=== PATIENT | male | born 1960 | race Caucasian/White ===

== ENCOUNTER → 2021-07-29 | Outpatient (CLI) | payer BC ==
--- NOTE | 2021-07-29 14:23 | CT ---
EXAMINATION TYPE: CT ChestAbdPelvis w con DATE OF EXAM: 07/29/2021 COMPARISON: None available HISTORY: COLON CA CT DLP: 2157 mGycm Automated exposure control for dose reduction was used. CONTRAST: CT scan of the chest, abdomen and pelvis is performed with Oral Contrast and with IV Contrast, patien t injected with 100ML mL of Isovue 300. FINDINGS: LUNGS: Minimal COPD changes seen in the upper lobes more on the right side. Scattered linear peripher al pulmonary atelectasis. No definite lung nodule or suspicious lesion identified. Patent trachea and main bronchi. No pleural effusion MEDIASTINUM: Subcentimeter hilar, mediastinal and axillary lymph nodes, nonspecific. There are no gre ater than 1 cm hilar or mediastinal lymph nodes. No cardiomegaly. Coronary and arterial atherosclerot ic calcifications. The pulmonary trunk measures 3.5 cm which may suggest pulmonary hypertension. No pericardial effusion is seen. OTHER: Prominent inferior aspect of the left thyroid gland, please correlate clinically and with thy roid ultrasound results. Minimal gynecomastia changes. No aggressive bone lesion. LIVER/GB: No definite hepatic focal lesion. The gallbladder isn't completely distended. PANCREAS: No significant abnormality is seen. SPLEEN: No significant abnormality is seen. ADRENALS: No significant abnormality is seen. KIDNEYS: Atrophic superior half/moiety of the right kidney likely secondary to severe stenosis of the right superior renal artery. Accessory right inferior renal artery. Cortical defects of the posterio r aspect of the lower moiety of the right kidney and the left kidney, possibly representing sequela o f previous infarcts. Simple cyst is seen at the upper pole of the left kidney without suspicious feat ure. BOWEL: Unremarkable stomach, duodenum and small bowel. Diffuse wall thickening of the rectosigmoid j unction and the superior aspect of the rectum likely representing the known colon cancer. Surrounding fat stranding, vascular congestion and subcentimeter locoregional lymph nodes extending superiorly a long the inferior mesenteric vessels, possibly metastatic. Uncomplicated colonic diverticulosis with moderate fecal loading of the colon. No other gross colonic mass identified. REPRODUCTIVE ORGANS: Prostatic concretion. Unremarkable seminal vesicles. The urinary bladder is not completely distended with slightly thickened wall. LYMPH NODES: No greater than 1 cm abdominal or pelvic lymph nodes are appreciated. OSSEOUS STRUCTURES: Degenerative changes at L5-S1 level. No aggressive bone lesion. OTHER: Left fat-containing inguinal hernia with smaller right-sided inguinal hernia. Left scrotal hyd rocele. Arterial atherosclerotic calcifications. Stenosis of the origin of the celiac trunk yet paten t distally. No sizable ascites. IMPRESSION: 1. Circumferential wall thickening of the superior aspect of the rectum as well as the rectosigmoid j unction likely representing the known colonic cancer. 2. Prominent inferior mesenteric and mesorectal subcentimeter lymph nodes, possibly metastatic. No pa thologically enlarged abdominal or pelvic lymph nodes. 3. Otherwise no evidence of metastatic disease seen in the chest, abdomen or the pelvis. Multiple inc idental findings as detailed above.
== END | disposition home or self-care (01) ==
LOC: RADMRIMAIN 10:54
PROVIDERS: ATTEND Surgery
DX: C18.9 Malignant neoplasm of colon, unspecified (principal)
CPT/HCPCS: 71260; 74177; Q9967

== ENCOUNTER → 2021-09-20 | Outpatient (CLI) | payer BC ==
--- NOTE | 2021-09-25 05:35 | PE ---
EXAMINATION TYPE: PET CT fusion skull to thigh DATE OF EXAM: 09/23/2021 COMPARISON: Whole body CT July 29, 2021 HISTORY: Rectal cancer on recent biopsy June 11, 2021. TECHNIQUE: Following the intravenous administration of 12.99 mCi of F-18 FDG, whole body images are performed from the skull base to the midthigh. Images are reviewed on the computer in the coronal, a xial, and sagittal planes. Reconstructed rotating images are created on independent workstation and reviewed on the computer. A localization and attenuation correction CT is performed in conjunction with the PET scan. Blood glucose level equals 98. SCAN: Initial Scan FINDINGS: SKULL BASE AND NECK: No areas of abnormal hypermetabolic uptake. CHEST, MEDIASTINUM, AND HILAR REGION: No areas of abnormal hypermetabolic uptake. ABDOMEN AND PELVIS: Moderate concentric wall thickening in the sigmoid rectal colon with abnormal hyp ermetabolic uptake axial images 228 through 251, max SUV difficult to accurately measure due to adjac ent uptake in the bladder, it is 18.66 on axial image 239. Normal excretion. No definitive additional areas of abnormal hypermetabolic uptake. No pelvic chain a denopathy identified. OSSEOUS STRUCTURES: No abnormal hypermetabolic uptake. OTHER CT: Cardiomegaly with moderate to severe three-vessel coronary artery calcification. Right subc lavian Mediport catheter terminates in SVC. Prominent pulmonary arteries suggesting underlying pulmon faizan artery hypertension. Subareolar flame-shaped gynecomastia seen bilaterally. Calcification at the level of the aortic valve. Cortical thinning of volume loss upper pole right kidney. Moderate to severe calcified plaque of the aorta extends into branch vessels. Small fat-containing left inguinal hernia. Small left scrotal flui d collection or hydrocele. IMPRESSION: Fairly long segment neoplasm in the sigmoid rectal colon is felt present. No additional a reas of abnormal hypermetabolic uptake to suggest metastatic disease.
== END | disposition home or self-care (01) ==
LOC: RADPETMAIN 14:52
PROVIDERS: ATTEND Internal Medicine Hematology & Oncology
DX: C20 Malignant neoplasm of rectum (principal)
CPT/HCPCS: 78815; A9552

== ENCOUNTER → 2021-11-07 | Outpatient (CLI) | payer BC ==
--- NOTE | 2021-11-07 21:37 | CT ---
EXAMINATION TYPE: CT ChestAbdPelvis w con DATE OF EXAM: 11/07/2021 INDICATION: f/u rectal ca COMPARISON: 09/20/2021 PET/CT, 07/29/[address] DLP: 2490.3 mGycm CONTRAST: Performed with Oral Contrast and with IV Contrast, patient injected with 65cc mL of Isovue 300. TECHNIQUE: Axial images at 5 mm thick sections. Reconstructed images in the coronal plane. Delayed images through the kidneys. FINDINGS: CT CHEST: Portion of the thyroid visualized is normal. No suspicious lung nodules or focal infiltrates are present. No enlarged mediastinal or hilar adenopathy is evident. There is a 1.2 cm lymph node in the left axil nirmala region. Additional small lymph nodes are present within the left axilla small pretracheal lymph nodes are present. The ascending aorta diameter at the level of the main pulmonary artery is 3.4 cm. The main pulmonary artery diameter at the bifurcation is 3.1 cm. Coronary artery calcification is present CT ABDOMEN: Liver: Normal Spleen: Normal Pancreas: Normal Adrenal glands: The adrenal glands are normal. Gallbladder: Normal Kidneys: Right kidney appears somewhat atrophic superior pole. No masses are evident. No hydronephros is is present. No cysts are present. Delayed images were obtained through the kidneys, which remai n unremarkable. Aorta: Vascular calcification is within the aorta. Inferior vena cava: Normal. CT PELVIS: Loops of bowel within the abdomen and pelvis are normal. Fecal debris is within the colon. Patient's rectosigmoid colon cancer is not clearly evident on the current exam, previous wall thickening is not as evident. There are loops of bowel which are incompletely distended or lack oral contrast limiti ng their evaluation. Appendix: Normal as visualized. Urinary bladder: Normal. Genitourinary structures: Prostate is normal Osseous structures: No suspicious lytic or sclerotic lesions. IMPRESSIONS: 1. There is been diminished wall thickening through the rectosigmoid colon. Previous rectosigmoid can cer is not as well-visualized on the current examination. 2. Left axillary lymph node
== END | disposition home or self-care (01) ==
LOC: RADCTMAIN 13:19
PROVIDERS: ATTEND Internal Medicine Hematology & Oncology
DX: C20 Malignant neoplasm of rectum (principal); K63.89 Other specified diseases of intestine; R59.0 Localized enlarged lymph nodes
CPT/HCPCS: 82565; 84520; 71260; 74177; 36415; Q9967

== ENCOUNTER 2022-04-17 15:31 | Emergency (ER) | payer BC ==
[2022-04-17 17:10] LABS: Basophils % (A) 1 %; Eosinophils # (A) 0.5 k/uL (0-0.7); Eosinophils % (A) 8 %; HCT 34.8 % (39.0-53.0); HGB 12.5 gm/dL (13.0-17.5); Lymphocytes # (A) 0.9 k/uL (1.0-4.8); Lymphocytes % (A) 16 %; MCH 32.5 pg (25.0-35.0); MCHC 35.9 g/dL (31.0-37.0); MCV 90.6 fL (80.0-100.0); Mean Platelet Volume 7.5; Monocytes # (A) 0.5 k/uL (0-1.0); Monocytes % (A) 9 %; Neutrophils # (A) 3.6 k/uL (1.3-7.7); Neutrophils % (A) 64 %; Platelet Count 217 k/uL (150-450); RBC 3.84 m/uL (4.30-5.90); RDW 14.2 % (11.5-15.5); WBC 5.7 k/uL (3.8-10.6)
[2022-04-17 17:34] LABS: Albumin 4.3 g/dL (3.5-5.0); Calcium 9.1 mg/dL (8.4-10.2); Total Bilirubin 0.8 mg/dL (0.2-1.3); Total Protein 7.1 g/dL (6.3-8.2)
[2022-04-17] MEDS ORDERED: SODIUM CHLORIDE 0.9% 1,000 ML IV ONE (19:14)
--- NOTE | 2022-04-17 19:14 | ED ---
General Adult HPI - General Chief complaint: Recheck/Abnormal Lab/Rx Stated complaint: Irregular labs Time Seen by Provider: 04/17/22 19:00 Source: patient Mode of arrival: ambulatory Limitations: no limitations - History of Present Illness Initial comments: 61-year-old male with past history of rectal cancer presents emergency department for elevated potassium. He saw his surgeon and he will them last week where he had laboratory studies conducted. His potassium was found to be 5.6 however that lab did not come through until today. In the meantime the patient did have an appointment with his primary care doctor on Thursday. She found his potassium to be 5.2. She put him on hydrochlorothiazide and took him off of lisinopril. Patient states he has made these medication adjustments for the past several days. He denies any symptoms. No chest pain or shortness of breath. Denies weakness. He is scheduled to have surgery on his rectum on next Thursday. Patient denies taking potassium supplementation. No other alleviating, precipitating or modifying factors - Related Data Home Medications Medication Instructions Recorded Confirmed Atorvastatin Calcium [Lipitor] 40 mg PO HS 04/17/22 04/17/22 Clopidogrel [Plavix] 75 mg PO DAILY 04/17/22 04/17/22 Isosorbide Mononitrate ER [Imdur] 60 mg PO DAILY 04/17/22 04/17/22 Metoprolol Succinate [Toprol XL] 100 mg PO DAILY 04/17/22 04/17/22 amLODIPine [Norvasc] 10 mg PO DAILY 04/17/22 04/17/22 hydroCHLOROthiazide [Hydrodiuril] 12.5 mg PO DAILY 04/17/22 04/17/22 Allergies Allergy/AdvReac Type Severity Reaction Status Date / Time No Known Allergies Allergy Verified 04/17/22 15:45 Review of Systems ROS Statement: Those systems with pertinent positive or pertinent negative responses have been documented in the HPI. ROS Other: All systems not noted in ROS Statement are negative. Past Medical History Past Medical History: Cancer, Hypertension History of Any Multi-Drug Resistant Organisms: None Reported Past Surgical History: No Surgical Hx Reported Past Psychological History: No Psychological Hx Reported Smoking Status: Never smoker Past Alcohol Use History: None Reported Past Drug Use History: None Reported General Exam Limitations: no limitations General appearance: alert, in no apparent distress Head exam: Present: atraumatic, normocephalic, normal inspection Eye exam: Present: normal appearance, PERRL, EOMI. Absent: scleral icterus, conjunctival injection, periorbital swelling ENT exam: Present: normal exam, mucous membranes moist Neck exam: Present: normal inspection. Absent: tenderness, meningismus, lymphadenopathy Respiratory exam: Present: normal lung sounds bilaterally. Absent: respiratory distress, wheezes, rales, rhonchi, stridor Cardiovascular Exam: Present: regular rate, normal rhythm, normal heart sounds. Absent: systolic murmur, diastolic murmur, rubs, gallop, clicks GI/Abdominal exam: Present: soft, normal bowel sounds. Absent: distended, tenderness, guarding, rebound, rigid Extremities exam: Present: normal inspection, full ROM, normal capillary refill. Absent: tenderness, pedal edema, joint swelling, calf tenderness Back exam: Present: normal inspection Neurological exam: Present: alert, oriented X3, CN II-XII intact Psychiatric exam: Present: normal affect, normal mood Skin exam: Present: warm, dry, intact, normal color. Absent: rash Course Vital Signs 04/17/22 04/17/22 04/17/22 15:42 16:50 18:29 Temperature 97.6 F 97.9 F Pulse Rate 64 58 L 60 Respiratory 16 16 16 Rate Blood Pressure 139/66 120/65 120/62 O2 Sat by Pulse 99 97 98 Oximetry 04/17/22 20:06 Temperature 98.2 F Pulse Rate 56 L Respiratory 18 Rate Blood Pressure 135/71 O2 Sat by Pulse 97 Oximetry EKG Findings - EKG Comments: EKG Findings:: EKG demonstrates sinus rhythm with a rate of 65. MA interval 172 . QRS 116. QTC of 409. No acute ST segment elevations or depressions. Medical Decision Making - Medical Decision Making Was pt. sent in by a medical professional or institution? PCP for elevated labs Did you speak to anyone other than the patient for history? No Did you review nursing and triage notes? yes and I agree Were old charts reviewed? previous lab draws reviewed for which the patient brought in paperwork Differential Diagnosis? hyperkalemia, hypokalemia, medication side effect, lab error, kidney failure EKG interpreted by me (3pts min.)? yes X-rays interpreted by me (1pt min.)? no CT interpreted by me (1pt min.)? no U/S interpreted by me (1pt. min.)? no What testing was considered but not performed? (CT, X-rays, U/S, labs)? Why? none What meds were considered but not given? Why? lasix, insulin - patient refused Did you discuss the management of the patient with other professionals? none Did you reconcile home meds? went over medication list and told patient which medications to continue and discontinue Was smoking cessation discussed for >3mins.? no Was critical care preformed (if so, how long)? none Were there social determinants of health that impacted care today? How? (Homelessness, low income, unemployed, alcoholism, drug addiction, transportati on, low edu. Level, literacy, decrease access to med. care, alf, rehab)? no Was there de-escalation of care discussed even if they declined? (Discuss DNR or withdrawal of care, Hospice)? no What co-morbidities impacted this encounter? (DM, HTN, Smoking, COPD, CAD, Cancer, CVA, Hep., AIDS, mental health diagnosis, sleep apnea, morbid obesity)? rectal cancer Was patient admitted / discharged? @Upon arrival patient was placed into room 9. A thorough history and physical exam was performed. Laboratory studies were obtained. Potassium today is 5. Did discuss providing the patient with a liter bolus normal saline to further reduce his potassium level. Patient does have good improvement in his potassium levels with the changes that were made by his primary care physician. Patient will continue to follow medication changes. I did give him a prescription labs drawn in the outpatient lab. Results will be sent to his primary care doctor. Patient is to call their office to follow up with results. If he has any new or worsening symptoms he should return to emergency room if. Patient agreeable to treatment plan he was discharged home in stable condition Undiagnosed new problem with uncertain prognosis? yes Drug Therapy requiring intensive monitoring for toxicity (Heparin, Nitro, Insulin, Cardizem)? no Were any procedures done? none Diagnosis/symptom? normal exam, hx of hyperkalemia Acute, or Chronic, or Acute on Chronic? acute Uncomplicated (without systemic symptoms) or Complicated (systemic symptoms)? uncomplicated Side effects of treatment? low potassium Exacerbation, Progression, or Severe Exacerbation] no Poses a threat to life or bodily function? no - Lab Data Result diagrams: 04/17/22 16:30 04/17/22 16:30 Lab Results 04/17/22 04/17/22 Range/Units 16:30 16:30 WBC 5.7 (3.8-10.6) k/uL RBC 3.84 L (4.30-5.90) m/uL Hgb 12.5 L (13.0-17.5) gm/dL Hct 34.8 L (39.0-53.0) % MCV 90.6 (80.0-100.0) fL MCH 32.5 (25.0-35.0) pg MCHC 35.9 (31.0-37.0) g/dL RDW 14.2 (11.5-15.5) % Plt Count 217 (150-450) k/uL MPV 7.5 Neutrophils % 64 % Lymphocytes % 16 % Monocytes % 9 % Eosinophils % 8 % Basophils % 1 % Neutrophils # 3.6 (1.3-7.7) k/uL Lymphocytes # 0.9 L (1.0-4.8) k/uL Monocytes # 0.5 (0-1.0) k/uL Eosinophils # 0.5 (0-0.7) k/uL Basophils # 0.0 (0-0.2) k/uL Sodium 142 (137-145) mmol/L Potassium 5.0 (3.5-5.1) mmol/L Chloride 116 H (98-107) mmol/L Carbon Dioxide 18 L (22-30) mmol/L Anion Gap 8 mmol/L BUN 67 H (9-20) mg/dL Creatinine 2.07 H (0.66-1.25) mg/dL Est GFR (CKD-EPI)AfAm 39 (>60 ml/min/1.73 sqM) Est GFR (CKD-EPI)NonAf 34 (>60 ml/min/1.73 sqM) Glucose 86 (74-99) mg/dL Calcium 9.1 (8.4-10.2) mg/dL Total Bilirubin 0.8 (0.2-1.3) mg/dL AST 22 (17-59) U/L ALT 21 (4-49) U/L Alkaline Phosphatase 68 (38-126) U/L Total Protein 7.1 (6.3-8.2) g/dL Albumin 4.3 (3.5-5.0) g/dL Disposition Clinical Impression: Hyperkalemia Disposition: HOME SELF-CARE Condition: Stable Instructions (If sedation given, give patient instructions): Hyperkalemia (ED) Additional Instructions: Continue taking the medications prescribed by your primary care doctor as directed. Continue to hold off of the lisinopril. Have your labs redrawn tomorrow and the results will be sent to your doctor's office Is patient prescribed a controlled substance at d/c from ED?: No Referrals: Erick Blake MD [Primary Care Provider] - 1-2 days Time of Disposition: 19:26
[2022-04-17 20:07] VITALS: BP 135/71; PULSE 56; RESP 18; TEMP 98.2
== END 2022-04-17 20:07 | disposition home or self-care (01) ==
LOC: EC 15:31
DX: E87.5 Hyperkalemia (principal); I10 Essential (primary) hypertension; Z79.899 Other long term (current) drug therapy
CPT/HCPCS: 36415; 80053; 85025; 93005; 96360; 99285

== ENCOUNTER → 2022-10-17 | Outpatient (CLI) | payer BC ==
[2022-10-17 10:02] LABS: African American GFR (CKD) 77 (>60 ml/min/1.73 sqM); Blood Urea Nitrogen 26 mg/dL (9-20); Non-African American GFR(CKD) 67 (>60 ml/min/1.73 sqM)
--- NOTE | 2022-10-17 13:39 | CT ---
EXAMINATION TYPE: CT ChestAbdPelvis w con DATE OF EXAM: 10/17/2022 INDICATION: f/u colon CA, hx of ostomy COMPARISON: 11/07/2021 CT DLP: 2409.70 mGycm CONTRAST: Performed with Oral Contrast and with IV Contrast, patient injected with 100 mL of Isovue 300. TECHNIQUE: Axial images at 5 mm thick sections. Reconstructed images in the coronal plane. Delayed images through the kidneys. FINDINGS: CT CHEST: Portion of the thyroid visualized is normal. There is an infiltrate anterior to the major fissure on the left extending from the upper lung field to nearly the base. Correlate for pneumonia. Other etiologies including neoplasm could be considered. Follow-up is recommended. Infectious etiology is favored. This is an interval change. No enlarged mediastinal or hilar adenopathy is evident. The ascending aorta diameter at the level of the main pulmonary artery is 3.8 cm. The main pulmonary artery diameter at the bifurcation is 3.2 cm. Coronary artery calcification is present. CT ABDOMEN: Liver: There is moderate fatty infiltration to the liver. No discrete masses or cysts. Spleen: Normal Pancreas: Normal Adrenal glands: The adrenal glands are normal. Gallbladder: Normal Kidneys: Superior pole right kidney is atrophic. The inferior pole however has more normal appearance . Left kidney appears unremarkable. No discrete masses are identified.. No hydronephrosis is present. No cysts are present. Delayed images were obtained through the kidneys, which remain unremarkable . Aorta: Vascular calcification is within the aorta. Inferior vena cava: Normal. CT PELVIS: There is an ostomy in the right lower quadrant. Some loops of bowel containing oral contra st. The herniated into the ostomy and subcutaneous region. Rectal stump suture appears normal. There is thickening through the presacral space. Some subtle hypodensity may be present measuring 3.2 x 1.9 cm. Example image series 4 image 118. Loops of bowel within the abdomen and pelvis are normal. There are loops of bowel which are incom pletely distended or lack oral contrast limiting their evaluation. Appendix: Not identified. No dilated tubular structure or inflammatory change evident Urinary bladder: Normal. Genitourinary structures: Prostate appears normal. Calcification is present. Osseous structures: No suspicious lytic or sclerotic lesions. Lymphadenopathy: No suspicious inguinal, iliac chain, or obturator canal adenopathy is evident. No pe rirectal lymphadenopathy is identified. Periaortic and retrocaval adenopathy is not evident. IMPRESSIONS: 1. Presacral soft tissue post surgery. There is some subtle hypodensity anterolaterally. Seroma and a bscess could be considered. Follow-up is recommended. 2. No suspicious changes to suggest metastatic disease otherwise evident. 3. Atrophy of the superior pole right kidney, present previously.
== END | disposition home or self-care (01) ==
LOC: RADCTMAIN 09:12
PROVIDERS: ATTEND Internal Medicine Hematology & Oncology
DX: C20 Malignant neoplasm of rectum (principal); D50.9 Iron deficiency anemia, unspecified; I10 Essential (primary) hypertension; E78.5 Hyperlipidemia, unspecified; N26.1 Atrophy of kidney (terminal)
CPT/HCPCS: 82565; 84520; 71260; 74177; 36415; Q9967

== ENCOUNTER → 2023-01-16 | Outpatient (CLI) | payer BC ==
[2023-01-16 10:30] LABS: African American GFR (CKD) 76 (>60 ml/min/1.73 sqM); Blood Urea Nitrogen 30 mg/dL (9-20); Non-African American GFR(CKD) 66 (>60 ml/min/1.73 sqM)
--- NOTE | 2023-01-16 12:05 | CT ---
EXAMINATION TYPE: CT ChestAbdPelvis w con DATE OF EXAM: 01/16/2023 COMPARISON: 10/17/2022 and 11/07/2021 HISTORY: 62-year-old male C20, h/o colon CA, f/u neoplasm of rectum TECHNIQUE: Contiguous axial scanning of the chest, abdomen, and pelvis performed with IV Contrast, pa tient injected with 100 mL of Isovue 300. Delayed images through the kidneys were obtained. Coronal/s agittal reconstructions performed. CT DLP: 2371.4 mGycm Automated exposure control for dose reduction was used. FINDINGS: CHEST: The heart is borderline in sizer. There is a small anterior pericardial effusion measuring 6 mm thick , increased from prior. Extensive three-vessel coronary artery calcifications are present and are a m arker for coronary artery disease. Moderate to severe aortic valvular calcifications. Mild atherosclerotic arch calcifications. Possible severe atherosclerotic narrowing at the origin of the left common carotid artery and left subclavian artery. Right anterior chest wall injection port. Catheter tip at the upper SVC. Unchanged cutaneous/subcutaneous nodule posterior left shoulder measuring 1.6 cm, likely sebaceous cy st. No thoracic lymphadenopathy by CT size criteria. There is some residual strandy scar posterior left upper lobe with improvement in the previous airspa ce disease seen on 10/17/2022. Minimal emphysematous change. No consolidation or pleural effusion. ABDOMEN: The liver is borderline enlarged at 17.7 cm. Low attenuation of the hepatic parenchyma suggesting fat ty infiltration. Portal venous system is patent. No biliary ductal dilatation. Gallbladder, adrenal glands, spleen, and pancreas within normal limits. There is atrophy of the upper right kidney probably due to renal artery stenosis. We do note a stent in the right renal artery. There appears to be necessary right renal artery more inferiorly to the lo wer aspect. Moderate atherosclerotic calcifications throughout the abdominal aorta and iliac arteries. Suspect at least moderate stenoses at the origin of the celiac axis and SMA. No dilated small bowel, free fluid, or free air. No mesenteric or retroperitoneal adenopathy. Post midline laparotomy scar. Additional soft tissue thickening right lower artery anterior abdominal wall likely scar tissue from prior decorating ileostomy. Given the degree of thickening measuring up to 3.7 x 1.7 cm, short interv al follow-up and clinical assessment to exclude any enlarging palpable area. Oral contrast progressed into the ascending colon. There is moderate stool burden. Sigmoid diverticulosis. Staple line at the distal rectum from prior resection and reanastomosis. PELVIS: Presacral soft tissue thickening and fluid measuring up to 2.1 cm thick remains unchanged. The overall degree of bladder wall and cecal wall thickening appears improved just adjacent. No pelvi c lymphadenopathy seen. BONES: Hypertrophic facet arthropathy lower lumbar spine. Scattered mild degenerative disc disease throughou t. Anterior endplate spondylosis lower thoracic spine. IMPRESSION: 1. INTERVAL RIGHT LOWER QUADRANT ILEOSTOMY REVERSAL. THERE IS 3.7 X 1.7 CM NODULAR SOFT TISSUE THICKE CARLYN AT THE PREVIOUS OSTOMY SITE PROBABLY REPRESENTING SCAR TISSUE. RECOMMEND CLINICAL FOLLOW-UP TO E XCLUDE ANY ENLARGING PALPABLE ABNORMALITY AND REASSESSMENT ON CT TO EXCLUDE A WORRISOME SOFT TISSUE D EPOSIT. AGAIN, SCAR TISSUE IS FAVORED. 2. STAPLE LINE RELATING TO DISTAL RECTAL RESECTION AND RE-ANASTOMOSIS. THE PRESACRAL SOFT TISSUE THIC KENING AND FLUID HERE APPEARS SIMILAR. 3. OTHERWISE, NO EVIDENCE FOR RECURRENT OR METASTATIC DISEASE. 4. PROMINENT ATHEROSCLEROTIC CHANGES. POSSIBLE SEVERE STENOSES AT THE ORIGIN OF THE LEFT COMMON AND L EFT SUBCLAVIAN ARTERIES. SUSPECT RIGHT RENAL ARTERY STENOSIS DESPITE INDWELLING STENT. THE LOWER POLE OF THE RIGHT KIDNEY IS MAINTAINED LIKELY DUE TO THE PRESENCE OF A PATENT ACCESSORY BRANCH. EXTENSIVE CORONARY ARTERY CALCIFICATIONS. MODERATE TO SEVERE AORTIC VALVULAR CALCIFICATIONS.
== END | disposition home or self-care (01) ==
LOC: RADCTMAIN 09:27
PROVIDERS: ATTEND Internal Medicine Hematology & Oncology
DX: C20 Malignant neoplasm of rectum (principal); D50.9 Iron deficiency anemia, unspecified; I10 Essential (primary) hypertension; E78.5 Hyperlipidemia, unspecified; Z71.3 Dietary counseling and surveillance; I70.8 Atherosclerosis of other arteries
CPT/HCPCS: 82565; 84520; 71260; 74177; 36415; Q9967

== ENCOUNTER 2023-03-14 01:27 | Inpatient (IN) | payer BC ==
--- NOTE | 2023-03-14 01:50 | ED ---
General Adult HPI - General Chief complaint: Chest Pain Stated complaint: STEMI Time Seen by Provider: 03/14/23 01:39 Source: patient, EMS Mode of arrival: EMS Limitations: no limitations - History of Present Illness Initial comments: Dictation was produced using [employer] dictation software. please excuse any grammatical, word or spelling errors. Chief Complaint: 62-year-old male presents emergency department with chest pain History of Present Illness: Patient is 62-year-old male with past medical history myocardial infarctions presents emergency Department with several hours of chest pain he was in bed when all of a sudden he started to feel right-sided anterior chest pain. Patient states it is like a pressure nonradiating but was associated with nausea and diaphoresis. Patient's history of MT in 2009 has 2 stents. Patient states that when EMS got there his pain had resolved. He however feels like he can't catch his breath. Denies any fever or constitutional symptoms. He was given aspirin. He was not given any nit roglycerin. The ROS documented in this emergency department record has been reviewed and confirmed by me. Those systems with pertinent positive or negative responses have been documented in the HPI. All other systems are other negative and/or noncontributory. - Related Data Home Medications Medication Instructions Recorded Confirmed Atorvastatin Calcium [Lipitor] 40 mg PO HS 04/17/22 04/17/22 Clopidogrel [Plavix] 75 mg PO DAILY 04/17/22 04/17/22 Isosorbide Mononitrate ER [Imdur] 60 mg PO DAILY 04/17/22 04/17/22 Metoprolol Succinate [Toprol XL] 100 mg PO DAILY 04/17/22 04/17/22 amLODIPine [Norvasc] 10 mg PO DAILY 04/17/22 04/17/22 hydroCHLOROthiazide [Hydrodiuril] 12.5 mg PO DAILY 04/17/22 04/17/22 Allergies Allergy/AdvReac Type Severity Reaction Status Date / Time No Known Allergies Allergy Verified 04/17/22 15:45 Review of Systems ROS Statement: Those systems with pertinent positive or pertinent negative responses have been documented in the HPI. ROS Other: All systems not noted in ROS Statement are negative. Past Medical History Past Medical History: Cancer, Hypertension History of Any Multi-Drug Resistant Organisms: None Reported Past Surgical History: No Surgical Hx Reported Past Psychological History: No Psychological Hx Reported Smoking Status: Never smoker Past Alcohol Use History: None Reported Past Drug Use History: None Reported General Exam - General Exam Comments Initial Comments: PHYSICAL EXAM: General Impression: Alert and oriented x3, not in acute distress HEENT: Normocephalic atraumatic, extra-ocular movements intact, pupils equal and reactive to light bilaterally, mucous membranes moist. Cardiovascular: Heart regular rate and rhythm Chest: Able to complete full sentences, no retractions, no tachypnea Abdomen: abdomen soft, non-tender, non-distended, no organomegaly Musculoskeletal: Pulses present and equal in all extremities, no peripheral edema Motor: no focal deficits noted Neurological: CN II-XII grossly intact, no focal motor or sensory deficits noted Skin: Intact with no visualized rashes Psych: Normal affect and mood Limitations: no limitations Course Vital Signs 03/14/23 03/14/23 03/14/23 01:28 01:32 01:37 Temperature 97.7 F Pulse Rate 100 99 Respiratory 20 18 Rate Blood Pressure 133/81 137/74 O2 Sat by Pulse 97 98 98 Oximetry 03/14/23 03/14/23 03/14/23 02:03 02:15 02:23 Temperature Pulse Rate 85 80 Respiratory 18 18 Rate Blood Pressure 115/69 115/67 O2 Sat by Pulse 92 L 91 L 93 L Oximetry 03/14/23 03/14/23 03/14/23 02:45 03:00 04:00 Temperature Pulse Rate 87 80 79 Respiratory 18 18 18 Rate Blood Pressure 120/71 115/69 110/74 O2 Sat by Pulse 93 L 93 L 93 L Oximetry 03/14/23 05:12 Temperature Pulse Rate 77 Respiratory 18 Rate Blood Pressure 125/75 O2 Sat by Pulse 93 L Oximetry EKG Findings - EKG Comments: EKG Findings:: My EKG interpretation: Ventricular rate 100, sinus tachycardia,. 181, QRS 126, QTC 399, left bundle branch block. No GA prolongation, no QTC prolongation, no ST or T-wave changes noted. EKG compared to 04/17/2022 showing no changes. Overall, this EKG is unremarkable. Repeat EKG performed 143 shows no dynamic changes. Medical Decision Making - Medical Decision Making Was pt. sent in by a medical professional or institution (, PA, GAS STATION OPERATOR, urgent care, hospital, or halfway...) When possible be specific @ -No Did you speak to anyone other than the patient for history (EMS, parent, family, police, friend...)? What history was obtained from this source @ -EMS as described above Did you review nursing and triage notes (agree or disagree)? Why? @ -I reviewed and agree with nursing and triage notes Were old charts reviewed (outside hosp., previous admission, EMS record, old EKG, old radiological studies, urgent care reports/EKG's, halfway records)? Report findings @ -No old charts were reviewed Differential Diagnosis (chest pain, altered mental status, abdominal pain women, abdominal pain men, vaginal bleeding, musculoskeletal, weakness, fever, dyspnea, syncope, headache, dizziness, GI bleed, back pain, seizure, CVA, palpatations, mental health)? @ -Differential Chest Pain: Stable Angina, Unstable Angina, STEMI, NSTEMI Aortic Dissection, Pneumothorax, Musculoskeletal, Esophageal Spasm GERD, Cholecystitis, Pancreatitis, Zoster, this is not meant to be an all-inclusive list. EKG interpreted by me (3pts min.). @ -See above X-rays interpreted by me (1pt min.). @ -Chest x-ray shows no acute processes CT interpreted by me (1pt min.). @ -CT angiography of the chest shows no saddle emboli U/S interpreted by me (1pt. min.). @ -None done What testing was considered but not performed or refused? (CT, X-rays, U/S, labs)? Why? @ -None What meds were considered but not given or refused? Why? @ -None Did you discuss the management of the patient with other professionals ( professionals i.e. , PA, GAS STATION OPERATOR, lab, RT, psych nurse, social worker school, assistant to the vice president, teacher, commissioned police officer, supervisor case loading)? Give summary @ -Case discussed with hospitalist for admission Was smoking cessation discussed for >3mins.? @ -No Was critical care preformed (if so, how long)? @ -yes, 33 minutes Were there social determinants of health that impacted care today? How? (Homelessness, low income, unemployed, alcoholism, drug addiction, transportation, low edu. Level, literacy, decrease access to med. care, care home, rehab)? @ -No Was there de-escalation of care discussed even if they declined (Discuss DNR or withdrawal of care, Hospice)? DNR status @ -No What co-morbidities impacted this encounter? (DM, HTN, Smoking, COPD, CAD, Cancer, CVA, ARF, Chemo, Hep., AIDS, mental health diagnosis, sleep apnea, morbid obesity)? @ -None Was patient admitted / discharged? Hospital course, mention meds given and route, prescriptions, significant lab abnormalities, going to OR and other pertinent info. @ -62-year-old male presents emergency department for chest pain. His history of MT. Symptoms are concerning for acute coronary syndrome. He does however have some features suspicious for pulmonary embolism. Laboratory evaluation obtained. CBC unremarkable. Coag panel is negative. D-dimer 0.91. Metabolic panel shows elevated renal markers around his baseline. Troponin is 0.088. Patient had an episode of pressure to his epigastrium during the CT. He states that was triggered by movement. EKG performed at that time did not show any dynamic changes. Patient started on heparin. Received aspirin by prehospital providers. Patient continues to remain asymptomatic upon reevaluation at the bedside. Patient will be admitted to 3 S. Undiagnosed new problem with uncertain prognosis? @ -No Drug Therapy requiring intensive monitoring for toxicity (Heparin, Nitro, Insulin, Cardizem)? @ -No Were any procedures done? @ -No Diagnosis/symptom? Acute, or Chronic, or Acute on Chronic? Uncomplicated (without systemic symptoms) or Complicated (systemic symptoms)? @ -NSTEMI Side effects of treatment? @ -No Exacerbation, Progression, or Severe Exacerbation? @ -No Poses a threat to life or bodily function? How? (Chest pain, USA, MT, pneumonia, PE, COPD, DKA, ARF, appy, cholecystitis, CVA, Diverticulitis, Homicidal, Suicidal, threat to staff... and all critical care pts) @ -yes - Lab Data Result diagrams: 03/14/23 01:37 03/14/23 01:37 Lab Results 03/14/23 03/14/23 03/14/23 Range/Units 01:37 01:37 01:37 WBC 6.9 (3.8-10.6) k/uL RBC 4.72 (4.30-5.90) m/uL Hgb 11.7 L (13.0-17.5) gm/dL Hct 36.3 L (39.0-53.0) % MCV 76.8 L (80.0-100.0) fL MCH 24.8 L (25.0-35.0) pg MCHC 32.3 (31.0-37.0) g/dL RDW 18.6 H (11.5-15.5) % Plt Count 206 (150-450) k/uL MPV 7.7 Neutrophils % 77 % Lymphocytes % 8 % Monocytes % 8 % Eosinophils % 5 % Basophils % 1 % Neutrophils # 5.3 (1.3-7.7) k/uL Lymphocytes # 0.6 L (1.0-4.8) k/uL Monocytes # 0.5 (0-1.0) k/uL Eosinophils # 0.3 (0-0.7) k/uL Basophils # 0.0 (0-0.2) k/uL Hypochromasia Moderate Anisocytosis Slight Microcytosis Slight PT (10.0-12.5) sec INR (<1.2) APTT (22.0-30.0) sec D-Dimer (<0.60) mg/L FEU Sodium 139 (137-145) mmol/L Potassium 4.3 (3.5-5.1) mmol/L Chloride 105 (98-107) mmol/L Carbon Dioxide 20 L (22-30) mmol/L Anion Gap 14 mmol/L BUN 31 H (9-20) mg/dL Creatinine 1.60 H (0.66-1.25) mg/dL Est GFR (CKD-EPI)AfAm 54 (>60 ml/min/1.73 sqM) Est GFR (CKD-EPI)NonAf 46 (>60 ml/min/1.73 sqM) Glucose 106 H (74-99) mg/dL Calcium 9.7 (8.4-10.2) mg/dL Magnesium 2.0 (1.6-2.3) mg/dL Total Bilirubin 1.4 H (0.2-1.3) mg/dL AST 38 (17-59) U/L ALT 31 (4-49) U/L Alkaline Phosphatase 80 (38-126) U/L Troponin I 0.088 H* (0.000-0.034) ng/mL Total Protein 7.1 (6.3-8.2) g/dL Albumin 4.3 (3.5-5.0) g/dL 03/14/23 Range/Units 02:35 WBC (3.8-10.6) k/uL RBC (4.30-5.90) m/uL Hgb (13.0-17.5) gm/dL Hct (39.0-53.0) % MCV (80.0-100.0) fL MCH (25.0-35.0) pg MCHC (31.0-37.0) g/dL RDW (11.5-15.5) % Plt Count (150-450) k/uL MPV Neutrophils % % Lymphocytes % % Monocytes % % Eosinophils % % Basophils % % Neutrophils # (1.3-7.7) k/uL Lymphocytes # (1.0-4.8) k/uL Monocytes # (0-1.0) k/uL Eosinophils # (0-0.7) k/uL Basophils # (0-0.2) k/uL Hypochromasia Anisocytosis Microcytosis PT 10.8 (10.0-12.5) sec INR 1.0 (<1.2) APTT 21.3 L (22.0-30.0) sec D-Dimer 0.91 H (<0.60) mg/L FEU Sodium (137-145) mmol/L Potassium (3.5-5.1) mmol/L Chloride (98-107) mmol/L Carbon Dioxide (22-30) mmol/L Anion Gap mmol/L BUN (9-20) mg/dL Creatinine (0.66-1.25) mg/dL Est GFR (CKD-EPI)AfAm (>60 ml/min/1.73 sqM) Est GFR (CKD-EPI)NonAf (>60 ml/min/1.73 sqM) Glucose (74-99) mg/dL Calcium (8.4-10.2) mg/dL Magnesium (1.6-2.3) mg/dL Total Bilirubin (0.2-1.3) mg/dL AST (17-59) U/L ALT (4-49) U/L Alkaline Phosphatase (38-126) U/L Troponin I (0.000-0.034) ng/mL Total Protein (6.3-8.2) g/dL Albumin (3.5-5.0) g/dL Disposition Clinical Impression: NSTEMI (non-ST elevated myocardial infarction) Disposition: ADMITTED IP TO THIS HOSP Condition: Serious Decision Time: 06:15
[2023-03-14 01:52] LABS: Anisocytosis Slight; Basophils % (A) 1 %; Eosinophils # (A) 0.3 k/uL (0-0.7); Eosinophils % (A) 5 %; HCT 36.3 % (39.0-53.0); HGB 11.7 gm/dL (13.0-17.5); Hypochromasia Moderate; Lymphocytes # (A) 0.6 k/uL (1.0-4.8); Lymphocytes % (A) 8 %; MCH 24.8 pg (25.0-35.0); MCHC 32.3 g/dL (31.0-37.0); MCV 76.8 fL (80.0-100.0); Mean Platelet Volume 7.7; Microcytosis Slight; Monocytes # (A) 0.5 k/uL (0-1.0); Monocytes % (A) 8 %; Neutrophils # (A) 5.3 k/uL (1.3-7.7); Neutrophils % (A) 77 %; Platelet Count 206 k/uL (150-450); RBC 4.72 m/uL (4.30-5.90); RDW 18.6 % (11.5-15.5); WBC 6.9 k/uL (3.8-10.6)
[2023-03-14 02:05] LABS: ALT 31 U/L (4-49); AST 38 U/L (17-59); African American GFR (CKD) 54 (>60 ml/min/1.73 sqM); Albumin 4.3 g/dL (3.5-5.0); Alkaline Phosphatase 80 U/L (38-126); Anion Gap 14 mmol/L; Blood Urea Nitrogen 31 mg/dL (9-20); Calcium 9.7 mg/dL (8.4-10.2); Carbon Dioxide 20 mmol/L (22-30); Chloride 105 mmol/L (98-107); Glucose 106 mg/dL (74-99); Non-African American GFR(CKD) 46 (>60 ml/min/1.73 sqM); Potassium 4.3 mmol/L (3.5-5.1); Sodium 139 mmol/L (137-145); Total Bilirubin 1.4 mg/dL (0.2-1.3); Total Protein 7.1 g/dL (6.3-8.2)
[2023-03-14] MEDS ORDERED: HEPARIN SODIUM 1,000 UN/ML (10ML VL) IV ONE (02:25)
[2023-03-14] MEDS ORDERED: HEPARIN SODIUM 1,000 UN/ML (10ML VL) IV PRN (02:25)
[2023-03-14] MEDS ORDERED: HEPARIN SOD,PORK IN 0.45% NACL 25,000 UNIT in 0.45% NACL 1 250ML.BAG IV SCH (02:30)
[2023-03-14 03:08] LABS: Prothrombin Time 10.8 sec (10.0-12.5)
[2023-03-14 03:13] LABS: Partial Thromboplastin Time 21.3 sec (22.0-30.0)
[2023-03-14] MEDS ORDERED: SODIUM CHLORIDE 0.9% 1,000 ML IV STA (03:15)
--- NOTE | 2023-03-14 03:21 | XR ---
EXAM: XR Chest, 2 Views CLINICAL HISTORY: ITS.REASON XR Reason: Chest Pain TECHNIQUE: Frontal and lateral views of the chest. COMPARISON: No relevant prior studies available. FINDINGS: Lungs: Subsegmental streaky basilar opacities. Ill-defined central bronchovascular markings. Pleural space: Unremarkable. No pneumothorax. Heart: Unremarkable. No cardiomegaly. Mediastinum: Prominent cardiomediastinal silhouette. Bones/joints: Unremarkable. No acute fracture. Vasculature: Prominent atherosclerotic vascular calcifications. Tubes, lines and devices: Central line tip projects at the SVC. IMPRESSION: 1. Probable mild basal subsegmental atelectasis, possible unusual pneumonia or aspiration pneumonitis. 2. Central line as above. 3. Probable mild cardiomegaly.
[2023-03-14] MEDS ORDERED: NITROGLYCERIN SL TABS 0.4 MG TAB SUBLINGUAL PRN (06:11)
--- NOTE | 2023-03-14 06:40 | CT ---
EXAM: CT Angiography Chest With Intravenous Contrast CLINICAL HISTORY: ITS.REASON CT Reason: positive D-dimer TECHNIQUE: Axial computed tomographic angiography images of the chest with intravenous contrast. CTDI is 22.17 mGy and DLP is 721.5 mGy-cm. This CT exam was performed using one or more of the following dose reduction techniques: automated exposure control, adjustment of the mA and/or kV according to patient size, and/or use of iterative reconstruction technique. MIP reconstructed images were created and reviewed. COMPARISON: 01/16/2023 FINDINGS: Pulmonary arteries: Central pulmonary artery 38 mm, dilated. No proximal pulmonary embolus seen. Aorta: Ascending aorta 37 mm. No thoracic aortic aneurysm. Renal arteries: Significant atherosclerotic calcifications, probable prior right renal artery stent placement with a tiny caliber renal artery. Other arteries: Probable stenosis at the origin of the major visceral arteries as well as the left subclavian and common carotid arteries. Lungs: Bilateral dependent atelectasis. Pulmonary septal thickening.. Pleural space: Trace bilateral pleural effusions. No pneumothorax. Heart: Trace pericardial effusion. Mild left ventricular enlargement. Mild left atrial enlargement. Aortic valve and coronary artery calcifications. No evidence of RV dysfunction. Mediastinum: Mediastinal and hilar lymph nodes, AP window node measuring 13 x 21 mm, precarinal node 13 x 20 mm. Bones/joints: No acute fracture. No dislocation. Soft tissues: Unremarkable. Lymph nodes: See above. Adrenals: Mild adrenal thickening. Kidneys and ureters: Small atrophic include the upper pole of the right kidney. Retroperitoneal space: Left retroperitoneal 10 mm cystic lesion anterior to the upper pole left kidney, stable. Other findings: Mild septal thickening. IMPRESSION: 1. No proximal acute pulmonary embolus seen. 2. Probable interval development of mild pulmonary edema, basal atelectasis and trace pleural effusion. 3. Findings otherwise as above, similar to prior.
[2023-03-14] MEDS ORDERED: FUROSEMIDE 10 MG/ML 4 ML VIAL IV STA (12:20)
[2023-03-14] MEDS ORDERED: CLOPIDOGREL 75 MG TAB PO SCH (12:30)
[2023-03-14] MEDS: GABAPENTIN 100 MG CAP PO SCH ×2 (12:30→21:55)
[2023-03-14] MEDS ORDERED: ISOSORBIDE MONONITRATE ER 60 MG TAB.ER.24H PO SCH (12:30)
[2023-03-14] MEDS ORDERED: amLODIPine 10 MG TAB PO SCH (12:30)
--- NOTE | 2023-03-14 12:37 | XR ---
EXAMINATION TYPE: XR chest 1V portable DATE OF EXAM: 03/14/2023 COMPARISON: 03/14/2023 INDICATION: Respiratory failure difficulty breathing TECHNIQUE: Single frontal view of the chest is obtained. FINDINGS: The heart size is enlarged. The pulmonary vasculature is prominent. There is developing right lower lobe infiltrate. Correlate for atelectasis, pneumonia, pulmonary jb a. IMPRESSION: 1. Clinical correlation recommended for congestive heart failure. 2. Right lower lobe increasing infiltrate. Frontal diagnosis includes Atypical pulmonary edema, pneum onia, atelectasis.
--- NOTE | 2023-03-14 13:31 | P.HPIM ---
History of Present Illness H&P Date: 03/14/23 Chief Complaint: Chest pain, shortness of breath * 62-year-old gentleman with past medical history significant for colon/rectal cancer, history of coronary artery disease, history of PCI, dyslipidemia, peripheral neuropathy status post chemotherapy for colon cancer presents to the emergency department with complains of shortness of breath. * The time of presentation in ED patient was complaining of midsternal chest pain as well as right interior chest discomfort, this was associated with nausea and diaphoresis and difficulty in breathing. 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 EKG showed atrial tachycardia with nonspecific ST segment changes * Show troponin 0.088, serum chemistry sodium 139 potassium 4.3B UN 31 1.60 bilirubin 1.4 AST and ALT within normal limits * Patient had CT chest done which was negative for pulmonary embolism however pulmonary edema and trace pleural effusion was noted * In the hospital stay/in ED course patient started having shortness of breath and his oxygen requirement went pleased from 4 L to 9 L to nonrebreather security department vascular congestion * Patient started on IV heparin with consultation from pulmonary medicine and cardiology REVIEW OF SYSTEMS: Chest pain, shortness of breath, CONSTITUTIONAL: No fever, no malaise, no fatigue. HEENT: No recent visual problems or hearing problems. Denied any sore throat. CARDIOVASCULAR: Chest pain, shortness of breath, PULMONARY: Chest pain, shortness of breath, GASTROINTESTINAL: No diarrhea, no nausea, no vomiting, no abdominal pain. NEUROLOGICAL: No headaches, no weakness, no numbness. HEMATOLOGICAL: Denies any bleeding or petechiae. GENITOURINARY: Denies any burning micturition, frequency, or urgency. MUSCULOSKELETAL/RHEUMATOLOGICAL: Denies any joint pain, swelling, or any muscle pain. ENDOCRINE: Denies any polyuria or polydipsia. The rest of the 14-point review of systems is negative. PHYSICAL EXAMINATION: GENERAL: The patient is alert and oriented x3, not in any acute distress. Ill appearance, nasal cannula in place HEENT: Pupils are round and equally reacting to light. EOMI. CARDIOVASCULAR: S1 and S2 present. No murmurs, rubs, or gallops. PULMONARY: Decreased breath sounds bilaterally, rhonchi audible ABDOMEN: Soft, nontender, nondistended, normoactive bowel sounds. No palpable organomegaly. MUSCULOSKELETAL: No joint swelling or deformity. EXTREMITIES: No cyanosis, clubbing, or pedal edema. NEUROLOGICAL: Gross neurological examination did not reveal any focal deficits. SKIN: No rashes. Past Medical History Past Medical History: Cancer, Hypertension History of Any Multi-Drug Resistant Organisms: None Reported Past Surgical History: No Surgical Hx Reported Past Psychological History: No Psychological Hx Reported Smoking Status: Never smoker Past Alcohol Use History: None Reported Past Drug Use History: None Reported Medications and Allergies Home Medications Medication Instructions Recorded Confirmed Type Atorvastatin Calcium [Lipitor] 40 mg PO HS 04/17/22 03/14/23 History Clopidogrel [Plavix] 75 mg PO DAILY 04/17/22 03/14/23 History Isosorbide Mononitrate ER [Imdur] 60 mg PO DAILY 04/17/22 03/14/23 History amLODIPine [Norvasc] 10 mg PO DAILY 04/17/22 03/14/23 History Gabapentin [Neurontin] 200 mg PO BID 03/14/23 03/14/23 History Allergies Allergy/AdvReac Type Severity Reaction Status Date / Time No Known Allergies Allergy Verified 03/14/23 10:48 Physical Exam Vitals: Vital Signs Temp Pulse Resp BP Pulse Ox 03/14/23 12:00 90 18 104/66 93 L 03/14/23 10:00 78 18 110/66 92 L 03/14/23 09:00 80 17 113/70 92 L 03/14/23 08:00 78 18 117/65 94 L 03/14/23 06:40 76 20 106/62 93 L 03/14/23 05:12 77 18 125/75 93 L 03/14/23 04:00 79 18 110/74 93 L 03/14/23 03:00 80 18 115/69 93 L 03/14/23 02:45 87 18 120/71 93 L 03/14/23 02:23 80 18 115/67 93 L 03/14/23 02:15 85 18 115/69 91 L 03/14/23 02:03 92 L 03/14/23 01:37 99 18 137/74 98 03/14/23 01:32 98 03/14/23 01:28 97.7 F 100 20 133/81 97 Intake and Output 12/01/23 12/02/23 12/02/23 22:59 06:59 14:59 Intake Total 92.5 Balance 92.5 Intake: Intake, IV Titration 92.5 Amount Heparin Sod,Pork in 0.45% 92.5 NaCl 25,000 unit In 0.45 % NaCl 1 250ml.bag @ 8. 5783 UNITS/KG/HR 10 mls/ hr IV .[facility] Rx#: [id number] Other: Weight 116.573 kg Results CBC & Chem 7: 03/14/23 01:37 03/14/23 01:37 Labs: Abnormal Lab Results - Last 24 Hours (Table) 03/14/23 03/14/23 03/14/23 Range/Units 01:37 01:37 01:37 Hgb 11.7 L (13.0-17.5) gm/dL Hct 36.3 L (39.0-53.0) % MCV 76.8 L (80.0-100.0) fL MCH 24.8 L (25.0-35.0) pg RDW 18.6 H (11.5-15.5) % Lymphocytes # 0.6 L (1.0-4.8) k/uL APTT (22.0-30.0) sec D-Dimer (<0.60) mg/L FEU Carbon Dioxide 20 L (22-30) mmol/L BUN 31 H (9-20) mg/dL Creatinine 1.60 H (0.66-1.25) mg/dL Glucose 106 H (74-99) mg/dL Total Bilirubin 1.4 H (0.2-1.3) mg/dL Troponin I 0.088 H* (0.000-0.034) ng/mL 03/14/23 03/14/23 03/14/23 Range/Units 02:35 09:49 09:49 Hgb (13.0-17.5) gm/dL Hct (39.0-53.0) % MCV (80.0-100.0) fL MCH (25.0-35.0) pg RDW (11.5-15.5) % Lymphocytes # (1.0-4.8) k/uL APTT 21.3 L 34.6 H (22.0-30.0) sec D-Dimer 0.91 H (<0.60) mg/L FEU Carbon Dioxide (22-30) mmol/L BUN (9-20) mg/dL Creatinine (0.66-1.25) mg/dL Glucose (74-99) mg/dL Total Bilirubin (0.2-1.3) mg/dL Troponin I 0.077 H* (0.000-0.034) ng/mL Assessment and Plan Assessment: Assessment and plan * Acute congestive heart failure, with acute hypoxic respiratory failure, pulmonary edema * Non-ST elevated MO, with history of coronary artery disease * Acute kidney injury on chronic kidney disease stage II * Coronary artery disease with history of PCI * History of colon/rectal cancer * In regards to elevated troponin, patient started on IV heparin, continue aspirin, Plavix, Lipitor, Imdur, metoprolol. Given 1 dose of IV Lasix in ED secondary to CHF exacerbation * In regards to acute kidney injury, Baseline creatinine around 1.2, patient does have chronic kidney disease stage II. Follow-up on renal profile post contrast and diuresis nephrology consulted * In regards to coronary artery disease continue antiplatelet, antianginal therapy on IV heparin * In regards to hypertension continue patient on metoprolol, Imdur * CODE STATUS is full code Time with Patient: Greater than 30
[2023-03-14] MEDS: FUROSEMIDE 10 MG/ML 4 ML VIAL IV SCH ×2 (13:53→21:57)
[2023-03-14] MEDS: METOPROLOL TARTRATE 25 MG TAB PO SCH ×2 (14:04→21:56)
--- NOTE | 2023-03-14 14:48 | P.CRDCN ---
History of Present Illness Consult date: 03/14/23 History of present illness: HISTORY OF PRESENTING ILLNESS Patient is a 70-year-old male with past medical history of CAD status post MA in 2009 requiring 4 stents to RCA by Dr. Jones at [facility]. He has last seen him 2 weeks ago and was being worked up for possible aortic stenosis. This time he presented to the hospital because of worsening shortness of breath and dictating breathing. He was getting short of breath with minimal activities like getting up and going to the bathroom. He denies being on any diuretic therapy. She denies any fever or chills or cough. He denies any sputum production. On admission his labs showed hemoglobin of 11, WBC 6.9, Sodium 139, potassium 4.3, CO2 20, BUN 31, creatinine 1.6 Troponins were elevated at 0.08 with a flat pattern. He had elevated d-dimer for which she had a CTA PE protocol done. It did not show any evidence of PE but does show bilateral pulmonary congestion suggestive of congestive heart failure. REVIEW OF SYSTEMS 14 point review of system is negative except what is mentioned above in HPI. PHYSICAL EXAMINATION Vital signs reviewed. Head: Normocephalic. Eyes: Sclerae nonicteric. Neck: Brisk carotid upstroke, elevated jugular venous distention. Lungs: Clear to auscultation. Heart: Regular rate and rhythm, systolic murmur audible in aortic area Abdomen: Soft nontender, positive bowel sounds no organomegaly. Extremities: 1+ pitting edema. Neuro: Alert, oritented, no focal deficits ASSESSMENT Acute systolic congestive heart failure exacerbation. Heart failure with reduced EF of 30-35%. Suspected Ischemic cardiomyopathy. Differential includes chemotherapy-induced cardiomyopathy Suspect low-flow low gradient aortic stenosis at least moderate to severe. CKD. History of colon cancer status post chemotherapy and radiation therapy. Last chemotherapy was 1-2 years ago. Small pericardial effusion Echo shows an EF of 30-35%, grade 1 diastolic dysfunction, dilated left atrium cystoscopy of elevated filling pressures, moderate to severe aortic stenosis wit h low-flow low gradient, mean gradient 28 mmHg. small pericardial effusion PLAN Unlikely ACS. Mild flat elevation of troponin due to CHF and aortic stenosis IV Lasix 40 mg twice a day Monitor renal function especially after receiving dye for CT PE protocol If renal function is stable, and patient is optimized from heart rate standpoint, we will plan for cardiac catheterization on Thursday Continue aspirin, atorvastatin, metoprolol 25 mg twice a day Reduce dose of Imdur to 30 mg Medical blood pressure in function we'll optimize intensify his guideline directed medical therapy. Past Medical History Past Medical History: Cancer, Hypertension History of Any Multi-Drug Resistant Organisms: None Reported Past Surgical History: No Surgical Hx Reported Past Psychological History: No Psychological Hx Reported Smoking Status: Never smoker Past Alcohol Use History: None Reported Past Drug Use History: None Reported Medications and Allergies Home Medications Medication Instructions Recorded Confirmed Type Atorvastatin Calcium [Lipitor] 40 mg PO HS 04/17/22 03/14/23 History Clopidogrel [Plavix] 75 mg PO DAILY 04/17/22 03/14/23 History Isosorbide Mononitrate ER [Imdur] 60 mg PO DAILY 04/17/22 03/14/23 History amLODIPine [Norvasc] 10 mg PO DAILY 04/17/22 03/14/23 History Gabapentin [Neurontin] 200 mg PO BID 03/14/23 03/14/23 History Allergies Allergy/AdvReac Type Severity Reaction Status Date / Time No Known Allergies Allergy Verified 03/14/23 10:48 Physical Exam Vitals: Vital Signs Temp Pulse Resp BP Pulse Ox 03/14/23 14:00 78 17 117/71 94 L 03/14/23 12:00 90 18 104/66 93 L 03/14/23 10:00 78 18 110/66 92 L 03/14/23 09:00 80 17 113/70 92 L 03/14/23 08:00 78 18 117/65 94 L 03/14/23 06:40 76 20 106/62 93 L 03/14/23 05:12 77 18 125/75 93 L 03/14/23 04:00 79 18 110/74 93 L 03/14/23 03:00 80 18 115/69 93 L 03/14/23 02:45 87 18 120/71 93 L 03/14/23 02:23 80 18 115/67 93 L 03/14/23 02:15 85 18 115/69 91 L 03/14/23 02:03 92 L 03/14/23 01:37 99 18 137/74 98 03/14/23 01:32 98 03/14/23 01:28 97.7 F 100 20 133/81 97 Intake and Output 03/13/23 03/14/23 03/14/23 22:59 06:59 14:59 Intake Total 92.5 Balance 92.5 Intake: Intake, IV Titration 92.5 Amount Heparin Sod,Pork in 0.45% 92.5 NaCl 25,000 unit In 0.45 % NaCl 1 250ml.bag @ 8. 5783 UNITS/KG/HR 10 mls/ hr IV .Q24H [facility] Rx#: [id number] Other: Weight 116.573 kg Results 03/14/23 01:37 03/14/23 01:37 Cardiac Enzymes 03/14/23 03/14/23 03/14/23 Range/Units 01:37 01:37 09:49 AST 38 (17-59) U/L Troponin I 0.088 H* 0.077 H* (0.000-0.034) ng/mL 03/14/23 Range/Units 12:51 AST (17-59) U/L Troponin I 0.076 H* (0.000-0.034) ng/mL Coagulation 03/14/23 03/14/23 Range/Units 02:35 09:49 PT 10.8 (10.0-12.5) sec APTT 21.3 L 34.6 H (22.0-30.0) sec CBC 03/14/23 Range/Units 01:37 WBC 6.9 (3.8-10.6) k/uL RBC 4.72 (4.30-5.90) m/uL Hgb 11.7 L (13.0-17.5) gm/dL Hct 36.3 L (39.0-53.0) % Plt Count 206 (150-450) k/uL Comprehensive Metabolic Panel 03/14/23 Range/Units 01:37 Sodium 139 (137-145) mmol/L Potassium 4.3 (3.5-5.1) mmol/L Chloride 105 (98-107) mmol/L Carbon Dioxide 20 L (22-30) mmol/L BUN 31 H (9-20) mg/dL Creatinine 1.60 H (0.66-1.25) mg/dL Glucose 106 H (74-99) mg/dL Calcium 9.7 (8.4-10.2) mg/dL AST 38 (17-59) U/L ALT 31 (4-49) U/L Alkaline Phosphatase 80 (38-126) U/L Total Protein 7.1 (6.3-8.2) g/dL Albumin 4.3 (3.5-5.0) g/dL Current Medications Generic Name Dose Route Start Last Admin Trade Name Freq PRN Reason Stop Dose Admin Aspirin 81 mg 03/15/23 09:00 Aspirin 81 Mg PO DAILY [facility] Atorvastatin Calcium 40 mg 03/14/23 21:00 Atorvastatin 40 Mg Tab PO HS [facility] Furosemide 40 mg 03/14/23 13:00 03/14/23 13:53 Furosemide 10 Mg/Ml 4 Ml Vial IV Not Given Q12HR [facility] Gabapentin 200 mg 03/14/23 12:30 03/14/23 12:30 Gabapentin 100 Mg Cap PO 200 mg BID TG Administration Isosorbide Mononitrate 30 mg 03/15/23 09:00 Isosorbide Mononitrate Er 30 Mg Tab.Er.24h PO DAILY [facility] Metoprolol Tartrate 25 mg 03/14/23 13:00 03/14/23 14:04 Metoprolol Tartrate 25 Mg Tab PO 25 mg BID [facility] Administration Nitroglycerin 0.4 mg 03/14/23 06:11 Nitroglycerin Sl Tabs 0.4 Mg Tab SUBLINGUAL Q5M PRN Chest Pain Intake and Output 03/13/23 03/14/23 03/14/23 22:59 06:59 14:59 Intake Total 92.5 Balance 92.5 Intake: Intake, IV Titration 92.5 Amount Heparin Sod,Pork in 0.45% 92.5 NaCl 25,000 unit In 0.45 % NaCl 1 250ml.bag @ 8. 5783 UNITS/KG/HR 10 mls/ hr IV .Q24H [facility] Rx#: [id number] Other: Weight 116.573 kg 03/14/23 01:37 03/14/23 01:37
--- NOTE | 2023-03-14 19:39 | CA ---
Transthoracic Echo Report Name: Aaron Peraza Age: 62 Gender: M : 1960 Exam Date: 03/14/2023 13:13 Exam Location: [facility] Ht (in): 72 Wt (lb): 257 Ordering Physician: Darío Cui MD Attending/Referring Phys: Wiener Packer Kelsey Simms RDCS Procedure CPT: Indications: chf Cardiac Hx: Technical Quality: Fair Contrast 1: Total Dose (mL): Contrast 2: Total Dose (mL): MEASUREMENTS (Male / Female) Normal Values 2D ECHO LV Diastolic Diameter PLAX 5.7 cm 4.2 - 5.9 / 3.9 - 5.3 cm LV Systolic Diameter PLAX 5.2 cm IVS Diastolic Thickness 1.5 cm 0.6 - 1.0 / 0.6 - 0.9 cm LVPW Diastolic Thickness 1.5 cm 0.6 - 1.0 / 0.6 - 0.9 cm LV Relative Wall Thickness 0.5 RV Internal Dim ED PLAX 3.7 cm LVOT Diameter 3.0 cm LA Systolic Diameter LX 4.3 cm 3.0 - 4.0 / 2.7 - 3.8 cm LV Diastolic Volume MOD BP 225.6 cm??? 67 - 155 / 56 - 104 cm??? LV Systolic Volume MOD BP 146.6 cm??? - 58 / 19 - 49 cm??? LV Ejection Fraction MOD BP 35.0 % >= 55 % LV Cardiac Index MOD BP 2620.2 cm???/min???m??? LV Diastolic Volume MOD 4C 230.6 cm??? LV Systolic Volume MOD 4C 163.6 cm??? LV Ejection Fraction MOD 4C 29.0 % LV Cardiac Index MOD 4C 2220.8 cm???/min???m??? LV Diastolic Length 4C 10.6 cm LV Systolic Length 4C 10.3 cm LV Diastolic Volume MOD 2C 196.0 cm??? LV Systolic Volume MOD 2C 122.0 cm??? LV Ejection Fraction MOD 2C 37.7 % LV Cardiac Index MOD 2C 2454.5 cm???/min???m??? LV Diastolic Length 2C 9.2 cm LV Systolic Length 2C 9.5 cm LA Volume 84.7 cm??? 18 - 58 / 22 - 52 cm??? LA Volume Index 34.3 cm???/m??? 16 - 28 cm???/m??? M-MODE Aortic Root Diameter MM 4.0 cm MV E Point Septal Separation 2.1 cm AV Cusp Separation MM 2.4 cm DOPPLER AV Peak Velocity 345.4 cm/s AV Peak Gradient 47.7 mmHg AV Mean Velocity 232.6 cm/s AV Mean Gradient 24.9 mmHg AV Velocity Time Integral 77.0 cm AI Peak Velocity 260.8 cm/s AI Peak Gradient 27.2 mmHg AI Pressure Half Time 441.5 ms LVOT Peak Velocity 67.2 cm/s LVOT Peak Gradient 1.8 mmHg AV Area Cont Eq pk 1.4 cm??? MV Area PHT 5.0 cm??? Mitral E Point Velocity 57.9 cm/s Mitral A Point Velocity 83.6 cm/s Mitral E to A Ratio 0.7 MV Deceleration Time 150.7 ms MV E' Velocity 4.2 cm/s Mitral E to MV E' Ratio 13.9 TR Peak Velocity 240.7 cm/s TR Peak Gradient 23.2 mmHg FINDINGS Left Ventricle Left ventricular ejection fraction is estimated at 20-25 %. Moderately increased septal wall thickness. Severely increased left ventricular diastolic volume. Severely increased left ventricular systolic volume. Moderately decreased left ventricular ejection fraction. Right Ventricle Mild right ventricular dilatation. Right ventricular systolic pressure within normal limits. Right Atrium Normal right atrial size. Left Atrium Mildly increased left atrial diameter. Moderately increased left atrial volume. Mildly increased left atrial area. Mitral Valve Structurally normal mitral valve. Mild mitral regurgitation. Aortic Valve Moderate aortic valve sclerosis. Moderate aortic stenosis with a peak gradient of 48 mmHg and a mean gradient of 25 mmHg. [id number] aortic regurgitation. Tricuspid Valve Structurally normal tricuspid valve. Mild tricuspid regurgitation. Pulmonic Valve Pulmonic valve not well visualized. Trace to mild pulmonic regurgitation. Pericardium Small pericardial effusion. Aorta Moderate aortic dilatation at the level of the sinuses of valsalva 40 mm CONCLUSIONS Moderate LV dilatation. Severe LV systolic dysfunction LVEF estimated at 20% Moderate concentric LVH Calcific aortic valve with moderate to severe aortic stenosis and mild aortic regurg. Concerns of low-flow low gradient aortic stenosis reaching the severe range Small pericardial effusion Mild MR RVSP could not be estimate Previewed by: Dr Alex Sandra (Electronically Signed) Final Date: 14 March 2023 19:38
[2023-03-14] MEDS: ATORVASTATIN 40 MG TAB PO SCH (21:56)
[2023-03-15 02:26] LABS: Anisocytosis Slight; HGB 10.3 gm/dL (13.0-17.5); Hypochromasia Marked; MCH 24.5 pg (25.0-35.0); MCHC 31.2 g/dL (31.0-37.0); MCV 78.5 fL (80.0-100.0); Microcytosis Slight; Platelet Count 178 k/uL (150-450); RDW 18.6 % (11.5-15.5); WBC 5.8 k/uL (3.8-10.6)
[2023-03-15 02:36] LABS: African American GFR (CKD) 52 (>60 ml/min/1.73 sqM); Anion Gap 9 mmol/L; Blood Urea Nitrogen 28 mg/dL (9-20); Calcium 8.3 mg/dL (8.4-10.2); Carbon Dioxide 24 mmol/L (22-30); Chloride 106 mmol/L (98-107); Glucose 83 mg/dL (74-99); Non-African American GFR(CKD) 45 (>60 ml/min/1.73 sqM); Potassium 3.8 mmol/L (3.5-5.1); Sodium 139 mmol/L (137-145)
[2023-03-15] MEDS ORDERED: ASPIRIN 325 MG TAB PO SCH (09:00)
[2023-03-15] MEDS: GABAPENTIN 100 MG CAP PO SCH ×2 (09:46→21:09)
[2023-03-15] MEDS: ASPIRIN 81 MG PO SCH (09:46)
[2023-03-15] MEDS: METOPROLOL TARTRATE 25 MG TAB PO SCH ×2 (09:46→21:27)
[2023-03-15] MEDS: FUROSEMIDE 10 MG/ML 4 ML VIAL IV SCH (09:46)
[2023-03-15] MEDS: ISOSORBIDE MONONITRATE ER 30 MG TAB.ER.24H PO SCH (09:46)
[2023-03-15 09:51] LABS: Chol/HDL Ratio 2.11 Ratio; LDL Cholesterol,Calculated 30.5 mg/dL (0.0-131.0)
--- NOTE | 2023-03-15 11:48 | P.NPCON ---
History of Present Illness - Reason for Consult acute renal failure - History of Present Illness Patient is a 62-year-old male with history of chronic kidney disease NKF stage IIIB with previous creatinine at 1.2 mg/dL. He has underlying history of coronary artery disease and is admitted to the hospital with complaints of shortness of breath with vague GI symptoms and possible chest pain on and off for 3-4 days. Patient states he took Tums for the pain. Troponin was elevated at 0.08. Echocardiogram showed ejection fraction of 20-25%. Currently maintained on IV Lasix Serum creatinine at 1.6 mg/dL yesterday and today. Previous creatinine 1.2 on 01/16/2023. Patient is voiding on his own with no urinary symptoms. Review of Systems As per HPI Past Medical History Past Medical History: Cancer, Hypertension, Myocardial Infarction (SD), Renal Disease Additional Past Medical History / Comment(s): SD 2009 Last Myocardial Infarction Date:: 2009 History of Any Multi-Drug Resistant Organisms: None Reported Past Surgical History: No Surgical Hx Reported Additional Past Surgical History / Comment(s): renal stent in his 20s Past Anesthesia/Blood Transfusion Reactions: No Reported Reaction Past Psychological History: No Psychological Hx Reported Smoking Status: Former smoker Past Alcohol Use History: None Reported Past Drug Use History: None Reported - Past Family History Mother Additional Family Medical History / Comment(s): leukemia Father Family Medical History: Myocardial Infarction (SD) Additional Family Medical History / Comment(s): stents Medications and Allergies Home Medications Medication Instructions Recorded Confirmed Type Atorvastatin Calcium [Lipitor] 40 mg PO HS 04/17/22 03/14/23 History Clopidogrel [Plavix] 75 mg PO DAILY 04/17/22 03/14/23 History Isosorbide Mononitrate ER [Imdur] 60 mg PO DAILY 04/17/22 03/14/23 History amLODIPine [Norvasc] 10 mg PO DAILY 04/17/22 03/14/23 History Gabapentin [Neurontin] 200 mg PO BID 03/14/23 03/14/23 History Allergies Allergy/AdvReac Type Severity Reaction Status Date / Time No Known Allergies Allergy Verified 03/14/23 10:48 Physical Exam Vitals: Vital Signs Temp Pulse Pulse Resp BP BP Pulse Ox 03/15/23 10:00 66 18 97/70 94 L 03/15/23 09:00 81 18 97/73 92 L 03/15/23 08:00 74 18 100/73 91 L 03/15/23 07:38 95 03/15/23 06:42 70 19 97/73 94 L 03/15/23 03:06 69 20 97/73 92 L 03/15/23 02:48 69 19 97/73 92 L 03/14/23 22:03 74 18 98/63 95 03/14/23 20:24 88 19 121/74 95 03/14/23 17:30 98.1 F 70 16 117/67 96 03/14/23 15:00 71 17 101/69 93 L 03/14/23 14:00 78 17 117/71 94 L 03/14/23 12:00 90 18 104/66 93 L Intake and Output 03/14/23 03/15/23 03/15/23 22:59 06:59 14:59 Intake Total 400 Balance 400 Intake: Oral 400 Other: Weight 116.573 kg Patient is comfortable awake, alert oriented 3, no acute distress Examination of the heart S1 and S2 Examination of the lungs decreased breath sounds at the bases Abdomen is soft nontender Examination of lower extremities shows no evidence of edema PROCESSING TECH exam grossly intact Results - Lab Results Most recent lab results Calcium 8.3 mg/dL (8.4-10.2) L 03/15/23 02:12 Magnesium 2.0 mg/dL (1.6-2.3) 03/14/23 01:37 03/15/23 02:12 03/15/23 02:12 Assessment and Plan Assessment: 1. Acute kidney injury, cardiorenal currently nonoliguric. Previous creatinine 1.2 on 01/16/2023. UA was completely benign in June 2022. Status post IV contrast for CTA on 03/14/2023 2. Chronic kidney disease NKF stage III with baseline creatinine about 1.2 mg/dL. Etiology nephrosclerosis. 3. Cardiomyopathy with EF of 20-25% on echocardiogram done this admission 4. CHF exacerbation acute on top of chronic, systolic 5. History of right renal artery stent noted on CTA Plan: Continue with IV Lasix Avoid nephrotoxic agents Check ultrasound of the kidneys Check UA Repeat labs in a.m. Thank you for the consultation. We will continue to follow the patient with you during his hospitalization.
--- NOTE | 2023-03-15 12:30 | P.PN ---
Subjective Progress Note Date: 03/15/23 * 62-year-old gentleman with past medical history significant for colon/rectal cancer, history of coronary artery disease, history of PCI, dyslipidemia, peripheral neuropathy status post chemotherapy for colon cancer presents to the emergency department with complains of shortness of breath. * The time of presentation in ED patient was complaining of midsternal chest pain as well as right interior chest discomfort, this was associated with nausea and diaphoresis and difficulty in breathing. Patient stated his symptoms have been ongoing for a few days and was supposed to follow-up with his primary recruitment intern next week * Initiated in ER included an EKG, and a chest x-ray which did show pulmonary vascular congestion. 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 Patient states breathing has improved chest pain has improved REVIEW OF SYSTEMS: Chest pain, shortness of breath resolved 03/15 CONSTITUTIONAL: No fever, no malaise, no fatigue. HEENT: No recent visual problems or hearing problems. Denied any sore throat. CARDIOVASCULAR: Chest pain, shortness of breath, PULMONARY: Chest pain, shortness of breath, GASTROINTESTINAL: No diarrhea, no nausea, no vomiting, no abdominal pain. NEUROLOGICAL: No headaches, no weakness, no numbness. HEMATOLOGICAL: Denies any bleeding or petechiae. GENITOURINARY: Denies any burning micturition, frequency, or urgency. MUSCULOSKELETAL/RHEUMATOLOGICAL: Denies any joint pain, swelling, or any muscle pain. ENDOCRINE: Denies any polyuria or polydipsia. PHYSICAL EXAMINATION: GENERAL: The patient is alert and oriented x3, not in any acute distress. Ill appearance, off nasal cannula HEENT: Pupils are round and equally reacting to light. EOMI. CARDIOVASCULAR: S1 and S2 present. Systolic murmur appreciated PULMONARY: Decreased breath sounds bilaterally, rhonchi audible ABDOMEN: Soft, nontender, nondistended, normoactive bowel sounds. No palpable organomegaly. MUSCULOSKELETAL: No joint swelling or deformity. EXTREMITIES: No cyanosis, clubbing, or pedal edema. NEUROLOGICAL: Gross neurological examination did not reveal any focal deficits. SKIN: No rashes. Objective - Vital Signs Vital signs: Vital Signs Temp 98.1 F 03/14/23 17:30 Pulse 66 03/15/23 10:00 Resp 18 03/15/23 10:00 BP 97/70 03/15/23 10:00 Pulse Ox 94 L 03/15/23 10:00 FiO2 Intake & Output 03/14/23 03/15/23 03/15/23 18:59 06:59 18:59 Intake Total 492.5 Balance 492.5 Weight 116.573 kg Intake: Intake, IV Titration 92.5 Amount Heparin Sod,Pork in 0.45% 92.5 NaCl 25,000 unit In 0.45 % NaCl 1 250ml.bag @ 8. 5783 UNITS/KG/HR 10 mls/ hr IV .Q24H [facility] Rx#: [id number] Oral 400 - Labs CBC & Chem 7: 03/15/23 02:12 03/15/23 02:12 Labs: Abnormal Lab Results - Last 24 Hours (Table) 03/14/23 03/15/23 03/15/23 Range/Units 12:51 02:12 02:12 RBC 4.20 L (4.30-5.90) m/uL Hgb 10.3 L (13.0-17.5) gm/dL Hct 33.0 L (39.0-53.0) % MCV 78.5 L (80.0-100.0) fL MCH 24.5 L (25.0-35.0) pg RDW 18.6 H (11.5-15.5) % BUN 28 H (9-20) mg/dL Creatinine 1.64 H (0.66-1.25) mg/dL Calcium 8.3 L (8.4-10.2) mg/dL Troponin I 0.076 H* (0.000-0.034) ng/mL Assessment and Plan Assessment: Assessment and plan * Acute congestive heart failure, with acute hypoxic respiratory failure, pulmonary edema * Non-ST elevated SC, with history of coronary artery disease * Acute kidney injury on chronic kidney disease stage II * Coronary artery disease with history of PCI * History of colon/rectal cancer * In regards to elevated troponin, patient was started on IV heparin>> discontinued per cardiology recommendations, continue aspirin, Plavix, Lipitor, Imdur, metoprolol. Planned for cardiac catheterization 04/04 * In regards to acute kidney injury, Baseline creatinine around 1.2, patient does have chronic kidney disease stage II. Follow-up on renal profile post contrast and diuresis nephrology consulted, renal ultrasound ordered * In regards to coronary artery disease continue antiplatelet, antianginal therapy * In regards to hypertension continue patient on metoprolol, Imdur * In regards to acute hypoxia likely secondary to CHF exacerbation aortic stenosis, continue Lasix however holding per meters order to avoid hypertension * CODE STATUS is full code Time with Patient: Greater than 30
[2023-03-15] MEDS ORDERED: ALPRAZolam 0.25 MG TAB PO PRN (12:50)
--- NOTE | 2023-03-15 13:14 | P.CNPUL ---
History of Present Illness Consult date: 03/15/23 Requesting physician: Yarelis Gross Reason for consult: chest pain Chief complaint: Chest pain. History of present illness: Pulmonary consult dated 03/15/2023. 62-year-old male who was seen in the emergency department, on March 14, with a previous history of myocardial infarction, presents with chest pain. The patient also had associated nausea, and diaphoresis. The pain did not radiate. He has a previous history of myocardial infarction, his had a number of stents placed. When EMS arrived, at the scene, the pain had resolved. He also complained of some shortness of breath. He was given some aspirin at the scene. We see the patient in the emergency department, room 17. He is currently on 5 L of oxygen. No IV fluids. The patient was thought to have a non-ST segment elevation myocardial infarction, as well as CHF. Also, on auscultation, it is clear that he has aortic stenosis. The CT angiogram was negative for pulmonary embolism. White count 5.8, hemoglobin 10.3, hematocrit 33, and platelet count was normal. D-dimer was 0.91. PTT was 34.6. Sodium 139, potassium 3.8, chlorides 106, CO2 24, BUN 28, and creatinine 1.64. Troponins were 0.088, 0.077, and 0.076. Pro-calcitonin was normal at 0.09. Chest x-ray showed some basilar atelectasis. CT angiogram was negative for PE, and positive for mild pulmonary edema. Review of Systems REVIEW OF SYSTEMS: CONSTITUTIONAL: [Negative.] NEUROLOGIC: [ Negative.] HEENT: [ Negative.] CARDIAC: Chest pain. PULMONARY: Shortness of breath. GI: [Negative.] : [Negative.] RHEUMATOLOGIC: [ Negative.] IMMUNOLOGIC: [ Negative.] ENDOCRINE: [Negative. ] DERMATOLOGIC: [Negative.] Past Medical History Past Medical History: Cancer, Hypertension, Myocardial Infarction ([place]), Renal Disease Additional Past Medical History / Comment(s): [place] 2009 Last Myocardial Infarction Date:: 2009 History of Any Multi-Drug Resistant Organisms: None Reported Past Surgical History: No Surgical Hx Reported Additional Past Surgical History / Comment(s): renal stent in his 20s Past Anesthesia/Blood Transfusion Reactions: No Reported Reaction Past Psychological History: No Psychological Hx Reported Smoking Status: Former smoker Past Alcohol Use History: None Reported Past Drug Use History: None Reported - Past Family History Mother Additional Family Medical History / Comment(s): leukemia Father Family Medical History: Myocardial Infarction ([place]) Additional Family Medical History / Comment(s): stents Medications and Allergies Home Medications Medication Instructions Recorded Confirmed Type Atorvastatin Calcium [Lipitor] 40 mg PO HS 04/17/22 03/14/23 History Clopidogrel [Plavix] 75 mg PO DAILY 04/17/22 03/14/23 History Isosorbide Mononitrate ER [Imdur] 60 mg PO DAILY 04/17/22 03/14/23 History amLODIPine [Norvasc] 10 mg PO DAILY 04/17/22 03/14/23 History Gabapentin [Neurontin] 200 mg PO BID 03/14/23 03/14/23 History Allergies Allergy/AdvReac Type Severity Reaction Status Date / Time No Known Allergies Allergy Verified 03/14/23 10:48 Physical Exam Osteopathic Statement: *. No significant issues noted on an osteopathic structural exam other than those noted in the History and Physical/Consult. Vitals: Vital Signs Temp Pulse Pulse Resp BP BP Pulse Ox 03/15/23 10:00 66 18 97/70 94 L 03/15/23 09:00 81 18 97/73 92 L 03/15/23 08:00 74 18 100/73 91 L 03/15/23 07:38 95 03/15/23 06:42 70 19 97/73 94 L 03/15/23 03:06 69 20 97/73 92 L 03/15/23 02:48 69 19 97/73 92 L 03/14/23 22:03 74 18 98/63 95 03/14/23 20:24 88 19 121/74 95 03/14/23 17:30 98.1 F 70 16 117/67 96 03/14/23 15:00 71 17 101/69 93 L 03/14/23 14:00 78 17 117/71 94 L Intake and Output 03/14/23 03/15/23 03/15/23 22:59 06:59 14:59 Intake Total 400 Balance 400 Intake: Oral 400 Other: Weight 116.573 kg No acute distress, oriented 3. Currently on 5 L of oxygen. No respiratory distress. HEENT examination is grossly unremarkable. Mucous membranes are moist. No oral lesions. Neck supple. Full range of motion. No adenopathy thyromegaly or neck vein distention. Cardiovascular examination reveals regular rhythm rate. S1-S2 normal. No S3 or S4. Grade 2/6 systolic murmur, consistent with aortic stenosis. Heart rate 66 bpm. Lungs reveal mostly clear breath sounds. Minimal rhonchi. No wheezes or crackles. 5 L saturation is 95%. Abdomen soft bowel sounds are heard. No masses or tenderness. Extremities are intact. No cyanosis clubbing or edema. Skin is without rash or lesion. Neurologic examination is brief but nonfocal. Results - Laboratory Findings CBC and BMP: 03/15/23 02:12 03/15/23 02:12 PT/INR, D-dimer PT 10.8 sec (10.0-12.5) 03/14/23 02:35 INR 1.0 (<1.2) 03/14/23 02:35 D-Dimer 0.91 mg/L FEU (<0.60) H 03/14/23 02:35 Abnormal lab findings: Abnormal Labs 03/14/23 03/14/23 03/14/23 01:37 01:37 01:37 RBC Hgb 11.7 L Hct 36.3 L MCV 76.8 L MCH 24.8 L RDW 18.6 H Lymphocytes # 0.6 L APTT D-Dimer Carbon Dioxide 20 L BUN 31 H Creatinine 1.60 H Glucose 106 H Calcium Total Bilirubin 1.4 H Troponin I 0.088 H* 03/14/23 03/14/23 03/14/23 02:35 09:49 09:49 RBC Hgb Hct MCV MCH RDW Lymphocytes # APTT 21.3 L 34.6 H D-Dimer 0.91 H Carbon Dioxide BUN Creatinine Glucose Calcium Total Bilirubin Troponin I 0.077 H* 03/14/23 03/15/23 03/15/23 12:51 02:12 02:12 RBC 4.20 L Hgb 10.3 L Hct 33.0 L MCV 78.5 L MCH 24.5 L RDW 18.6 H Lymphocytes # APTT D-Dimer Carbon Dioxide BUN 28 H Creatinine 1.64 H Glucose Calcium 8.3 L Total Bilirubin Troponin I 0.076 H* - Diagnostic Findings Chest x-ray: image reviewed CT scan - chest: image reviewed Assessment and Plan Assessment: Acute hypoxemic respiratory failure, secondary to CHF. History of heart failure with reduced ejection fraction, at 30-35%. Ischemic cardiomyopathy. History of myocardial infarction, with previous stent placement. Rule out non-ST segment elevation myocardial infarction. History of aortic stenosis. Chronic kidney disease. History of colon cancer. Plan: Plan dated 03/15/2023. The patient is seen in the emergency department, room 17. The patient has been seen by cardiology. The patient appears to have congestive heart failure, causing him to be short of breath. Currently, he was on 5 L of oxygen. The patient was not having any overt respiratory difficulty, and was not using accessory muscles of respiration, or, having any conversational dyspnea. Labs, x-rays, and medications are reviewed. We will continue to follow along. The patient is a lifelong nonsmoker. He does have a prior history of myocardial infarction. In addition, it clear that he has aortic stenosis, on examination. Time with Patient: Greater than 30
--- NOTE | 2023-03-15 13:57 | US ---
EXAMINATION TYPE: US kidneys/renal and bladder DATE OF EXAM: 03/15/2023 COMPARISON: CT 01/16/23 CLINICAL INDICATION: Male, 62 years old with history of sy; SY. Hx stent in renal artery when nory ent was in his 20s, patient thinks stent is in right renal artery. EXAM MEASUREMENTS: Right Kidney: 6.4 x 5.0 x 5.1 cm Left Kidney: 10.6 x 5.6 x 5.1 cm Right Kidney: Appears irregular in shape. Small in size. Prior CT noted atrophy of right kidney. Left Kidney: No hydronephrosis or masses seen Bladder: Appears wnl Bilateral Jets seen: Yes IMPRESSION: 1. No acute renal abnormality
[2023-03-15] MEDS ORDERED: FUROSEMIDE 10 MG/ML 4 ML VIAL IV STA (19:45)
--- NOTE | 2023-03-15 19:45 | P.PN ---
Subjective Progress Note Date: 03/15/23 Progress note Patient reports that he is feeling much better since the time of admission. He denies any orthopnea at this time HISTORY OF PRESENTING ILLNESS Patient is a 70-year-old male with past medical history of CAD status post [place] in 2009 requiring 4 stents to RCA by Dr. Jones at [facility]. He has last seen him 2 weeks ago and was being worked up for possible aortic stenosis. This time he presented to the hospital because of worsening shortness of breath and dictating breathing. He was getting short of breath with minimal activities like getting up and going to the bathroom. He denies being on any diuretic therapy. She denies any fever or chills or cough. He denies any sputum production. On admission his labs showed hemoglobin of 11, WBC 6.9, Sodium 139, potassium 4.3, CO2 20, BUN 31, creatinine 1.6 Troponins were elevated at 0.08 with a flat pattern. He had elevated d-dimer for which she had a CTA PE protocol done. It did not show any evidence of PE but does show bilateral pulmonary congestion suggestive of congestive heart failure. REVIEW OF SYSTEMS 14 point review of system is negative except what is mentioned above in HPI. PHYSICAL EXAMINATION Vital signs reviewed. Head: Normocephalic. Eyes: Sclerae nonicteric. Neck: Brisk carotid upstroke, elevated jugular venous distention. Lungs: Clear to auscultation. Heart: Regular rate and rhythm, systolic murmur audible in aortic area Abdomen: Soft nontender, positive bowel sounds no organomegaly. Extremities: 1+ pitting edema. Neuro: Alert, oritented, no focal deficits ASSESSMENT Acute systolic congestive heart failure exacerbation. Heart failure with reduced EF of 30-35%. Suspected Ischemic cardiomyopathy. Differential includes chemotherapy-induced cardiomyopathy Suspect low-flow low gradient aortic stenosis at least moderate to severe. CKD. History of colon cancer status post chemotherapy and radiation therapy. Last chemotherapy was 1-2 years ago. Small pericardial effusion Echo shows an EF of 30-35%, grade 1 diastolic dysfunction, dilated left atrium cystoscopy of elevated filling pressures, moderate to severe aortic stenosis with low-flow low gradient, mean gradient 28 mmHg. small pericardial effusion PLAN Plan for cardiac catheterization tomorrow a.m. Keep patient nothing by mouth after midnight. Give IV Lasix tonight, hold IV Lasix tomorrow morning We will resume IV Lasix from tomorrow evening after the heart catheter depending on the findings of heart cath Monitor renal function especially after receiving dye for CT PE protocol. Creatinine is stable at 1.6, GFR 54. During catheter lab use minimal dye possible. Continue aspirin, atorvastatin, metoprolol 25 mg twice a day Reduce dose of Imdur to 30 mg Medical blood pressure in function we'll optimize intensify his guideline directed medical therapy. Objective - Vital Signs Vital signs: Vital Signs Temp 98.1 F 03/14/23 17:30 Pulse 81 03/15/23 18:00 Resp 18 03/15/23 18:00 BP 98/62 03/15/23 18:00 Pulse Ox 89 L 03/15/23 18:00 FiO2 Intake & Output 03/15/23 03/15/23 03/16/23 06:59 18:59 06:59 Weight 116.573 kg - Labs CBC & Chem 7: 03/15/23 02:12 03/15/23 02:12 Labs: Abnormal Lab Results - Last 24 Hours (Table) 03/15/23 03/15/23 Range/Units 02:12 02:12 RBC 4.20 L (4.30-5.90) m/uL Hgb 10.3 L (13.0-17.5) gm/dL Hct 33.0 L (39.0-53.0) % MCV 78.5 L (80.0-100.0) fL MCH 24.5 L (25.0-35.0) pg RDW 18.6 H (11.5-15.5) % BUN 28 H (9-20) mg/dL Creatinine 1.64 H (0.66-1.25) mg/dL Calcium 8.3 L (8.4-10.2) mg/dL
[2023-03-15] MEDS: ATORVASTATIN 40 MG TAB PO SCH (21:09)
[2023-03-15 22:16] LABS: Glucose,Whole Blood 97 mg/dL (70-110)
[2023-03-15 23:19] LABS: Ferritin 28.1 ng/mL (22.0-322.0)
[2023-03-16] MEDS ORDERED: SODIUM CHLORIDE 0.9% 1,000 ML in EMPTY BAG 1 BAG IV SCH (06:00)
[2023-03-16] MEDS ORDERED: HEPARIN SODIUM,PORCINE 10,000 UNIT in SODIUM CHLORIDE 0.9% 1,000 ML IRRIGATION PRN (07:00)
[2023-03-16] MEDS ORDERED: HEPARIN SODIUM,PORCINE (1 ML) 2,500 UNIT in SODIUM CHLORIDE 0.9% 250 ML IRRIGATION PRN (07:00)
[2023-03-16] MEDS: ASPIRIN 81 MG PO SCH (07:33)
[2023-03-16 07:49] LABS: Anisocytosis Slight; HGB 10.7 gm/dL (13.0-17.5); Hypochromasia Marked; MCHC 31.5 g/dL (31.0-37.0); MCV 79.4 fL (80.0-100.0); Mean Platelet Volume 7.5; Microcytosis Slight; Platelet Count 182 k/uL (150-450); RBC 4.29 m/uL (4.30-5.90); RDW 18.8 % (11.5-15.5); WBC 4.5 k/uL (3.8-10.6)
[2023-03-16] MEDS ORDERED: LIDOCAINE 1% INJ 10MG/ML (20 ML MDV) ONE ×2 (07:49→08:30)
[2023-03-16] MEDS ORDERED: VERAPAMIL 2.5 MG/ML 2 ML AMP ONE (07:49)
[2023-03-16] MEDS ORDERED: IV FLUID CONTINUATION 1,000 ML IV ONE (07:53)
[2023-03-16 07:59] LABS: % Iron Saturation 7.74 (15.00-50.00)
[2023-03-16] MEDS: LIDOCAINE 1% INJ 10MG/ML (5 ML VIAL-PF) SQ ONE ×2 (08:08→08:34)
[2023-03-16] MEDS ORDERED: HEPARIN SODIUM 1,000 UN/ML (10ML VL) ONE (08:08)
[2023-03-16] MEDS ORDERED: fentaNYL (PF) 50 MCG/ML 2 ML AMP ONE (08:08)
[2023-03-16 08:09] LABS: African American GFR (CKD) 56 (>60 ml/min/1.73 sqM); Anion Gap 14 mmol/L; Blood Urea Nitrogen 36 mg/dL (9-20); Calcium 8.4 mg/dL (8.4-10.2); Carbon Dioxide 19 mmol/L (22-30); Chloride 107 mmol/L (98-107); Glucose 85 mg/dL (74-99); Non-African American GFR(CKD) 48 (>60 ml/min/1.73 sqM); Sodium 140 mmol/L (137-145)
[2023-03-16] MEDS: fentaNYL (PF) 50 MCG/ML 2 ML AMP IVP ONE ×2 (08:10→08:35)
[2023-03-16] MEDS ORDERED: MIDAZOLAM 2 MG/2 ML VIAL IVP ONE (08:10)
[2023-03-16] MEDS ORDERED: VERAPAMIL 2.5 MG/ML 2 ML AMP INTRAARTER ONE (08:23)
[2023-03-16] MEDS ORDERED: IOPAMIDOL-370 100ML BTL INJ ONE ×2 (08:52)
[2023-03-16] MEDS ORDERED: RX INFO: IV CONTRAST WAS GIVEN 1 EACH MISC MISCELLANE PRN (09:14)
[2023-03-16] MEDS ORDERED: SODIUM CHLORIDE 0.9% 1,000 ML IV SCH (09:15)
[2023-03-16] MEDS: GABAPENTIN 100 MG CAP PO SCH ×2 (09:46→20:33)
[2023-03-16] MEDS: METOPROLOL TARTRATE 25 MG TAB PO SCH ×2 (09:46→20:33)
[2023-03-16] MEDS: ISOSORBIDE MONONITRATE ER 30 MG TAB.ER.24H PO SCH (09:46)
--- NOTE | 2023-03-16 10:16 | P.PN ---
Subjective Progress Note Date: 03/16/23 62-year-old male who was seen in the emergency department, on March 14, with a previous history of myocardial infarction, presents with chest pain. The patient also had associated nausea, and diaphoresis. The pain did not radiate. He has a previous history of myocardial infarction, his had a number of stents placed. When EMS arrived, at the scene, the pain had resolved. He also complained of some shortness of breath. He was given some aspirin at the scene. We see the patient in the emergency department, room 17. He is currently on 5 L of oxygen. No IV fluids. The patient was thought to have a non-ST segment elevation myocardial infarction, as well as CHF. Also, on auscultation, it is clear that he has aortic stenosis. The CT angiogram was negative for pulmonary embolism. White count 5.8, hemoglobin 10.3, hematocrit 33, and platelet count was normal. D-dimer was 0.91. PTT was 34.6. Sodium 139, potassium 3.8, chlorides 106, CO2 24, BUN 28, and creatinine 1.64. Troponins were 0.088, 0.077, and 0.076. Pro-calcitonin was normal at 0.09. Chest x-ray showed some basilar atelectasis. CT angiogram was negative for PE, and positive for mild pulmonary edema. On today's evaluation of 03/16/2023, the patient underwent a cardiac catheterization and the patient was found to have a 80% proximal mid LAD, 90% mid circumflex vessel and 100% easily artery occlusion. The patient also has moderate aortic stenosis and impaired LV function with an ejection fraction of 20-25%. The patient is free of any chest pain at this point in time. Hemodynamically stable. The patient is currently on IV heparin. The patient has been. The patient is also on Lipitor. IV fluids are in the form of normal saline at rate of 75 mL an hour. The patient is on a 4.5 with a hemoglobin of 10.7, BUN is at 36 with a creatinine of 1.54 and a sodium level is at 40. Objective - Vital Signs Vital signs: Vital Signs Temp 97.8 F 03/16/23 07:34 Pulse 89 03/16/23 07:34 Resp 18 03/16/23 07:34 BP 108/71 03/16/23 07:34 Pulse Ox 96 03/16/23 07:34 FiO2 Intake & Output 03/15/23 03/16/23 03/16/23 18:59 06:59 18:59 Intake Total 50 Balance 50 Intake: IV 50 - Exam No acute distress, oriented 3. Currently on 5 L of oxygen. No respiratory distress. HEENT examination is grossly unremarkable. Mucous membranes are moist. No oral lesions. Neck supple. Full range of motion. No adenopathy thyromegaly or neck vein distention. Cardiovascular examination reveals regular rhythm rate. S1-S2 normal. No S3 or S4. Grade 2/6 systolic murmur, consistent with aortic stenosis. Heart rate 66 bpm. Lungs reveal mostly clear breath sounds. Minimal rhonchi. No wheezes or crackles. 5 L saturation is 95%. Abdomen soft bowel sounds are heard. No masses or tenderness. Extremities are intact. No cyanosis clubbing or edema. Skin is without rash or lesion. Neurologic examination is brief but nonfocal. - Labs CBC & Chem 7: 03/16/23 07:09 03/16/23 07:09 Labs: Abnormal Lab Results - Last 24 Hours (Table) 03/15/23 03/16/23 03/16/23 Range/Units 02:12 07:09 07:09 RBC 4.29 L (4.30-5.90) m/uL Hgb 10.7 L (13.0-17.5) gm/dL Hct 34.0 L (39.0-53.0) % MCV 79.4 L (80.0-100.0) fL RDW 18.8 H (11.5-15.5) % Carbon Dioxide 19 L (22-30) mmol/L BUN 36 H (9-20) mg/dL Creatinine 1.54 H (0.66-1.25) mg/dL Iron 27 L (65-175) UG/DL % Saturation 7.74 L (15.00-50.00) Assessment and Plan Plan: Acute hypoxemic respiratory failure, secondary to CHF. The patient is currently on 5 L O2 nasal cannula. Coronary artery disease, multivessel disease History of heart failure with reduced ejection fraction, at 25%. Chronic kidney disease, stage III History of myocardial infarction, with previous stent placement. Rule out non-ST segment elevation myocardial infarction. History of aortic stenosis. Moderate to severe History of colon cancer, post resection and chrmotherapy and radiation therapy Plan The patient is going to be evaluated by cardiothoracic surgery to discuss surgical options. Continue IV heparin. Continue aspirin. Continue metoprolol. Will follow. He remains on oxygen at 5 L/m nasal cannula. Renal function is stable for now.
--- NOTE | 2023-03-16 11:21 | P.PN ---
Subjective patient is seen for follow-up for chronic kidney disease and acute kidney injury. He was admitted with shortness of breath and chest pain. Patient ruled in for acute [place]. EF is at 20-25%. Status post cardiac catheterization this morning which showed significant triple-vessel disease and moderate aortic stenosis. Currently awaiting opinion from cardiothoracic surgery. Started on IV fluids for catheterization. 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 Acute kidney injury, cardiorenal currently nonoliguric. Previous creatinine 1.2 on 01/16/2023. UA was completely benign in June 2022. Status post IV contrast for CTA on 03/14/2023. Ultrasound shows atrophic right kidney at 6.4 c m 2. Chronic kidney disease NKF stage III with baseline creatinine about 1.2 mg/dL. Etiology nephrosclerosis. 3. Cardiomyopathy with EF of 20-25% on echocardiogram done this admission 4. CHF exacerbation acute on top of chronic, systolic 5. History of right renal artery stent noted on CTA Plan: DC IV fluids in 2 hours post catheterization. Avoid any other nephrotoxic agents Await cardiothoracic surgery evaluation.
--- NOTE | 2023-03-16 11:31 | P.GSCN ---
History of Present Illness Consult date: 03/16/23 Reason for Consult: Coronary artery disease, aortic stenosis Requesting physician: Alex Sandra History of present illness: This is a 62-year-old gentleman who follows outpatient with Dr. Blake for primary care and Dr. Jones [facility] for cardiology. He has a previous medical history of coronary artery disease with myocardial infarction and RCA stenting in 2009, hypertension, aortic stenosis, colorectal cancer diagnosed 1-1/2 years ago status post resection along with chemo and radiation, chronic kidney disease stage III with previous bilateral aortorenal endarterectomy, remote history of pneumonia, covid infection 2020, previous heavy tobacco dependence, lower extremity neuropathy, and family history of coronary artery disease with father having myocardial infarction at 68 years ol d. This gentleman presented to the emergency room March 14 with complaints of intermittent chest pain with exertion as well as shortness of breath, nausea, and diaphoresis which had been ongoing for several days. EKG demonstrated sinus rhythm. Chest x-ray revealed mild cardiomegaly and subsegmental atelectasis. CTA of the chest was also completed which ruled out pulmonary embolism, but did indicate mild pulmonary edema as well as basal atelectasis. Lab work revealed WBC 6.9, hemoglobin 11.7, d-dimer 0.91, creatinine 1.6, BNP 5520, and troponins were mildly elevated at 0.08. He was ruled in for non-STEMI and admitted for evaluation and treatment with consultation to cardiology. Consultation was also placed to pulmonology for acute respiratory distress as well as nephrology for acute renal failure. Transthoracic echocardiogram was completed demonstrating reduced left ventricular systolic function with EF 20-25%, low flow low gradient moderate to severe aortic stenosis with peak/mean gradient 48/25 mmHg, aortic valve area 1.4 cm, peak velocity 3.45 m/s, mild to moderate aortic regurgitation, mild mitral and tricuspid regurgitation. The patient was recommended to undergo her catheterization which was completed today by Dr. Sandra which reportedly demonstrated 80% proximal to mid LAD stenosis, 90% mid circumflex stenosis, and 100% right axillary artery stenosis while left subclavian artery was preserved. Consultation was placed to cardiothoracic surgery for surgical recommendations. Review of Systems Review of systems was completed and was negative except as noted - Cardiovascular Reports as per HPI, Reports chest pain, Reports shortness of breath - Gastrointestinal Reports as per HPI, Reports nausea Past Medical History Past Medical History: Coronary Artery Disease (CAD), Cancer, Chest Pain / Angina, Heart Failure, Hypertension, Myocardial Infarction ([place]), Pneumonia, Renal Disease Additional Past Medical History / Comment(s): [place] 2009 Last Myocardial Infarction Date:: 2009 History of Any Multi-Drug Resistant Organisms: None Reported Past Surgical History: Heart Catheterization With Stent, Tonsillectomy Additional Past Surgical History / Comment(s): Bilateral aortorenal endarterectomy in his 20s; colon resection Past Anesthesia/Blood Transfusion Reactions: No Reported Reaction Past Psychological History: No Psychological Hx Reported Smoking Status: Former smoker Past Alcohol Use History: None Reported Past Drug Use History: None Reported Additional History: Reports 2 pack per day for greater than 10 years smoking history, quit 2009 - Past Family History Mother Additional Family Medical History / Comment(s): leukemia Father Family Medical History: Myocardial Infarction ([place]) Additional Family Medical History / Comment(s): stents Medications and Allergies Home Medications Medication Instructions Recorded Confirmed Type Atorvastatin Calcium [Lipitor] 40 mg PO HS 04/17/22 03/14/23 History Clopidogrel [Plavix] 75 mg PO DAILY 04/17/22 03/14/23 History Isosorbide Mononitrate ER [Imdur] 60 mg PO DAILY 04/17/22 03/14/23 History amLODIPine [Norvasc] 10 mg PO DAILY 04/17/22 03/14/23 History Gabapentin [Neurontin] 200 mg PO BID 03/14/23 03/14/23 History Allergies Allergy/AdvReac Type Severity Reaction Status Date / Time No Known Allergies Allergy Verified 03/14/23 10:48 Surgical - Exam Vital Signs Temp Pulse Resp BP Pulse Ox 97.7 F 100 20 133/81 97 03/14/23 01:28 03/14/23 01:28 03/14/23 01:28 03/14/23 01:28 03/14/23 01:28 CONSTITUTIONAL: Awake and alert, appears comfortable, cooperative, well- developed, well-nourished, no pain, no acute distress EYES: Pupils equal, round, reactive to light, normal ocular movement ENT: Moist mucous membranes without oral lesions present NECK: No masses, no bruits, trachea midline RESPIRATORY: Lungs sounds edged in the bases auscultation bilaterally. Respirations even, nonlabored. Currently on 6 L nasal cannula with oxygen saturation 96%. Strong cough. No chest wall deformities. No clubbing or cyanosis present CARDIOVASCULAR: S1, soft S2 present, systolic murmur present. Regular rate and rhythm, sinus rhythm on telemetry. Palpable peripheral pulses bilaterally. Trace bilateral lower extremity edema present. No calf pain or tenderness noted. No significant lower extremity varicosities noted GASTROINTESTINAL: Abdomen soft, nontender, nondistended without masses or organomegaly noted. There is no rebound or guarding present. Active bowel sounds present 4 quadrants. GENITOURINARY: Deferred INTEGUMENTARY: Skin is warm and dry with evidence of good perfusion. Right radial artery and right femoral artery heart cath sites well approximated without redness or drainage, Tband in place to the right radial artery NEUROLOGIC: Cranial nerves II through XII intact, normal coordination, no obvio us motor or sensory deficits, speech is normal MUSKULOSKELETAL: Able to move all extremities, strength equal bilaterally, normal posture PSYCHIATRIC: Alert and oriented to person place and time, appropriate affect, intact judgment and insight Results - Labs 03/16/23 07:09 03/16/23 07:09 Abnormal Lab Results - Last 24 Hours (Table) 03/15/23 03/16/23 03/16/23 Range/Units 02:12 07:09 07:09 RBC 4.29 L (4.30-5.90) m/uL Hgb 10.7 L (13.0-17.5) gm/dL Hct 34.0 L (39.0-53.0) % MCV 79.4 L (80.0-100.0) fL RDW 18.8 H (11.5-15.5) % Carbon Dioxide 19 L (22-30) mmol/L BUN 36 H (9-20) mg/dL Creatinine 1.54 H (0.66-1.25) mg/dL Iron 27 L (65-175) UG/DL % Saturation 7.74 L (15.00-50.00) Diabetes panel 03/16/23 Range/Units 07:09 Sodium 140 (137-145) mmol/L Potassium 4.0 (3.5-5.1) mmol/L Chloride 107 (98-107) mmol/L Carbon Dioxide 19 L (22-30) mmol/L BUN 36 H (9-20) mg/dL Creatinine 1.54 H (0.66-1.25) mg/dL Glucose 85 (74-99) mg/dL Calcium 8.4 (8.4-10.2) mg/dL Calcium panel 03/16/23 Range/Units 07:09 Calcium 8.4 (8.4-10.2) mg/dL Pituitary panel 03/16/23 Range/Units 07:09 Sodium 140 (137-145) mmol/L Potassium 4.0 (3.5-5.1) mmol/L Chloride 107 (98-107) mmol/L Carbon Dioxide 19 L (22-30) mmol/L BUN 36 H (9-20) mg/dL Creatinine 1.54 H (0.66-1.25) mg/dL Glucose 85 (74-99) mg/dL Calcium 8.4 (8.4-10.2) mg/dL Adrenal panel 03/16/23 Range/Units 07:09 Sodium 140 (137-145) mmol/L Potassium 4.0 (3.5-5.1) mmol/L Chloride 107 (98-107) mmol/L Carbon Dioxide 19 L (22-30) mmol/L BUN 36 H (9-20) mg/dL Creatinine 1.54 H (0.66-1.25) mg/dL Glucose 85 (74-99) mg/dL Calcium 8.4 (8.4-10.2) mg/dL - Imaging Chest x-ray: report reviewed, image reviewed CT scan - chest: report reviewed, image reviewed EKG: image reviewed Assessment and Plan Assessment: Coronary artery disease with non-STEMI this admission, history of myocardial in farction and RCA stenting in 2009 Low flow low gradient moderate to severe aortic stenosis with peak/mean gradient 48/25 mmHg, aortic valve area 1.4 cm, peak velocity 3.45 m/s Mild to moderate aortic regurgitation Mild mitral and tricuspid regurgitation Acute systolic heart failure, possible ischemic cardiomyopathy, EF 20-25%, l Acute on chronic kidney disease Acute hypoxic respiratory failure, secondary to above Chest pain, shortness of breath, secondary to above 100% right axillary artery stenosis History of hypertension String of colorectal cancer diagnosed 1-1/2 years ago status post resection along with chemo and radiation Chronic kidney disease stage III with previous bilateral aortorenal endarterectomy Remote history of pneumonia Covid infection 2020 Previous heavy tobacco dependence, in 2009 Lower extremity neuropathy Family history of coronary artery disease Plan: The patient was seen and examined in bed on the cardiac stepdown unit in no acute distress with present. Chart/diagnostics were reviewed. The case will be discussed in detail with Dr. Bryson. The usual perioperative course of coronary artery bypass surgery along with aortic valve replacement was discussed in detail with the patient and his , risks and benefits were reviewed, all questions were answered. Preoperative teaching was initiated, once completed will calculate STS risk score and discuss with the patient. Once he is ambulatory we will perform 5 m walk test. Recommend continuing aspirin, statin. Patient is chronically on Plavix, last dose March 13, continue to hold. Recommend beta radha therapy. Once ambulatory increase activity as tolerated. Wean O2 as tolerated. Incentive spirometry ordered and should be encouraged. Heart failure management per cardiology. Medical management of other comorbidities per internal medicine, cardiology, nephrology, pulmonology. More recommendations to follow. Thank you Dr. Sandra for this consult, we will continue to follow along with you and make appropriate recommendations. I have personally seen and examined the patient, performed the documentation and the assessment and plan as written. Number of minutes spent on the visit: [address]. [address], [place]
--- NOTE | 2023-03-16 12:18 | US ---
EXAMINATION TYPE: Pre-Operative Non-Invasive Evaluation of the hand for Potential Radial Artery [place], Measurements only DATE OF EXAM: 03/16/2023 11:34 AM CLINICAL INDICATION: Male, 62 years old with history of measurements only; open heart SIDE PERFORMED: Left TECHNIQUE: Radial artery is measured utilizing real time linear array sonography. Dominant hand: Right Duplex Findings: Radial Artery: Color flow seen Measurements in mm, transverse view: Left Radial: mm Proximal: 3.1 x 3.6 mm Mid: 3.4 x 3.5 mm Distal: 3.0 x 3.1 mm IMPRESSION: 1. Left radial measurements listed above. 2. Performing surgeon to determine viability as conduit.
--- NOTE | 2023-03-16 12:28 | US ---
EXAMINATION TYPE: US vein mapping BILAT DATE OF EXAM: 03/16/2023 11:34 AM COMPARISON: NONE CLINICAL INDICATION: Male, 62 years old with history of preop cardiac surgery; open heart SIDE PERFORMED: Bilateral TECHNIQUE: Lower extremity saphenous vein is examined and measured utilizing real time linear array sonography. DUPLEX FINDINGS: Greater Saphenous: Color flow seen Measurements in mm: Right Greater Saphenous: Groin: N/A heart cath site High Thigh: 6.0 x 5.1 mm Mid Thigh: 4.1 x 3.0 mm Above Knee: 3.0 x 3.5 mm Knee: 3.8 x 4.2 mm Below Knee: 3.3 x 3.9 mm Mid Calf: 2.4 x 3.1 mm At Ankle: 2.9 x 3.5 mm Left Greater Saphenous: Groin: 10.0 x 9.0 mm High Thigh: 4.0 x 3.0 mm Mid Thigh: 4.2 x 3.4 mm Above Knee: 3.4 x 3.3 mm Knee: 4.1 x 3.0 mm Below Knee: 3.2 x 3.2 mm Mid Calf: 2.4 x 2.1 mm At Ankle: 4.6 x 3.0 mm IMPRESSION: 1. Bilateral GSV measurements listed above. 2. Performing surgeon to determine viability as conduit.
--- NOTE | 2023-03-16 12:29 | US ---
EXAMINATION TYPE: US carotid duplex BILAT DATE OF EXAM: 03/16/2023 COMPARISON: NONE CLINICAL INDICATION: Male, 62 years old with history of preop cardiac surgery; pre open heart, no h/o stroke TECHNIQUE: Carotid duplex ultrasound examination. Indirect Doppler criteria was utilized. FINDINGS: EXAM MEASUREMENTS: RIGHT: Peak Systolic Velocity (PSV) cm/sec ----- Right CCA: 78.1 ----- Right ICA: 155 ----- Right ECA: 101 ICA/CCA ratio: 2.0 RIGHT: End Diastole cm/sec ----- Right CCA: 12.3 ----- Right ICA: 43.5 ----- Right ECA: 8.7 LEFT: Peak Systolic Velocity (PSV) cm/sec ----- Left CCA: 66.0 ----- Left ICA: 143 ----- Left ECA: 115 ICA/CCA ratio: 2.2 LEFT: End Diastole cm/sec ----- Left CCA: 11.9 ----- Left ICA: 30.8 ----- Left ECA: 7.7 VERTEBRALS (direction of flow): Right Vertebral: Antegrade Left Vertebral: Antegrade Rhythm: Normal CHIEF DATA OFFICER NOTES: Extensive heterogeneous plaque seen throughout scan, Right ICA has wall to wall pl aque within proximal and mid portion that does not show any flow, could get flow within distal ICA IMPRESSION: 50-69% stenosis of the bilateral carotid bifurcations by peak systolic velocity. Criteria for Assigning % of Stenosis / Diameter reduction (Estimation based on the indirect measurements of the internal carotid artery velocities (ICA PSV). 1. Normal (no stenosis)=ICA PSV < 125 cm/s: ratio < 2.0: ICA EDV<40 cm/s. 2. Less than 50% stenosis=ICA PSV < 125 cm/s: ratio < 2.0: ICA EDV<40 cm/s. 3. 50 to 69% stenosis=ICA PSV of 125 to 230 cm/s: ration 2.0 ? 4.0: ICA EDV 40-100 cm/s. 4. Greater than 70% stenosis to near occlusion= ICA PSV > 230 cm/s: ratio > 4.0: ICA EDV > 100 cm/s. 5. Near occlusion= ICA PSV velocities may be low or undetectable: variable ratio and ICA EDV. 6. Total occlusion=unable to detect flow.
--- NOTE | 2023-03-16 13:16 | P.PN ---
Subjective Progress Note Date: 03/16/23 * 62-year-old gentleman with past medical history significant for colon/rectal cancer, history of coronary artery disease, history of PCI, dyslipidemia, peripheral neuropathy status post chemotherapy for colon cancer presents to the emergency department with complains of shortness of breath. * The time of presentation in ED patient was complaining of midsternal chest pain as well as right interior chest discomfort, this was associated with nausea and diaphoresis and difficulty in breathing. 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 Patient states breathing has improved chest pain has improved * 03/16/2023: Patient seen and evaluated bedside, patient underwent cardiac catheterization today, which demonstrated 80% proximal to mid LAD stenosis, 90% circumflex stenosis and 100% nitrogen reactive stenosis cardiac surgery consultation obtained for evaluation for CABG as well as aortic stenosis. Continue medical management REVIEW OF SYSTEMS: Chest pain, shortness of breath IMPROVED CONSTITUTIONAL: No fever, no malaise, no fatigue. HEENT: No recent visual problems or hearing problems. Denied any sore throat. CARDIOVASCULAR: Chest pain, shortness of breath, PULMONARY: Chest pain, shortness of breath, GASTROINTESTINAL: No diarrhea, no nausea, no vomiting, no abdominal pain. NEUROLOGICAL: No headaches, no weakness, no numbness. HEMATOLOGICAL: Denies any bleeding or petechiae. GENITOURINARY: Denies any burning micturition, frequency, or urgency. MUSCULOSKELETAL/RHEUMATOLOGICAL: Denies any joint pain, swelling, or any muscle pain. ENDOCRINE: Denies any polyuria or polydipsia. PHYSICAL EXAMINATION: GENERAL: The patient is alert and oriented x3, not in any acute distress. Ill appearance, off nasal cannula HEENT: Pupils are round and equally reacting to light. EOMI. CARDIOVASCULAR: S1 and S2 present. Systolic murmur appreciated PULMONARY: Decreased breath sounds bilaterally, rhonchi audible ABDOMEN: Soft, nontender, nondistended, normoactive bowel sounds. No palpable organomegaly. MUSCULOSKELETAL: No joint swelling or deformity. EXTREMITIES: No cyanosis, clubbing, or pedal edema. NEUROLOGICAL: Gross neurological examination did not reveal any focal deficits. SKIN: No rashes. Objective - Vital Signs Vital signs: Vital Signs Temp 97.8 F 03/16/23 07:34 Pulse 75 03/16/23 11:49 Resp 16 03/16/23 11:49 BP 103/64 03/16/23 11:49 Pulse Ox 92 L 03/16/23 11:49 FiO2 Intake & Output 03/15/23 03/16/23 03/16/23 18:59 06:59 18:59 Intake Total 50 Balance 50 Intake: IV 50 - Labs CBC & Chem 7: 03/16/23 07:09 03/16/23 07:09 Labs: Abnormal Lab Results - Last 24 Hours (Table) 03/15/23 03/16/23 03/16/23 Range/Units 02:12 07:09 07:09 RBC 4.29 L (4.30-5.90) m/uL Hgb 10.7 L (13.0-17.5) gm/dL Hct 34.0 L (39.0-53.0) % MCV 79.4 L (80.0-100.0) fL RDW 18.8 H (11.5-15.5) % Carbon Dioxide 19 L (22-30) mmol/L BUN 36 H (9-20) mg/dL Creatinine 1.54 H (0.66-1.25) mg/dL Iron 27 L (65-175) UG/DL % Saturation 7.74 L (15.00-50.00) Assessment and Plan Assessment: Assessment and plan * Acute congestive heart failure, with acute hypoxic respiratory failure, pulmonary edema * Multivessel coronary artery disease with severe aortic stenosis * Non-ST elevated ND, with history of coronary artery disease * Ischemic cardiomyopathy with acute systolic heart failure ejection fraction 2024% * Acute kidney injury on chronic kidney disease stage II * Coronary artery disease with history of PCI * History of colon/rectal cancer * In regards to coronary artery disease, non-ST elevated ND, patient is status post cardiac catheterization, cardiac surgery consulted to evaluate for CABG, continue medical management with aspirin, Lipitor, Imdur, metoprolol. * In regards to acute kidney injury, Baseline creatinine around 1.2, patient does have chronic kidney disease stage II. Nephrology following, postcontrast hydration, Lasix placed on hold intermittently * In regards to coronary artery disease continue antiplatelet, antianginal therapy * In regards to hypertension continue patient on metoprolol, Imdur * In regards to acute hypoxia likely secondary to CHF exacerbation aortic stenosis/Lasix held by nephrology, post cardiac catheterization hydration given * CODE STATUS is full code
--- NOTE | 2023-03-16 15:31 | P.CARDCATH ---
Date of Procedure: 03/16/23 Description of Procedure: DIAGNOSTIC CORONARY ANGIOGRAPHY and LEFT HEART CATH REPORT PROCEDURES PERFORMED: Left heart catheterization Selective coronary angiography Moderate conscious sedation 59 mins Ultrasound assisted Right radial access Ultrasound assisted right femoral access Right common femoral artery arteriogram 6-Somali Angio-Seal closure Right subclavian artery angiogram Left subclavian artery angiogram INDICATION: Newly worsening cardiomyopathy, severe aortic stenosis Patient is a 62-year-old male with past history of CAD status post PCI to RCA presented to the hospital with worsening shortness of breath. On clinical examination he had signs of fluid overload and congestive heart failure. His echocardiogram showed an EF of 30% with calcified aortic valve with concerns of low-flow low gradient severe aortic stenosis. For this he was scheduled for outpatient heart catheterization. CONSENT: I have discussed the risks, benefits and alternative therapies for the above-mentioned procedure, sedation/analgesia and necessary blood product administration (if indicated, as they pertain to this patient). The patient has indicated understanding and acceptance of the risks and procedures discussed. Conscious Sedation: Patient's ECG, heart rate, blood pressure, pulse oximetry was monitored throughout the duration of procedure under my direct supervision. 2 mg Versed and 50 mg Fentanyl were used for induction of moderate conscious sedation. Total duration of moderate concious sedation 59 minutes. PROCEDURE: After explaining the risks, benefits and alternatives of the above mentioned procedures in detail to the patient, informed consent was obtained. Patient was taken to the catheterization lab, prepped and draped in usual sterile fashion using universal precuations. Barbow and gilbert test were performed to confirm adequate perfusion to fingers. Ultrasound was used to identify the radial artery. 1% lidocaine was infiltrated over the right radial artery. A 6-Somali sheath was placed and secured in the right radial artery using modified Seldinger technique. The sheath was flushed and 5 mg verapamil was administered intra-arterially. J tipped wire could not be advanced from axillary artery to subclavian artery. A J-wire was exchanged for a guidewire but that could not be passed from axillary artery to subclavian artery. At this moment we decided to proceed with right femoral access. Ultrasound was used to identify the right femoral artery. 1% lidocaine was infiltrated over the right femoral artery. He underwent ultrasound guidance and using modified Seldinger technique, right femoral access was obtained using micropuncture needle. A 6-Somali sheath was secured in the right femoral artery. Right femoral angina was performed which showed 40-50% calcific stenosis and right common femoral artery. Over the wire JL4 diagnostic catheter was advanced. Wire was removed, catheter was flushed and manipulated under fluoroscopy to selectively engaged the left coronary ostium. Left coronary angioplasty was performed in different angiographic projections. This catheter was exchanged for a JR4 diagnostic catheter over the wire. The catheter was flushed and manipulated to cross the aortic valve. LV pressures were obtained. Pullback was performed across aortic valve and catheter was manipulated to selectively engage the right coronary ostium under fluoroscopic guidance. Right coronary angiography was performed in different angiographic projections. Catheter was removed over the wire. Femoral sheath was flushed. A 6-Somali Angio-Seal closure device was used to achieve patent hemostasis. The right radial sheath was removed and a TR band was placed with excellent patent hemostasis was achieved. The patient tolerated the procedure well. Patient was transported back to the post catheterization holding area in stable condition. Angiographic images were reviewed in detail. HEMODYNAMICS: Aortic Pressure: 103/57 mmHg. LV pressure: 159/10 mmHg. LVEDP 30 mmHg. Peak to peak gradient across aortic valve 56 mmHg Mean gradient 37 mmHg SELECTIVE CORONARY ARTERIOGRAPHY: LEFT MAIN: The left main is a large caliber vessel which triifurcates into the LAD, Ramus and circumflex. Distal left main has 10-20% stenosis LEFT ANTERIOR DESCENDING CORONARY ARTERY: LAD is a large caliber vessel which wraps around to the apex. Mid LAD just after giving first diagonal branch has 80% eccentric hazy calcific stenosis. LAD gives to diagonal branches diagonal 1 and diagonal 2 which is small-sized and appears angiographically normal. Distal LAD has mild luminal irregularities. RAMUS INTERMEDIUS: Large caliber, gives rise to superior and inferior branch. Superior branch bifurcates distally. Ramus system appears angiographically normal. LEFT CIRCUMFLEX CORONARY ARTERY: It is nondominant vessel. Proximal LCx has 20% luminal irregularities. It gives rise to medium size OM branch which has a 90% hazy calcific stenosis which is [id number]. LCx continues to form the AV groove branch medium size, mild to moderate luminal irregularities. RIGHT CORONARY ARTERY: Dominant vessel. The right coronary artery is a large caliber vessel which gives PDA and PLV branch. It appears angiographically normal. Right common femoral artery has calcific 30-40% disease 100% Occluded proximal Axiallary artery with distal reconstitution. Patent left SMA IMPRESSION: 90% calcific stenosis and proximal OM1 80% calcific eccentric stenosis in mid LAD 10-20% distal left main disease Severe aortic stenosis with low-flow low gradient state. Mean gradient 37 mmHg Elevated LVEDP 30-40% stenosis in Right common femoral artery 100% Occluded proximal Axiallary artery with distal reconstitution. Patent left SMA PLAN Surgical consult. Routine postcardiac cath care IV fluids 75 mL for 3 hours IV diuretic therapy to be initiated tonight Performing Physician Alex Sandra MD
[2023-03-16 16:24] LABS: Hepatitis A Antibody IgM Nonreactive; Hepatitis B Surface Antigen Nonreactive
[2023-03-16 16:25] LABS: Hepatitis B Core IgM Nonreactive; Hepatitis C IgG Antibody Nonreactive
[2023-03-16] MEDS: DOCUSATE 100 MG CAP PO SCH (20:33)
[2023-03-16] MEDS: ATORVASTATIN 40 MG TAB PO SCH (20:33)
[2023-03-17] MEDS ORDERED: FUROSEMIDE 10 MG/ML 4 ML VIAL IV STA (04:42)
[2023-03-17 06:09] LABS: Appearance,Urine Clear (Clear); Bilirubin,Urine Negative (Negative); Blood,Urine Negative (Negative); Color,Urine Light Yellow; Glucose,Urine (UA) Negative (Negative); Ketones,Urine Negative (Negative); Leukocyte Esterase,Urine Negative (Negative); Nitrite,Urine Negative (Negative); PH, Urine 6.5 (5.0-8.0); Protein,Urine Negative (Negative); Urobilinogen,Urine 0.2 mg/dL (<2.0)
[2023-03-17] MEDS: ISOSORBIDE MONONITRATE ER 30 MG TAB.ER.24H PO SCH (08:16)
[2023-03-17] MEDS: METOPROLOL TARTRATE 25 MG TAB PO SCH ×2 (08:16→20:52)
[2023-03-17] MEDS: GABAPENTIN 100 MG CAP PO SCH ×2 (08:17→20:52)
[2023-03-17] MEDS: ASPIRIN 81 MG PO SCH (08:17)
[2023-03-17] MEDS: DOCUSATE 100 MG CAP PO SCH ×2 (08:17→20:52)
--- NOTE | 2023-03-17 09:37 | P.PN ---
Subjective Progress Note Date: 03/17/23 62-year-old male who was seen in the emergency department, on March 14, with a previous history of myocardial infarction, presents with chest pain. The patient also had associated nausea, and diaphoresis. The pain did not radiate. He has a previous history of myocardial infarction, his had a number of stents placed. When EMS arrived, at the scene, the pain had resolved. He also complained of some shortness of breath. He was given some aspirin at the scene. We see the patient in the emergency department, room 17. He is currently on 5 L of oxygen. No IV fluids. The patient was thought to have a non-ST segment elevation myocardial infarction, as well as CHF. Also, on auscultation, it is clear that he has aortic stenosis. The CT angiogram was negative for pulmonary embolism. White count 5.8, hemoglobin 10.3, hematocrit 33, and platelet count was normal. D-dimer was 0.91. PTT was 34.6. Sodium 139, potassium 3.8, chlorides 106, CO2 24, BUN 28, and creatinine 1.64. Troponins were 0.088, 0.077, and 0.076. Pro-calcitonin was normal at 0.09. Chest x-ray showed some basilar atelectasis. CT angiogram was negative for PE, and positive for mild pulmonary edema. On today's evaluation of 03/16/2023, the patient underwent a cardiac catheterization and the patient was found to have a 80% proximal mid LAD, 90% mid circumflex vessel and 100% easily artery occlusion. The patient also has moderate aortic stenosis and impaired LV function with an ejection fraction of 20-25%. The patient is free of any chest pain at this point in time. Hemodynamically stable. The patient is currently on IV heparin. The patient has been. The patient is also on Lipitor. IV fluids are in the form of normal saline at rate of 75 mL an hour. The patient is on a 4.5 with a hemoglobin of 10.7, BUN is at 36 with a creatinine of 1.54 and a sodium level is at 40. On the 03 17 2023, the patient sedated patient is calm and comfortable. He did have an episode of oxygen desaturation yesterday and is currently back on room air oxygen. Denies having any chest pain. No significant shortness of breath. He has some increased edema lower extremities bilaterally. As mentioned, the patient underwent a cardiac catheterization and the patient was found to have 90% calcified stenosis of the proximal OM1, 80% stenosis in the mid LAD, tenderness 20% distal left main and severe aortic stenosis with a low flow and low gradient with a mean gradient of 37 and elevated left ventricular end-diasto lic pressure. There is also 30-40% stenosis of the right common femoral artery, 100% occlusion of the proximal axillary artery and patent left SMA. The patient is awaiting further recommendations from cardiothoracic surgery. He is considered to be high risk for bypass and aVR. Possibilities include percutaneous or transcutaneous aortic valve replacement. Objective - Vital Signs Vital signs: Vital Signs Temp 97.8 F 03/16/23 07:34 Pulse 71 03/17/23 08:00 Resp 16 03/17/23 08:00 BP 112/68 03/17/23 08:00 Pulse Ox 94 L 03/17/23 08:00 FiO2 Intake & Output 03/16/23 03/17/23 03/17/23 18:59 06:59 18:59 Intake Total 430 118 Output Total 1000 Balance 430 -1000 118 Weight 113.4 kg Intake: IV 50 Intake, IV Titration 200 Amount Sodium Chloride 0.9% 1, 200 000 ml @ 75 mls/hr IV . [id number] [facility] Rx#:[id number] Oral 180 118 Output: Urine 1000 Other: # Voids 1 - Exam No acute distress, oriented 3. Currently on RA oxygen. No respiratory distress. HEENT examination is grossly unremarkable. Mucous membranes are moist. No oral lesions. Neck supple. Full range of motion. No adenopathy thyromegaly or neck vein distention. Cardiovascular examination reveals regular rhythm rate. S1-S2 normal. No S3 or S4. Grade 2/6 systolic murmur, consistent with aortic stenosis. Lungs reveal mostly clear breath sounds. Minimal rhonchi. No wheezes or crackles. Abdomen soft bowel sounds are heard. No masses or tenderness. Extremities are intact. No cyanosis clubbing or edema. Skin is without rash or lesion. Neurologic examination is brief but nonfocal. - Labs CBC & Chem 7: 03/16/23 07:09 03/16/23 07:09 Assessment and Plan Plan: Acute hypoxemic respiratory failure, secondary to CHF. The patient is currently on RA O2 nasal cannula. Coronary artery disease, multivessel disease month is a further the results of the cardiac catheterization Moderate severe aortic stenosis History of heart failure with reduced ejection fraction, at 25%. Chronic kidney disease, stage III History of myocardial infarction, with previous stent placement. Rule out non-ST segment elevation myocardial infarction. History of aortic stenosis. Moderate to severe History of colon cancer, post resection and chrmotherapy and radiation therapy Plan Continue medical management. Awaiting final recommendations from cardiology and cardiothoracic surgery possibility of a percutaneous aortic valve replacement on this patient.He is considered to be a high risk for thoracotomy and CABG with AVR.
[2023-03-17 10:20] LABS: Anisocytosis Slight; HCT 34.9 % (39.0-53.0); HGB 11.2 gm/dL (13.0-17.5); Hypochromasia Moderate; MCHC 32.3 g/dL (31.0-37.0); MCV 77.5 fL (80.0-100.0); Mean Platelet Volume 7.7; Microcytosis Slight; Platelet Count 225 k/uL (150-450); RDW 18.7 % (11.5-15.5); WBC 5.2 k/uL (3.8-10.6)
[2023-03-17 10:29] LABS: African American GFR (CKD) 56 (>60 ml/min/1.73 sqM); Anion Gap 11 mmol/L; Blood Urea Nitrogen 31 mg/dL (9-20); Calcium 8.7 mg/dL (8.4-10.2); Carbon Dioxide 24 mmol/L (22-30); Chloride 104 mmol/L (98-107); Glucose 118 mg/dL (74-99); Non-African American GFR(CKD) 49 (>60 ml/min/1.73 sqM); Potassium 3.9 mmol/L (3.5-5.1); Sodium 139 mmol/L (137-145)
[2023-03-17] MEDS ORDERED: SODIUM CHLORIDE 0.9% 1,000 ML IV SCH (11:15)
--- NOTE | 2023-03-17 11:15 | P.PN ---
Subjective patient is seen for follow-up for chronic kidney disease and acute kidney injury. He was admitted with shortness of breath and chest pain. Patient ruled in for acute PR. EF is at 20-25%. Status post cardiac catheterization this morning which showed significant triple-vessel disease and moderate aortic stenosis. Currently awaiting opinion from cardiothoracic surgery. Status post IV fluids for cardiac catheterization. Early this morning patient was noted to be hypoxic and received 1 dose of IV Lasix. He currently denies any chest pains or shortness of breath. Objective - Vital Signs Vital signs: Vital Signs Temp 97.8 F 03/16/23 07:34 Pulse 71 03/17/23 08:00 Resp 16 03/17/23 08:00 BP 112/68 03/17/23 08:00 Pulse Ox 94 L 03/17/23 08:00 FiO2 Intake & Output 03/16/23 03/17/23 03/17/23 18:59 06:59 18:59 Intake Total 430 118 Output Total 1000 Balance 430 -1000 118 Weight 113.4 kg Intake: IV 50 Intake, IV Titration 200 Amount Sodium Chloride 0.9% 1, 200 000 ml @ 75 mls/hr IV . 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 Acute kidney injury, cardiorenal currently nonoliguric. Previous creatinine 1.2 on 01/16/2023. UA was completely benign in June 2022. Status post IV contrast for CTA on 03/14/2023. Ultrasound shows atrophic right kidney at 6.4 cm 2. Chronic kidney disease NKF stage III with baseline creatinine about 1.2 mg/dL. Etiology nephrosclerosis. 3. Cardiomyopathy with EF of 20-25% on echocardiogram done this admission 4. CHF exacerbation acute on top of chronic, systolic 5. History of right renal artery stent noted on CTA Plan: Resume Lasix Repeat labs in a.m. Await final decision from cardiothoracic surgery.
[2023-03-17] MEDS: CLOPIDOGREL 75 MG TAB PO SCH (12:33)
--- NOTE | 2023-03-17 14:05 | P.PN ---
Subjective Progress Note Date: 03/17/23 * 62-year-old gentleman with past medical history significant for colon/rectal cancer, history of coronary artery disease, history of PCI, dyslipidemia, peripheral neuropathy status post chemotherapy for colon cancer presents to the emergency department with complains of shortness of breath. * The time of presentation in ED patient was complaining of midsternal chest pain as well as right interior chest discomfort, this was associated with nausea and diaphoresis and difficulty in breathing. Patient stated his symptoms have been ongoing for a few days and was supposed to follow-up with his primary chief technical officer next week * Initiated in ER included an EKG, and a chest x-ray which did show pulmonary vascular congestion. 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 Patient states breathing has improved chest pain has improved * 03/16/2023: Patient seen and evaluated bedside, patient underwent cardiac catheterization today, which demonstrated 80% proximal to mid LAD stenosis, 90% circumflex stenosis and 100% nitrogen reactive stenosis cardiac surgery consultation obtained for evaluation for CABG as well as aortic stenosis. Continue medical management * 03/17/2023: Patient seen and evaluated bedside, patient is alert to person place and situation, care plan discussed at bedside as well. Shortness of breath is improved 1.53. Seen by Cardiac Surgery Planning Percutaneous Aortic Valve Replacement Patient Is Considered High Risk for CABG with AVR REVIEW OF SYSTEMS: Chest pain, shortness of breath IMPROVED CONSTITUTIONAL: No fever, no malaise, no fatigue. HEENT: No recent visual problems or hearing problems. Denied any sore throat. CARDIOVASCULAR: Chest pain, shortness of breath, PULMONARY: Chest pain, shortness of breath, GASTROINTESTINAL: No diarrhea, no nausea, no vomiting, no abdominal pain. NEUROLOGICAL: No headaches, no weakness, no numbness. HEMATOLOGICAL: Denies any bleeding or petechiae. GENITOURINARY: Denies any burning micturition, frequency, or urgency. MUSCULOSKELETAL/RHEUMATOLOGICAL: Denies any joint pain, swelling, or any muscle pain. ENDOCRINE: Denies any polyuria or polydipsia. PHYSICAL EXAMINATION: GENERAL: The patient is alert and oriented x3, not in any acute distress. Ill appearance, off nasal cannula HEENT: Pupils are round and equally reacting to light. EOMI. CARDIOVASCULAR: S1 and S2 present. Systolic murmur appreciated PULMONARY: Decreased breath sounds bilaterally, rhonchi audible ABDOMEN: Soft, nontender, nondistended, normoactive bowel sounds. No palpable organomegaly. MUSCULOSKELETAL: No joint swelling or deformity. EXTREMITIES: No cyanosis, clubbing, or pedal edema. NEUROLOGICAL: Gross neurological examination did not reveal any focal deficits. SKIN: No rashes. Objective - Vital Signs Vital signs: Vital Signs Temp 97.8 F 03/16/23 07:34 Pulse 70 03/17/23 12:00 Resp 16 03/17/23 12:00 BP 108/66 03/17/23 12:00 Pulse Ox 94 L 03/17/23 12:00 FiO2 Intake & Output 03/16/23 03/17/23 03/17/23 18:59 06:59 18:59 Intake Total 430 118 Output Total 1000 Balance 430 -1000 118 Weight 113.4 kg Intake: IV 50 Intake, IV Titration 200 Amount Sodium Chloride 0.9% 1, 200 000 ml @ 75 mls/hr IV . [id number] [facility] Rx#:[id number] Oral 180 118 Output: Urine 1000 Other: # Voids 1 - Labs CBC & Chem 7: 03/17/23 09:15 03/17/23 09:15 Labs: Abnormal Lab Results - Last 24 Hours (Table) 03/17/23 03/17/23 Range/Units 09:15 09:15 Hgb 11.2 L (13.0-17.5) gm/dL Hct 34.9 L (39.0-53.0) % MCV 77.5 L (80.0-100.0) fL RDW 18.7 H (11.5-15.5) % BUN 31 H (9-20) mg/dL Creatinine 1.53 H (0.66-1.25) mg/dL Glucose 118 H (74-99) mg/dL Assessment and Plan Assessment: Assessment and plan * Acute congestive heart failure, with acute hypoxic respiratory failure, pulmonary edema * Multivessel coronary artery disease with severe aortic stenosis * Non-ST elevated MA, with history of coronary artery disease * Ischemic cardiomyopathy with acute systolic heart failure ejection fraction 2025% * Acute kidney injury on chronic kidney disease stage II * Coronary artery disease with history of PCI * History of colon/rectal cancer * In regards to coronary artery disease, non-ST elevated MA, patient is status post cardiac catheterization, cardiac surgery consulted to evaluate for CABG, continue medical management with aspirin, Lipitor, Imdur, metoprolol>> considered high risk for CABG will undergo percutaneous intervention * In regards to acute kidney injury, Baseline creatinine around 1.2, patient does have chronic kidney disease stage II. Nephrology following, postcontrast hydration, Lasix placed on hold intermittently * In regards to coronary artery disease continue antiplatelet, antianginal therapy * In regards to hypertension continue patient on metoprolol, Imdur * In regards to acute hypoxia likely secondary to CHF exacerbation aortic stenosis/Lasix held by nephrology, post cardiac catheterization hydration given * CODE STATUS is full code
[2023-03-17] MEDS ORDERED: ALPRAZolam 0.25 MG TAB PO PRN (14:30)
[2023-03-17] MEDS ORDERED: NITROGLYCERIN SL TABS 0.4 MG TAB SUBLINGUAL PRN (14:30)
--- NOTE | 2023-03-17 15:04 | P.PN ---
Subjective Progress Note Date: 03/17/23 HISTORY OF PRESENTING ILLNESS Patient is a 70-year-old male with past medical history of CAD status post IL in 2009 requiring 4 stents to RCA by Dr. Jones at [facility]. He has last seen him 2 weeks ago and was being worked up for possible aortic stenosis. This time he presented to the hospital because of worsening shortness of breath and dictating breathing. He was getting short of breath with minimal activities like getting up and going to the bathroom. He denies being on any diuretic therapy. She denies any fever or chills or cough. He denies any sputum production. On admission his labs showed hemoglobin of 11, WBC 6.9, Sodium 139, potassium 4.3, CO2 20, BUN 31, creatinine 1.6 Troponins were elevated at 0.08 with a flat pattern. He had elevated d-dimer for which she had a CTA PE protocol done. It did not show any evidence of PE but does show bilateral pulmonary congestion suggestive of congestive heart failure. Progress note Patient reports that he is feeling much better since the time of admission. He denies any orthopnea at this time 03/17 Patient underwent cardiac catheterization on 03/16 which found 90% calcified stenosis and proximal OM1, 80% in the mid LAD, 10-20% in the distal main and severe aortic stenosis with low-flow grade gradient state. Mean gradient 37 mmHg. There was 30-40% stenosis in the right common femoral artery. 100% occluded proximal axillary artery with distal reconstitution. Patent left SMA. Patient has been evaluated by cardiothoracic surgery and patient was felt to be extremely high risk for mortality with combined CABG and aortic valve and recommended stenting if possible and future TAVR. This has been discussed by Dr. Garcia in detail with the patient and his . Plan will be to stage, if necessary, stent placement x2 to avoid worsening of renal function. Lasix is on hold, patient will be made nothing by mouth tonight and we will start patient on small amount of IV fluids for hydration prior to procedure. The patient has been afebrile, heart rate in the 70s, blood pressure 108/66, pulse ox 94% on room air. Repeat blood work today reveals hemoglobin 11.2, BUN 31 creatinine 1.53. TSH was 2.18. PHYSICAL EXAMINATION Vital signs reviewed. Head: Normocephalic. Eyes: Sclerae nonicteric. Neck: Brisk carotid upstroke, elevated jugular venous distention. Lungs: Clear to auscultation. Heart: Regular rate and rhythm, systolic murmur audible in aortic area Abdomen: Soft nontender, positive bowel sounds no organomegaly. Extremities: 1+ pitting edema. Neuro: Alert, oritented, no focal deficits ASSESSMENT Acute systolic congestive heart failure exacerbation. Heart failure with reduced EF of 30-35%. Suspected Ischemic cardiomyopathy. Differential includes chemotherapy-induced cardiomyopathy Suspect low-flow low gradient aortic stenosis at least moderate to severe. Acute kidney injury, CKD. History of colon cancer status post chemotherapy and radiation therapy. Last chemotherapy was 1-2 years ago. Small pericardial effusion Echo shows an EF of 30-35%, grade 1 diastolic dysfunction, dilated left atrium cystoscopy of elevated filling pressures, moderate to severe aortic stenosis with low-flow low gradient, mean gradient 28 mmHg. small pericardial effusion PLAN Plan for PTCA tomorrow Repeat blood work in the morning to evaluate kidney function Make patient nothing by mouth at midnight IV Lasix per nephrology Continue aspirin, atorvastatin, metoprolol 25 mg twice a day, Imdur 30 mg daily Start patient on Plavix 75 mg daily Nurse practitioner note has been reviewed, I agree with the documented findings and plan of care. Patient was seen and examined. Objective - Vital Signs Vital signs: Vital Signs Temp 97.8 F 03/16/23 07:34 Pulse 71 03/17/23 08:00 Resp 16 03/17/23 08:00 BP 112/68 03/17/23 08:00 Pulse Ox 94 L 03/17/23 08:00 FiO2 Intake & Output 03/16/23 03/17/23 03/17/23 18:59 06:59 18:59 Intake Total 430 118 Output Total 1000 Balance 430 -1000 118 Weight 113.4 kg Intake: IV 50 Intake, IV Titration 200 Amount Sodium Chloride 0.9% 1, 200 000 ml @ 75 mls/hr IV . [id number] TG Rx#:[id number] Oral 180 118 Output: Urine 1000 Other: # Voids 1 - Labs CBC & Chem 7: 03/17/23 09:15 03/17/23 09:15 Labs: Abnormal Lab Results - Last 24 Hours (Table) 03/17/23 03/17/23 Range/Units 09:15 09:15 Hgb 11.2 L (13.0-17.5) gm/dL Hct 34.9 L (39.0-53.0) % MCV 77.5 L (80.0-100.0) fL RDW 18.7 H (11.5-15.5) % BUN 31 H (9-20) mg/dL Creatinine 1.53 H (0.66-1.25) mg/dL Glucose 118 H (74-99) mg/dL
[2023-03-17] MEDS: ATORVASTATIN 40 MG TAB PO SCH (20:52)
[2023-03-17] MEDS ORDERED: FUROSEMIDE 10 MG/ML 4 ML VIAL IV SCH (21:00)
[2023-03-18] MEDS ORDERED: ATORVASTATIN 80 MG TAB PO ONE (06:00)
[2023-03-18] MEDS ORDERED: ASPIRIN 325 MG TAB PO ONE (06:00)
[2023-03-18] MEDS: DOCUSATE 100 MG CAP PO SCH ×2 (06:17→21:21)
[2023-03-18] MEDS: GABAPENTIN 100 MG CAP PO SCH ×2 (06:17→21:21)
[2023-03-18] MEDS: ASPIRIN 81 MG PO SCH (06:17)
[2023-03-18] MEDS: CLOPIDOGREL 75 MG TAB PO SCH (06:18)
[2023-03-18] MEDS: METOPROLOL TARTRATE 25 MG TAB PO SCH ×2 (06:18→21:21)
[2023-03-18] MEDS: ISOSORBIDE MONONITRATE ER 30 MG TAB.ER.24H PO SCH (06:18)
[2023-03-18] MEDS ORDERED: HEPARIN SODIUM,PORCINE 10,000 UNIT in SODIUM CHLORIDE 0.9% 1,000 ML IRRIGATION PRN (07:00)
[2023-03-18] MEDS ORDERED: HEPARIN SODIUM,PORCINE (1 ML) 2,500 UNIT in SODIUM CHLORIDE 0.9% 250 ML IRRIGATION PRN (07:00)
[2023-03-18 10:38] LABS: African American GFR (CKD) 54 (>60 ml/min/1.73 sqM); Anion Gap 10 mmol/L; Blood Urea Nitrogen 30 mg/dL (9-20); Calcium 8.9 mg/dL (8.4-10.2); Carbon Dioxide 25 mmol/L (22-30); Chloride 105 mmol/L (98-107); Glucose 89 mg/dL (74-99); Non-African American GFR(CKD) 46 (>60 ml/min/1.73 sqM); Potassium 4.4 mmol/L (3.5-5.1); Sodium 140 mmol/L (137-145)
[2023-03-18] MEDS ORDERED: VERAPAMIL 2.5 MG/ML 2 ML AMP ONE (10:42)
[2023-03-18] MEDS ORDERED: HEPARIN SODIUM 1,000 UN/ML (10ML VL) ONE ×2 (10:42→12:28)
[2023-03-18] MEDS ORDERED: fentaNYL (PF) 50 MCG/ML 2 ML AMP ONE (10:42)
--- NOTE | 2023-03-18 11:35 | P.PN ---
Subjective Progress Note Date: 03/18/23 HISTORY OF PRESENTING ILLNESS Patient is a 70-year-old male with past medical history of CAD status post ID in 2009 requiring 4 stents to RCA by Dr. Jones at [facility]. He has last seen him 2 weeks ago and was being worked up for possible aortic stenosis. This time he presented to the hospital because of worsening shortness of breath and dictating breathing. He was getting short of breath with minimal activities like getting up and going to the bathroom. He denies being on any diuretic therapy. She denies any fever or chills or cough. He denies any sputum production. On admission his labs showed hemoglobin of 11, WBC 6.9, Sodium 139, potassium 4.3, CO2 20, BUN 31, creatinine 1.6 Troponins were elevated at 0.08 with a flat pattern. He had elevated d-dimer for which she had a CTA PE protocol done. It did not show any evidence of PE but does show bilateral pulmonary congestion suggestive of congestive heart failure. Progress note Patient reports that he is feeling much better since the time of admission. He denies any orthopnea at this time 03/17 Patient underwent cardiac catheterization on 03/16 which found 90% calcified stenosis and proximal OM1, 80% in the mid LAD, 10-20% in the distal main and severe aortic stenosis with low-flow grade gradient state. Mean gradient 37 mmHg. There was 30-40% stenosis in the right common femoral artery. 100% occluded proximal axillary artery with distal reconstitution. Patent left SMA. Patient has been evaluated by cardiothoracic surgery and patient was felt to be extremely high risk for mortality with combined CABG and aortic valve and recommended stenting if possible and future TAVR. This has been discussed by Dr. Garcia in detail with the patient and his . Plan will be to stage, if necessary, stent placement x2 to avoid worsening of renal function. Lasix is on hold, patient will be made nothing by mouth tonight and we will start patient on small amount of IV fluids for hydration prior to procedure. The patient has been afebrile, heart rate in the 70s, blood pressure 108/66, pulse ox 94% on room air. Repeat blood work today reveals hemoglobin 11.2, BUN 31 creatinine 1.53. TSH was 2.18. 03/18 Patient is tentatively scheduled for PCI today but we are waiting for blood work that was ordered for 6 AM. We have now ordered blood work stat and waiting for results before patient will go for PCI. Patient has no chest pain this morning. Vital signs have been stable. Records have been obtained from patient's ammonia technician, Dr. Jones reviewed. Patient has known coronary artery disease status post PCI to the RCA and multiple overlapping stents in 2010. Severe aortic stenosis asymptomatic. Hypertension and hyperlipidemia. Plan was for patient to be scheduled for cardiac catheterization, CTA of the neck and subclavian arteries. This office note was dated 02/18/2023. Echocardiogram performed 01/08/2023 revealed EF 5560 percent, mild concentric left ventricular hypertrophy. Mild aortic regurgitation. Normal RVSP. No pericardial effusion. PHYSICAL EXAMINATION Vital signs reviewed. Head: Normocephalic. Eyes: Sclerae nonicteric. Neck: Brisk carotid upstroke, elevated jugular venous distention. Lungs: Clear to auscultation. Heart: Regular rate and rhythm, systolic murmur audible in aortic area Abdomen: Soft nontender, positive bowel sounds no organomegaly. Extremities: 1+ pitting edema. Neuro: Alert, oritented, no focal deficits ASSESSMENT Acute systolic congestive heart failure exacerbation. Heart failure with reduced EF of 30-35%. Suspected Ischemic cardiomyopathy. Differential includes chemotherapy-induced cardiomyopathy Suspect low-flow low gradient aortic stenosis at least moderate to severe. Acute kidney injury, CKD. History of colon cancer status post chemotherapy and radiation therapy. Last chemotherapy was 1-2 years ago. Small pericardial effusion Echo shows an EF of 30-35%, grade 1 diastolic dysfunction, dilated left atrium cystoscopy of elevated filling pressures, moderate to severe aortic stenosis with low-flow low gradient, mean gradient 28 mmHg. small pericardial effusion PLAN Plan for PTCA today. Pending lab work Repeat blood work in the morning to evaluate kidney function Continue aspirin, atorvastatin, metoprolol 25 mg twice a day, Imdur 30 mg daily Continue patient on Plavix 75 mg daily Nurse practitioner note has been reviewed, I agree with the documented findings and plan of care. Patient was seen and examined. Objective - Vital Signs Vital signs: Vital Signs Temp 97 F L 03/18/23 08:00 Pulse 59 L 03/18/23 08:00 Resp 16 03/18/23 08:00 BP 102/59 03/18/23 08:00 Pulse Ox 97 03/18/23 08:00 FiO2 Intake & Output 03/17/23 03/18/23 03/18/23 18:59 06:59 18:59 Intake Total 236 Balance 236 Intake: Oral 236 Other: # Voids 2 - Labs CBC & Chem 7: 03/17/23 09:15 03/18/23 09:41 Labs: Abnormal Lab Results - Last 24 Hours (Table) 03/17/23 03/17/23 Range/Units 09:15 09:15 Hgb 11.2 L (13.0-17.5) gm/dL Hct 34.9 L (39.0-53.0) % MCV 77.5 L (80.0-100.0) fL RDW 18.7 H (11.5-15.5) % BUN 31 H (9-20) mg/dL Creatinine 1.53 H (0.66-1.25) mg/dL Glucose 118 H (74-99) mg/dL
[2023-03-18] MEDS ORDERED: LIDOCAINE 1% INJ 10MG/ML (20 ML MDV) SQ ONE (11:41)
[2023-03-18] MEDS ORDERED: VERAPAMIL SYRINGE (5 MG/10 ML) INTRAARTER ONE (11:43)
[2023-03-18] MEDS ORDERED: fentaNYL (PF) 50 MCG/ML 2 ML AMP IVP ONE (11:43)
[2023-03-18] MEDS: HEPARIN SODIUM 1,000 UN/ML (10ML VL) IV ONE ×3 (11:50→12:29)
--- NOTE | 2023-03-18 12:00 | P.PN ---
Subjective Progress Note Date: 03/18/23 * 62-year-old gentleman with past medical history significant for colon/rectal cancer, history of coronary artery disease, history of PCI, dyslipidemia, peripheral neuropathy status post chemotherapy for colon cancer presents to the emergency department with complains of shortness of breath. * The time of presentation in ED patient was complaining of midsternal chest pain as well as right interior chest discomfort, this was associated with nausea and diaphoresis and difficulty in breathing. Patient stated his symptoms have been ongoing for a few days and was supposed to follow-up with his primary psych arnp next week * Initiated in ER included an EKG, and a chest x-ray which did show pulmonary vascular congestion. 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 Patient states breathing has improved chest pain has improved * 03/16/2023: Patient seen and evaluated bedside, patient underwent cardiac catheterization today, which demonstrated 80% proximal to mid LAD stenosis, 90% circumflex stenosis and 100% nitrogen reactive stenosis cardiac surgery consultation obtained for evaluation for CABG as well as aortic stenosis. Continue medical management * 03/17/2023: Patient seen and evaluated bedside, patient is alert to person place and situation, care plan discussed at bedside as well. Shortness of breath is improved 1.53. Seen by Cardiac Surgery Planning Percutaneous Aortic Valve Replacement Patient Is Considered High Risk for CABG with AVR * 03/18/2023: Patient seen and evaluated bedside, appreciate input from cardiology. Plan as to undergo PCI today. K plan discussed with patient and at bedside. Continue current medical management REVIEW OF SYSTEMS: Chest pain, shortness of breath resolved CONSTITUTIONAL: No fever, no malaise, no fatigue. HEENT: No recent visual problems or hearing problems. Denied any sore throat. CARDIOVASCULAR: Chest pain, shortness of breath, PULMONARY: Chest pain, shortness of breath, GASTROINTESTINAL: No diarrhea, no nausea, no vomiting, no abdominal pain. NEUROLOGICAL: No headaches, no weakness, no numbness. HEMATOLOGICAL: Denies any bleeding or petechiae. GENITOURINARY: Denies any burning micturition, frequency, or urgency. MUSCULOSKELETAL/RHEUMATOLOGICAL: Denies any joint pain, swelling, or any muscle pain. ENDOCRINE: Denies any polyuria or polydipsia. PHYSICAL EXAMINATION: GENERAL: The patient is alert and oriented x3, not in any acute distress. Ill appearance, off nasal cannula HEENT: Pupils are round and equally reacting to light. EOMI. CARDIOVASCULAR: S1 and S2 present. Systolic murmur appreciated PULMONARY: Improved breath sounds bilaterally ABDOMEN: Soft, nontender, nondistended, normoactive bowel sounds. No palpable organomegaly. MUSCULOSKELETAL: No joint swelling or deformity. EXTREMITIES: No cyanosis, clubbing, or pedal edema. NEUROLOGICAL: Gross neurological examination did not reveal any focal deficits. SKIN: No rashes. Objective - Vital Signs Vital signs: Vital Signs Temp 97 F L 03/18/23 08:00 Pulse 59 L 03/18/23 08:00 Resp 16 03/18/23 08:00 BP 102/59 03/18/23 08:00 Pulse Ox 97 03/18/23 08:00 FiO2 Intake & Output 03/17/23 03/18/23 03/18/23 18:59 06:59 18:59 Intake Total 236 Balance 236 Intake: Oral 236 Other: # Voids 2 - Labs CBC & Chem 7: 03/17/23 09:15 03/18/23 09:41 Labs: Abnormal Lab Results - Last 24 Hours (Table) 03/18/23 Range/Units 09:41 BUN 30 H (9-20) mg/dL Creatinine 1.60 H (0.66-1.25) mg/dL Microbiology - Last 24 Hours (Table) 03/16/23 18:45 Nasal Screen MRSA/MSSA - Final Nasopharyngeal Swab Staphylococcus aureus,Not MRSA Assessment and Plan Assessment: Assessment and plan * Acute congestive heart failure, with acute hypoxic respiratory failure, pulmonary edema * Multivessel coronary artery disease with severe aortic stenosis * Non-ST elevated UT, with history of coronary artery disease * Ischemic cardiomyopathy with acute systolic heart failure ejection fraction 2024% * Acute kidney injury on chronic kidney disease stage II * Coronary artery disease with history of PCI * History of colon/rectal cancer * In regards to coronary artery disease, non-ST elevated UT, patient is status post cardiac catheterization, cardiac surgery consulted to evaluate for CABG, continue medical management with aspirin, Lipitor, Imdur, metoprolol>> considered high risk for CABG will undergo percutaneous intervention * In regards to acute kidney injury, Baseline creatinine around 1.2, patient does have chronic kidney disease stage II. Nephrology following, postcontrast hydration, Lasix placed on hold intermittently to avoid worsening creatinine * In regards to coronary artery disease continue antiplatelet, antianginal therapy * In regards to hypertension continue patient on metoprolol, Imdur * In regards to acute hypoxia likely secondary to CHF exacerbation aortic stenosis/Lasix held by nephrology, post cardiac catheterization hydration given on 03/16/23 * CODE STATUS is full code Time with Patient: Greater than 30
[2023-03-18] MEDS ORDERED: IOPAMIDOL-370 100ML BTL INJ ONE (12:19)
[2023-03-18] MEDS ORDERED: NITROGLYCERIN 1000MCG/10ML SYRINGE INTRACORON ONE (12:40)
[2023-03-18] MEDS ORDERED: NITROGLYCERIN SL TABS 0.4 MG TAB SUBLINGUAL PRN (12:57)
[2023-03-18] MEDS ORDERED: ZOLPIDEM 5 MG TAB PO PRN (12:57)
[2023-03-18] MEDS ORDERED: RX INFO: IV CONTRAST WAS GIVEN 1 EACH MISC MISCELLANE PRN (12:57)
[2023-03-18] MEDS ORDERED: ATROPINE SULFATE 0.1 MG/ML 10ML SYRINGE IV PRN (12:57)
[2023-03-18] MEDS ORDERED: MAG HYDROX/AL HYDROX/SIMETH 30 ML CUP PO PRN (12:57)
[2023-03-18] MEDS ORDERED: SODIUM CHLORIDE 0.9% 1,000 ML in EMPTY BAG 1 BAG IV SCH (13:00)
--- NOTE | 2023-03-18 13:10 | P.CARDCATH ---
Date of Procedure: 03/18/23 Description of Procedure: PERCUTANEOUS TRANSLUMINAL CORONARY ANGIOPLASTY CLINICAL INFORMATION: The patient is a 62-year-old male with a known history of CAD, aortic stenosis who presented with symptoms of dyspnea, chest discomfort and evidence of non-STEMI. He underwent cardiac catheterization was found to have obstructive disease in the LAD and left circumflex and had evidence of cardiomyopathy by Echocardiogram and moderate severe aortic stenosis. He was evaluated by the surgical team for aortic valve replacement and CABG and was felt to be a higher risk. Discussion with the patient regarding the option of PCI then TAVR was done and he was in favor of proceeding with that approach. He has a history of chronic kidney disease. Recommendations were made regarding angioplasty and stenting. The procedure as well as the risks and the complications were discussed with the patient who was in full understanding and agreement. PROCEDURE: The patient was brought to the shift lab technician in the fasting and semi- sedated state after receiving fentanyl and Benadryl, using Xylocaine anesthesia and a modified Seldinger technique a 6-Senegalese sheath was introduced in the left radial artery. A 6 [place]e EBU 3.75 guiding catheter was introduced into the system. After cannulating the left main, a 0.014 BMW G wire was advanced across the lesion and positioned distally. Following that a 2.5 x 12 mm NC Treck balloon was advanced and inflated at 8 atmosphere. After removing the balloon of the Power [employer] eye IVUS catheter was introduced and images were obtained. Subsequently a 6-[place]alese guide liner catheter was advanced in the 2.5 x 12 mm balloon was reintroduced and repeat inflation at 8 darrel were done. Following that a 2.75 x 23 mm Xience Yane point stent was deployed. It was dilated at 16 darrel. After removing the balloon repeat IVUS was performed and subsequently a 2.75 x 15 mm NC Treck balloon was advanced and 2 inflations at 10 darrel were done. Following that an Omni Doppler flow wire was prepped and at that time the patient started to complain of chest discomfort, images revealed haziness proximal to the stent. A 3.0 x 18 mm Xience Yane point stent was deployed proximal to the first one in the OM 1 at 16 darrel. Repeat IVUS imaging revealed good opposition of the stent. The patient was pain-free. At that time the Doppler flow wire was introduced in the LAD and IFR was measured at 80%. Images were obtained and repeated. Those images reveal stable successful stenting. At that point, the guiding catheter, the balloon, and guidewire were removed. The sheath was removed. Hemostasis was obtained with deployment of a vascular event. There were no immediate complications. The patient was returned to the room in stable condition. Of note, the patient received 9000 units of heparin as well as Plavix. His ACT was followed. There was no immediate complications. His chest discomfort resolved at the end of the procedure and there was no EKG changes. RESULTS: Successful stenting of the OM1 with reduction of stenosis from 95 % to 0 % with intravascular ultrasound imaging. Hemodynamically significant LAD lesion with IFR of 80% RECOMMENDATIONS: The patient will continue on aspirin and clopidogrel for 1 year without any interruption in addition to aggressive coronary risks modifications, attempting to maintain LDL below 70 mg/dL. Depending on his renal functions will be scheduled to undergo intervention on his LAD and subsequently evaluation of his aortic valve. The findings and recommendations were discussed with the patient and the family, they are in full understanding and agreement. Duration of sedation: 64 minutes
[2023-03-18 14:42] VITALS: BMI 33.9
--- NOTE | 2023-03-18 16:18 | P.PN ---
Subjective Progress Note Date: 03/18/23 62-year-old male who was seen in the emergency department, on March 14, with a previous history of myocardial infarction, presents with chest pain. The patient also had associated nausea, and diaphoresis. The pain did not radiate. He has a previous history of myocardial infarction, his had a number of stents placed. When EMS arrived, at the scene, the pain had resolved. He also complained of some shortness of breath. He was given some aspirin at the scene. We see the patient in the emergency department, room 17. He is currently on 5 L of oxygen. No IV fluids. The patient was thought to have a non-ST segment elevation myocardial infarction, as well as CHF. Also, on auscultation, it is clear that he has aortic stenosis. The CT angiogram was negative for pulmonary embolism. White count 5.8, hemoglobin 10.3, hematocrit 33, and platelet count was normal. D-dimer was 0.91. PTT was 34.6. Sodium 139, potassium 3.8, chlorides 106, CO2 24, BUN 28, and creatinine 1.64. Troponins were 0.088, 0.077, and 0.076. Pro-calcitonin was normal at 0.09. Chest x-ray showed some basilar atelectasis. CT angiogram was negative for PE, and positive for mild pulmonary edema. On today's evaluation of 03/16/2023, the patient underwent a cardiac catheterization and the patient was found to have a 80% proximal mid LAD, 90% mid circumflex vessel and 100% easily artery occlusion. The patient also has moderate aortic stenosis and impaired LV function with an ejection fraction of 20-25%. The patient is free of any chest pain at this point in time. Hemodynamically stable. The patient is currently on IV heparin. The patient has been. The patient is also on Lipitor. IV fluids are in the form of normal saline at rate of 75 mL an hour. The patient is on a 4.5 with a hemoglobin of 10.7, BUN is at 36 with a creatinine of 1.54 and a sodium level is at 40. On the 03 17 2023, the patient sedated patient is calm and comfortable. He did have an episode of oxygen desaturation yesterday and is currently back on room air oxygen. Denies having any chest pain. No significant shortness of breath. He has some increased edema lower extremities bilaterally. As mentioned, the patient underwent a cardiac catheterization and the patient was found to have 90% calcified stenosis of the proximal OM1, 80% stenosis in the mid LAD, tenderness 20% distal left main and severe aortic stenosis with a low flow and low gradient with a mean gradient of 37 and elevated left ventricular end-diasto lic pressure. There is also 30-40% stenosis of the right common femoral artery, 100% occlusion of the proximal axillary artery and patent left SMA. The patient is awaiting further recommendations from cardiothoracic surgery. He is considered to be high risk for bypass and aVR. Possibilities include percutaneous or transcutaneous aortic valve replacement. On today's evaluation of 03/18/2023, the patient is stable on room air oxygen. No cervical shortness of breath. No significant chest pain. As mentioned, the patient is not going to undergo thoracotomy. The patient is being considered for a percutaneous aortic valve replacement. Meanwhile, the patient underwent a cardiac catheterization today and the patient underwent successful stenting of OM1 with reduction of the stenosis from 95% down to 0%. The LAD lesion was hemodynamically stable with an IFR of 80%. Medical treatment will be continued regarding his underlying coronary artery disease. The patient's blood work today shows a WBC count of 5.2, sodium of 140, BUN is at 30 with a creatinine of 1.6. Objective - Vital Signs Vital signs: Vital Signs Temp 97 F L 03/18/23 08:00 Pulse 59 L 03/18/23 08:00 Resp 16 03/18/23 08:00 BP 102/59 03/18/23 08:00 Pulse Ox 97 03/18/23 08:00 FiO2 Intake & Output 03/17/23 03/18/23 03/18/23 18:59 06:59 18:59 Intake Total 236 Balance 236 Intake: Oral 236 Other: # Voids 2 - Exam No acute distress, oriented 3. Currently on RA oxygen. No respiratory distress. HEENT examination is grossly unremarkable. Mucous membranes are moist. No oral lesions. Neck supple. Full range of motion. No adenopathy thyromegaly or neck vein distention. Cardiovascular examination reveals regular rhythm rate. S1-S2 normal. No S3 or S4. Grade 2/6 systolic murmur, consistent with aortic stenosis. Lungs reveal mostly clear breath sounds. Minimal rhonchi. No wheezes or crackles. Abdomen soft bowel sounds are heard. No masses or tenderness. Extremities are intact. No cyanosis clubbing or edema. Skin is without rash or lesion. Neurologic examination is brief but nonfocal. - Labs CBC & Chem 7: 03/17/23 09:15 03/18/23 09:41 Labs: Abnormal Lab Results - Last 24 Hours (Table) 03/18/23 Range/Units 09:41 BUN 30 H (9-20) mg/dL Creatinine 1.60 H (0.66-1.25) mg/dL Microbiology - Last 24 Hours (Table) 03/16/23 18:45 Nasal Screen MRSA/MSSA - Final Nasopharyngeal Swab Staphylococcus aureus,Not MRSA Assessment and Plan Plan: Acute hypoxemic respiratory failure, secondary to CHF. The patient is currently on RA O2 nasal cannula. Coronary artery disease, multivessel disease . The patient underwent cardiac catheterization. Subsequently, the patient underwent further intervention with stenting of the OM 1 with a reduction of a 95% stenosis down to 0%. The LAD lesion was Without intervention as the patient IFR was 80%. Moderate severe aortic stenosis, being considered for a percutaneous aortic valve replacement the later stage History of heart failure with reduced ejection fraction, at 25%. Chronic kidney disease, stage III History of myocardial infarction, with previous stent placement. Rule out non-ST segment elevation myocardial infarction. History of aortic stenosis. Moderate to severe History of colon cancer, post resection and chemotherapy and radiation therapy Plan Continue medical management Aspirate to milligrams by mouth daily Plavix 75 mg by mouth daily Metoprolol 25 mg by mouth twice a day No need for diuretics Patient is post cardiac catheterization stenting of OM1 cardiothoracic surgery possibility of a percutaneous aortic valve replacement on this patient at the later stage He is considered to be a high risk for thoracotomy and CABG with AVR. Pulmonary status is stable and the patient is currently on room and oxygen
[2023-03-18] MEDS: ATORVASTATIN 40 MG TAB PO SCH (21:21)
[2023-03-18] MEDS: ALPRAZolam 0.5 MG TAB PO PRN (23:50)
[2023-03-19] MEDS: GABAPENTIN 100 MG CAP PO SCH ×2 (09:06→22:11)
[2023-03-19] MEDS: DOCUSATE 100 MG CAP PO SCH ×2 (09:06→22:11)
[2023-03-19] MEDS: METOPROLOL TARTRATE 25 MG TAB PO SCH ×2 (09:07→22:11)
[2023-03-19] MEDS: CLOPIDOGREL 75 MG TAB PO SCH (09:07)
[2023-03-19] MEDS: ISOSORBIDE MONONITRATE ER 30 MG TAB.ER.24H PO SCH (09:07)
[2023-03-19] MEDS: ASPIRIN 81 MG PO SCH (09:07)
[2023-03-19 09:49] LABS: Anisocytosis Slight; HCT 37.9 % (39.0-53.0); HGB 11.6 gm/dL (13.0-17.5); Hypochromasia Marked; MCH 24.3 pg (25.0-35.0); MCHC 30.7 g/dL (31.0-37.0); MCV 79.1 fL (80.0-100.0); Mean Platelet Volume 8.2; Microcytosis Slight; Platelet Count 201 k/uL (150-450); RBC 4.79 m/uL (4.30-5.90); RDW 18.4 % (11.5-15.5)
[2023-03-19 10:00] LABS: African American GFR (CKD) 63 (>60 ml/min/1.73 sqM); Anion Gap 12 mmol/L; Blood Urea Nitrogen 28 mg/dL (9-20); Calcium 8.8 mg/dL (8.4-10.2); Carbon Dioxide 20 mmol/L (22-30); Chloride 108 mmol/L (98-107); Glucose 116 mg/dL (74-99); Non-African American GFR(CKD) 54 (>60 ml/min/1.73 sqM); Potassium 4.5 mmol/L (3.5-5.1); Sodium 140 mmol/L (137-145)
--- NOTE | 2023-03-19 11:48 | CA ---
Transthoracic Echo Report Name: Aaron Peraza Age: 62 Gender: M : 1960 Exam Date: 03/19/2023 09:07 Exam Location: [place] [facility] Ht (in): 72 Wt (lb): 250 Ordering Physician: Renata Garcia MD ([id number]) Attending/Referring Phys: Automobile Repossessor Nahum Zelaya Procedure CPT: Indications: EF Cardiac Hx: Technical Quality: Fair Contrast 1: Total Dose (mL): Contrast 2: Total Dose (mL): MEASUREMENTS (Male / Female) Normal Values 2D ECHO LV Diastolic Diameter PLAX 5.9 cm 4.2 - 5.9 / 3.9 - 5.3 cm LV Systolic Diameter PLAX 4.8 cm IVS Diastolic Thickness 1.7 cm 0.6 - 1.0 / 0.6 - 0.9 cm LVPW Diastolic Thickness 1.6 cm 0.6 - 1.0 / 0.6 - 0.9 cm LV Relative Wall Thickness 0.6 RV Internal Dim ED PLAX 3.4 cm LV Diastolic Volume MOD BP 166.7 cm??? 67 - 155 / 56 - 104 cm??? LV Systolic Volume MOD BP 118.7 cm??? 22 - 58 / 19 - 49 cm??? LV Ejection Fraction MOD BP 28.8 % >= 55 % LV Cardiac Index MOD BP 1595.2 cm???/min???m??? LV Diastolic Volume MOD 4C 157.2 cm??? LV Systolic Volume MOD 4C 106.9 cm??? LV Ejection Fraction MOD 4C 32.0 % LV Cardiac Index MOD 4C 1673.4 cm???/min???m??? LV Diastolic Length 4C 9.9 cm LV Systolic Length 4C 9.5 cm LV Diastolic Volume MOD 2C 162.3 cm??? LV Systolic Volume MOD 2C 128.2 cm??? LV Ejection Fraction MOD 2C 21.0 % LV Cardiac Index MOD 2C 1134.6 cm???/min???m??? LV Diastolic Length 2C 9.0 cm LV Systolic Length 2C 9.2 cm DOPPLER Mitral E Point Velocity 114.6 cm/s Mitral A Point Velocity 61.4 cm/s Mitral E to A Ratio 1.9 MV Deceleration Time 114.7 ms FINDINGS Left Ventricle Mildly enlarged LV. Mild concentric LVH. Left ventricular ejection fraction is estimated at 25-30 %. Right Ventricle Right Atrium Left Atrium Mitral Valve Aortic Valve Tricuspid Valve Pulmonic Valve Pericardium Aorta CONCLUSIONS Limited study The LV is dilated with impaired LV systolic function and EF between 25-30% Previewed by: Dr. Behzad Patel MD (Electronically Signed) Final Date: 19 March 2023 11:47
--- NOTE | 2023-03-19 12:04 | P.PN ---
Subjective patient is seen for follow-up for chronic kidney disease and acute kidney injury. He was admitted with shortness of breath and chest pain. Patient ruled in for acute IA. EF is at 20-25%. Status post cardiac catheterization this morning which showed significant triple-vessel disease and moderate aortic stenosis. Patient was considered high risk for surgery and is scheduled for cardiac catheterization for coronary stent placement today. Objective - Vital Signs Vital signs: Vital Signs Temp 98.3 F 03/19/23 08:00 Pulse 87 03/19/23 08:00 Resp 16 03/19/23 08:00 BP 106/67 03/19/23 08:00 Pulse Ox 97 03/19/23 08:00 FiO2 Intake & Output 03/18/23 03/19/23 03/19/23 18:59 06:59 18:59 Intake Total 620 240 Balance 620 240 Weight 113.4 kg Intake: Intake, IV Titration 200 Amount IV Fluid Continuation 1, 0 000 ml @ 0 mls/hr IV .STK -MED ONE Rx#:[id number] Sodium Chloride 0.9% 1, 200 000 ml In Empty Bag 1 bag @ 1 ML/KG/HR 113.4 mls/ hr IV .Q8H50M [facility] Rx#: [id number] Oral 420 240 Other: # Voids 2 - Exam Patient is comfortable awake, alert oriented 3, no acute distress Examination of the heart S1 and S2 Examination of the lungs decreased breath sounds at the bases Abdomen is soft nontender Examination of lower extremities shows no edema [employer] exam grossly intac - Labs CBC & Chem 7: 03/19/23 09:10 03/19/23 09:10 Labs: Abnormal Lab Results - Last 24 Hours (Table) 03/19/23 03/19/23 Range/Units 09:10 09:10 Hgb 11.6 L (13.0-17.5) gm/dL Hct 37.9 L (39.0-53.0) % MCV 79.1 L (80.0-100.0) fL MCH 24.3 L (25.0-35.0) pg MCHC 30.7 L (31.0-37.0) g/dL RDW 18.4 H (11.5-15.5) % Chloride 108 H (98-107) mmol/L Carbon Dioxide 20 L (22-30) mmol/L BUN 28 H (9-20) mg/dL Creatinine 1.40 H (0.66-1.25) mg/dL Glucose 116 H (74-99) mg/dL Microbiology - Last 24 Hours (Table) 03/16/23 18:45 Nasal Screen MRSA/MSSA - Final Nasopharyngeal Swab Staphylococcus aureus,Not MRSA Assessment and Plan Assessment: 1. Acute kidney injury, cardiorenal currently nonoliguric. Previous creatinine 1.2 on 01/16/2023. UA was completely benign in June 2022. Status post IV contrast for CTA on 03/14/2023. Ultrasound shows atrophic right kidney at 6.4 cm 2. Chronic kidney disease NKF stage III with baseline creatinine about 1.2 mg/dL. Etiology nephrosclerosis. 3. Cardiomyopathy with EF of 20-25% on echocardiogram done this admission 4. CHF exacerbation acute on top of chronic, systolic 5. History of right renal artery stent noted on CTA 6. Acute IA status post cardiac catheterization with significant coronary artery disease, considered high risk for surgery and scheduled for a repeat ca rdiac catheterization and coronary stent placement today. Plan: Continue off of IV fluids due to underlying CHF and volume overload. Repeat labs in a.m. Avoid hypotension.
--- NOTE | 2023-03-19 12:07 | P.PN ---
Subjective patient is seen for follow-up for chronic kidney disease and acute kidney injury. He was admitted with shortness of breath and chest pain. Patient ruled in for acute NH. EF is at 20-25%. Status post cardiac catheterization this morning which showed significant triple-vessel disease and moderate aortic stenosis. Patient was considered high risk for surgery and therefore had repeat cardiac cath with successful stenting of OM 1 yesterday on 03/18/2023. Patient still needs intervention on the LAD No complaints of chest pains or shortness of breath. Objective - Vital Signs Vital signs: Vital Signs Temp 98.3 F 03/19/23 08:00 Pulse 87 03/19/23 08:00 Resp 16 03/19/23 08:00 BP 106/67 03/19/23 08:00 Pulse Ox 97 03/19/23 08:00 FiO2 Intake & Output 03/18/23 03/19/23 03/19/23 18:59 06:59 18:59 Intake Total 620 240 Balance 620 240 Weight 113.4 kg Intake: Intake, IV Titration 200 Amount IV Fluid Continuation 1, 0 000 ml @ 0 mls/hr IV .STK -[facility] ONE Rx#:[id number] Sodium Chloride 0.9% 1, 200 000 ml In Empty Bag 1 bag @ 1 ML/KG/HR 113.4 mls/ hr IV .Q8H50M [facility] Rx#: [id number] Oral 420 240 Other: # Voids 2 - Exam Patient is comfortable awake, alert oriented 3, no acute distress Examination of the heart S1 and S2 Examination of the lungs decreased breath sounds at the bases Abdomen is soft nontender Examination of lower extremities shows trace edema [employer] IN exam grossly intac - Labs CBC & Chem 7: 03/19/23 09:10 03/19/23 09:10 Labs: Abnormal Lab Results - Last 24 Hours (Table) 03/19/23 03/19/23 Range/Units 09:10 09:10 Hgb 11.6 L (13.0-17.5) gm/dL Hct 37.9 L (39.0-53.0) % MCV 79.1 L (80.0-100.0) fL MCH 24.3 L (25.0-35.0) pg MCHC 30.7 L (31.0-37.0) g/dL RDW 18.4 H (11.5-15.5) % Chloride 108 H (98-107) mmol/L Carbon Dioxide 20 L (22-30) mmol/L BUN 28 H (9-20) mg/dL Creatinine 1.40 H (0.66-1.25) mg/dL Glucose 116 H (74-99) mg/dL Microbiology - Last 24 Hours (Table) 03/16/23 18:45 Nasal Screen MRSA/MSSA - Final Nasopharyngeal Swab Staphylococcus aureus,Not MRSA Assessment and Plan Assessment: 1. Acute kidney injury, cardiorenal currently nonoliguric. Previous creatinine 1.2 on 01/16/2023. UA was completely benign in June 2022. Status post IV contrast for CTA on 03/14/2023, cardiac catheterization on 03/16/2023 and 03/18/2023. Ultrasound shows atrophic right kidney at 6.4 cm 2. Chronic kidney disease NKF stage III with baseline creatinine about 1.2 m g/dL. Etiology nephrosclerosis. 3. Cardiomyopathy with EF of 20-25% on echocardiogram done this admission 4. CHF exacerbation acute on top of chronic, systolic 5. History of right renal artery stent noted on CTA 6. Acute NH status post cardiac catheterization with significant coronary artery disease, considered high risk for surgery and status post stent to OM on 03/18/2023. Patient still needs intervention on LAD. Plan: Continue off of IV fluids due to underlying CHF and volume overload. Repeat labs in a.m. Avoid hypotension.
--- NOTE | 2023-03-19 12:58 | P.PN ---
Subjective Progress Note Date: 03/19/23 * 62-year-old gentleman with past medical history significant for colon/rectal cancer, history of coronary artery disease, history of PCI, dyslipidemia, peripheral neuropathy status post chemotherapy for colon cancer presents to the emergency department with complains of shortness of breath. * The time of presentation in ED patient was complaining of midsternal chest pain as well as right interior chest discomfort, this was associated with nausea and diaphoresis and difficulty in breathing. Patient stated his symptoms have been ongoing for a few days and was supposed to follow-up with his primary senior engineering specialist next week * Initiated in ER included an EKG, and a chest x-ray which did show pulmonary vascular congestion. 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 Patient states breathing has improved chest pain has improved * 03/16/2023: Patient seen and evaluated bedside, patient underwent cardiac catheterization today, which demonstrated 80% proximal to mid LAD stenosis, 90% circumflex stenosis and 100% nitrogen reactive stenosis cardiac surgery consultation obtained for evaluation for CABG as well as aortic stenosis. Continue medical management * 03/17/2023: Patient seen and evaluated bedside, patient is alert to person place and situation, care plan discussed at bedside as well. Shortness of breath is improved 1.53. Seen by Cardiac Surgery Planning Percutaneous Aortic Valve Replacement Patient Is Considered High Risk for CABG with AVR * 03/18/2023: Patient seen and evaluated bedside, appreciate input from cardiology. Plan as to undergo PCI today. K plan discussed with patient and at bedside. Continue current medical management * 03/19/2023: Patient seen and evaluated bedside, patient is alert and oriented 4, family at bedside status was cardiac catheterization patient had PCI to OM1. Creatinine 1.40, nephrology following REVIEW OF SYSTEMS: Chest pain, shortness of breath resolved CONSTITUTIONAL: No fever, no malaise, no fatigue. HEENT: No recent visual problems or hearing problems. Denied any sore throat. CARDIOVASCULAR: Chest pain, shortness of breath, PULMONARY: Chest pain, shortness of breath, GASTROINTESTINAL: No diarrhea, no nausea, no vomiting, no abdominal pain. NEUROLOGICAL: No headaches, no weakness, no numbness. HEMATOLOGICAL: Denies any bleeding or petechiae. GENITOURINARY: Denies any burning micturition, frequency, or urgency. MUSCULOSKELETAL/RHEUMATOLOGICAL: Denies any joint pain, swelling, or any muscle pain. ENDOCRINE: Denies any polyuria or polydipsia. PHYSICAL EXAMINATION: GENERAL: The patient is alert and oriented x3, not in any acute distress. off nasal cannula HEENT: Pupils are round and equally reacting to light. EOMI. CARDIOVASCULAR: S1 and S2 present. Systolic murmur appreciated, left radial access no hematoma noted PULMONARY: Improved breath sounds bilaterally ABDOMEN: Soft, nontender, nondistended, normoactive bowel sounds. No palpable organomegaly. MUSCULOSKELETAL: No joint swelling or deformity. EXTREMITIES: No cyanosis, clubbing, or pedal edema. NEUROLOGICAL: Gross neurological examination did not reveal any focal deficits. SKIN: No rashes. Objective - Vital Signs Vital signs: Vital Signs Temp 98.3 F 03/19/23 08:00 Pulse 87 03/19/23 08:00 Resp 16 03/19/23 08:00 BP 106/67 03/19/23 08:00 Pulse Ox 97 03/19/23 08:00 FiO2 Intake & Output 03/18/23 03/19/23 03/19/23 18:59 06:59 18:59 Intake Total 620 240 Balance 620 240 Weight 113.4 kg Intake: Intake, IV Titration 200 Amount IV Fluid Continuation 1, 0 000 ml @ 0 mls/hr IV .STK -[facility] ONE Rx#:[id number] Sodium Chloride 0.9% 1, 200 000 ml In Empty Bag 1 bag @ 1 ML/KG/HR 113.4 mls/ hr IV .Q8H50M [facility] Rx#: [id number] Oral 420 240 Other: # Voids 2 - Labs CBC & Chem 7: 03/19/23 09:10 03/19/23 09:10 Labs: Abnormal Lab Results - Last 24 Hours (Table) 03/19/23 03/19/23 Range/Units 09:10 09:10 Hgb 11.6 L (13.0-17.5) gm/dL Hct 37.9 L (39.0-53.0) % MCV 79.1 L (80.0-100.0) fL MCH 24.3 L (25.0-35.0) pg MCHC 30.7 L (31.0-37.0) g/dL RDW 18.4 H (11.5-15.5) % Chloride 108 H (98-107) mmol/L Carbon Dioxide 20 L (22-30) mmol/L BUN 28 H (9-20) mg/dL Creatinine 1.40 H (0.66-1.25) mg/dL Glucose 116 H (74-99) mg/dL Microbiology - Last 24 Hours (Table) 03/16/23 18:45 Nasal Screen MRSA/MSSA - Final Nasopharyngeal Swab Staphylococcus aureus,Not MRSA Assessment and Plan Assessment: Assessment and plan * Acute congestive heart failure, with acute hypoxic respiratory failure, pulmonary edema * Multivessel coronary artery disease with severe aortic stenosis * Non-ST elevated NE, with history of coronary artery disease * Ischemic cardiomyopathy with acute systolic heart failure ejection fraction 5% * Acute kidney injury on chronic kidney disease stage II * Coronary artery disease with history of PCI * History of colon/rectal cancer * In regards to coronary artery disease, non-ST elevated NE, patient is status post cardiac catheterization, cardiac surgery consulted to evaluate for CABG however patient considered high risk, continue medical management with aspirin, Lipitor, Imdur, metoprolol>> status post PCI to OM1 * In regards to acute kidney injury, Baseline creatinine around 1.2, patient does have chronic kidney disease stage II. Nephrology following, postcontrast hydration, Lasix placed on hold intermittently to avoid worsening creatinine * In regards to coronary artery disease continue antiplatelet, antianginal therapy, Aspirin and Plavix * In regards to hypertension continue patient on metoprolol, Imdur * In regards to acute hypoxia likely secondary to CHF exacerbation aortic stenosis/Lasix held by nephrology, post cardiac catheterization hydration given on 03/16/23 * CODE STATUS is full code Time with Patient: Greater than 30
[2023-03-19] MEDS ORDERED: ALPRAZolam 0.25 MG TAB PO PRN (13:38)
[2023-03-19] MEDS ORDERED: NITROGLYCERIN SL TABS 0.4 MG TAB SUBLINGUAL PRN (13:38)
[2023-03-19] MEDS ORDERED: ALPRAZolam 0.5 MG TAB PO PRN (13:38)
--- NOTE | 2023-03-19 13:40 | P.PN ---
Subjective Progress Note Date: 03/19/23 HISTORY OF PRESENTING ILLNESS Patient is a 70-year-old male with past medical history of CAD status post DC in 2009 requiring 4 stents to RCA by Dr. Jones at [facility]. He has last seen him 2 weeks ago and was being worked up for possible aortic stenosis. This time he presented to the hospital because of worsening shortness of breath and dictating breathing. He was getting short of breath with minimal activities like getting up and going to the bathroom. He denies being on any diuretic therapy. She denies any fever or chills or cough. He denies any sputum production. On admission his labs showed hemoglobin of 11, WBC 6.9, Sodium 139, potassium 4.3, CO2 20, BUN 31, creatinine 1.6 Troponins were elevated at 0.08 with a flat pattern. He had elevated d-dimer for which she had a CTA PE protocol done. It did not show any evidence of PE but does show bilateral pulmonary congestion suggestive of congestive heart failure. Progress note Patient reports that he is feeling much better since the time of admission. He denies any orthopnea at this time 03/17 Patient underwent cardiac catheterization on 03/16 which found 90% calcified stenosis and proximal OM1, 80% in the mid LAD, 10-20% in the distal main and severe aortic stenosis with low-flow grade gradient state. Mean gradient 37 mmHg. There was 30-40% stenosis in the right common femoral artery. 100% occluded proximal axillary artery with distal reconstitution. Patent left SMA. Patient has been evaluated by cardiothoracic surgery and patient was felt to be extremely high risk for mortality with combined CABG and aortic valve and recommended stenting if possible and future TAVR. This has been discussed by Dr. Garcia in detail with the patient and his . Plan will be to stage, if necessary, stent placement x2 to avoid worsening of renal function. Lasix is on hold, patient will be made nothing by mouth tonight and we will start patient on small amount of IV fluids for hydration prior to procedure. The patient has been afebrile, heart rate in the 70s, blood pressure 108/66, pulse ox 94% on room air. Repeat blood work today reveals hemoglobin 11.2, BUN 31 creatinine 1.53. TSH was 2.18. 03/18 Patient is tentatively scheduled for PCI today but we are waiting for blood work that was ordered for 6 AM. We have now ordered blood work stat and waiting for results before patient will go for PCI. Patient has no chest pain this morning. Vital signs have been stable. Records have been obtained from patient's manager product, Dr. Jones reviewed. Patient has known coronary artery disease status post PCI to the RCA and multiple overlapping stents in 2010. Severe aortic stenosis asymptomatic. Hypertension and hyperlipidemia. Plan was for patient to be scheduled for cardiac catheterization, CTA of the neck and subclavian arteries. This office note was dated 02/18/2023. Echocardiogram performed 01/08/2023 revealed EF 5560 percent, mild concentric left ventricular hypertrophy. Mild aortic regurgitation. Normal RVSP. No pericardial effusion. 03/19 Yesterday patient underwent PTCA of the OM 1. Plan is to continue aspirin and Plavix for 1 year without interruption. Intervention on his LAD will be scheduled tentatively for tomorrow with plan for repeat blood work early in the morning. Patient has been afebrile, heart rate in the 70s and 80s, blood pressure 106/67, pulse ox 97% on room air. Repeat blood work reveals BUN 28 creatinine 1.4, CO2 20, hemoglobin 11.6. Echocardiogram reveals EF of 25-30%. PHYSICAL EXAMINATION Vital signs reviewed. Head: Normocephalic. Eyes: Sclerae nonicteric. Neck: Brisk carotid upstroke, elevated jugular venous distention. Lungs: Clear to auscultation. Heart: Regular rate and rhythm, systolic murmur audible in aortic area Abdomen: Soft nontender, positive bowel sounds no organomegaly. Extremities: 1+ pitting edema. Neuro: Alert, oritented, no focal deficits ASSESSMENT Acute systolic congestive heart failure exacerbation. Heart failure with reduced EF of 30-35%. Suspected Ischemic cardiomyopathy. Differential includes chemotherapy-induced cardiomyopathy Suspect low-flow low gradient aortic stenosis at least moderate to severe. Acute kidney injury, CKD. History of colon cancer status post chemotherapy and radiation therapy. Last chemotherapy was 1-2 years ago. Small pericardial effusion Echo shows an EF of 30-35%, grade 1 diastolic dysfunction, dilated left atrium cystoscopy of elevated filling pressures, moderate to severe aortic stenosis with low-flow low gradient, mean gradient 28 mmHg. small pericardial effusion PLAN PTCA of the LAD will be scheduled for tomorrow Repeat blood work in the morning to evaluate kidney function Continue aspirin, atorvastatin, metoprolol 25 mg twice a day, Imdur 30 mg daily Continue patient on Plavix 75 mg daily Nurse practitioner note has been reviewed, I agree with the documented findings and plan of care. Patient was seen and examined. Objective - Vital Signs Vital signs: Vital Signs Temp 98.3 F 03/19/23 08:00 Pulse 87 03/19/23 08:00 Resp 16 03/19/23 08:00 BP 106/67 03/19/23 08:00 Pulse Ox 97 03/19/23 08:00 FiO2 Intake & Output 03/18/23 03/19/23 03/19/23 18:59 06:59 18:59 Intake Total 620 240 Balance 620 240 Weight 113.4 kg Intake: Intake, IV Titration 200 Amount IV Fluid Continuation 1, 0 000 ml @ 0 mls/hr IV .STK -[facility] ONE Rx#:[id number] Sodium Chloride 0.9% 1, 200 000 ml In Empty Bag 1 bag @ 1 ML/KG/HR 113.4 mls/ hr IV .Q8H50M [facility] Rx#: [id number] Oral 420 240 Other: # Voids 2 - Labs CBC & Chem 7: 03/19/23 09:10 03/19/23 09:10 Labs: Abnormal Lab Results - Last 24 Hours (Table) 03/19/23 03/19/23 Range/Units 09:10 09:10 Hgb 11.6 L (13.0-17.5) gm/dL Hct 37.9 L (39.0-53.0) % MCV 79.1 L (80.0-100.0) fL MCH 24.3 L (25.0-35.0) pg MCHC 30.7 L (31.0-37.0) g/dL RDW 18.4 H (11.5-15.5) % Chloride 108 H (98-107) mmol/L Carbon Dioxide 20 L (22-30) mmol/L BUN 28 H (9-20) mg/dL Creatinine 1.40 H (0.66-1.25) mg/dL Glucose 116 H (74-99) mg/dL Microbiology - Last 24 Hours (Table) 03/16/23 18:45 Nasal Screen MRSA/MSSA - Final Nasopharyngeal Swab Staphylococcus aureus,Not MRSA
--- NOTE | 2023-03-19 14:45 | P.PN ---
Subjective Progress Note Date: 03/19/23 62-year-old male who was seen in the emergency department, on March 14, with a previous history of myocardial infarction, presents with chest pain. The patient also had associated nausea, and diaphoresis. The pain did not radiate. He has a previous history of myocardial infarction, his had a number of stents placed. When EMS arrived, at the scene, the pain had resolved. He also complained of some shortness of breath. He was given some aspirin at the scene. We see the patient in the emergency department, room 17. He is currently on 5 L of oxygen. No IV fluids. The patient was thought to have a non-ST segment elevation myocardial infarction, as well as CHF. Also, on auscultation, it is clear that he has aortic stenosis. The CT angiogram was negative for pulmonary embolism. White count 5.8, hemoglobin 10.3, hematocrit 33, and platelet count was normal. D-dimer was 0.91. PTT was 34.6. Sodium 139, potassium 3.8, chlorides 106, CO2 24, BUN 28, and creatinine 1.64. Troponins were 0.088, 0.077, and 0.076. Pro-calcitonin was normal at 0.09. Chest x-ray showed some basilar atelectasis. CT angiogram was negative for PE, and positive for mild pulmonary edema. On today's evaluation of 03/16/2023, the patient underwent a cardiac catheterization and the patient was found to have a 80% proximal mid LAD, 90% mid circumflex vessel and 100% easily artery occlusion. The patient also has moderate aortic stenosis and impaired LV function with an ejection fraction of 20-25%. The patient is free of any chest pain at this point in time. Hemodynamically stable. The patient is currently on IV heparin. The patient has been. The patient is also on Lipitor. IV fluids are in the form of normal saline at rate of 75 mL an hour. The patient is on a 4.5 with a hemoglobin of 10.7, BUN is at 36 with a creatinine of 1.54 and a sodium level is at 40. On the 03 17 2023, the patient sedated patient is calm and comfortable. He did have an episode of oxygen desaturation yesterday and is currently back on room air oxygen. Denies having any chest pain. No significant shortness of breath. He has some increased edema lower extremities bilaterally. As mentioned, the patient underwent a cardiac catheterization and the patient was found to have 90% calcified stenosis of the proximal OM1, 80% stenosis in the mid LAD, tenderness 20% distal left main and severe aortic stenosis with a low flow and low gradient with a mean gradient of 37 and elevated left ventricular end-diasto lic pressure. There is also 30-40% stenosis of the right common femoral artery, 100% occlusion of the proximal axillary artery and patent left SMA. The patient is awaiting further recommendations from cardiothoracic surgery. He is considered to be high risk for bypass and aVR. Possibilities include percutaneous or transcutaneous aortic valve replacement. On today's evaluation of 03/18/2023, the patient is stable on room air oxygen. No cervical shortness of breath. No significant chest pain. As mentioned, the patient is not going to undergo thoracotomy. The patient is being considered for a percutaneous aortic valve replacement. Meanwhile, the patient underwent a cardiac catheterization today and the patient underwent successful stenting of OM1 with reduction of the stenosis from 95% down to 0%. The LAD lesion was hemodynamically stable with an IFR of 80%. Medical treatment will be continued regarding his underlying coronary artery disease. The patient's blood work today shows a WBC count of 5.2, sodium of 140, BUN is at 30 with a creatinine of 1.6. On 03/19/2023, the patient is doing well. No specific complaints. Patient underwent cardiac catheterization and stenting of the OM 1. A second catheterization to stent the LAD will be done tomorrow. The patient has no specific complaints. He remains on a combination of aspirin and Plavix. He is on room air oxygen. No cough sputum production or chest tightness or wheezing. He is still on IV heparin. Creatinine stable at 1.4 with a BUN of 28 and a sodium level is at 140. Objective - Vital Signs Vital signs: Vital Signs Temp 98.3 F 03/19/23 08:00 Pulse 87 03/19/23 08:00 Resp 16 03/19/23 08:00 BP 106/67 03/19/23 08:00 Pulse Ox 97 03/19/23 08:00 FiO2 Intake & Output 03/18/23 03/19/23 03/19/23 18:59 06:59 18:59 Intake Total 620 240 Balance 620 240 Weight 113.4 kg Intake: Intake, IV Titration 200 Amount IV Fluid Continuation 1, 0 000 ml @ 0 mls/hr IV .[facility] Rx#:[id number] Sodium Chloride 0.9% 1, 200 000 ml In Empty Bag 1 bag @ 1 ML/KG/HR 113.4 mls/ hr IV .[id number] [facility] Rx#: [id number] Oral 420 240 Other: # Voids 2 - Exam No acute distress, oriented 3. Currently on RA oxygen. No respiratory distress. HEENT examination is grossly unremarkable. Mucous membranes are moist. No oral lesions. Neck supple. Full range of motion. No adenopathy thyromegaly or neck vein distention. Cardiovascular examination reveals regular rhythm rate. S1-S2 normal. No S3 or S4. Grade 2/6 systolic murmur, consistent with aortic stenosis. Lungs reveal mostly clear breath sounds. Minimal rhonchi. No wheezes or crackles. Abdomen soft bowel sounds are heard. No masses or tenderness. Extremities are intact. No cyanosis clubbing or edema. Skin is without rash or lesion. Neurologic examination is brief but nonfocal. - Labs CBC & Chem 7: 03/19/23 09:10 03/19/23 09:10 Labs: Abnormal Lab Results - Last 24 Hours (Table) 03/19/23 03/19/23 Range/Units 09:10 09:10 Hgb 11.6 L (13.0-17.5) gm/dL Hct 37.9 L (39.0-53.0) % MCV 79.1 L (80.0-100.0) fL MCH 24.3 L (25.0-35.0) pg MCHC 30.7 L (31.0-37.0) g/dL RDW 18.4 H (11.5-15.5) % Chloride 108 H (98-107) mmol/L Carbon Dioxide 20 L (22-30) mmol/L BUN 28 H (9-20) mg/dL Creatinine 1.40 H (0.66-1.25) mg/dL Glucose 116 H (74-99) mg/dL Microbiology - Last 24 Hours (Table) 03/16/23 18:45 Nasal Screen MRSA/MSSA - Final Nasopharyngeal Swab Staphylococcus aureus,Not MRSA Assessment and Plan Plan: Acute hypoxemic respiratory failure, secondary to CHF. The patient is currently on RA O2 nasal cannula. Coronary artery disease, multivessel disease . The patient underwent cardiac catheterization. Subsequently, the patient underwent further intervention with stenting of the OM 1 with a reduction of a 95% stenosis down to 0%. The LAD lesion IFR was 80%. Moderate severe aortic stenosis, being considered for a percutaneous aortic valve replacement the later stage History of heart failure with reduced ejection fraction, at 25%. Chronic kidney disease, stage III, creatinine is stable for now History of myocardial infarction, with previous stent placement. Rule out non-ST segment elevation myocardial infarction. History of aortic stenosis. Moderate to severe History of colon cancer, post resection and chemotherapy and radiation therapy Plan Continue medical management Aspirate to milligrams by mouth daily Plavix 75 mg by mouth daily Metoprolol 25 mg by mouth twice a day No need for diuretics Patient is post cardiac catheterization stenting of OM1 Patient is to undergo another cardiac catheterization for stenting of the LAD tomorrow We'll monitor the renal function cardiothoracic surgery possibility of a percutaneous aortic valve replacement on this patient at the later stage He is considered to be a high risk for thoracotomy and CABG with AVR. Pulmonary status is stable and the patient is currently on room and oxygen
[2023-03-19] MEDS: ATORVASTATIN 40 MG TAB PO SCH (22:11)
[2023-03-19] MEDS: ALPRAZolam 0.5 MG TAB PO PRN (22:11)
[2023-03-20] MEDS ORDERED: ASPIRIN 325 MG TAB PO ONE (05:00)
[2023-03-20] MEDS ORDERED: ATORVASTATIN 80 MG TAB PO ONE (05:00)
[2023-03-20] MEDS ORDERED: HEPARIN SODIUM,PORCINE 10,000 UNIT in SODIUM CHLORIDE 0.9% 1,000 ML IRRIGATION PRN (07:00)
[2023-03-20] MEDS ORDERED: HEPARIN SODIUM,PORCINE (1 ML) 2,500 UNIT in SODIUM CHLORIDE 0.9% 250 ML IRRIGATION PRN (07:00)
[2023-03-20] MEDS: SODIUM CHLORIDE 0.9% 1,000 ML in EMPTY BAG 1 BAG IV SCH ×3 (07:47→10:09)
[2023-03-20] MEDS: CLOPIDOGREL 75 MG TAB PO SCH (07:48)
[2023-03-20] MEDS: GABAPENTIN 100 MG CAP PO SCH ×2 (07:48→20:08)
[2023-03-20] MEDS: METOPROLOL TARTRATE 25 MG TAB PO SCH ×2 (07:48→20:08)
[2023-03-20] MEDS: DOCUSATE 100 MG CAP PO SCH ×2 (07:48→20:08)
[2023-03-20] MEDS: ASPIRIN 81 MG PO SCH (07:48)
[2023-03-20 08:47] LABS: African American GFR (CKD) 50 (>60 ml/min/1.73 sqM); Anion Gap 12 mmol/L; Blood Urea Nitrogen 25 mg/dL (9-20); Calcium 8.7 mg/dL (8.4-10.2); Carbon Dioxide 18 mmol/L (22-30); Chloride 108 mmol/L (98-107); Glucose 103 mg/dL (74-99); Non-African American GFR(CKD) 43 (>60 ml/min/1.73 sqM); Potassium 4.2 mmol/L (3.5-5.1); Sodium 138 mmol/L (137-145)
[2023-03-20 09:24] LABS: Glucose,Whole Blood 93 mg/dL (70-110)
[2023-03-20] MEDS: ISOSORBIDE MONONITRATE ER 30 MG TAB.ER.24H PO SCH (10:50)
--- NOTE | 2023-03-20 11:12 | P.PN ---
Subjective Progress Note Date: 03/20/23 * 62-year-old gentleman with past medical history significant for colon/rectal cancer, history of coronary artery disease, history of PCI, dyslipidemia, peripheral neuropathy status post chemotherapy for colon cancer presents to the emergency department with complains of shortness of breath. * The time of presentation in ED patient was complaining of midsternal chest pain as well as right interior chest discomfort, this was associated with nausea and diaphoresis and difficulty in breathing. 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 Patient states breathing has improved chest pain has improved * 03/16/2023: Patient seen and evaluated bedside, patient underwent cardiac catheterization today, which demonstrated 80% proximal to mid LAD stenosis, 90% circumflex stenosis and 100% nitrogen reactive stenosis cardiac surgery consultation obtained for evaluation for CABG as well as aortic stenosis. Continue medical management * 03/17/2023: Patient seen and evaluated bedside, patient is alert to person place and situation, care plan discussed at bedside as well. Shortness of breath is improved 1.53. Seen by Cardiac Surgery Planning Percutaneous Aortic Valve Replacement Patient Is Considered High Risk for CABG with AVR * 03/18/2023: Patient seen and evaluated bedside, appreciate input from cardiology. Plan as to undergo PCI today. K plan discussed with patient and at bedside. Continue current medical management * 03/19/2023: Patient seen and evaluated bedside, patient is alert and oriented 4, family at bedside status was cardiac catheterization patient had PCI to OM1. Creatinine 1.40, nephrology following * 03/20/2023: Patient seen and evaluated bedside, patient is alert and oriented 4, planned for cardiac catheterization scheduled for today for PCI of LAD. Creatinine noted to be 1.7, nephrology following REVIEW OF SYSTEMS: Chest pain, shortness of breath resolved CONSTITUTIONAL: No fever, no malaise, no fatigue. HEENT: No recent visual problems or hearing problems. Denied any sore throat. CARDIOVASCULAR: Chest pain, shortness of breath, PULMONARY: Chest pain, shortness of breath, GASTROINTESTINAL: No diarrhea, no nausea, no vomiting, no abdominal pain. NEUROLOGICAL: No headaches, no weakness, no numbness. HEMATOLOGICAL: Denies any bleeding or petechiae. GENITOURINARY: Denies any burning micturition, frequency, or urgency. MUSCULOSKELETAL/RHEUMATOLOGICAL: Denies any joint pain, swelling, or any muscle pain. ENDOCRINE: Denies any polyuria or polydipsia. PHYSICAL EXAMINATION: GENERAL: The patient is alert and oriented x3, not in any acute distress. off nasal cannula HEENT: Pupils are round and equally reacting to light. EOMI. CARDIOVASCULAR: S1 and S2 present. Systolic murmur appreciated, left radial access no hematoma noted PULMONARY: Improved breath sounds bilaterally ABDOMEN: Soft, nontender, nondistended, normoactive bowel sounds. No palpable organomegaly. MUSCULOSKELETAL: No joint swelling or deformity. EXTREMITIES: No cyanosis, clubbing, or pedal edema. NEUROLOGICAL: Gross neurological examination did not reveal any focal deficits. SKIN: No rashes. Objective - Vital Signs Vital signs: Vital Signs Temp 98.6 F 03/20/23 07:46 Pulse 89 03/20/23 10:13 Resp 20 03/20/23 11:09 BP 113/74 03/20/23 10:13 Pulse Ox 92 L 03/20/23 11:09 FiO2 Intake & Output 03/19/23 03/20/23 03/20/23 18:59 06:59 18:59 Intake Total 720 Output Total 300 Balance 720 -300 Weight 114.6 kg Intake: Oral 720 Output: Urine 300 Other: # Voids 1 1 # Bowel Movements 0 - Labs CBC & Chem 7: 03/19/23 09:10 03/20/23 07:59 Labs: Abnormal Lab Results - Last 24 Hours (Table) 03/20/23 Range/Units 07:59 Chloride 108 H (98-107) mmol/L Carbon Dioxide 18 L (22-30) mmol/L BUN 25 H (9-20) mg/dL Creatinine 1.70 H (0.66-1.25) mg/dL Glucose 103 H (74-99) mg/dL Assessment and Plan Assessment: Assessment and plan * Acute congestive heart failure, with acute hypoxic respiratory failure, pulmonary edema * Multivessel coronary artery disease with severe aortic stenosis * Non-ST elevated DC, with history of coronary artery disease * Ischemic cardiomyopathy with acute systolic heart failure ejection fraction 2024% * Acute kidney injury on chronic kidney disease stage II * Coronary artery disease with history of PCI * History of colon/rectal cancer * In regards to coronary artery disease, non-ST elevated DC, patient is status post cardiac catheterization, cardiac surgery consulted to evaluate for CABG however patient considered high risk, continue medical management with a spirin, Lipitor, Imdur, metoprolol>> status post PCI to OM1 , scheduled for cardiac catheterization for LAD intervention 03/20 * In regards to acute kidney injury, Baseline creatinine around 1.2, patient does have chronic kidney disease stage II. Nephrology following, postcontrast hydration, Lasix placed on hold intermittently to avoid worsening creatinine * In regards to coronary artery disease continue antiplatelet, antianginal therapy, Aspirin and Plavix * In regards to hypertension continue patient on metoprolol, Imdur * In regards to acute hypoxia likely secondary to CHF exacerbation aortic stenosis/Lasix held by nephrology, post cardiac catheterization hydration given on 03/16/23. Follow-up on renal function post cardiac catheterization on 03/20 * If renal function improved and cleared by cardiology and nephrology potential discharge 03/21 * CODE STATUS is full code Time with Patient: Greater than 30
--- NOTE | 2023-03-20 12:29 | P.PN ---
Subjective patient is seen for follow-up for chronic kidney disease and acute kidney injury. He was admitted with shortness of breath and chest pain. Patient ruled in for acute NE. EF is at 20-25%. Status post cardiac catheterization this morning which showed significant triple-vessel disease and moderate aortic stenosis. Patient was considered high risk for surgery and therefore had repeat cardiac cath with successful stenting of OM 1 on 03/18/2023. Patient still needs intervention on the LAD. He is scheduled for cardiac catheterization again today however creatinine has increased to 1.7 and therefore catheterization will be held. No complaints of chest pains or shortness of breath. Objective - Vital Signs Vital signs: Vital Signs Temp 98.6 F 03/20/23 07:46 Pulse 89 03/20/23 10:13 Resp 20 03/20/23 11:09 BP 113/74 03/20/23 10:13 Pulse Ox 92 L 03/20/23 11:09 FiO2 Intake & Output 03/19/23 03/20/23 03/20/23 18:59 06:59 18:59 Intake Total 720 Output Total 300 Balance 720 -300 Weight 114.6 kg Intake: Oral 720 Output: Urine 300 Other: # Voids 1 1 # Bowel Movements 0 - Exam Patient is comfortable awake, alert oriented 3, no acute distress Examination of the heart S1 and S2 Examination of the lungs decreased breath sounds at the bases Abdomen is soft nontender Examination of lower extremities shows trace edema [employer] exam grossly intac - Labs CBC & Chem 7: 03/19/23 09:10 03/20/23 07:59 Labs: Abnormal Lab Results - Last 24 Hours (Table) 03/20/23 Range/Units 07:59 Chloride 108 H (98-107) mmol/L Carbon Dioxide 18 L (22-30) mmol/L BUN 25 H (9-20) mg/dL Creatinine 1.70 H (0.66-1.25) mg/dL Glucose 103 H (74-99) mg/dL Assessment and Plan Assessment: 1. Acute kidney injury, cardiorenal currently nonoliguric. Previous creatinine 1.2 on 01/16/2023. UA was completely benign in June 2022. Status post IV contrast for CTA on 03/14/2023, cardiac catheterization on 03/16/2023 and 03/18/2023. Ultrasound shows atrophic right kidney at 6.4 cm. Cardiac catheterization will be held today as renal function has worsened. 2. Chronic kidney disease NKF stage III with baseline creatinine about 1.2 mg/dL. Etiology nephrosclerosis. 3. Cardiomyopathy with EF of 20-25% on echocardiogram done this admission 4. CHF exacerbation acute on top of chronic, systolic 5. History of right renal artery stent noted on CTA 6. Acute NE status post cardiac catheterization with significant coronary artery disease, considered high risk for surgery and status post stent to on 03/18/2023. Patient still needs intervention on LAD. He was scheduled for cardiac cath today but this will be held Plan: Continue off of IV fluids due to underlying CHF and volume overload. Hold cardiac catheterization today Repeat labs in a.m. Avoid hypotension.
--- NOTE | 2023-03-20 12:56 | P.PN ---
Subjective Progress Note Date: 03/20/23 62-year-old male who was seen in the emergency department, on March 14, with a previous history of myocardial infarction, presents with chest pain. The patient also had associated nausea, and diaphoresis. The pain did not radiate. He has a previous history of myocardial infarction, his had a number of stents placed. When EMS arrived, at the scene, the pain had resolved. He also complained of some shortness of breath. He was given some aspirin at the scene. We see the patient in the emergency department, room 17. He is currently on 5 L of oxygen. No IV fluids. The patient was thought to have a non-ST segment elevation myocardial infarction, as well as CHF. Also, on auscultation, it is clear that he has aortic stenosis. The CT angiogram was negative for pulmonary embolism. White count 5.8, hemoglobin 10.3, hematocrit 33, and platelet count was normal. D-dimer was 0.91. PTT was 34.6. Sodium 139, potassium 3.8, chlorides 106, CO2 24, BUN 28, and creatinine 1.64. Troponins were 0.088, 0.077, and 0.076. Pro-calcitonin was normal at 0.09. Chest x-ray showed some basilar atelectasis. CT angiogram was negative for PE, and positive for mild pulmonary edema. On today's evaluation of 03/16/2023, the patient underwent a cardiac catheterization and the patient was found to have a 80% proximal mid LAD, 90% mid circumflex vessel and 100% easily artery occlusion. The patient also has moderate aortic stenosis and impaired LV function with an ejection fraction of 20-25%. The patient is free of any chest pain at this point in time. Hemodynamically stable. The patient is currently on IV heparin. The patient has been. The patient is also on Lipitor. IV fluids are in the form of normal saline at rate of 75 mL an hour. The patient is on a 4.5 with a hemoglobin of 10.7, BUN is at 36 with a creatinine of 1.54 and a sodium level is at 40. On the 03 17 2023, the patient sedated patient is calm and comfortable. He did have an episode of oxygen desaturation yesterday and is currently back on room air oxygen. Denies having any chest pain. No significant shortness of breath. He has some increased edema lower extremities bilaterally. As mentioned, the patient underwent a cardiac catheterization and the patient was found to have 90% calcified stenosis of the proximal OM1, 80% stenosis in the mid LAD, tenderness 20% distal left main and severe aortic stenosis with a low flow and low gradient with a mean gradient of 37 and elevated left ventricular end-diasto lic pressure. There is also 30-40% stenosis of the right common femoral artery, 100% occlusion of the proximal axillary artery and patent left SMA. The patient is awaiting further recommendations from cardiothoracic surgery. He is considered to be high risk for bypass and aVR. Possibilities include percutaneous or transcutaneous aortic valve replacement. On today's evaluation of 03/18/2023, the patient is stable on room air oxygen. No cervical shortness of breath. No significant chest pain. As mentioned, the patient is not going to undergo thoracotomy. The patient is being considered for a percutaneous aortic valve replacement. Meanwhile, the patient underwent a cardiac catheterization today and the patient underwent successful stenting of OM1 with reduction of the stenosis from 95% down to 0%. The LAD lesion was hemodynamically stable with an IFR of 80%. Medical treatment will be continued regarding his underlying coronary artery disease. The patient's blood work today shows a WBC count of 5.2, sodium of 140, BUN is at 30 with a creatinine of 1.6. On 03/19/2023, the patient is doing well. No specific complaints. Patient underwent cardiac catheterization and stenting of the OM 1. A second catheterization to stent the LAD will be done tomorrow. The patient has no specific complaints. He remains on a combination of aspirin and Plavix. He is on room air oxygen. No cough sputum production or chest tightness or wheezing. He is still on IV heparin. Creatinine stable at 1.4 with a BUN of 28 and a sodium level is at 140. on 03/20/2023, the patient was supposed to undergo a cardiac catheterization and angioplasty and stenting of the LAD. The procedure was postponed as the patient's creatinine is up to 1.7. As such, the patient will be rescheduled. No significant respiratory distress. Remains on aspirin and Plavix. Remains on room air oxygen. No respiratory difficulties at this point in time. No chest pain.The BUN is at 25 the creatinine 1.7 and a sodium level is 138 and a potassium level is at 4.2. Serum bicarb is 18. The concern for now as nephropathy and for that reason the procedure was delayed and postponed. Objective - Vital Signs Vital signs: Vital Signs Temp 98.6 F 03/20/23 07:46 Pulse 89 03/20/23 10:13 Resp 20 03/20/23 11:09 BP 113/74 03/20/23 10:13 Pulse Ox 92 L 03/20/23 11:09 FiO2 Intake & Output 03/19/23 03/20/23 03/20/23 18:59 06:59 18:59 Intake Total 720 Output Total 300 Balance 720 -300 Weight 114.6 kg Intake: Oral 720 Output: Urine 300 Other: # Voids 1 1 # Bowel Movements 0 - Labs CBC & Chem 7: 03/19/23 09:10 03/20/23 07:59 Labs: Abnormal Lab Results - Last 24 Hours (Table) 03/20/23 Range/Units 07:59 Chloride 108 H (98-107) mmol/L Carbon Dioxide 18 L (22-30) mmol/L BUN 25 H (9-20) mg/dL Creatinine 1.70 H (0.66-1.25) mg/dL Glucose 103 H (74-99) mg/dL Assessment and Plan Plan: Acute hypoxemic respiratory failure, secondary to CHF. The patient is currently on RA O2 nasal cannula. Coronary artery disease, multivessel disease . The patient underwent cardiac catheterization. Subsequently, the patient underwent further intervention with stenting of the OM 1 with a reduction of a 95% stenosis down to 0%. The LAD lesion IFR was 80%. Moderate severe aortic stenosis, being considered for a percutaneous aortic valve replacement the later stage History of heart failure with reduced ejection fraction, at 25%. Chronic kidney disease, stage III, creatinine is staslightly elevated at 1.7 and this will be monitored. Meanwhile, the cardiac catheterization and angioplasty and stenting will be postponed for a few days. History of myocardial infarction, with previous stent placement. Rule out non-ST segment elevation myocardial infarction. History of aortic stenosis. Moderate to severe History of colon cancer, post resection and chemotherapy and radiation therapy Plan Continue medical management we will reschedule the cardiac catheterization due to concerns of contrast nephropathy. Creatinine is up to 1.7 Aspirate to milligrams by mouth daily Plavix 75 mg by mouth daily Metoprolol 25 mg by mouth twice a day No need for diuretics Patient is post cardiac catheterization stenting of OM1 Patient is to undergo another cardiac catheterization for stenting of the LAD toover the next few days We'll monitor the renal function cardiothoracic surgery possibility of a percutaneous aortic valve replacement on this patient at the later stage He is considered to be a high risk for thoracotomy and CABG with AVR. Pulmonary status is stable and the patient is currently on room and oxygen
--- NOTE | 2023-03-20 13:52 | P.PN ---
Subjective Progress Note Date: 03/20/23 HISTORY OF PRESENTING ILLNESS Patient is a 70-year-old male with past medical history of CAD status post IL in 2009 requiring 4 stents to RCA by Dr. Jones at [facility]. He has last seen him 2 weeks ago and was being worked up for possible aortic stenosis. This time he presented to the hospital because of worsening shortness of breath and dictating breathing. He was getting short of breath with minimal activities like getting up and going to the bathroom. He denies being on any diuretic therapy. She denies any fever or chills or cough. He denies any sputum production. On admission his labs showed hemoglobin of 11, WBC 6.9, Sodium 139, potassium 4.3, CO2 20, BUN 31, creatinine 1.6 Troponins were elevated at 0.08 with a flat pattern. He had elevated d-dimer for which she had a CTA PE protocol done. It did not show any evidence of PE but does show bilateral pulmonary congestion suggestive of congestive heart failure. Progress note Patient reports that he is feeling much better since the time of admission. He denies any orthopnea at this time 03/17 Patient underwent cardiac catheterization on 03/16 which found 90% calcified stenosis and proximal OM1, 80% in the mid LAD, 10-20% in the distal main and severe aortic stenosis with low-flow grade gradient state. Mean gradient 37 mmHg. There was 30-40% stenosis in the right common femoral artery. 100% occluded proximal axillary artery with distal reconstitution. Patent left SMA. Patient has been evaluated by cardiothoracic surgery and patient was felt to be extremely high risk for mortality with combined CABG and aortic valve and recommended stenting if possible and future TAVR. This has been discussed by Dr. Garcia in detail with the patient and his . Plan will be to stage, if necessary, stent placement x2 to avoid worsening of renal function. Lasix is on hold, patient will be made nothing by mouth tonight and we will start patient on small amount of IV fluids for hydration prior to procedure. The patient has been afebrile, heart rate in the 70s, blood pressure 108/66, pulse ox 94% on room air. Repeat blood work today reveals hemoglobin 11.2, BUN 31 creatinine 1.53. TSH was 2.18. 03/18 Patient is tentatively scheduled for PCI today but we are waiting for blood work that was ordered for 6 AM. We have now ordered blood work stat and waiting for results before patient will go for PCI. Patient has no chest pain this morning. Vital signs have been stable. 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 Jones reviewed. Patient has known coronary artery disease status post PCI to the RCA and multiple overlapping stents in 2010. Severe aortic stenosis asymptomatic. Hypertension and hyperlipidemia. Plan was for patient to be scheduled for cardiac catheterization, CTA of the neck and subclavian arteries. This office note was dated 02/18/2023. Echocardiogram performed 01/08/2023 revealed EF 5560 percent, mild concentric left ventricular hypertrophy. Mild aortic regurgitation. Normal RVSP. No pericardial effusion. 03/19 Yesterday patient underwent PTCA of the OM 1. Plan is to continue aspirin and Plavix for 1 year without interruption. Intervention on his LAD will be scheduled tentatively for tomorrow with plan for repeat blood work early in the morning. Patient has been afebrile, heart rate in the 70s and 80s, blood pressure 106/67, pulse ox 97% on room air. Repeat blood work reveals BUN 28 creatinine 1.4, CO2 20, hemoglobin 11.6. Echocardiogram reveals EF of 25-30%. 03/20 Patient was tentatively scheduled for PCI today but due to increasing creatinine 1.7, nephrology is requesting that this procedure wait until Thursday. Heart rate has been in the 80s, blood pressure 90/65, pulse ox 94% on room air, temperature max 100.2 last evening. Patient has been on IV fluids in preparation for PCI and developed some shortness of breath and IV fluids been discontinued, incentive spirometry encouraged. PHYSICAL EXAMINATION Vital signs reviewed. Head: Normocephalic. Eyes: Sclerae nonicteric. Neck: Brisk carotid upstroke, elevated jugular venous distention. Lungs: Clear to auscultation. Heart: Regular rate and rhythm, systolic murmur audible in aortic area Abdomen: Soft nontender, positive bowel sounds no organomegaly. Extremities: 1+ pitting edema. Neuro: Alert, oritented, no focal deficits ASSESSMENT Acute systolic congestive heart failure exacerbation. Heart failure with reduced EF of 30-35%. Suspected Ischemic cardiomyopathy. Differential includes chemotherapy-induced cardiomyopathy Suspect low-flow low gradient aortic stenosis at least moderate to severe. Acute kidney injury, CKD. History of colon cancer status post chemotherapy and radiation therapy. Last chemotherapy was 1-2 years ago. Small pericardial effusion Echo shows an EF of 30-35%, grade 1 diastolic dysfunction, dilated left atrium cystoscopy of elevated filling pressures, moderate to severe aortic stenosis with low-flow low gradient, mean gradient 28 mmHg. small pericardial effusion PLAN PTCA of the LAD will most likely be scheduled for Thursday Repeat blood work in the morning to evaluate kidney function Continue aspirin, atorvastatin, metoprolol 25 mg twice a day, Imdur 30 mg daily Continue patient on Plavix 75 mg daily Nurse practitioner note has been reviewed, I agree with the documented findings and plan of care. Patient was seen and examined. Objective - Vital Signs Vital signs: Vital Signs Temp 98.6 F 03/20/23 07:46 Pulse 89 03/20/23 10:13 Resp 20 03/20/23 11:09 BP 113/74 03/20/23 10:13 Pulse Ox 92 L 03/20/23 11:09 FiO2 Intake & Output 03/19/23 03/20/23 03/20/23 18:59 06:59 18:59 Intake Total 720 Output Total 300 Balance 720 -300 Weight 114.6 kg Intake: Oral 720 Output: Urine 300 Other: # Voids 1 1 # Bowel Movements 0 - Labs CBC & Chem 7: 03/19/23 09:10 03/20/23 07:59 Labs: Abnormal Lab Results - Last 24 Hours (Table) 03/20/23 Range/Units 07:59 Chloride 108 H (98-107) mmol/L Carbon Dioxide 18 L (22-30) mmol/L BUN 25 H (9-20) mg/dL Creatinine 1.70 H (0.66-1.25) mg/dL Glucose 103 H (74-99) mg/dL
[2023-03-20] MEDS: ACETAMINOPHEN TAB 325 MG TAB PO PRN ×2 (16:22→23:08)
[2023-03-20 16:33] LABS: Anisocytosis Slight; HCT 34.4 % (39.0-53.0); HGB 11.1 gm/dL (13.0-17.5); Hypochromasia Slight; MCH 24.6 pg (25.0-35.0); MCHC 32.2 g/dL (31.0-37.0); MCV 76.5 fL (80.0-100.0); Mean Platelet Volume 8.3; Microcytosis Moderate; Platelet Count 206 k/uL (150-450); RBC 4.49 m/uL (4.30-5.90); RDW 18.8 % (11.5-15.5); WBC 6.2 k/uL (3.8-10.6)
--- NOTE | 2023-03-20 16:58 | XR ---
EXAMINATION TYPE: XR chest 1V DATE OF EXAM: 03/20/2023 COMPARISON: 03/14/2023 HISTORY: 62-year-old male shortness of breath, cough, suspected fluid overload TECHNIQUE: Single frontal view of the chest is obtained. FINDINGS: Heart mildly enlarged. Right anterior chest wall injection port with catheter tip at the m id SVC level. Hyperinflation. Interstitial prominence. There are patchy and confluent bibasilar opaci ties. Densities have shifted compared to 03/14/2023. Suspect trace pleural effusions now present as we ll. IMPRESSION: Correlate for CHF with mild interstitial pulmonary edema superimposed on COPD. More conf luent patchy pulmonary edema versus infiltrates at the lung bases with trace effusions.
[2023-03-20] MEDS: CEFEPIME 2 GM in SODIUM CHLORIDE 0.9% 100 ML IVPB SCH (20:07)
[2023-03-20] MEDS: ATORVASTATIN 40 MG TAB PO SCH (20:07)
[2023-03-20] MEDS ORDERED: FUROSEMIDE 10 MG/ML 2 ML VIAL IV STA (21:24)
[2023-03-20] MEDS: ALPRAZolam 0.5 MG TAB PO PRN (21:52)
[2023-03-20] MEDS: NITROGLYCERIN OINT 1 INCH/GM PACKET TOPICAL SCH (21:55)
[2023-03-21] MEDS: CEFEPIME 2 GM in SODIUM CHLORIDE 0.9% 100 ML IVPB SCH (06:07)
[2023-03-21] MEDS: NITROGLYCERIN OINT 1 INCH/GM PACKET TOPICAL SCH ×3 (06:12→20:50)
[2023-03-21 08:05] LABS: Anisocytosis Slight; HCT 31.3 % (39.0-53.0); HGB 10.3 gm/dL (13.0-17.5); Hypochromasia Moderate; MCH 25.5 pg (25.0-35.0); MCV 77.4 fL (80.0-100.0); Mean Platelet Volume 6.9; Microcytosis Slight; Platelet Count 153 k/uL (150-450); RBC 4.05 m/uL (4.30-5.90); RDW 18.7 % (11.5-15.5); WBC 4.7 k/uL (3.8-10.6)
[2023-03-21 08:20] LABS: African American GFR (CKD) 53 (>60 ml/min/1.73 sqM); Anion Gap 9 mmol/L; Blood Urea Nitrogen 29 mg/dL (9-20); Calcium 8.1 mg/dL (8.4-10.2); Carbon Dioxide 21 mmol/L (22-30); Chloride 107 mmol/L (98-107); Glucose 108 mg/dL (74-99); Non-African American GFR(CKD) 46 (>60 ml/min/1.73 sqM); Potassium 4.3 mmol/L (3.5-5.1); Sodium 137 mmol/L (137-145)
[2023-03-21] MEDS ORDERED: FUROSEMIDE 10 MG/ML 2 ML VIAL IV ONE (09:11)
--- NOTE | 2023-03-21 09:12 | P.PN ---
Subjective Patient is seen in follow-up for acute kidney injury on chronic kidney disease. Denies chest pain or shortness breath at this time. Has been quitting. Renal function a little better. Hemodynamically stable. Vital signs are stable. General: No acute distress. HEENT: Head exam is unremarkable. LUNGS: No audible rhonchi or wheezes. HEART: Rate and Rhythm are regular. ABDOMEN: Nontender. EXTREMITITES: Trace edema. Objective - Vital Signs Vital signs: Vital Signs Temp 98.5 F 03/21/23 04:19 Pulse 90 03/21/23 04:19 Resp 20 03/21/23 04:19 BP 115/71 03/21/23 04:19 Pulse Ox 92 L 03/21/23 04:30 FiO2 Intake & Output 03/20/23 03/21/23 03/21/23 18:59 06:59 18:59 Intake Total 578 358 Output Total 300 550 Balance 278 -550 358 Weight 114.6 kg 114.4 kg Intake: IV 10 Invasive Line 3 10 Intake, IV Titration 450 Amount Sodium Chloride 0.9% 1, 450 000 ml In Empty Bag 1 bag @ 1 ML/KG/HR 113.4 mls/ hr IV .Q8H50M [facility] Rx#: [id number] Oral 118 358 Output: Urine 300 550 Other: Voiding Method Urinal # Voids 1 1 - Labs CBC & Chem 7: 03/21/23 07:55 03/21/23 07:55 Labs: Abnormal Lab Results - Last 24 Hours (Table) 03/20/23 03/21/23 03/21/23 Range/Units 16:15 07:55 07:55 RBC 4.05 L (4.30-5.90) m/uL Hgb 11.1 L 10.3 L (13.0-17.5) gm/dL Hct 34.4 L 31.3 L (39.0-53.0) % MCV 76.5 L 77.4 L (80.0-100.0) fL MCH 24.6 L (25.0-35.0) pg RDW 18.8 H 18.7 H (11.5-15.5) % Carbon Dioxide 21 L (22-30) mmol/L BUN 29 H (9-20) mg/dL Creatinine 1.61 H (0.66-1.25) mg/dL Glucose 108 H (74-99) mg/dL Calcium 8.1 L (8.4-10.2) mg/dL Assessment and Plan Plan: Assessment: 1. Acute kidney injury secondary to ATN secondary to cardiorenal syndrome and component of contrast-induced acute kidney injury. Creatinine peaked at 1.7 this admission and is 1.61 today. 2. Chronic kidney disease stage IIIA with baseline creatinine near 1.2. Etiologies nephrosclerosis and ischemic nephropathy. UA benign. 3. Acute on chronic systolic CHF with ejection fraction of 20-25% with moderate aortic stenosis. 4. Coronary artery disease status post cardiac catheterization with PTCA of OM1 this admission. Scheduled for further intervention on 03/23/2023. 5. Volume overload. 6. Anemia chronic kidney disease. Rule out iron deficiency. Plan: Lasix 20 mg IV once today. Check iron studies. Avoid nephrotoxins. Continue to monitor renal function and urine output.
[2023-03-21] MEDS: DOCUSATE 100 MG CAP PO SCH ×2 (09:21→20:51)
[2023-03-21] MEDS: ASPIRIN 81 MG PO SCH (09:21)
[2023-03-21] MEDS: GABAPENTIN 100 MG CAP PO SCH ×2 (09:22→20:51)
[2023-03-21] MEDS: CLOPIDOGREL 75 MG TAB PO SCH (09:22)
[2023-03-21] MEDS: METOPROLOL TARTRATE 25 MG TAB PO SCH ×2 (09:26→20:50)
--- NOTE | 2023-03-21 11:15 | P.PN ---
Subjective Progress Note Date: 03/21/23 PROGRESS NOTE The patient is a 8-year-old male with a known history of CAD, aortic stenosis who presented with CHF and non-STEMI. Underwent cardiac catheterization was found to have significant obstructive disease in the left circumflex and LAD and significant aortic stenosis with severely impaired left ventricle systolic function. He was evaluated at the surgical team and felt to be a higher risk for surgical intervention. He underwent stenting of the circumflex and is scheduled to undergo stenting of the LAD. He was scheduled yesterday but because of the worsening renal function it has been postponed to possible Thursday. He had symptoms of dyspnea and chest discomfort yesterday during the ni ght, feels better this morning. He denies any nausea or vomiting. He denies any cough or fever. Medications: Aspirin, Lipitor 40 mg daily, Plavix 75 mg daily, Nitropaste 1 inch every 8 hours, metoprolol 25 mg twice a day. PHYSICAL EXAMINATION: Blood pressure 115/70 heart rate 90 LUNGS: Clear to auscultation HEART: Regular rate and rhythm, S1, S2. No S3. Systolic ejection murmur 06/16 ABDOMEN: Soft, nontender, no organomegaly EXTREMETIES: No edema LAB: BUN 29, creatinine 1.61, hemoglobin 10.3 IMPRESSION: 1. Severe multivessel CAD status post stenting of the left circumflex and the RCA 2. Severe obstructive disease in the LAD 3. Severe aortic stenosis 4. Severe cardiomyopathy probably secondary to aortic stenosis 5. Chronic kidney disease PLAN: 1. Continue present therapy 2. Follow renal functions and if stable proceed with PCI of the LAD on Thursday 3. Patient would require aortic valve intervention 4. Depending on his progress further recommendations will be made Objective - Vital Signs Vital signs: Vital Signs Temp 98.8 F 03/21/23 09:15 Pulse 95 03/21/23 09:15 Resp 18 03/21/23 09:15 BP 97/61 03/21/23 09:15 Pulse Ox 96 03/21/23 09:15 FiO2 Intake & Output 03/20/23 03/21/23 03/21/23 18:59 06:59 18:59 Intake Total 578 368 Output Total 300 550 Balance 278 -550 368 Weight 114.6 kg 114.4 kg Intake: IV 10 10 Invasive Line 3 10 10 Intake, IV Titration 450 Amount Sodium Chloride 0.9% 1, 450 000 ml In Empty Bag 1 bag @ 1 ML/KG/HR 113.4 mls/ hr IV .Q8H50M [facility] Rx#: [id number] Oral 118 358 Output: Urine 300 550 Other: Voiding Method Urinal Urinal # Voids 1 1 - Labs CBC & Chem 7: 03/21/23 07:55 03/21/23 07:55 Labs: Abnormal Lab Results - Last 24 Hours (Table) 03/20/23 03/21/23 03/21/23 Range/Units 16:15 07:55 07:55 RBC 4.05 L (4.30-5.90) m/uL Hgb 11.1 L 10.3 L (13.0-17.5) gm/dL Hct 34.4 L 31.3 L (39.0-53.0) % MCV 76.5 L 77.4 L (80.0-100.0) fL MCH 24.6 L (25.0-35.0) pg RDW 18.8 H 18.7 H (11.5-15.5) % Carbon Dioxide 21 L (22-30) mmol/L BUN 29 H (9-20) mg/dL Creatinine 1.61 H (0.66-1.25) mg/dL Glucose 108 H (74-99) mg/dL Calcium 8.1 L (8.4-10.2) mg/dL
[2023-03-21] MEDS: CEPHALEXIN 500 MG CAP PO SCH ×2 (11:38→20:50)
--- NOTE | 2023-03-21 13:30 | P.PN ---
Subjective Progress Note Date: 03/21/23 62-year-old male who was seen in the emergency department, on March 14, with a previous history of myocardial infarction, presents with chest pain. The patient also had associated nausea, and diaphoresis. The pain did not radiate. He has a previous history of myocardial infarction, his had a number of stents placed. When EMS arrived, at the scene, the pain had resolved. He also complained of some shortness of breath. He was given some aspirin at the scene. We see the patient in the emergency department, room 17. He is currently on 5 L of oxygen. No IV fluids. The patient was thought to have a non-ST segment elevation myocardial infarction, as well as CHF. Also, on auscultation, it is clear that he has aortic stenosis. The CT angiogram was negative for pulmonary embolism. White count 5.8, hemoglobin 10.3, hematocrit 33, and platelet count was normal. D-dimer was 0.91. PTT was 34.6. Sodium 139, potassium 3.8, chlorides 106, CO2 24, BUN 28, and creatinine 1.64. Troponins were 0.088, 0.077, and 0.076. Pro-calcitonin was normal at 0.09. Chest x-ray showed some basilar atelectasis. CT angiogram was negative for PE, and positive for mild pulmonary edema. On today's evaluation of 03/16/2023, the patient underwent a cardiac catheterization and the patient was found to have a 80% proximal mid LAD, 90% mid circumflex vessel and 100% easily artery occlusion. The patient also has moderate aortic stenosis and impaired LV function with an ejection fraction of 20-25%. The patient is free of any chest pain at this point in time. Hemodynamically stable. The patient is currently on IV heparin. The patient has been. The patient is also on Lipitor. IV fluids are in the form of normal saline at rate of 75 mL an hour. The patient is on a 4.5 with a hemoglobin of 10.7, BUN is at 36 with a creatinine of 1.54 and a sodium level is at 40. On the 03 17 2023, the patient sedated patient is calm and comfortable. He did have an episode of oxygen desaturation yesterday and is currently back on room air oxygen. Denies having any chest pain. No significant shortness of breath. He has some increased edema lower extremities bilaterally. As mentioned, the patient underwent a cardiac catheterization and the patient was found to have 90% calcified stenosis of the proximal OM1, 80% stenosis in the mid LAD, tenderness 20% distal left main and severe aortic stenosis with a low flow and low gradient with a mean gradient of 37 and elevated left ventricular end-diasto lic pressure. There is also 30-40% stenosis of the right common femoral artery, 100% occlusion of the proximal axillary artery and patent left SMA. The patient is awaiting further recommendations from cardiothoracic surgery. He is considered to be high risk for bypass and aVR. Possibilities include percutaneous or transcutaneous aortic valve replacement. On today's evaluation of 03/18/2023, the patient is stable on room air oxygen. No cervical shortness of breath. No significant chest pain. As mentioned, the patient is not going to undergo thoracotomy. The patient is being considered for a percutaneous aortic valve replacement. Meanwhile, the patient underwent a cardiac catheterization today and the patient underwent successful stenting of OM1 with reduction of the stenosis from 95% down to 0%. The LAD lesion was hemodynamically stable with an IFR of 80%. Medical treatment will be continued regarding his underlying coronary artery disease. The patient's blood work today shows a WBC count of 5.2, sodium of 140, BUN is at 30 with a creatinine of 1.6. On 03/19/2023, the patient is doing well. No specific complaints. Patient underwent cardiac catheterization and stenting of the OM 1. A second catheterization to stent the LAD will be done tomorrow. The patient has no specific complaints. He remains on a combination of aspirin and Plavix. He is on room air oxygen. No cough sputum production or chest tightness or wheezing. He is still on IV heparin. Creatinine stable at 1.4 with a BUN of 28 and a sodium level is at 140. on 03/20/2023, the patient was supposed to undergo a cardiac catheterization and angioplasty and stenting of the LAD. The procedure was postponed as the patient's creatinine is up to 1.7. As such, the patient will be rescheduled. No significant respiratory distress. Remains on aspirin and Plavix. Remains on room air oxygen. No respiratory difficulties at this point in time. No chest pain.The BUN is at 25 the creatinine 1.7 and a sodium level is 138 and a potassium level is at 4.2. Serum bicarb is 18. The concern for now as nephropathy and for that reason the procedure was delayed and postponed. On 03/21/2023, the patient is on 3 L of oxygen by nasal cannula. The patient was given IV fluids and he had some worsening shortness of breath. He also had some fever and this is attributed to have phlebitis the right upper extremity. The IV line was removed and the patient is currently on Keflex and the area in the right upper extremity IV site is looking better. The patient has no chest pain. The white cell count of 4.7, hemoglobin was at 10.3, BUN is at 29 with a creatinine of 1.6 and the sodium level is 37. Covid 19 testing was negative. Objective - Vital Signs Vital signs: Vital Signs Temp 98.8 F 03/21/23 09:15 Pulse 95 03/21/23 09:15 Resp 18 03/21/23 09:15 BP 97/61 03/21/23 09:15 Pulse Ox 96 03/21/23 09:15 FiO2 Intake & Output 03/20/23 03/21/23 03/21/23 18:59 06:59 18:59 Intake Total 578 368 Output Total 300 550 Balance 278 -550 368 Weight 114.6 kg 114.4 kg Intake: IV 10 10 Invasive Line 3 10 10 Intake, IV Titration 450 Amount Sodium Chloride 0.9% 1, 450 000 ml In Empty Bag 1 bag @ 1 ML/KG/HR 113.4 mls/ hr IV .Q8H50M [facility] Rx#: [id number] Oral 118 358 Output: Urine 300 550 Other: Voiding Method Urinal Urinal # Voids 1 1 - Exam No acute distress, oriented 3. Currently on 3 L of oxygen nasal cannula. No respiratory distress. HEENT examination is grossly unremarkable. Mucous membranes are moist. No oral lesions. Neck supple. Full range of motion. No adenopathy thyromegaly or neck vein distention. Cardiovascular examination reveals regular rhythm rate. S1-S2 normal. No S3 or S4. Grade 2/6 systolic murmur, consistent with aortic stenosis. Lungs reveal mostly clear breath sounds. Minimal rhonchi. No wheezes or crackles. Abdomen soft bowel sounds are heard. No masses or tenderness. Extremities are intact. No cyanosis clubbing or edema. Skin is without rash or lesion. Neurologic examination is brief but nonfocal. - Labs CBC & Chem 7: 03/21/23 07:55 03/21/23 07:55 Labs: Abnormal Lab Results - Last 24 Hours (Table) 03/20/23 03/21/23 03/21/23 Range/Units 16:15 07:55 07:55 RBC 4.05 L (4.30-5.90) m/uL Hgb 11.1 L 10.3 L (13.0-17.5) gm/dL Hct 34.4 L 31.3 L (39.0-53.0) % MCV 76.5 L 77.4 L (80.0-100.0) fL MCH 24.6 L (25.0-35.0) pg RDW 18.8 H 18.7 H (11.5-15.5) % Carbon Dioxide 21 L (22-30) mmol/L BUN 29 H (9-20) mg/dL Creatinine 1.61 H (0.66-1.25) mg/dL Glucose 108 H (74-99) mg/dL Calcium 8.1 L (8.4-10.2) mg/dL Assessment and Plan Plan: Acute hypoxemic respiratory failure, secondary to CHF. The patient is currently on 3 L O2 nasal cannula. May have a component of mild CHF with fluid resuscitation. IV fluids are currently at KVO. Coronary artery disease, multivessel disease . The patient underwent cardiac catheterization. Subsequently, the patient underwent further intervention with stenting of the OM 1 with a reduction of a 95% stenosis down to 0%. The LAD lesion IFR was 80%. Moderate severe aortic stenosis, being considered for a percutaneous aortic valve replacement the later stage History of heart failure with reduced ejection fraction, at 25%. Chronic kidney disease, stage III, creatinine is staslightly elevated at 1.7 and this will be monitored. Meanwhile, the cardiac catheterization and angioplasty and stenting will be postponed for a few days. History of myocardial infarction, with previous stent placement. Rule out non-ST segment elevation myocardial infarction. History of aortic stenosis. Moderate to severe History of colon cancer, post resection and chemotherapy and radiation therapy Right upper extremity phlebitis, currently on Keflex Plan IV fluids to KVO Continue Keflex Continue medical management we will reschedule the cardiac catheterization due to concerns of contrast nephropathy. Creatinine is down to 1.6 Aspirate to milligrams by mouth daily Plavix 75 mg by mouth daily Metoprolol 25 mg by mouth twice a day No need for diuretics Patient is post cardiac catheterization stenting of OM1 Patient is to undergo another cardiac catheterization for stenting of the LAD toover the next few days We'll monitor the renal function cardiothoracic surgery possibility of a percutaneous aortic valve replacement on this patient at the later stage He is considered to be a high risk for thoracotomy and CABG with AVR.
[2023-03-21 13:46] LABS: % Iron Saturation 4.32 (15.00-50.00)
[2023-03-21] MEDS: ATORVASTATIN 40 MG TAB PO SCH (20:50)
[2023-03-21] MEDS ORDERED: NITROGLYCERIN OINT 1 INCH/GM PACKET TOPICAL SCH (22:00)
--- NOTE | 2023-03-21 23:39 | P.PN ---
Subjective 62-year-old gentleman with past medical history significant for colon/rectal cancer, history of coronary artery disease, history of PCI, dyslipidemia, peripheral neuropathy status post chemotherapy for colon cancer presents to the emergency department with complains of shortness of breath. * The time of presentation in ED patient was complaining of midsternal chest pain as well as right interior chest discomfort, this was associated with nausea and diaphoresis and difficulty in breathing. 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 Patient states breathing has improved chest pain has improved * 03/16/2023: Patient seen and evaluated bedside, patient underwent cardiac catheterization today, which demonstrated 80% proximal to mid LAD stenosis, 90% circumflex stenosis and 100% nitrogen reactive stenosis cardiac surgery consultation obtained for evaluation for CABG as well as aortic stenosis. Continue medical management * 03/17/2023: Patient seen and evaluated bedside, patient is alert to person place and situation, care plan discussed at bedside as well. Shortness of breath is improved 1.53. Seen by Cardiac Surgery Planning Percutaneous Aortic Valve Replacement Patient Is Considered High Risk for CABG with AVR * 03/18/2023: Patient seen and evaluated bedside, appreciate input from cardiology. Plan as to undergo PCI today. K plan discussed with patient and at bedside. Continue current medical management * 03/19/2023: Patient seen and evaluated bedside, patient is alert and oriented 4, family at bedside status was cardiac catheterization patient had PCI to OM1. Creatinine 1.40, nephrology following * 03/20/2023: Patient seen and evaluated bedside, patient is alert and oriented 4, planned for cardiac catheterization scheduled for today for PCI of LAD. Creatinine noted to be 1.7, nephrology following 03/21/2023 Patient states he denies chest pain or dyspnea He had low-grade fever and he has evidence of changes cellulitis in his right forearm Patient could not tolerate cefepime for episodes of dyspnea therefore was stopped and we ordered Keflex with close monitoring. He is already had stent placed in his OM branch and plan for PCI to LAD on possible Thursday with improvement of his kidney function Creatinine 1.6 with baseline about 1.2, patient also with evidence of chronic kidney disease. He has cardiomyopathy with moderate to severe aortic stenosis with recommendation for repair of his aortic disease at certain points. Also patient with evidence of iron deficiency anemia Patient currently on aspirin Plavix and Keflex as above We'll keep monitoring for fever, white cell count of any worsening may consider infectious disease consult Objective - Vital Signs Vital signs: Vital Signs Temp 97.9 F 03/21/23 11:39 Pulse 78 03/21/23 11:39 Resp 18 03/21/23 11:39 BP 96/60 03/21/23 11:39 Pulse Ox 96 03/21/23 11:39 FiO2 Intake & Output 03/20/23 03/21/23 03/21/23 18:59 06:59 18:59 Intake Total 578 368 Output Total 300 550 300 Balance 278 -550 68 Weight 114.6 kg 114.4 kg Intake: IV 10 10 Invasive Line 3 10 10 Intake, IV Titration 450 Amount Sodium Chloride 0.9% 1, 450 000 ml In Empty Bag 1 bag @ 1 ML/KG/HR 113.4 mls/ hr IV [id number] [facility] Rx#: [id number] Oral 118 358 Output: Urine 300 550 300 Other: Voiding Method Urinal Urinal # Voids 1 1 1 - Exam GENERAL: The patient is alert and oriented x3, not in any acute distress. Well developed, well nourished. HEENT: Pupils are round and equally reacting to light. EOMI. No scleral icterus. No conjunctival pallor. Normocephalic, atraumatic. No pharyngeal erythema. No thyromegaly. CARDIOVASCULAR: S1 and S2 present. No murmurs, rubs, or gallops. PULMONARY: Chest is clear to auscultation, no wheezing , no crackles. ABDOMEN: Soft, nontender, nondistended, normoactive bowel sounds. No palpable organomegaly. MUSCULOSKELETAL: No joint swelling or deformity. -EXTREMITIES: No cyanosis, clubbing, or pedal edema. 2-3 inches area of cellulitis in the ventral right forearm NEUROLOGICAL: Gross neurological examination did not reveal any focal deficits. SKIN: No rashes. no petechiae. - Labs CBC & Chem 7: 03/21/23 07:55 03/21/23 07:55 Labs: Abnormal Lab Results - Last 24 Hours (Table) 03/20/23 03/21/23 03/21/23 Range/Units 16:15 07:55 07:55 RBC 4.05 L (4.30-5.90) m/uL Hgb 11.1 L 10.3 L (13.0-17.5) gm/dL Hct 34.4 L 31.3 L (39.0-53.0) % MCV 76.5 L 77.4 L (80.0-100.0) fL MCH 24.6 L (25.0-35.0) pg RDW 18.8 H 18.7 H (11.5-15.5) % Carbon Dioxide 21 L (22-30) mmol/L BUN 29 H (9-20) mg/dL Creatinine 1.61 H (0.66-1.25) mg/dL Glucose 108 H (74-99) mg/dL Calcium 8.1 L (8.4-10.2) mg/dL Assessment and Plan Assessment: * Acute hypoxic respiratory failure secondary to CHF * None STEMI status post cardiac cath and PCI to OM 1 on 03/18 plan for another cardiac cath for LAD disease * Cellulitis of the right forearm with fever * Moderate to severe aortic stenosis with cardiomyopathy with ejection fraction 25% * Acute metabolic encephalopathy, improving * Recurrent nausea vomiting with IVS * Elevated troponin secondary to type II CT * Urinary tract infection with obstructive uropathy * Acute renal failure * Diabetes mellitus type 2 * Dysphagia with aspiration * Hyperlipidemia * Nonsustained V. tach history Plan: Continue with aspirin and Plavix Continue with Keflex Follow-up culture results Several consultants on the case with cardiology, pulmonary, cardiothoracic and nephrology, Monitor kidney function Labs and medication were reviewed.. Continue same treatment. Continue with symptomatic treatment. Resume home medication. Monitor labs and vitals. DVT and GI prophylaxis. Further recommendations as per clinical course of the patient DVT prophylaxis: Subcutaneous heparin GI Prophylaxis: Pepcid PT/OT: Pending Prognosis is guarded
[2023-03-22] MEDS: NITROGLYCERIN OINT 1 INCH/GM PACKET TOPICAL SCH ×3 (06:18→19:58)
[2023-03-22] MEDS: METOPROLOL TARTRATE 25 MG TAB PO SCH ×2 (08:01→19:58)
[2023-03-22] MEDS: CLOPIDOGREL 75 MG TAB PO SCH (08:01)
[2023-03-22] MEDS: ASPIRIN 81 MG PO SCH (08:01)
[2023-03-22] MEDS: CEPHALEXIN 500 MG CAP PO SCH ×3 (08:01→19:57)
[2023-03-22] MEDS: GABAPENTIN 100 MG CAP PO SCH ×2 (08:01→19:58)
[2023-03-22] MEDS: DOCUSATE 100 MG CAP PO SCH ×2 (08:02→19:57)
[2023-03-22 10:39] LABS: African American GFR (CKD) 52 (>60 ml/min/1.73 sqM); Anion Gap 14 mmol/L; Blood Urea Nitrogen 32 mg/dL (9-20); Calcium 8.5 mg/dL (8.4-10.2); Carbon Dioxide 20 mmol/L (22-30); Chloride 105 mmol/L (98-107); Glucose 133 mg/dL (74-99); Non-African American GFR(CKD) 45 (>60 ml/min/1.73 sqM); Sodium 139 mmol/L (137-145)
--- NOTE | 2023-03-22 11:25 | P.PN ---
Subjective Patient is seen in follow-up for acute kidney injury on chronic kidney disease. Denies chest pain or shortness breath at this time. Has been voiding. Renal function stable. Hemodynamically stable. Vital signs are stable. General: No acute distress. HEENT: Head exam is unremarkable. LUNGS: No audible rhonchi or wheezes. HEART: Rate and Rhythm are regular. ABDOMEN: Nontender. EXTREMITITES: Trace edema. Objective - Vital Signs Vital signs: Vital Signs Temp 98.0 F 03/22/23 11:00 Pulse 74 03/22/23 11:00 Resp 18 03/22/23 11:00 BP 105/67 03/22/23 11:00 Pulse Ox 94 L 03/22/23 11:00 FiO2 Intake & Output 03/21/23 03/22/23 03/22/23 18:59 06:59 18:59 Intake Total 1394 40 250 Output Total 300 Balance 1094 40 250 Intake: IV 20 40 10 Invasive Line 3 20 40 10 Oral 1374 240 Output: Urine 300 Other: Voiding Method Urinal Toilet Toilet Urinal Urinal # Voids 1 2 - Labs CBC & Chem 7: 03/21/23 07:55 03/22/23 08:31 Labs: Abnormal Lab Results - Last 24 Hours (Table) 03/21/23 03/21/23 03/22/23 Range/Units 07:55 07:55 08:31 Carbon Dioxide 20 L (22-30) mmol/L BUN 32 H (9-20) mg/dL Creatinine 1.63 H (0.66-1.25) mg/dL Glucose 133 H (74-99) mg/dL Iron 13 L (65-175) UG/DL % Saturation 4.32 L (15.00-50.00) Procalcitonin 0.26 H (0.02-0.09) ng/mL Microbiology - Last 24 Hours (Table) 03/20/23 19:07 Blood Culture Gram Stain - Preliminary Blood Blood Culture - Preliminary Presumptive Staph aureus Assessment and Plan Plan: Assessment: 1. Acute kidney injury secondary to ATN secondary to cardiorenal syndrome and component of contrast-induced acute kidney injury. Creatinine peaked at 1.7 this admission and is 1.63 today. 2. Chronic kidney disease stage IIIA with baseline creatinine near 1.2. Etiologies nephrosclerosis and ischemic nephropathy. UA benign. 3. Acute on chronic systolic CHF with ejection fraction of 20-25% with moderate aortic stenosis. 4. Coronary artery disease status post cardiac catheterization with PTCA of OM1 this admission. Scheduled for further intervention on 03/23/2023. 5. Volume overload. Status post IV Lasix last 2 days. 6. Anemia chronic kidney disease. Iron deficiency noted. 7. Staph aureus bacteremia. On Keflex. Plan: Hold off on diuretics today. Add IV iron. Avoid nephrotoxins. Continue to monitor renal function and urine output. Discussed in detail with patient and his family present at bedside the risk of worsening renal function, potentially requiring renal replacement therapy, post IV contrast exposure. He understands and is willing to proceed. Avoid excessive hydration due to underlying CHF. Normal saline 50 mL an hour 4 hours pre-and post cardiac catheterization.
--- NOTE | 2023-03-22 11:57 | P.PN ---
Subjective Progress Note Date: 03/22/23 62-year-old male who was seen in the emergency department, on March 14, with a previous history of myocardial infarction, presents with chest pain. The patient also had associated nausea, and diaphoresis. The pain did not radiate. He has a previous history of myocardial infarction, his had a number of stents placed. When EMS arrived, at the scene, the pain had resolved. He also complained of some shortness of breath. He was given some aspirin at the scene. We see the patient in the emergency department, room 17. He is currently on 5 L of oxygen. No IV fluids. The patient was thought to have a non-ST segment elevation myocardial infarction, as well as CHF. Also, on auscultation, it is clear that he has aortic stenosis. The CT angiogram was negative for pulmonary embolism. White count 5.8, hemoglobin 10.3, hematocrit 33, and platelet count was normal. D-dimer was 0.91. PTT was 34.6. Sodium 139, potassium 3.8, chlorides 106, CO2 24, BUN 28, and creatinine 1.64. Troponins were 0.088, 0.077, and 0.076. Pro-calcitonin was normal at 0.09. Chest x-ray showed some basilar atelectasis. CT angiogram was negative for PE, and positive for mild pulmonary edema. On today's evaluation of 03/16/2023, the patient underwent a cardiac catheterization and the patient was found to have a 80% proximal mid LAD, 90% mid circumflex vessel and 100% easily artery occlusion. The patient also has moderate aortic stenosis and impaired LV function with an ejection fraction of 20-25%. The patient is free of any chest pain at this point in time. Hemodynamically stable. The patient is currently on IV heparin. The patient has been. The patient is also on Lipitor. IV fluids are in the form of normal saline at rate of 75 mL an hour. The patient is on a 4.5 with a hemoglobin of 10.7, BUN is at 36 with a creatinine of 1.54 and a sodium level is at 40. On the 03 17 2023, the patient sedated patient is calm and comfortable. He did have an episode of oxygen desaturation yesterday and is currently back on room air oxygen. Denies having any chest pain. No significant shortness of breath. He has some increased edema lower extremities bilaterally. As mentioned, the patient underwent a cardiac catheterization and the patient was found to have 90% calcified stenosis of the proximal OM1, 80% stenosis in the mid LAD, tenderness 20% distal left main and severe aortic stenosis with a low flow and low gradient with a mean gradient of 37 and elevated left ventricular end-diasto lic pressure. There is also 30-40% stenosis of the right common femoral artery, 100% occlusion of the proximal axillary artery and patent left SMA. The patient is awaiting further recommendations from cardiothoracic surgery. He is considered to be high risk for bypass and aVR. Possibilities include percutaneous or transcutaneous aortic valve replacement. On today's evaluation of 03/18/2023, the patient is stable on room air oxygen. No cervical shortness of breath. No significant chest pain. As mentioned, the patient is not going to undergo thoracotomy. The patient is being considered for a percutaneous aortic valve replacement. Meanwhile, the patient underwent a cardiac catheterization today and the patient underwent successful stenting of OM1 with reduction of the stenosis from 95% down to 0%. The LAD lesion was hemodynamically stable with an IFR of 80%. Medical treatment will be continued regarding his underlying coronary artery disease. The patient's blood work today shows a WBC count of 5.2, sodium of 140, BUN is at 30 with a creatinine of 1.6. On 03/19/2023, the patient is doing well. No specific complaints. Patient underwent cardiac catheterization and stenting of the OM 1. A second catheterization to stent the LAD will be done tomorrow. The patient has no specific complaints. He remains on a combination of aspirin and Plavix. He is on room air oxygen. No cough sputum production or chest tightness or wheezing. He is still on IV heparin. Creatinine stable at 1.4 with a BUN of 28 and a sodium level is at 140. on 03/20/2023, the patient was supposed to undergo a cardiac catheterization and angioplasty and stenting of the LAD. The procedure was postponed as the patient's creatinine is up to 1.7. As such, the patient will be rescheduled. No significant respiratory distress. Remains on aspirin and Plavix. Remains on room air oxygen. No respiratory difficulties at this point in time. No chest pain.The BUN is at 25 the creatinine 1.7 and a sodium level is 138 and a potassium level is at 4.2. Serum bicarb is 18. The concern for now as nephropathy and for that reason the procedure was delayed and postponed. On 03/21/2023, the patient is on 3 L of oxygen by nasal cannula. The patient was given IV fluids and he had some worsening shortness of breath. He also had some fever and this is attributed to have phlebitis the right upper extremity. The IV line was removed and the patient is currently on Keflex and the area in the right upper extremity IV site is looking better. The patient has no chest pain. The white cell count of 4.7, hemoglobin was at 10.3, BUN is at 29 with a creatinine of 1.6 and the sodium level is 37. Covid 19 testing was negative. 03/22/2020, the patient is back on room air oxygen. The phlebitis in the right upper extremity is improving. Blood cultures showing presumed staph species. Awaiting final cultures. Currently on Keflex. No fever. No chills. Creatinine is down to 1.6. Awaiting cardiac catheterization and stenting of the LAD. The echoes at 4.7, hemoglobin was at 10.3, BUN is at 32 with a creatinine of 1.6. Sodium levels at 139. Pro-calcitonin level is at 0.26. Objective - Vital Signs Vital signs: Vital Signs Temp 98.5 F 03/22/23 08:00 Pulse 85 03/22/23 08:00 Resp 18 03/22/23 08:00 BP 99/62 03/22/23 08:00 Pulse Ox 95 03/22/23 08:00 FiO2 Intake & Output 03/21/23 03/22/23 03/22/23 18:59 06:59 18:59 Intake Total 1394 40 250 Output Total 300 Balance 1094 40 250 Intake: IV 20 40 10 Invasive Line 3 20 40 10 Oral 1374 240 Output: Urine 300 Other: Voiding Method Urinal Toilet Toilet Urinal Urinal # Voids 1 2 - Exam No acute distress, oriented 3. Currently on 3 L of oxygen nasal cannula. No respiratory distress. HEENT examination is grossly unremarkable. Mucous membranes are moist. No oral lesions. Neck supple. Full range of motion. No adenopathy thyromegaly or neck vein distention. Cardiovascular examination reveals regular rhythm rate. S1-S2 normal. No S3 or S4. Grade 2/6 systolic murmur, consistent with aortic stenosis. Lungs reveal mostly clear breath sounds. Minimal rhonchi. No wheezes or crackles. Abdomen soft bowel sounds are heard. No masses or tenderness. Extremities are intact. No cyanosis clubbing or edema. Skin is without rash or lesion. Neurologic examination is brief but nonfocal. - Labs CBC & Chem 7: 03/21/23 07:55 03/22/23 08:31 Labs: Abnormal Lab Results - Last 24 Hours (Table) 03/21/23 03/21/23 Range/Units 07:55 07:55 Iron 13 L (65-175) UG/DL % Saturation 4.32 L (15.00-50.00) Procalcitonin 0.26 H (0.02-0.09) ng/mL Microbiology - Last 24 Hours (Table) 03/20/23 19:07 Blood Culture Gram Stain - Preliminary Blood Blood Culture - Preliminary Presumptive Staph aureus Assessment and Plan Plan: Acute hypoxemic respiratory failure, secondary to CHF. The patient is currently on room air oxygen and oxygenation is improved May have a component of mild CHF with fluid resuscitation. IV fluids are currently at KVO. Coronary artery disease, multivessel disease . The patient underwent cardiac catheterization. Subsequently, the patient underwent further intervention with stenting of the OM 1 with a reduction of a 95% stenosis down to 0%. The LAD lesion IFR was 80%. Moderate severe aortic stenosis, being considered for a percutaneous aortic valve replacement the later stage History of heart failure with reduced ejection fraction, at 25%. Chronic kidney disease, stage III, creatinine is staslightly elevated at 1.7 and this will be monitored. Meanwhile, the cardiac catheterization and angioplasty and stenting will be postponed for a few days. History of myocardial infarction, with previous stent placement. Rule out non-ST segment elevation myocardial infarction. History of aortic stenosis. Moderate to severe History of colon cancer, post resection and chemotherapy and radiation therapy Right upper extremity phlebitis, currently on Keflex, improving Possible culture with staph, awaiting final cultures and sensitivities. Pro- calcitonin level is at 0.26 Plan Awaiting final blood culture results IV fluids to KVO Continue Keflex Continue medical management we will reschedule the cardiac catheterization due to concerns of contrast nephropathy. Creatinine is down to 1.6 Aspirate to milligrams by mouth daily Plavix 75 mg by mouth daily Metoprolol 25 mg by mouth twice a day No need for diuretics Patient is post cardiac catheterization stenting of OM1 Patient is to undergo another cardiac catheterization for stenting of the LAD toover the next few days We'll monitor the renal function cardiothoracic surgery possibility of a percutaneous aortic valve replacement on this patient at the later stage He is considered to be a high risk for thoracotomy and CABG with AVR.
[2023-03-22] MEDS ORDERED: ALPRAZolam 0.25 MG TAB PO PRN (12:34)
[2023-03-22] MEDS ORDERED: ALPRAZolam 0.5 MG TAB PO PRN (12:34)
[2023-03-22] MEDS ORDERED: NITROGLYCERIN SL TABS 0.4 MG TAB SUBLINGUAL PRN (12:34)
[2023-03-22] MEDS: SODIUM FERRIC GLUCONAT-SUCROSE 125 MG in SODIUM CHLORIDE 0.9% 100 ML IVPB SCH (13:34)
--- NOTE | 2023-03-22 13:38 | P.PN ---
Subjective Progress Note Date: 03/22/23 PROGRESS NOTE The patient is a 8-year-old male with a known history of CAD, aortic stenosis who presented with CHF and non-STEMI. Underwent cardiac catheterization was found to have significant obstructive disease in the left circumflex and LAD and significant aortic stenosis with severely impaired left ventricle systolic function. He was evaluated at the surgical team and felt to be a higher risk for surgical intervention. He underwent stenting of the circumflex and is scheduled to undergo stenting of the LAD. He was scheduled yesterday but because of the worsening renal function it has been postponed to possible Thursday. He had symptoms of dyspnea and chest discomfort yesterday during the ght, feels better this morning. He denies any nausea or vomiting. He denies any cough or fever. March 22: The patient feels well this morning, he denies any chest discomfort, dizziness or palpitations. He denies any nausea or vomiting. Hemodynamically stable. His creatinine is 1.63 with a potassium 4.0 Medications: Aspirin, Lipitor 40 mg daily, Plavix 75 mg daily, Nitropaste 1 inch every 8 hours, metoprolol 25 mg twice a day. PHYSICAL EXAMINATION: Blood pressure 105/70 heart rate 70 LUNGS: Clear to auscultation HEART: Regular rate and rhythm, S1, S2. No S3. Systolic ejection murmur 06/16 ABDOMEN: Soft, nontender, no organomegaly EXTREMETIES: No edema LAB: BUN 32, creatinine 1.63, IMPRESSION: 1. Severe multivessel CAD status post stenting of the left circumflex and the RCA 2. Severe obstructive disease in the LAD 3. Severe aortic stenosis 4. Severe cardiomyopathy probably secondary to aortic stenosis 5. Chronic kidney disease PLAN: 1. Continue present therapy 2. Follow renal functions and if stable proceed with PCI of the LAD on Thursday 3. Patient would require aortic valve intervention 4. Depending on his progress further recommendations will be made Objective - Vital Signs Vital signs: Vital Signs Temp 98.0 F 03/22/23 11:00 Pulse 74 03/22/23 11:00 Resp 18 03/22/23 11:00 BP 105/67 03/22/23 11:00 Pulse Ox 94 L 03/22/23 11:00 FiO2 Intake & Output 03/21/23 03/22/23 03/22/23 18:59 06:59 18:59 Intake Total 1394 40 350 Output Total 300 300 Balance 1094 40 50 Intake: IV 20 40 10 Invasive Line 3 20 40 10 Intake, IV Titration 100 Amount Sodium Ferric Gluconat- 100 Sucrose 125 mg In Sodium Chloride 0.9% 100 ml @ 100 mls/hr IVPB DAILY [facility] Rx#:[id number] Oral 1374 240 Output: Urine 300 300 Other: Voiding Method Urinal Toilet Toilet Urinal Urinal # Voids 1 2 1 - Labs CBC & Chem 7: 03/21/23 07:55 03/22/23 08:31 Labs: Abnormal Lab Results - Last 24 Hours (Table) 03/21/23 03/22/23 Range/Units 07:55 08:31 Carbon Dioxide 20 L (22-30) mmol/L BUN 32 H (9-20) mg/dL Creatinine 1.63 H (0.66-1.25) mg/dL Glucose 133 H (74-99) mg/dL Iron 13 L (65-175) UG/DL % Saturation 4.32 L (15.00-50.00) Microbiology - Last 24 Hours (Table) 03/20/23 19:07 Blood Culture Gram Stain - Preliminary Blood Blood Culture - Preliminary Presumptive Staph aureus
[2023-03-22] MEDS ORDERED: ASPIRIN 325 MG TAB PO ONE (17:48)
[2023-03-22] MEDS ORDERED: ATORVASTATIN 80 MG TAB PO ONE (17:49)
[2023-03-22] MEDS: ATORVASTATIN 40 MG TAB PO SCH (17:49)
--- NOTE | 2023-03-22 22:07 | P.PN ---
Subjective 62-year-old gentleman with past medical history significant for colon/rectal cancer, history of coronary artery disease, history of PCI, dyslipidemia, peripheral neuropathy status post chemotherapy for colon cancer presents to the emergency department with complains of shortness of breath. * The time of presentation in ED patient was complaining of midsternal chest pain as well as right interior chest discomfort, this was associated with nausea and diaphoresis and difficulty in breathing. Patient stated his symptoms have been ongoing for a few days and was supposed to follow-up with his primary hospital unit coordinator next week * Initiated in ER included an EKG, and a chest x-ray which did show pulmonary vascular congestion. 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 Patient states breathing has improved chest pain has improved * 03/16/2023: Patient seen and evaluated bedside, patient underwent cardiac catheterization today, which demonstrated 80% proximal to mid LAD stenosis, 90% circumflex stenosis and 100% nitrogen reactive stenosis cardiac surgery consultation obtained for evaluation for CABG as well as aortic stenosis. Continue medical management * 03/17/2023: Patient seen and evaluated bedside, patient is alert to person place and situation, care plan discussed at bedside as well. Shortness of breath is improved 1.53. Seen by Cardiac Surgery Planning Percutaneous Aortic Valve Replacement Patient Is Considered High Risk for CABG with AVR * 03/18/2023: Patient seen and evaluated bedside, appreciate input from cardiology. Plan as to undergo PCI today. K plan discussed with patient and at bedside. Continue current medical management * 03/19/2023: Patient seen and evaluated bedside, patient is alert and oriented 4, family at bedside status was cardiac catheterization patient had PCI to OM1. Creatinine 1.40, nephrology following * 03/20/2023: Patient seen and evaluated bedside, patient is alert and oriented 4, planned for cardiac catheterization scheduled for today for PCI of LAD. Creatinine noted to be 1.7, nephrology following 03/21/2023 Patient states he denies chest pain or dyspnea He had low-grade fever and he has evidence of changes cellulitis in his right forearm Patient could not tolerate cefepime for episodes of dyspnea therefore was stopped and we ordered Keflex with close monitoring. He is already had stent placed in his OM branch and plan for PCI to LAD on possible Thursday with improvement of his kidney function Creatinine 1.6 with baseline about 1.2, patient also with evidence of chronic kidney disease. He has cardiomyopathy with moderate to severe aortic stenosis with recommendation for repair of his aortic disease at certain points. Also patient with evidence of iron deficiency anemia Patient currently on aspirin Plavix and Keflex as above We'll keep monitoring for fever, white cell count of any worsening may consider infectious disease consult 03/22/2023 Patient lying in bed and his moving around easily. He denies chest pain. 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 HEENT: No recent visual problems or hearing problems. Denied any sore throat. CARDIOVASCULAR: No orthopnea, PND, no palpitations, no syncope. PULMONARY: No shortness of breath, no cough, no hemoptysis. GASTROINTESTINAL: No diarrhea, no nausea, no vomiting, no abdominal pain. Normoactive bowel sounds. NEUROLOGICAL: No headaches, no weakness, no numbness. Active Medications Generic Name Dose Route Start Last Admin Trade Name Freq PRN Reason Stop Dose Admin Acetaminophen 650 mg 03/20/23 16:08 03/20/23 23:08 Acetaminophen Tab 325 Mg Tab PO 650 mg Q6HR PRN Administration Fever and/ or Pain Al Hydroxide/Mg Hydroxide 30 ml 03/18/23 12:57 Mag Hydrox/Al Hydrox/Simeth 30 Ml Cup PO Q4HR PRN Heartburn Alprazolam 0.25 mg 03/22/23 12:34 Alprazolam 0.25 Mg Tab PO Q6HR PRN Mild Anxiety Alprazolam 0.5 mg 03/22/23 12:34 Alprazolam 0.5 Mg Tab PO Q6HR PRN Moderate Anxiety Aspirin 81 mg 03/15/23 09:00 03/22/23 08:01 Aspirin 81 Mg PO 81 mg DAILY TG Administration Atorvastatin Calcium 40 mg 03/14/23 21:00 03/22/23 17:49 Atorvastatin 40 Mg Tab PO Not Given HS TG Atropine Sulfate 0.5 mg 03/18/23 12:57 Atropine Sulfate 0.1 Mg/Ml 10ml Syringe IV ONCE PRN Symptomatic Bradycardia Cephalexin 500 mg 03/22/23 09:00 03/22/23 19:57 Cephalexin 500 Mg Cap PO 500 mg TID TG Administration Protocol Clopidogrel Bisulfate 75 mg 03/17/23 12:00 03/22/23 08:01 Clopidogrel 75 Mg Tab PO 75 mg DAILY TG Administration Docusate Sodium 100 mg 03/16/23 21:00 03/22/23 19:57 Docusate 100 Mg Cap PO 100 mg BID TG Administration Gabapentin 200 mg 03/14/23 12:30 03/22/23 19:58 Gabapentin 100 Mg Cap PO 200 mg BID TG Administration Ferric Sodium Gluconate 125 mg 110 mls @ 100 mls/hr 03/22/23 12:00 03/22/23 13:34 / Sodium Chloride IVPB 03/25/23 12:01 100 mls/hr DAILY TG Administration Heparin Sodium (Porcine) 10, 1,001 mls @ 999 mls/hr 03/23/23 07:00 000 unit/ Sodium Chloride IRRIGATION 03/23/23 23:00 ONCE PRN INTRA-OP Heparin Sodium (Porcine) 2,500 250.5 mls @ 250 mls/hr 03/23/23 07:00 unit/ Sodium Chloride IRRIGATION 03/23/23 23:00 ONCE PRN INTRA-OP Sodium Chloride 1,000 mls @ 50 mls/hr 03/23/23 04:00 Saline 0.9% IV .Q20H TG Metoprolol Tartrate 25 mg 03/14/23 13:00 03/22/23 19:58 Metoprolol Tartrate 25 Mg Tab PO 25 mg BID TG Administration Nitroglycerin 1 inch 03/20/23 22:00 03/22/23 19:58 Nitroglycerin Oint 1 Inch/Gm Packet TOPICAL 1 inch Q8H TG Administration Nitroglycerin 0.4 mg 03/22/23 12:34 Nitroglycerin Sl Tabs 0.4 Mg Tab SUBLINGUAL Q5M PRN Chest Pain Zolpidem Tartrate 5 mg 03/18/23 12:57 Zolpidem 5 Mg Tab PO HS PRN Insomnia Objective - Vital Signs Vital signs: Vital Signs Temp 97.9 F 03/22/23 16:13 Pulse 76 03/22/23 16:13 Resp 18 03/22/23 16:13 BP 97/59 03/22/23 16:13 Pulse Ox 95 03/22/23 16:13 FiO2 Intake & Output 03/22/23 03/22/23 03/23/23 06:59 18:59 06:59 Intake Total 40 1200 Output Total 675 Balance 40 525 Intake: IV 40 20 Invasive Line 3 40 20 Intake, IV Titration 100 Amount Sodium Ferric Gluconat- 100 Sucrose 125 mg In Sodium Chloride 0.9% 100 ml @ 100 mls/hr IVPB DAILY TG Rx#:[id number] Oral 1080 Output: Urine 675 Other: Voiding Method Toilet Toilet Urinal Urinal # Voids 2 1 - Exam GENERAL: The patient is alert and oriented x3, not in any acute distress. Well developed, well nourished. HEENT: Pupils are round and equally reacting to light. EOMI. No scleral icterus. No conjunctival pallor. Normocephalic, atraumatic. No pharyngeal erythema. No thyromegaly. CARDIOVASCULAR: S1 and S2 present. No murmurs, rubs, or gallops. PULMONARY: Chest is clear to auscultation, no wheezing , no crackles. ABDOMEN: Soft, nontender, nondistended, normoactive bowel sounds. No palpable organomegaly. MUSCULOSKELETAL: No joint swelling or deformity. -EXTREMITIES: No cyanosis, clubbing, or pedal edema. 2-3 inches area of cellulitis in the ventral right forearm may improving NEUROLOGICAL: Gross neurological examination did not reveal any focal deficits. SKIN: No rashes. no petechiae. - Labs CBC & Chem 7: 03/21/23 07:55 03/22/23 08:31 Labs: Abnormal Lab Results - Last 24 Hours (Table) 03/22/23 Range/Units 08:31 Carbon Dioxide 20 L (22-30) mmol/L BUN 32 H (9-20) mg/dL Creatinine 1.63 H (0.66-1.25) mg/dL Glucose 133 H (74-99) mg/dL Microbiology - Last 24 Hours (Table) 03/20/23 19:07 Blood Culture Gram Stain - Preliminary Blood Blood Culture - Preliminary Presumptive Staph aureus Assessment and Plan Assessment: * Acute hypoxic respiratory failure secondary to CHF * None STEMI status post cardiac cath and PCI to OM 1 on 03/18 plan for another cardiac cath for LAD disease * Cellulitis of the right forearm with fever * Moderate to severe aortic stenosis with cardiomyopathy with ejection fraction 25% * Acute metabolic encephalopathy, improving * Recurrent nausea vomiting with IVS * Elevated troponin secondary to type II GA * Urinary tract infection with obstructive uropathy * Acute renal failure * Diabetes mellitus type 2 * Dysphagia with aspiration * Hyperlipidemia * Nonsustained V. tach history Plan: Continue with aspirin and Plavix Continue with Keflex Follow-up culture results Several consultants on the case with cardiology, pulmonary, cardiothoracic and nephrology, Monitor kidney function Labs and medication were reviewed.. Continue same treatment. Continue with symptomatic treatment. Resume home medication. Monitor labs and vitals. DVT and GI prophylaxis. Further recommendations as per clinical course of the patie nt DVT prophylaxis: Subcutaneous heparin GI Prophylaxis: Pepcid PT/OT: Pending Prognosis is guarded
[2023-03-23] MEDS: SODIUM CHLORIDE 0.9% 1,000 ML IV SCH ×2 (04:10→22:08)
[2023-03-23] MEDS: ASPIRIN 81 MG PO SCH (04:44)
[2023-03-23] MEDS ORDERED: SODIUM CHLORIDE 0.9% 1,000 ML IV SCH (05:00)
[2023-03-23] MEDS: DOCUSATE 100 MG CAP PO SCH ×2 (05:54→20:15)
[2023-03-23] MEDS: CLOPIDOGREL 75 MG TAB PO SCH (05:54)
[2023-03-23] MEDS: GABAPENTIN 100 MG CAP PO SCH ×2 (05:54→20:15)
[2023-03-23] MEDS: METOPROLOL TARTRATE 25 MG TAB PO SCH ×2 (05:54→20:15)
[2023-03-23] MEDS: NITROGLYCERIN OINT 1 INCH/GM PACKET TOPICAL SCH ×3 (05:54→20:47)
[2023-03-23] MEDS: CEPHALEXIN 500 MG CAP PO SCH (05:54)
[2023-03-23] MEDS ORDERED: ATORVASTATIN 80 MG TAB PO ONE (06:00)
[2023-03-23] MEDS ORDERED: ASPIRIN 325 MG TAB PO ONE (06:00)
[2023-03-23] MEDS ORDERED: HEPARIN SODIUM,PORCINE (1 ML) 2,500 UNIT in SODIUM CHLORIDE 0.9% 250 ML IRRIGATION PRN (07:00)
[2023-03-23] MEDS ORDERED: HEPARIN SODIUM,PORCINE 10,000 UNIT in SODIUM CHLORIDE 0.9% 1,000 ML IRRIGATION PRN (07:00)
[2023-03-23 07:06] LABS: African American GFR (CKD) 58 (>60 ml/min/1.73 sqM); Anion Gap 11 mmol/L; Blood Urea Nitrogen 34 mg/dL (9-20); Calcium 8.7 mg/dL (8.4-10.2); Carbon Dioxide 22 mmol/L (22-30); Chloride 108 mmol/L (98-107); Glucose 101 mg/dL (74-99); Non-African American GFR(CKD) 50 (>60 ml/min/1.73 sqM); Potassium 4.3 mmol/L (3.5-5.1); Sodium 141 mmol/L (137-145)
[2023-03-23] MEDS ORDERED: LIDOCAINE 1% INJ 10MG/ML (20 ML MDV) ONE (07:15)
[2023-03-23] MEDS ORDERED: VERAPAMIL 2.5 MG/ML 2 ML AMP ONE (07:15)
[2023-03-23] MEDS ORDERED: fentaNYL (PF) 50 MCG/ML 2 ML AMP ONE (07:29)
[2023-03-23] MEDS ORDERED: HEPARIN SODIUM 1,000 UN/ML (10ML VL) ONE ×2 (07:29→08:04)
[2023-03-23] MEDS ORDERED: fentaNYL (PF) 50 MCG/ML 2 ML AMP IVP ONE (07:33)
[2023-03-23] MEDS ORDERED: LIDOCAINE 1% INJ 10MG/ML (5 ML VIAL-PF) SQ ONE (07:35)
[2023-03-23] MEDS ORDERED: IV FLUID CONTINUATION 700 ML IV ONE (07:36)
[2023-03-23] MEDS ORDERED: VERAPAMIL SYRINGE (5 MG/10 ML) INTRAARTER ONE (07:38)
[2023-03-23] MEDS ORDERED: HEPARIN SODIUM 1,000 UN/ML (10ML VL) IVP ONE ×3 (07:42→08:05)
[2023-03-23] MEDS ORDERED: IOPAMIDOL-370 100ML BTL INJ ONE ×2 (08:02→08:22)
[2023-03-23] MEDS ORDERED: NITROGLYCERIN SL TABS 0.4 MG TAB SUBLINGUAL PRN (08:28)
[2023-03-23] MEDS ORDERED: MAG HYDROX/AL HYDROX/SIMETH 30 ML CUP PO PRN (08:28)
[2023-03-23] MEDS ORDERED: RX INFO: IV CONTRAST WAS GIVEN 1 EACH MISC MISCELLANE PRN (08:28)
[2023-03-23] MEDS ORDERED: ATROPINE SULFATE 0.1 MG/ML 10ML SYRINGE IV PRN (08:28)
[2023-03-23] MEDS ORDERED: ZOLPIDEM 5 MG TAB PO PRN (08:28)
[2023-03-23] MEDS ORDERED: SODIUM CHLORIDE 0.9% 1,000 ML in EMPTY BAG 1 BAG IV SCH (08:30)
--- NOTE | 2023-03-23 08:36 | P.CARDCATH ---
Date of Procedure: 03/23/23 Description of Procedure: PERCUTANEOUS TRANSLUMINAL CORONARY ANGIOPLASTY CLINICAL INFORMATION: The patient is a 62-year-old male with known history of CAD, prior PCI, history of cardiomyopathy and aortic stenosis was felt to be a high risk surgical intervention per surgical team. He underwent stenting of the circumflex last week and IFR of the LAD that was significant. He was scheduled today to undergo PCI of the LAD . Recommendations were made regarding angioplasty and stenting. The procedure as well as the risks and the complications were discussed with the patient who was in full understanding and agreement. PROCEDURE: The patient was brought to the brine room laborer in the fasting and semi-sedated state after receiving fentanyl and Benadryl. Using modified Seldinger technique a 6-[place] sheath was introduced in the left radial artery. A 6 [place] EBU 3.75 guiding catheter was introduced into the system. After cannulating the left main, a 0.014 BMW J-wire was advanced across the lesion and positioned distally. Following that a BetaVersity [place] [facility] IVUS images were obtained. Following that a 2.5 x 12 mm NC Treck balloon was advanced and inflated at 8 atmosphere. Following that a 3.25 x 18 mm Xience [place]ia point stent was deployed. It was dilated at 16 darrel. Repeat IVUS was performed and subsequently a 3.5 x 12 mm NC Treck balloon was advanced and one inflation in the proximal segment of the stent at 10 darrel was done. After the last inflation, after appropriate wait, the balloon and the guidewire were withdrawn back into the guiding catheter. Images were obtained and repeated. Those images reveal stable successful stenting. At that point, the guiding catheter, the balloon, and guidewire were removed. The sheath was removed. Hemostasis was obtained with deployment of a vascular band. There were no immediate complications. The patient was returned to the room in stable condition. Of note, the patient received 12,000 units of heparin as well as Plavix. His ACT was followed. There was no immediate complications. He had no EKG changes or chest discomfort RESULTS: Successful stenting of the mid LAD with reduction of stenosis from 70 % to 0 % with intravascular ultrasound imaging. RECOMMENDATIONS: The patient will continue on aspirin and clopidogrel for 6 months without any interruption, he will continue aggressive coronary risks modification, attempting to maintain LDL below 70 mg/dL. His aortic valve stenosis will be reevaluated for intervention. The findings and recommendations were discussed with the patient and he is in full understanding and agreement. Duration of sedation: 42 minutes
--- NOTE | 2023-03-23 10:10 | P.PN ---
Subjective Patient is seen in follow-up for acute kidney injury on chronic kidney disease. Denies chest pain or shortness breath at this time. Has been voiding. Renal function stable. Hemodynamically stable. Underwent cardiac catheterization this morning and had a stent placed to the LAD. Vital signs are stable. General: No acute distress. HEENT: Head exam is unremarkable. LUNGS: No audible rhonchi or wheezes. HEART: Rate and Rhythm are regular. ABDOMEN: Nontender. EXTREMITITES: Trace edema. Objective - Vital Signs Vital signs: Vital Signs Temp 98.3 F 03/23/23 04:00 Pulse 70 03/23/23 09:05 Resp 18 03/23/23 09:05 BP 111/70 03/23/23 09:05 Pulse Ox 97 03/23/23 09:05 FiO2 Intake & Output 03/22/23 03/23/23 03/23/23 18:59 06:59 18:59 Intake Total 1200 50 Output Total 675 Balance 525 50 Intake: IV 20 50 Invasive Line 3 20 Intake, IV Titration 100 Amount Sodium Ferric Gluconat- 100 Sucrose 125 mg In Sodium Chloride 0.9% 100 ml @ 100 mls/hr IVPB DAILY [facility] Rx#:[id number] Oral 1080 Output: Urine 675 Other: Voiding Method Toilet Toilet Toilet Urinal Urinal Urinal # Voids 1 1 - Labs CBC & Chem 7: 03/21/23 07:55 03/23/23 06:18 Labs: Abnormal Lab Results - Last 24 Hours (Table) 03/22/23 03/23/23 03/23/23 Range/Units 08:31 06:18 08:41 Chloride 108 H (98-107) mmol/L Carbon Dioxide 20 L (22-30) mmol/L BUN 32 H 34 H (9-20) mg/dL Creatinine 1.63 H 1.50 H (0.66-1.25) mg/dL Glucose 133 H 101 H (74-99) mg/dL C-Reactive Protein 6.1 H (<1.0) mg/dL Microbiology - Last 24 Hours (Table) 03/20/23 19:07 Blood Culture Gram Stain - Preliminary Blood Blood Culture - Preliminary Presumptive Staph aureus Assessment and Plan Plan: Assessment: 1. Acute kidney injury secondary to ATN secondary to cardiorenal syndrome and component of contrast-induced acute kidney injury. Creatinine peaked at 1.7 this admission and is 1.5 today. 2. Chronic kidney disease stage IIIA with baseline creatinine near 1.2. Etiologies nephrosclerosis and ischemic nephropathy. UA benign. 3. Acute on chronic systolic CHF with ejection fraction of 20-25% with moderate aortic stenosis. 4. Coronary artery disease status post cardiac catheterization with PTCA of OM1 this admission. Scheduled for further intervention on 03/23/2023. 5. Volume overload. Has received IV Lasix this admission. 6. Anemia chronic kidney disease. Iron deficiency noted. 7. Staph aureus bacteremia. On Keflex. Plan: Hep-Lock IV fluids at noon. Plan to resume diuretics in the next 24 hours. Avoid nephrotoxins. Continue to monitor renal function and urine output. Monitor for contrast-induced acute kidney injury.
[2023-03-23] MEDS: SODIUM FERRIC GLUCONAT-SUCROSE 125 MG in SODIUM CHLORIDE 0.9% 100 ML IVPB SCH (10:52)
--- NOTE | 2023-03-23 15:21 | US ---
EXAMINATION TYPE: US venous doppler duplex UE RT DATE OF EXAM: 03/23/2023 COMPARISON: NONE CLINICAL INDICATION: Male, 62 years old with history of swelling forearm; Patient states having an IV in right forearm that became painful. Palpable at previous IV site. SIDE PERFORMED: Right Right Arm: Negative for DVT, Positive for SVT at area of concern at mid right forearm. IMPRESSION: 1. No evidence for DVT within the right upper extremity. 2. However, the exam is positive for SVT at the area of concern within the mid forearm.
--- NOTE | 2023-03-23 15:31 | P.PN ---
Subjective Progress Note Date: 03/23/23 Principal diagnosis: Acute hypoxic respiratory failure secondary to acute systolic congestive heart failure, pulmonary edema 62-year-old male who was seen in the emergency department, on March 14, with a previous history of myocardial infarction, presents with chest pain. The patient also had associated nausea, and diaphoresis. The pain did not radiate. He has a previous history of myocardial infarction, his had a number of stents placed. When EMS arrived, at the scene, the pain had resolved. He also complained of some shortness of breath. He was given some aspirin at the scene. We see the patient in the emergency department, room 17. He is currently on 5 L of oxygen. No IV fluids. The patient was thought to have a non-ST segment elevation myocardial infarction, as well as CHF. Also, on auscultation, it is clear that he has aortic stenosis. The CT angiogram was negative for pulmonary embolism. White count 5.8, hemoglobin 10.3, hematocrit 33, and platelet count was normal. D-dimer was 0.91. PTT was 34.6. Sodium 139, potassium 3.8, chlorides 106, CO2 24, BUN 28, and creatinine 1.64. Troponins were 0.088, 0.077, and 0.076. Pro-calcitonin was normal at 0.09. Chest x-ray showed some basilar atelectasis. CT angiogram was negative for PE, and positive for mild pulmonary edema. On today's evaluation of 03/16/2023, the patient underwent a cardiac catheterization and the patient was found to have a 80% proximal mid LAD, 90% mid circumflex vessel and 100% easily artery occlusion. The patient also has moderate aortic stenosis and impaired LV function with an ejection fraction of 20-25%. The patient is free of any chest pain at this point in time. Hemodynamically stable. The patient is currently on IV heparin. The patient has been. The patient is also on Lipitor. IV fluids are in the form of normal saline at rate of 75 mL an hour. The patient is on a 4.5 with a hemoglobin of 10.7, BUN is at 36 with a creatinine of 1.54 and a sodium level is at 40. On the 03 17 2023, the patient sedated patient is calm and comfortable. He did have an episode of oxygen desaturation yesterday and is currently back on room air oxygen. Denies having any chest pain. No significant shortness of breath. He has some increased edema lower extremities bilaterally. As mentioned, the patient underwent a cardiac catheterization and the patient was found to have 90% calcified stenosis of the proximal OM1, 80% stenosis in the mid LAD, tendern ess 20% distal left main and severe aortic stenosis with a low flow and low gradient with a mean gradient of 37 and elevated left ventricular end-diastolic pressure. There is also 30-40% stenosis of the right common femoral artery, 100% occlusion of the proximal axillary artery and patent left SMA. The patient is awaiting further recommendations from cardiothoracic surgery. He is considered to be high risk for bypass and aVR. Possibilities include percutaneous or transcutaneous aortic valve replacement. On today's evaluation of 03/18/2023, the patient is stable on room air oxygen. No cervical shortness of breath. No significant chest pain. As mentioned, the patient is not going to undergo thoracotomy. The patient is being considered for a percutaneous aortic valve replacement. Meanwhile, the patient underwent a cardiac catheterization today and the patient underwent successful stenting of OM1 with reduction of the stenosis from 95% down to 0%. The LAD lesion was hemodynamically stable with an IFR of 80%. Medical treatment will be continued regarding his underlying coronary artery disease. The patient's blood work today shows a WBC count of 5.2, sodium of 140, BUN is at 30 with a creatinine of 1.6. On 03/19/2023, the patient is doing well. No specific complaints. Patient underwent cardiac catheterization and stenting of the OM 1. A second catheterization to stent the LAD will be done tomorrow. The patient has no specific complaints. He remains on a combination of aspirin and Plavix. He is on room air oxygen. No cough sputum production or chest tightness or wheezing. He is still on IV heparin. Creatinine stable at 1.4 with a BUN of 28 and a sodium level is at 140. on 03/20/2023, the patient was supposed to undergo a cardiac catheterization and angioplasty and stenting of the LAD. The procedure was postponed as the patient's creatinine is up to 1.7. As such, the patient will be rescheduled. No significant respiratory distress. Remains on aspirin and Plavix. Remains on room air oxygen. No respiratory difficulties at this point in time. No chest pain.The BUN is at 25 the creatinine 1.7 and a sodium level is 138 and a potassium level is at 4.2. Serum bicarb is 18. The concern for now as nephropathy and for that reason the procedure was delayed and postponed. On 03/21/2023, the patient is on 3 L of oxygen by nasal cannula. The patient was given IV fluids and he had some worsening shortness of breath. He also had some fever and this is attributed to have phlebitis the right upper extremity. The IV line was removed and the patient is currently on Keflex and the area in the right upper extremity IV site is looking better. The patient has no chest pain. The white cell count of 4.7, hemoglobin was at 10.3, BUN is at 29 with a creatinine of 1.6 and the sodium level is 37. Covid 19 testing was negative. 03/22/2020, the patient is back on room air oxygen. The phlebitis in the right upper extremity is improving. Blood cultures showing presumed staph species. Awaiting final cultures. Currently on Keflex. No fever. No chills. Creatinine is down to 1.6. Awaiting cardiac catheterization and stenting of the LAD. The echoes at 4.7, hemoglobin was at 10.3, BUN is at 32 with a creatinine of 1.6. Sodium levels at 139. Pro-calcitonin level is at 0.26. Reevaluated today on 03/23/2023, patient is feeling better today, he already underwent this morning successful stenting of mid LAD with reduction of stenosis from 70% to 0%. Patient is doing well, he seems to be developing a bit of shortness of breath, however cardiology and nephrology on holding his diuretics for now. Mostly to make sure that his renal status continues to improve. On physical examination I did not feel that the patient is developing congestive heart failure. Basic metabolic profile is normal today, BUN is 34 creatinine is down to 1.50 from 1.63. Patient is on room air, O2 sats is 99% Objective - Vital Signs Vital signs: Vital Signs Temp 98.3 F 03/23/23 04:00 Pulse 74 03/23/23 12:13 Resp 16 03/23/23 12:13 BP 114/67 03/23/23 12:13 Pulse Ox 99 03/23/23 12:13 FiO2 Intake & Output 03/22/23 03/23/23 03/23/23 18:59 06:59 18:59 Intake Total 1200 50 Output Total 675 Balance 525 50 Intake: IV 20 50 Invasive Line 3 20 Intake, IV Titration 100 Amount Sodium Ferric Gluconat- 100 Sucrose 125 mg In Sodium Chloride 0.9% 100 ml @ 100 mls/hr IVPB DAILY [facility] Rx#:[id number] Oral 1080 Output: Urine 675 Other: Voiding Method Toilet Toilet Toilet Urinal Urinal Urinal # Voids 1 1 1 - Exam Physical Exam: Revealed a 62-year-old white male in no distress on room air Head: Atraumatic normocephalic. HEENT:[Neck is supple.] [No neck masses.] [No thyromegaly.] [No JVD.] Chest: [Clear throughout, no crackles, no rhonchi, no wheezes.] Cardiac Exam: [Normal S1 and S2, no S3 gallop 3/6 systolic murmur thought the precordium Abdomen: [Soft, nontender, no megaly, no rebound, no guarding, normal bowel sounds.] Extremities: [No clubbing, no edema, no cyanosis.] Neurological Exam: [No focal neurologic deficit.] Alert oriented 3 Psychiatric: Normal mood affect and normal mental status examination. Skin: Evidence of superficial phlebitis involving the right forearm - Labs CBC & Chem 7: 03/21/23 07:55 03/23/23 06:18 Labs: Abnormal Lab Results - Last 24 Hours (Table) 03/23/23 03/23/23 Range/Units 06:18 08:41 Chloride 108 H (98-107) mmol/L BUN 34 H (9-20) mg/dL Creatinine 1.50 H (0.66-1.25) mg/dL Glucose 101 H (74-99) mg/dL C-Reactive Protein 6.1 H (<1.0) mg/dL Microbiology - Last 24 Hours (Table) 03/20/23 19:07 Blood Culture Gram Stain - Final Blood Blood Culture - Final Staphylococcus aureus Assessment and Plan Assessment: Impression: Acute hypoxic respiratory failure secondary to acute systolic congestive heart failure ejection fraction of 25% Multivessel coronary artery disease, status post stent placement involving up to his marginal 1 and LAD Moderate severe aortic stenosis being considered for tavr Chronic kidney disease stage III History of previous DC with previous stent placement History of colon cancer and resection followed by chemotherapy and radiation therapy Right upper extremity phlebitis MSSA bacteremia Recommendation: Continue antibiotics Intermittent diuresis Continue Plavix and metoprolol Continue to monitor renal status daily Cardiothoracic to evaluate for possible aortic valve replacement/percutaneous approach. We will continue to follow Time with Patient: Less than 30
[2023-03-23] MEDS: ATORVASTATIN 40 MG TAB PO SCH (20:15)
--- NOTE | 2023-03-23 20:15 | P.PN ---
Subjective 62-year-old gentleman with past medical history significant for colon/rectal cancer, history of coronary artery disease, history of PCI, dyslipidemia, peripheral neuropathy status post chemotherapy for colon cancer presents to the emergency department with complains of shortness of breath. * The time of presentation in ED patient was complaining of midsternal chest pain as well as right interior chest discomfort, this was associated with nausea and diaphoresis and difficulty in breathing. Patient stated his symptoms have been ongoing for a few days and was supposed to follow-up with his primary wall attendant next week * Initiated in ER included an EKG, and a chest x-ray which did show pulmonary vascular congestion. 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 Patient states breathing has improved chest pain has improved * 03/16/2023: Patient seen and evaluated bedside, patient underwent cardiac catheterization today, which demonstrated 80% proximal to mid LAD stenosis, 90% circumflex stenosis and 100% nitrogen reactive stenosis cardiac surgery consultation obtained for evaluation for CABG as well as aortic stenosis. Continue medical management * 03/17/2023: Patient seen and evaluated bedside, patient is alert to person place and situation, care plan discussed at bedside as well. Shortness of breath is improved 1.53. Seen by Cardiac Surgery Planning Percutaneous Aortic Valve Replacement Patient Is Considered High Risk for CABG with AVR * 03/18/2023: Patient seen and evaluated bedside, appreciate input from cardiology. Plan as to undergo PCI today. K plan discussed with patient and at bedside. Continue current medical management * 03/19/2023: Patient seen and evaluated bedside, patient is alert and oriented 4, family at bedside status was cardiac catheterization patient had PCI to OM1. Creatinine 1.40, nephrology following * 03/20/2023: Patient seen and evaluated bedside, patient is alert and oriented 4, planned for cardiac catheterization scheduled for today for PCI of LAD. Creatinine noted to be 1.7, nephrology following 03/21/2023 Patient states he denies chest pain or dyspnea He had low-grade fever and he has evidence of changes cellulitis in his right forearm Patient could not tolerate cefepime for episodes of dyspnea therefore was stopped and we ordered Keflex with close monitoring. He is already had stent placed in his OM branch and plan for PCI to LAD on possible Thursday with improvement of his kidney function Creatinine 1.6 with baseline about 1.2, patient also with evidence of chronic kidney disease. He has cardiomyopathy with moderate to severe aortic stenosis with recommendation for repair of his aortic disease at certain points. Also patient with evidence of iron deficiency anemia Patient currently on aspirin Plavix and Keflex as above We'll keep monitoring for fever, white cell count of any worsening may consider infectious disease consult 03/22/2023 Patient lying in bed and his moving around easily. He denies chest pain. However he is scheduled for cardiac cath tomorrow for a second possible stent placement and to LAD artery Creatinine stable at 1.6 eligibility consultant on the case and recommended short course of normal saline at 50 mL per hour Right forearm cellulitis is improved and fever subcarinal did well he continued on Keflex, however her blood culture is growing staph final sensitivity is pending therefore we are going to call infectious disease consult 03/23/2023 Patient underwent successful cardiac cath with PCI to LAD and patient tolerated the procedure well, however patient is to require cardiothoracic surgery evaluation for aortic valve disease. Patient has been monitored closely for his kidney function as he is at-risk of contrast-induced nephropathy, and he is currently on 50 mL/h. Patient may be considered for diuretic soon thereafter. Also patient with evidence of MSSA bacteremia although he's responding with Keflex who didn't cellulitis in the right forearm is improving to require IV antibiotic and this was adjusted into cefazolin. He is currently on room air, denies chest pain or dyspnea. No abdominal pain. He is also on aspirin Plavix Of note ultrasound of the legs was negative for DVT but positive for SVT view of systems CONSTITUTIONAL: No fever, no malaise, no fatigue. HEENT: No recent visual problems or hearing problems. Denied any sore throat. CARDIOVASCULAR: No orthopnea, PND, no palpitations, no syncope. PULMONARY: No shortness of breath, no cough, no hemoptysis. GASTROINTESTINAL: No diarrhea, no nausea, no vomiting, no abdominal pain. Normoactive bowel sounds. NEUROLOGICAL: No headaches, no weakness, no numbness. Active Medications Generic Name Dose Route Start Last Admin Trade Name Freq PRN Reason Stop Dose Admin Acetaminophen 650 mg 03/20/23 16:08 03/20/23 23:08 Acetaminophen Tab 325 Mg Tab PO 650 mg Q6HR PRN Administration Fever and/ or Pain Al Hydroxide/Mg Hydroxide 30 ml 03/18/23 12:57 Mag Hydrox/Al Hydrox/Simeth 30 Ml Cup PO Q4HR PRN Heartburn Al Hydroxide/Mg Hydroxide 30 ml 03/23/23 08:28 Mag Hydrox/Al Hydrox/Simeth 30 Ml Cup PO Q4HR PRN Heartburn Alprazolam 0.25 mg 03/22/23 12:34 Alprazolam 0.25 Mg Tab PO Q6HR PRN Mild Anxiety Alprazolam 0.5 mg 03/22/23 12:34 Alprazolam 0.5 Mg Tab PO Q6HR PRN Moderate Anxiety Aspirin 81 mg 03/15/23 09:00 03/23/23 04:44 Aspirin 81 Mg PO Not Given DAILY TG Atorvastatin Calcium 40 mg 03/14/23 21:00 03/22/23 17:49 Atorvastatin 40 Mg Tab PO Not Given HS TG Atropine Sulfate 0.5 mg 03/18/23 12:57 Atropine Sulfate 0.1 Mg/Ml 10ml Syringe IV ONCE PRN Symptomatic Bradycardia Atropine Sulfate 0.5 mg 03/23/23 08:28 Atropine Sulfate 0.1 Mg/Ml 10ml Syringe IV ONCE PRN Symptomatic Bradycardia Clopidogrel Bisulfate 75 mg 03/17/23 12:00 03/23/23 05:54 Clopidogrel 75 Mg Tab PO 75 mg DAILY TG Administration Docusate Sodium 100 mg 03/16/23 21:00 03/23/23 05:54 Docusate 100 Mg Cap PO 100 mg BID TG Administration Gabapentin 200 mg 03/14/23 12:30 03/23/23 05:54 Gabapentin 100 Mg Cap PO 200 mg BID TG Administration Ferric Sodium Gluconate 125 mg 110 mls @ 100 mls/hr 03/22/23 12:00 03/23/23 10:52 / Sodium Chloride IVPB 03/25/23 12:01 Not Given DAILY TG Heparin Sodium (Porcine) 10, 1,001 mls @ 999 mls/hr 03/23/23 07:00 000 unit/ Sodium Chloride IRRIGATION 03/23/23 23:00 ONCE PRN INTRA-OP Heparin Sodium (Porcine) 2,500 250.5 mls @ 250 mls/hr 03/23/23 07:00 unit/ Sodium Chloride IRRIGATION 03/23/23 23:00 ONCE PRN INTRA-OP Sodium Chloride 1,000 mls @ 50 mls/hr 03/23/23 04:00 03/23/23 04:10 Saline 0.9% IV 50 mls/hr .Q20H TG Administration Cefazolin Sodium 2 gm/ Sodium 50 mls @ 100 mls/hr 03/23/23 08:15 03/23/23 15:31 Chloride IVPB 100 mls/hr Q8HR TG Administration Protocol Metoprolol Tartrate 25 mg 03/14/23 13:00 03/23/23 05:54 Metoprolol Tartrate 25 Mg Tab PO 25 mg BID TG Administration Miscellaneous Information 1 each 03/23/23 08:28 Rx Info: Iv Contrast Was Given 1 Each Misc MISCELLANE 03/25/23 08:28 DAILY PRN Per Protocol Nitroglycerin 1 inch 03/20/23 22:00 03/23/23 15:31 Nitroglycerin Oint 1 Inch/Gm Packet TOPICAL 1 inch Q8H TG Administration Nitroglycerin 0.4 mg 03/22/23 12:34 Nitroglycerin Sl Tabs 0.4 Mg Tab SUBLINGUAL Q5M PRN Chest Pain Nitroglycerin 0.4 mg 03/23/23 08:28 Nitroglycerin Sl Tabs 0.4 Mg Tab SUBLINGUAL Q5M PRN Chest Pain Zolpidem Tartrate 5 mg 03/18/23 12:57 Zolpidem 5 Mg Tab PO HS PRN Insomnia Zolpidem Tartrate 5 mg 03/23/23 08:28 Zolpidem 5 Mg Tab PO HS PRN Insomnia Objective - Vital Signs Vital signs: Vital Signs Temp 98.3 F 03/23/23 04:00 Pulse 74 03/23/23 12:13 Resp 16 03/23/23 12:13 BP 114/67 03/23/23 12:13 Pulse Ox 99 03/23/23 12:13 FiO2 Intake & Output 03/22/23 03/23/23 03/23/23 18:59 06:59 18:59 Intake Total 1200 50 Output Total 675 Balance 525 50 Intake: IV 20 50 Invasive Line 3 20 Intake, IV Titration 100 Amount Sodium Ferric Gluconat- 100 Sucrose 125 mg In Sodium Chloride 0.9% 100 ml @ 100 mls/hr IVPB DAILY [facility] Rx#:[id number] Oral 1080 Output: Urine 675 Other: Voiding Method Toilet Toilet Toilet Urinal Urinal Urinal # Voids 1 1 1 - Exam GENERAL: The patient is alert and oriented x3, not in any acute distress. Well developed, well nourished. HEENT: Pupils are round and equally reacting to light. EOMI. No scleral icterus. No conjunctival pallor. Normocephalic, atraumatic. No pharyngeal erythema. No thyromegaly. CARDIOVASCULAR: S1 and S2 present. No murmurs, rubs, or gallops. PULMONARY: Chest is clear to auscultation, no wheezing , no crackles. ABDOMEN: Soft, nontender, nondistended, normoactive bowel sounds. No palpable organomegaly. MUSCULOSKELETAL: No joint swelling or deformity. -EXTREMITIES: No cyanosis, clubbing, or pedal edema. 2-3 inches area of cellulitis in the ventral right forearm may improving NEUROLOGICAL: Gross neurological examination did not reveal any focal deficits. SKIN: No rashes. no petechiae. - Labs CBC & Chem 7: 03/21/23 07:55 03/23/23 06:18 Labs: Abnormal Lab Results - Last 24 Hours (Table) 03/23/23 03/23/23 Range/Units 06:18 08:41 Chloride 108 H (98-107) mmol/L BUN 34 H (9-20) mg/dL Creatinine 1.50 H (0.66-1.25) mg/dL Glucose 101 H (74-99) mg/dL C-Reactive Protein 6.1 H (<1.0) mg/dL Microbiology - Last 24 Hours (Table) 03/20/23 19:07 Blood Culture Gram Stain - Final Blood Blood Culture - Final Staphylococcus aureus Assessment and Plan Assessment: * Acute hypoxic respiratory failure secondary to CHF * None STEMI status post cardiac cath and PCI to OM 1 on 03/18 ; status post PCI to LAD disease on 03/23 * MSSA bacteremia * Cellulitis of the right forearm with fever, improvement * Moderate to severe aortic stenosis with cardiomyopathy with ejection fraction 25% * Acute metabolic encephalopathy, improving * Recurrent nausea vomiting with IVS * Elevated troponin secondary to type II MT * Urinary tract infection with obstructive uropathy * Acute renal failure * Diabetes mellitus type 2 * Dysphagia with aspiration * Hyperlipidemia * Nonsustained V. tach history Plan: Continue with aspirin and Plavix Continue with antibiotic, currently on IV cefazolin Cardiothoracic surgery team to evaluate for aortic stenosis repair Monitor kidney function and continue with normal saline and switched to diuretics. Follow-up culture results Several consultants on the case with cardiology, pulmonary, cardiothoracic and nephrology, Monitor kidney function Labs and medication were reviewed.. Continue same treatment. Continue with symptomatic treatment. Resume home medication. Monitor labs and vitals. DVT and GI prophylaxis. Further recommendations as per clinical course of the patient DVT prophylaxis: Subcutaneous heparin GI Prophylaxis: Pepcid PT/OT: Pending Prognosis is guarded
[2023-03-24] MEDS: NITROGLYCERIN OINT 1 INCH/GM PACKET TOPICAL SCH ×2 (05:45→13:32)
[2023-03-24] MEDS: METOPROLOL TARTRATE 25 MG TAB PO SCH ×2 (09:35→22:21)
[2023-03-24] MEDS: CLOPIDOGREL 75 MG TAB PO SCH (09:35)
[2023-03-24] MEDS: GABAPENTIN 100 MG CAP PO SCH ×2 (09:35→22:19)
[2023-03-24] MEDS: ASPIRIN 81 MG PO SCH (09:35)
[2023-03-24] MEDS: DOCUSATE 100 MG CAP PO SCH ×2 (09:35→22:19)
[2023-03-24] MEDS: SODIUM FERRIC GLUCONAT-SUCROSE 125 MG in SODIUM CHLORIDE 0.9% 100 ML IVPB SCH (09:35)
--- NOTE | 2023-03-24 09:38 | P.CONS ---
History of Present Illness - Reason for Consult Consult date: 03/23/23 - History of Present Illness Patient is a 62-year-old male with a past medical history of coronary artery disease hypertension heart failure SC renal disease patient presenting to the hospital about 10 days ago on 03/14/2023 for evaluation of chest pain patient has been diagnosed with the SC in this patient who did have a cardiac cath on 03/18/2023 and did have successful stenting of the OM1 there was also hemody namically significant LAD lesion patient did not have any fever on presentation to the hospital however the patient started spiking fever on 03/19/2023 and did have a fever on 03/20/2023 patient apparently did have an IV to the right forearm which apparently was there for about 5 days but patient history and started getting more swollen and red and painful patient describes the pain to be dull aching to sharp moderate intensity with associated swelling and redness but no drainage patient did have a blood culture drawn for that fever which subsequently came back positive with MSSA the patient was started on Keflex infectious disease was consulted for further management of antibiotic therapy. On today's evaluation that is 03/23/2023, the patient denies having any fever or any chills, the patient is breathing comfortably on room air denies any chest pain shortness with the cough no nausea vomiting abdominal pain or diarrhea still has some discomfort and cold feeling to the right forearm but did not have any open wound or any drainage Past Medical History Past Medical History: Coronary Artery Disease (CAD), Cancer, Chest Pain / Angina, Heart Failure, Hypertension, Myocardial Infarction (SC), Pneumonia, Renal Disease Additional Past Medical History / Comment(s): SC 2009 Last Myocardial Infarction Date:: 2009 History of Any Multi-Drug Resistant Organisms: None Reported Past Surgical History: Heart Catheterization With Stent, Tonsillectomy Additional Past Surgical History / Comment(s): Bilateral aortorenal endarterect eric in his 20s; colon resection Past Anesthesia/Blood Transfusion Reactions: No Reported Reaction Past Psychological History: No Psychological Hx Reported Smoking Status: Former smoker Past Alcohol Use History: None Reported Past Drug Use History: None Reported - Past Family History Mother Additional Family Medical History / Comment(s): leukemia Father Family Medical History: Myocardial Infarction (SC) Additional Family Medical History / Comment(s): stents Medications and Allergies Home Medications Medication Instructions Recorded Confirmed Type Atorvastatin Calcium [Lipitor] 40 mg PO HS 04/17/22 03/14/23 History Clopidogrel [Plavix] 75 mg PO DAILY 04/17/22 03/14/23 History Isosorbide Mononitrate ER [Imdur] 60 mg PO DAILY 04/17/22 03/14/23 History amLODIPine [Norvasc] 10 mg PO DAILY 04/17/22 03/14/23 History Gabapentin [Neurontin] 200 mg PO BID 03/14/23 03/14/23 History Allergies Allergy/AdvReac Type Severity Reaction Status Date / Time No Known Allergies Allergy Verified 03/14/23 10:48 Physical Exam Vitals: Vital Signs Temp Pulse Resp BP Pulse Ox 03/23/23 04:00 98.3 F 82 19 107/68 93 L 03/22/23 23:18 98.3 F 76 19 105/66 95 03/22/23 20:00 98.5 F 80 19 101/65 94 L 03/22/23 16:13 97.9 F 76 18 97/59 95 03/22/23 11:00 98.0 F 74 18 105/67 94 L Intake and Output 03/22/23 03/23/23 03/23/23 22:59 06:59 14:59 Intake Total 840 Output Total 375 Balance 465 Intake: Oral 840 Output: Urine 375 Other: Voiding Method Toilet Toilet Urinal Urinal # Voids 1 1 Results CBC & Chem 7: 03/21/23 07:55 03/23/23 06:18 Labs: Abnormal Lab Results - Last 24 Hours (Table) 03/22/23 03/23/23 Range/Units 08:31 06:18 Chloride 108 H (98-107) mmol/L Carbon Dioxide 20 L (22-30) mmol/L BUN 32 H 34 H (9-20) mg/dL Creatinine 1.63 H 1.50 H (0.66-1.25) mg/dL Glucose 133 H 101 H (74-99) mg/dL Microbiology - Last 24 Hours (Table) 03/20/23 19:07 Blood Culture Gram Stain - Preliminary Blood Blood Culture - Preliminary Presumptive Staph aureus Assessment and Plan Plan: 1patient with MSSA bacteremia source is likely right forearm peripheral IV site phlebitis, as currently no other obvious focus of infection to responsible for this bacteremia 2-blood cultures will be repeated document clearance of bacteremia 3-Doppler ultrasound of the right forearm to make sure no evidence of any septic phlebitis that may need further treatment 4-discontinue Keflex 5-start the patient on cefazolin 2 g every 8 hours patient will likely need IV antibiotic on discharge because of his bacteremia this was explained to the patient in layman term Plan of care was discussed with the patient patient verbalized understanding and in agreement We will follow on clinical condition and cultures to further adjust medication if needed Thank you for this consultation we will follow the patient along with you Dictation was produced using [employer] dictation software. please excuse any grammatical, word or spelling errors. Time with Patient: Greater than 30
--- NOTE | 2023-03-24 11:04 | P.PN ---
Subjective Patient is seen in follow-up for acute kidney injury on chronic kidney disease. Denies chest pain or shortness breath at this time. Has been voiding. Renal function stable as ofyesterday. Hemodynamically stable. Vital signs are stable. General: No acute distress. HEENT: Head exam is unremarkable. LUNGS: No audible rhonchi or wheezes. HEART: Rate and Rhythm are regular. ABDOMEN: Nontender. EXTREMITITES: Trace edema. Objective - Vital Signs Vital signs: Vital Signs Temp 98.2 F 03/24/23 04:00 Pulse 74 03/24/23 04:00 Resp 18 03/24/23 04:00 BP 122/84 03/24/23 04:00 Pulse Ox 96 03/24/23 04:00 FiO2 Intake & Output 03/23/23 03/24/23 03/24/23 18:59 06:59 18:59 Intake Total 50 360 Balance 50 360 Intake: IV 50 Oral 360 Other: Voiding Method Toilet Toilet Urinal Urinal # Voids 1 2 - Labs CBC & Chem 7: 03/21/23 07:55 03/23/23 06:18 Labs: Abnormal Lab Results - Last 24 Hours (Table) 03/23/23 Range/Units 08:41 Procalcitonin 0.22 H (0.02-0.09) ng/mL Microbiology - Last 24 Hours (Table) 03/20/23 19:07 Blood Culture Gram Stain - Final Blood Blood Culture - Final Staphylococcus aureus Assessment and Plan Plan: Assessment: 1. Acute kidney injury secondary to ATN secondary to cardiorenal syndrome and component of contrast-induced acute kidney injury. Creatinine peaked at 1.7 this admission and is 1.5 yesterday. 2. Chronic kidney disease stage IIIA with baseline creatinine near 1.2. Etiologies nephrosclerosis and ischemic nephropathy. UA benign. 3. Acute on chronic systolic CHF with ejection fraction of 20-25% with moderate aortic stenosis. 4. Coronary artery disease status post cardiac catheterization with PTCA of OM1 this admission. Scheduled for further intervention on 03/23/2023. 5. Volume overload. Has received IV Lasix this admission. 6. Anemia chronic kidney disease. Iron deficiency noted. 7. Staph aureus bacteremia. On Keflex. Plan: Add lasix 20 mg daily. Avoid nephrotoxins. Continue to monitor renal function and urine output. Monitor for contrast-induced acute kidney injury.
[2023-03-24] MEDS: FUROSEMIDE 20 MG TAB PO SCH (12:26)
--- NOTE | 2023-03-24 12:31 | P.PN ---
Subjective HISTORY OF PRESENT ILLNESS: This is a 62-year-old male who is status post cardiac catheterization with stenting of the mid LAD. Patient examined this morning at the bedside. Patient denies chest pain or pressure. He denies shortness of breath. Vital signs are stable. PHYSICAL EXAM: VITAL SIGNS: Reviewed. GENERAL: Well-developed in no acute distress. NECK: Supple. No JVD or thyromegaly LUNGS: Respirations even and unlabored. Lungs essentially clear to auscultation bilaterally. HEART: Regular rate and rhythm. S1 and S2 heard. EXTREMITIES: Normal range of motion. No clubbing or cyanosis. Peripheral pulses intact. No lower extremity edema ASSESSMENT: Coronary artery disease, status post stenting of mid LAD Mixed aortic valve disease with moderate aortic stenosis and [id number] aortic regurgitation History of CAD with previous stenting History of ischemic cardiomyopathy, 25-30% MSSA Bacteremia PLAN: Continue dual antiplatelet therapy Continue high-intensity statin Continue dyspnea cardiac medications Patient to follow-up post discharge in regards to aortic valve We will sign off. Please reconsult if needed. Nurse practitioner note has been reviewed by physician. Signing provider agrees with the documented findings, assessment, and plan of care. Objective - Vital Signs Vital signs: Vital Signs Temp 98.2 F 03/24/23 04:00 Pulse 74 03/24/23 04:00 Resp 18 03/24/23 04:00 BP 122/84 03/24/23 04:00 Pulse Ox 96 03/24/23 04:00 FiO2 Intake & Output 03/23/23 03/24/23 03/24/23 18:59 06:59 18:59 Intake Total 50 360 Balance 50 360 Intake: IV 50 Oral 360 Other: Voiding Method Toilet Toilet Urinal Urinal # Voids 1 2 - Labs CBC & Chem 7: 03/21/23 07:55 03/23/23 06:18 Labs: Abnormal Lab Results - Last 24 Hours (Table) 03/23/23 03/23/23 Range/Units 08:41 08:41 C-Reactive Protein 6.1 H (<1.0) mg/dL Procalcitonin 0.22 H (0.02-0.09) ng/mL Microbiology - Last 24 Hours (Table) 03/20/23 19:07 Blood Culture Gram Stain - Final Blood Blood Culture - Final Staphylococcus aureus
--- NOTE | 2023-03-24 14:45 | P.PN ---
Subjective Progress Note Date: 03/24/23 Principal diagnosis: Acute hypoxic respiratory failure secondary to acute systolic congestive heart failure, pulmonary edema 62-year-old male who was seen in the emergency department, on March 14, with a previous history of myocardial infarction, presents with chest pain. The patient also had associated nausea, and diaphoresis. The pain did not radiate. He has a previous history of myocardial infarction, his had a number of stents placed. When EMS arrived, at the scene, the pain had resolved. He also complained of some shortness of breath. He was given some aspirin at the scene. We see the patient in the emergency department, room 17. He is currently on 5 L of oxygen. No IV fluids. The patient was thought to have a non-ST segment elevation myocardial infarction, as well as CHF. Also, on auscultation, it is clear that he has aortic stenosis. The CT angiogram was negative for pulmonary embolism. White count 5.8, hemoglobin 10.3, hematocrit 33, and platelet count was normal. D-dimer was 0.91. PTT was 34.6. Sodium 139, potassium 3.8, chlorides 106, CO2 24, BUN 28, and creatinine 1.64. Troponins were 0.088, 0.077, and 0.076. Pro-calcitonin was normal at 0.09. Chest x-ray showed some basilar atelectasis. CT angiogram was negative for PE, and positive for mild pulmonary edema. On today's evaluation of 03/16/2023, the patient underwent a cardiac catheterization and the patient was found to have a 80% proximal mid LAD, 90% mid circumflex vessel and 100% easily artery occlusion. The patient also has moderate aortic stenosis and impaired LV function with an ejection fraction of 20-25%. The patient is free of any chest pain at this point in time. Hemodynamically stable. The patient is currently on IV heparin. The patient has been. The patient is also on Lipitor. IV fluids are in the form of normal saline at rate of 75 mL an hour. The patient is on a 4.5 with a hemoglobin of 10.7, BUN is at 36 with a creatinine of 1.54 and a sodium level is at 40. On the 03 17 2023, the patient sedated patient is calm and comfortable. He did have an episode of oxygen desaturation yesterday and is currently back on room air oxygen. Denies having any chest pain. No significant shortness of breath. He has some increased edema lower extremities bilaterally. As mentioned, the patient underwent a cardiac catheterization and the patient was found to have 90% calcified stenosis of the proximal OM1, 80% stenosis in the mid LAD, tendern ess 20% distal left main and severe aortic stenosis with a low flow and low gradient with a mean gradient of 37 and elevated left ventricular end-diastolic pressure. There is also 30-40% stenosis of the right common femoral artery, 100% occlusion of the proximal axillary artery and patent left SMA. The patient is awaiting further recommendations from cardiothoracic surgery. He is considered to be high risk for bypass and aVR. Possibilities include percutaneous or transcutaneous aortic valve replacement. On today's evaluation of 03/18/2023, the patient is stable on room air oxygen. No cervical shortness of breath. No significant chest pain. As mentioned, the patient is not going to undergo thoracotomy. The patient is being considered for a percutaneous aortic valve replacement. Meanwhile, the patient underwent a cardiac catheterization today and the patient underwent successful stenting of OM1 with reduction of the stenosis from 95% down to 0%. The LAD lesion was hemodynamically stable with an IFR of 80%. Medical treatment will be continued regarding his underlying coronary artery disease. The patient's blood work today shows a WBC count of 5.2, sodium of 140, BUN is at 30 with a creatinine of 1.6. On 03/19/2023, the patient is doing well. No specific complaints. Patient underwent cardiac catheterization and stenting of the OM 1. A second catheterization to stent the LAD will be done tomorrow. The patient has no specific complaints. He remains on a combination of aspirin and Plavix. He is on room air oxygen. No cough sputum production or chest tightness or wheezing. He is still on IV heparin. Creatinine stable at 1.4 with a BUN of 28 and a sodium level is at 140. on 03/20/2023, the patient was supposed to undergo a cardiac catheterization and angioplasty and stenting of the LAD. The procedure was postponed as the patient's creatinine is up to 1.7. As such, the patient will be rescheduled. No significant respiratory distress. Remains on aspirin and Plavix. Remains on room air oxygen. No respiratory difficulties at this point in time. No chest pain.The BUN is at 25 the creatinine 1.7 and a sodium level is 138 and a potassium level is at 4.2. Serum bicarb is 18. The concern for now as nephropathy and for that reason the procedure was delayed and postponed. On 03/21/2023, the patient is on 3 L of oxygen by nasal cannula. The patient was given IV fluids and he had some worsening shortness of breath. He also had some fever and this is attributed to have phlebitis the right upper extremity. The IV line was removed and the patient is currently on Keflex and the area in the right upper extremity IV site is looking better. The patient has no chest pain. The white cell count of 4.7, hemoglobin was at 10.3, BUN is at 29 with a creatinine of 1.6 and the sodium level is 37. Covid 19 testing was negative. 03/22/2020, the patient is back on room air oxygen. The phlebitis in the right upper extremity is improving. Blood cultures showing presumed staph species. Awaiting final cultures. Currently on Keflex. No fever. No chills. Creatinine is down to 1.6. Awaiting cardiac catheterization and stenting of the LAD. The echoes at 4.7, hemoglobin was at 10.3, BUN is at 32 with a creatinine of 1.6. Sodium levels at 139. Pro-calcitonin level is at 0.26. Reevaluated today on 03/23/2023, patient is feeling better today, he already underwent this morning successful stenting of mid LAD with reduction of stenosis from 70% to 0%. Patient is doing well, he seems to be developing a bit of shortness of breath, however cardiology and nephrology on holding his diuretics for now. Mostly to make sure that his renal status continues to improve. On physical examination I did not feel that the patient is developing congestive heart failure. Basic metabolic profile is normal today, BUN is 34 creatinine is down to 1.50 from 1.63. Patient is on room air, O2 sats is 99% Patient was reevaluated today on 03/24/2023, doing quite well, however his blood cultures came back positive for staph aureus MSSA, and he is receiving antibiotics as per infectious disease on the case for his gram-positive bacteremia among this is concerning considering the patient has significant valvular heart disease, and would be very concerning for possibly getting endocarditis. Patient also has severe LV dysfunction with ejection fraction of 25-50% if patient was seen by cardiothoracic surgery for possible TAVR in the future at any rate patient is doing well clinically, does not seem to be short of breath, denies being short of breath, and he is on room air, O2 saturation is 95% on room air. Objective - Vital Signs Vital signs: Vital Signs Temp 98.3 F 03/24/23 12:55 Pulse 66 03/24/23 12:55 Resp 18 03/24/23 12:55 BP 115/62 03/24/23 12:55 Pulse Ox 95 03/24/23 12:55 FiO2 Intake & Output 03/23/23 03/24/23 03/24/23 18:59 06:59 18:59 Intake Total 50 360 628 Balance 50 360 628 Intake: IV 50 Intake, IV Titration 150 Amount Sodium Ferric Gluconat- 100 Sucrose 125 mg In Sodium Chloride 0.9% 100 ml @ 100 mls/hr IVPB DAILY [facility] Rx#:[id number] ceFAZolin 2 gm In Sodium 50 Chloride 0.9% 50 ml @ 100 mls/hr IVPB Q8HR [facility] Rx# :[id number] Oral [id number] Other: Voiding Method Toilet Toilet Urinal Urinal # Voids 1 2 - Exam Physical Exam: Revealed a 62-year-old white male in no distress on room air Head: Atraumatic normocephalic. HEENT:[Neck is supple.] [No neck masses.] [No thyromegaly.] [No JVD.] Chest: [Clear throughout, no crackles, no rhonchi, no wheezes.] Cardiac Exam: [Normal S1 and S2, no S3 gallop 3/6 systolic murmur thought the precordium Abdomen: [Soft, nontender, no megaly, no rebound, no guarding, normal bowel sounds.] Extremities: [No clubbing, no edema, no cyanosis.] Neurological Exam: [No focal neurologic deficit.] Alert oriented 3 Psychiatric: Normal mood affect and normal mental status examination. Skin: Superficial phlebitis has resolved on right forearm - Labs CBC & Chem 7: 03/21/23 07:55 03/23/23 06:18 Labs: Abnormal Lab Results - Last 24 Hours (Table) 03/23/23 Range/Units 08:41 Procalcitonin 0.22 H (0.02-0.09) ng/mL Microbiology - Last 24 Hours (Table) 03/20/23 19:07 Blood Culture Gram Stain - Final Blood Blood Culture - Final Staphylococcus aureus Assessment and Plan Assessment: Impression: Acute hypoxic respiratory failure secondary to acute systolic congestive heart failure ejection fraction of 25% Multivessel coronary artery disease, status post stent placement involving up to his marginal 1 and LAD Moderate severe aortic stenosis being considered for tavr Chronic kidney disease stage III History of previous MN with previous stent placement History of colon cancer and resection followed by chemotherapy and radiation therapy Right upper extremity phlebitis MSSA bacteremia, being addressed by infectious disease on the case. Recommendation: Continue antibiotics Intermittent diuresis, as felt necessary. Continue Plavix and metoprolol Continue to monitor renal status daily Cardiothoracic recommending future tavr We will continue to follow Time with Patient: Less than 30
--- NOTE | 2023-03-24 15:01 | P.PN ---
Subjective Progress Note Date: 03/24/23 Principal diagnosis: Reason for follow-up is MSSA bacteremia secondary to right forearm IV site infection Patient is a 62-year-old male with a past medical history of coronary artery disease hypertension heart failure PA renal disease patient presenting to the hospital for chest pain has been diagnosed with PA and did have PTCA and stenting, patient did have a fever on 03/19/2023 and also developing cellulitis to the right forearm IV site and blood culture positive for MSSA from previous infectious disease consultation On today's evaluation that is 03/24/2023 the patient continues to be afebrile, the patient is breathing comfortably on room air without need for oxygen, the patient denies having any chest pain or cough and no sputum production, patient denies nausea vomiting or any diarrhea, and no abdominal pain, the right forearm discomfort has decreased in intensity Patient did have a white count of 4.7 on 03/21/2023, he did have a creatinine 1.50 as of yesterday, blood cultures done 03/23/2023 so far negative, Doppler ultrasound negative for DVT right upper extremity Objective - Vital Signs Vital signs: Vital Signs Temp 98.3 F 03/24/23 12:55 Pulse 66 03/24/23 12:55 Resp 18 03/24/23 12:55 BP 115/62 03/24/23 12:55 Pulse Ox 95 03/24/23 12:55 FiO2 Intake & Output 03/23/23 03/24/23 03/24/23 18:59 06:59 18:59 Intake Total 50 360 628 Balance 50 360 628 Intake: IV 50 Intake, IV Titration 150 Amount Sodium Ferric Gluconat- 100 Sucrose 125 mg In Sodium Chloride 0.9% 100 ml @ 100 mls/hr IVPB DAILY [facility] Rx#:[id number] ceFAZolin 2 gm In Sodium 50 Chloride 0.9% 50 ml @ 100 mls/hr IVPB Q8HR [facility] Rx# :[id number] Oral 360 [id number] Other: Voiding Method Toilet Toilet Urinal Urinal # Voids 1 2 - Exam GENERAL DESCRIPTION: Middle-age male lying in bed in no distress RESPIRATORY SYSTEM: Unlabored breathing , clear to auscultation anteriorly HEART: S1 S2 regular rate and rhythm , ABDOMEN: Soft , no tenderness EXTREMITIES: Right forearm with a cord like feeling overall tenderness and redness has decreased - Labs CBC & Chem 7: 03/21/23 07:55 03/23/23 06:18 Labs: Abnormal Lab Results - Last 24 Hours (Table) 03/23/23 Range/Units 08:41 Procalcitonin 0.22 H (0.02-0.09) ng/mL Microbiology - Last 24 Hours (Table) 03/20/23 19:07 Blood Culture Gram Stain - Final Blood Blood Culture - Final Staphylococcus aureus Assessment and Plan (1) MSSA bacteremia Current Visit: Yes Status: Acute Code(s): R78.81 - BACTEREMIA; B95.61 - METHICILLIN SUSCEP STAPH INFCT CAUSING DIS CLASSD [id number] SNOMED Code(s): 443994124 (2) Phlebitis Current Visit: Yes Status: Acute Code(s): I80.9 - PHLEBITIS AND THROMBOPHLEBITIS OF UNSPECIFIED SITE SNOMED Code(s): 20166637 (3) IV site infection Current Visit: Yes Status: Acute Code(s): T82.7XXA - INFECT/INFLM REACT D/T OTH CARDI/VASC DEV/IMPLNT/GRFT, INIT SNOMED Code(s): 717061203 Plan: 1patient with MSSA bacteremia source is likely right forearm peripheral IV site phlebitis, as currently no other obvious focus of infection to responsible for this bacteremia 2-blood cultures will be repeated document clearance of bacteremia 3-Doppler ultrasound of the right forearm was negative for DVT 4-patient to continue with cefazolin 2 g every 8 hours once blood cultures are negative he'll be able to get a midline for outpatient IV antibiotics Dictation was produced using [employer] dictation software. please excuse any grammatical, word or spelling errors. Time with Patient: Less than 30
[2023-03-24 19:34] LABS: African American GFR (CKD) 62 (>60 ml/min/1.73 sqM); Anion Gap 13 mmol/L; Blood Urea Nitrogen 30 mg/dL (9-20); Calcium 8.8 mg/dL (8.4-10.2); Carbon Dioxide 20 mmol/L (22-30); Chloride 108 mmol/L (98-107); Glucose 121 mg/dL (74-99); Non-African American GFR(CKD) 54 (>60 ml/min/1.73 sqM); Potassium 4.4 mmol/L (3.5-5.1); Sodium 141 mmol/L (137-145)
[2023-03-24] MEDS: ATORVASTATIN 40 MG TAB PO SCH (22:19)
--- NOTE | 2023-03-24 23:56 | P.PN ---
Subjective 62-year-old gentleman with past medical history significant for colon/rectal cancer, history of coronary artery disease, history of PCI, dyslipidemia, peripheral neuropathy status post chemotherapy for colon cancer presents to the emergency department with complains of shortness of breath. * The time of presentation in ED patient was complaining of midsternal chest pain as well as right interior chest discomfort, this was associated with nausea and diaphoresis and difficulty in breathing. Patient stated his symptoms have been ongoing for a few days and was supposed to follow-up with his primary foot worker next week * Initiated in ER included an EKG, and a chest x-ray which did show pulmonary vascular congestion. 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 Patient states breathing has improved chest pain has improved * 03/16/2023: Patient seen and evaluated bedside, patient underwent cardiac catheterization today, which demonstrated 80% proximal to mid LAD stenosis, 90% circumflex stenosis and 100% nitrogen reactive stenosis cardiac surgery consultation obtained for evaluation for CABG as well as aortic stenosis. Continue medical management * 03/17/2023: Patient seen and evaluated bedside, patient is alert to person place and situation, care plan discussed at bedside as well. Shortness of breath is improved 1.53. Seen by Cardiac Surgery Planning Percutaneous Aortic Valve Replacement Patient Is Considered High Risk for CABG with AVR * 03/18/2023: Patient seen and evaluated bedside, appreciate input from cardiology. Plan as to undergo PCI today. K plan discussed with patient and at bedside. Continue current medical management * 03/19/2023: Patient seen and evaluated bedside, patient is alert and oriented 4, family at bedside status was cardiac catheterization patient had PCI to OM1. Creatinine 1.40, nephrology following * 03/20/2023: Patient seen and evaluated bedside, patient is alert and oriented 4, planned for cardiac catheterization scheduled for today for PCI of LAD. Creatinine noted to be 1.7, nephrology following 03/21/2023 Patient states he denies chest pain or dyspnea He had low-grade fever and he has evidence of changes cellulitis in his right forearm Patient could not tolerate cefepime for episodes of dyspnea therefore was stopped and we ordered Keflex with close monitoring. He is already had stent placed in his OM branch and plan for PCI to LAD on possible Thursday with improvement of his kidney function Creatinine 1.6 with baseline about 1.2, patient also with evidence of chronic kidney disease. He has cardiomyopathy with moderate to severe aortic stenosis with recommendation for repair of his aortic disease at certain points. Also patient with evidence of iron deficiency anemia Patient currently on aspirin Plavix and Keflex as above We'll keep monitoring for fever, white cell count of any worsening may consider infectious disease consult 03/22/2023 Patient lying in bed and his moving around easily. He denies chest pain. However he is scheduled for cardiac cath tomorrow for a second possible stent placement and to LAD artery Creatinine stable at 1.6 professor of biblical studies on the case and recommended short course of normal saline at 50 mL per hour Right forearm cellulitis is improved and fever subcarinal did well he continued on Keflex, however her blood culture is growing staph final sensitivity is pending therefore we are going to call infectious disease consult 03/23/2023 Patient underwent successful cardiac cath with PCI to LAD and patient tolerated the procedure well, however patient is to require cardiothoracic surgery evaluation for aortic valve disease. Patient has been monitored closely for his kidney function as he is at-risk of contrast-induced nephropathy, and he is currently on 50 mL/h. Patient may be considered for diuretic soon thereafter. Also patient with evidence of MSSA bacteremia although he's responding with Keflex who didn't cellulitis in the right forearm is improving to require IV antibiotic and this was adjusted into cefazolin. He is currently on room air, denies chest pain or dyspnea. No abdominal pain. He is also on aspirin Plavix Of note ultrasound of the legs was negative for DVT but positive for SVT 03/24/2023 Patient sitting in chair as symptomatic feeling better no chest pain. However his been evaluated by cardiothoracic surgery for aortic valve repair Patient currently still given IV cefazolin for MSSA bacteremia secondary to right forearm cellulitis which is responded to treatment however repeat blood cultures to pending to document clearance of blood infection prior to any further surgical intervention. Panel Sewer team already sign of the case. Cardiothoracic and nephrology team on the case Normal saline discontinued and patient was started on Lasix 20 mg daily Also he is on aspirin 81 mg on a Plavix Objective - Vital Signs Vital signs: Vital Signs Temp 98.3 F 03/24/23 12:55 Pulse 66 03/24/23 12:55 Resp 18 03/24/23 12:55 BP 115/62 03/24/23 12:55 Pulse Ox 95 03/24/23 12:55 FiO2 Intake & Output 03/23/23 03/24/23 03/24/23 18:59 06:59 18:59 Intake Total 50 360 628 Balance 50 360 628 Intake: IV 50 Intake, IV Titration 150 Amount Sodium Ferric Gluconat- 100 Sucrose 125 mg In Sodium Chloride 0.9% 100 ml @ 100 mls/hr IVPB DAILY TG Rx#:[id number] ceFAZolin 2 gm In Sodium 50 Chloride 0.9% 50 ml @ 100 mls/hr IVPB Q8HR [facility] Rx# :[id number] Oral 360 478 Other: Voiding Method Toilet Toilet Urinal Urinal # Voids 1 2 - Exam GENERAL: The patient is alert and oriented x3, not in any acute distress. Well developed, well nourished. HEENT: Pupils are round and equally reacting to light. EOMI. No scleral icterus. No conjunctival pallor. Normocephalic, atraumatic. No pharyngeal erythema. No thyromegaly. CARDIOVASCULAR: S1 and S2 present. No murmurs, rubs, or gallops. PULMONARY: Chest is clear to auscultation, no wheezing , no crackles. ABDOMEN: Soft, nontender, nondistended, normoactive bowel sounds. No palpable organomegaly. MUSCULOSKELETAL: No joint swelling or deformity. -EXTREMITIES: No cyanosis, clubbing, or pedal edema. 2-3 inches area of cellulitis in the ventral right forearm may improving NEUROLOGICAL: Gross neurological examination did not reveal any focal deficits. SKIN: No rashes. no petechiae. - Labs CBC & Chem 7: 03/21/23 07:55 03/24/23 07:42 Labs: Abnormal Lab Results - Last 24 Hours (Table) 03/23/23 Range/Units 08:41 Procalcitonin 0.22 H (0.02-0.09) ng/mL Microbiology - Last 24 Hours (Table) 03/20/23 19:07 Blood Culture Gram Stain - Final Blood Blood Culture - Final Staphylococcus aureus Assessment and Plan Assessment: * Acute hypoxic respiratory failure secondary to CHF * None STEMI status post cardiac cath and PCI to OM 1 on 03/18 ; status post PCI to LAD disease on 03/23 * MSSA bacteremia * Cellulitis of the right forearm with fever, improvement * Moderate to severe aortic stenosis with cardiomyopathy with ejection fraction 25% * Acute metabolic encephalopathy, improving * Recurrent nausea vomiting with IVS * Elevated troponin secondary to type II VA * Urinary tract infection with obstructive uropathy * Acute renal failure * Diabetes mellitus type 2 * Dysphagia with aspiration * Hyperlipidemia * Nonsustained V. tach history Plan: Continue with aspirin and Plavix Continue with antibiotic, currently on IV cefazolin Cardiothoracic surgery team to evaluate for aortic stenosis repair Monitor kidney function and continue with normal saline and switched to diuretics. Follow-up culture results Several consultants on the case with cardiology, pulmonary, cardiothoracic and nephrology, Monitor kidney function Labs and medication were reviewed.. Continue same treatment. Continue with symptomatic treatment. Resume home medication. Monitor labs and vitals. DVT and GI prophylaxis. Further recommendations as per clinical course of the patient DVT prophylaxis: Subcutaneous heparin GI Prophylaxis: Pepcid PT/OT: Pending Prognosis is guarded
[2023-03-25] MEDS: ASPIRIN 81 MG PO SCH (09:15)
[2023-03-25] MEDS: GABAPENTIN 100 MG CAP PO SCH (09:15)
[2023-03-25] MEDS: FUROSEMIDE 20 MG TAB PO SCH (09:16)
[2023-03-25] MEDS: CLOPIDOGREL 75 MG TAB PO SCH (09:16)
[2023-03-25] MEDS: METOPROLOL TARTRATE 25 MG TAB PO SCH (09:16)
[2023-03-25] MEDS: DOCUSATE 100 MG CAP PO SCH (09:17)
[2023-03-25] MEDS: SODIUM FERRIC GLUCONAT-SUCROSE 125 MG in SODIUM CHLORIDE 0.9% 100 ML IVPB SCH (10:03)
--- NOTE | 2023-03-25 10:24 | P.PN ---
Subjective Patient is seen in follow-up for acute kidney injury on chronic kidney disease. Denies chest pain or shortness breath at this time. Has been voiding. Renal function stable as of yesterday. Hemodynamically stable. Vital signs are stable. General: No acute distress. HEENT: Head exam is unremarkable. LUNGS: No audible rhonchi or wheezes. HEART: Rate and Rhythm are regular. ABDOMEN: Nontender. EXTREMITITES: Trace edema. Objective - Vital Signs Vital signs: Vital Signs Temp 98.4 F 03/25/23 09:07 Pulse 80 03/25/23 09:07 Resp 14 03/25/23 09:07 BP 103/65 03/25/23 09:07 Pulse Ox 96 03/25/23 09:07 FiO2 Intake & Output 03/24/23 03/25/23 03/25/23 18:59 06:59 18:59 Intake Total 1168 128 Output Total 375 Balance 1168 -375 128 Intake: IV 10 Invasive Line 5 10 Intake, IV Titration 150 Amount Sodium Ferric Gluconat- 100 Sucrose 125 mg In Sodium Chloride 0.9% 100 ml @ 100 mls/hr IVPB DAILY TG Rx#:[id number] ceFAZolin 2 gm In Sodium 50 Chloride 0.9% 50 ml @ 100 mls/hr IVPB Q8HR [facility] Rx# :[id number] Oral 1018 118 Output: Urine 375 Other: Voiding Method Toilet Urinal # Voids 1 # Bowel Movements 0 - Labs CBC & Chem 7: 03/21/23 07:55 03/24/23 07:42 Labs: Abnormal Lab Results - Last 24 Hours (Table) 03/24/23 Range/Units 07:42 Chloride 108 H (98-107) mmol/L Carbon Dioxide 20 L (22-30) mmol/L BUN 30 H (9-20) mg/dL Creatinine 1.42 H (0.66-1.25) mg/dL Glucose 121 H (74-99) mg/dL Microbiology - Last 24 Hours (Table) 03/23/23 08:41 Blood Culture - Preliminary Blood Assessment and Plan Plan: Assessment: 1. Acute kidney injury secondary to ATN secondary to cardiorenal syndrome and component of contrast-induced acute kidney injury. Creatinine peaked at 1.7 this admission - 1.42 yesterday. 2. Chronic kidney disease stage IIIA with baseline creatinine near 1.2. Etiologies nephrosclerosis and ischemic nephropathy. UA benign. 3. Acute on chronic systolic CHF with ejection fraction of 20-25% with moderate aortic stenosis. 4. Coronary artery disease status post cardiac catheterization with PTCA of OM1 this admission. Underwent another cardiac catheterization on 03/23/2023 with mid LAD stenting. 5. Volume overload. Has received IV Lasix this admission. Now on oral Lasix. 6. Anemia chronic kidney disease. Iron deficiency noted. Receiving IV iron. 7. Staph aureus bacteremia. On Keflex. Plan: Maintain lasix 20 mg daily. Avoid nephrotoxins. Continue to monitor renal function and urine output. Monitor for contrast-induced acute kidney injury. Repeat BMP and magnesium level 2-3 days postdischarge. Follow-up outpatient in 1 week. Advised patient to maintain low salt diet and fluid restriction of less than 50 ounces per day. He was also advised to monitor his weight closely at home and to notify physician if develops edema or gains more than 3 pounds in 1 week duration.
[2023-03-25 11:57] VITALS: RESP 16
--- NOTE | 2023-03-25 13:52 | P.PN ---
Subjective Progress Note Date: 03/25/23 Principal diagnosis: Acute hypoxic respiratory failure secondary to acute systolic congestive heart failure, pulmonary edema 62-year-old male who was seen in the emergency department, on March 14, with a previous history of myocardial infarction, presents with chest pain. The patient also had associated nausea, and diaphoresis. The pain did not radiate. He has a previous history of myocardial infarction, his had a number of stents placed. When EMS arrived, at the scene, the pain had resolved. He also complained of some shortness of breath. He was given some aspirin at the scene. We see the patient in the emergency department, room 17. He is currently on 5 L of oxygen. No IV fluids. The patient was thought to have a non-ST segment elevation myocardial infarction, as well as CHF. Also, on auscultation, it is clear that he has aortic stenosis. The CT angiogram was negative for pulmonary embolism. White count 5.8, hemoglobin 10.3, hematocrit 33, and platelet count was normal. D-dimer was 0.91. PTT was 34.6. Sodium 139, potassium 3.8, chlorides 106, CO2 24, BUN 28, and creatinine 1.64. Troponins were 0.088, 0.077, and 0.076. Pro-calcitonin was normal at 0.09. Chest x-ray showed some basilar atelectasis. CT angiogram was negative for PE, and positive for mild pulmonary edema. On today's evaluation of 03/16/2023, the patient underwent a cardiac catheterization and the patient was found to have a 80% proximal mid LAD, 90% mid circumflex vessel and 100% easily artery occlusion. The patient also has moderate aortic stenosis and impaired LV function with an ejection fraction of 20-25%. The patient is free of any chest pain at this point in time. Hemodynamically stable. The patient is currently on IV heparin. The patient has been. The patient is also on Lipitor. IV fluids are in the form of normal saline at rate of 75 mL an hour. The patient is on a 4.5 with a hemoglobin of 10.7, BUN is at 36 with a creatinine of 1.54 and a sodium level is at 40. On the 03 17 2023, the patient sedated patient is calm and comfortable. He did have an episode of oxygen desaturation yesterday and is currently back on room air oxygen. Denies having any chest pain. No significant shortness of breath. He has some increased edema lower extremities bilaterally. As mentioned, the patient underwent a cardiac catheterization and the patient was found to have 90% calcified stenosis of the proximal OM1, 80% stenosis in the mid LAD, tendern ess 20% distal left main and severe aortic stenosis with a low flow and low gradient with a mean gradient of 37 and elevated left ventricular end-diastolic pressure. There is also 30-40% stenosis of the right common femoral artery, 100% occlusion of the proximal axillary artery and patent left SMA. The patient is awaiting further recommendations from cardiothoracic surgery. He is considered to be high risk for bypass and aVR. Possibilities include percutaneous or transcutaneous aortic valve replacement. On today's evaluation of 03/18/2023, the patient is stable on room air oxygen. No cervical shortness of breath. No significant chest pain. As mentioned, the patient is not going to undergo thoracotomy. The patient is being considered for a percutaneous aortic valve replacement. Meanwhile, the patient underwent a cardiac catheterization today and the patient underwent successful stenting of OM1 with reduction of the stenosis from 95% down to 0%. The LAD lesion was hemodynamically stable with an IFR of 80%. Medical treatment will be continued regarding his underlying coronary artery disease. The patient's blood work today shows a WBC count of 5.2, sodium of 140, BUN is at 30 with a creatinine of 1.6. On 03/19/2023, the patient is doing well. No specific complaints. Patient underwent cardiac catheterization and stenting of the OM 1. A second catheterization to stent the LAD will be done tomorrow. The patient has no specific complaints. He remains on a combination of aspirin and Plavix. He is on room air oxygen. No cough sputum production or chest tightness or wheezing. He is still on IV heparin. Creatinine stable at 1.4 with a BUN of 28 and a sodium level is at 140. on 03/20/2023, the patient was supposed to undergo a cardiac catheterization and angioplasty and stenting of the LAD. The procedure was postponed as the patient's creatinine is up to 1.7. As such, the patient will be rescheduled. No significant respiratory distress. Remains on aspirin and Plavix. Remains on room air oxygen. No respiratory difficulties at this point in time. No chest pain.The BUN is at 25 the creatinine 1.7 and a sodium level is 138 and a potassium level is at 4.2. Serum bicarb is 18. The concern for now as nephropathy and for that reason the procedure was delayed and postponed. On 03/21/2023, the patient is on 3 L of oxygen by nasal cannula. The patient was given IV fluids and he had some worsening shortness of breath. He also had some fever and this is attributed to have phlebitis the right upper extremity. The IV line was removed and the patient is currently on Keflex and the area in the right upper extremity IV site is looking better. The patient has no chest pain. The white cell count of 4.7, hemoglobin was at 10.3, BUN is at 29 with a creatinine of 1.6 and the sodium level is 37. Covid 19 testing was negative. 03/22/2020, the patient is back on room air oxygen. The phlebitis in the right upper extremity is improving. Blood cultures showing presumed staph species. Awaiting final cultures. Currently on Keflex. No fever. No chills. Creatinine is down to 1.6. Awaiting cardiac catheterization and stenting of the LAD. The echoes at 4.7, hemoglobin was at 10.3, BUN is at 32 with a creatinine of 1.6. Sodium levels at 139. Pro-calcitonin level is at 0.26. Reevaluated today on 03/23/2023, patient is feeling better today, he already underwent this morning successful stenting of mid LAD with reduction of stenosis from 70% to 0%. Patient is doing well, he seems to be developing a bit of shortness of breath, however cardiology and nephrology on holding his diuretics for now. Mostly to make sure that his renal status continues to improve. On physical examination I did not feel that the patient is developing congestive heart failure. Basic metabolic profile is normal today, BUN is 34 creatinine is down to 1.50 from 1.63. Patient is on room air, O2 sats is 99% Patient was reevaluated today on 03/24/2023, doing quite well, however his blood cultures came back positive for staph aureus MSSA, and he is receiving antibiotics as per infectious disease on the case for his gram-positive bacteremia among this is concerning considering the patient has significant valvular heart disease, and would be very concerning for possibly getting endocarditis. Patient also has severe LV dysfunction with ejection fraction of 25-50% if patient was seen by cardiothoracic surgery for possible TAVR in the future at any rate patient is doing well clinically, does not seem to be short of breath, denies being short of breath, and he is on room air, O2 saturation is 95% on room air. Reevaluated today on 03/25/2023, patient is doing well, he is receiving antibiotics for his MSSA bacteremia, pulmonary-brandt the patient is doing great, no cough no wheezing no shortness of breath no chest pain. Being followed by c ardiology and by infectious disease. Blood cultures from 1211 have been negative so far in the last 24 hours. Patient initially had superficial phlebitis of right forearm, and that may have been the initial site of his bacteremia. So far the patient is doing well, doing well with antibiotics, and I believe infectious disease is waiting on follow-up blood cultures to make sure that the patient has no further episodes of bacteremia Objective - Vital Signs Vital signs: Vital Signs Temp 97.8 F 03/25/23 11:44 Pulse 72 03/25/23 11:44 Resp 16 03/25/23 11:44 BP 114/72 03/25/23 11:44 Pulse Ox 96 03/25/23 11:44 FiO2 Intake & Output 03/24/23 03/25/23 03/25/23 18:59 06:59 18:59 Intake Total 1168 128 Output Total 375 Balance 1168 -375 128 Intake: IV 10 Invasive Line 5 10 Intake, IV Titration 150 Amount Sodium Ferric Gluconat- 100 Sucrose 125 mg In Sodium Chloride 0.9% 100 ml @ 100 mls/hr IVPB DAILY TG Rx#:[id number] ceFAZolin 2 gm In Sodium 50 Chloride 0.9% 50 ml @ 100 mls/hr IVPB Q8HR [facility] Rx# :[id number] Oral 1018 118 Output: Urine 375 Other: Voiding Method Toilet Toilet Urinal Urinal # Voids 1 2 # Bowel Movements 0 2 - Exam Physical Exam: Revealed a 62-year-old white male in no distress on room air Head: Atraumatic normocephalic. HEENT:[Neck is supple.] [No neck masses.] [No thyromegaly.] [No JVD.] Chest: [Clear throughout, no crackles, no rhonchi, no wheezes.] Cardiac Exam: [Normal S1 and S2, no S3 gallop 3/6 systolic murmur thought the precordium Abdomen: [Soft, nontender, no megaly, no rebound, no guarding, normal bowel sounds.] Extremities: [No clubbing, no edema, no cyanosis.] Neurological Exam: [No focal neurologic deficit.] Alert oriented 3 Psychiatric: Normal mood affect and normal mental status examination. Skin: Superficial phlebitis has resolved on right forearm - Labs CBC & Chem 7: 03/21/23 07:55 03/24/23 07:42 Labs: Abnormal Lab Results - Last 24 Hours (Table) 03/24/23 Range/Units 07:42 Chloride 108 H (98-107) mmol/L Carbon Dioxide 20 L (22-30) mmol/L BUN 30 H (9-20) mg/dL Creatinine 1.42 H (0.66-1.25) mg/dL Glucose 121 H (74-99) mg/dL Microbiology - Last 24 Hours (Table) 03/23/23 08:41 Blood Culture - Preliminary Blood Assessment and Plan Assessment: Impression: Acute hypoxic respiratory failure secondary to acute systolic congestive heart failure ejection fraction of 25% Multivessel coronary artery disease, status post stent placement involving up to his marginal 1 and LAD Moderate severe aortic stenosis being considered for tavr Chronic kidney disease stage III History of previous ME with previous stent placement History of colon cancer and resection followed by chemotherapy and radiation therapy Right upper extremity phlebitis MSSA bacteremia, being addressed by infectious disease on the case. Recommendation: Continue antibiotics Continue Plavix and metoprolol Continue to monitor renal status daily, creatinine is improving actually down to 1.4 to compared to 1.63 on admission Cardiothoracic recommending future tavr We will continue to follow Time with Patient: Less than 30
[2023-03-25 16:17] VITALS: BP 113/55; PULSE 74; TEMP 98.5
--- NOTE | 2023-03-31 13:52 | P.DS ---
Providers Date of admission: 03/14/23 06:13 Attending physician: Yarelis Gross Consults: 03/14/23 12:22 Consult Physician Routine Consulting Provider: Herbert Arriaga Consult Reason/Comments: Acute respiratory distress, hypoxic respiratory failure Do you want consulting provider notified?: Yes 03/14/23 13:26 Consult Physician Routine Consulting Provider: Taty Pacheco Consult Reason/Comments: Acute renal failure, new onset CHF Do you want consulting provider notified?: Yes 03/16/23 09:15 Consult Physician Routine Consulting Provider: Ozzie Herndon Consult Reason/Comments: CABG and severe , cardiomyopathy Do you want consulting provider notified?: Yes 03/22/23 22:00 Consult Physician Routine Consulting Provider: Yamel Wright Consult Reason/Comments: bacteremia Do you want consulting provider notified?: Yes, Notify in am Primary care physician: Erick Blake Hospital Course: Diagnoses: Acute hypoxic respiratory failure secondary to CHF None STEMI status post cardiac cath and PCI to OM 1 on 03/18 ; status post PCI to LAD disease on 03/23 MSSA bacteremia Cellulitis of the right forearm with fever, improvement Moderate to severe aortic stenosis with cardiomyopathy with ejection fraction 25% Acute metabolic encephalopathy, improving Recurrent nausea vomiting Elevated troponin secondary to type II [place] Urinary tract infection with obstructive uropathy Acute renal failure Diabetes mellitus type 2 Hyperlipidemia Nonsustained V. tach history Hospital course: 62-year-old gentleman with past medical history significant for colon/rectal cancer, history of coronary artery disease, history of PCI, dyslipidemia, peripheral neuropathy status post chemotherapy for colon cancer presents to the emergency department with complains of shortness of breath. The time of presentation in ED patient was complaining of midsternal chest pain and he underwent cardiac cath on 03/18 , he is a status post PCI to OM1 and he had another cardiac cath and PCI to LAD on the 03/23 postprocedure patient was doing well, no chest pain no dyspnea, no weakness and new other symptoms is been able to thoracic surgery for his severe aortic stenosis, and decision was to follow up as an outpatient for further workup and possible surgical correction after clearance from dyed yarn operator. As patient also developed bacteremia secondary to MSSA infection with sore suspected from his right forearm cellulitis that responded well to IV antibiotic, patient is been followed by infectious disease team and he is going to be discharged on 2 weeks of IV cefazolin with PICC line is placed for this purpose, patient tolerated the procedure well, he remains asymptomatic upon discharge. No chest pain no dyspnea. No change in urine or bowel habits. Nephrology was following the patient for elevated creatinine secondary to cardiorenal syndrome with acute kidney injury on chronic kidney disease stage III, his creatinine was trending down upon discharge 1.6 down to 1.4 Patient was cleared for discharge by all consultants including dyed yarn operator, cardiothoracic surgery, infectious disease team, [employer] Also he is on aspirin 81 mg on a Plavix Problems and management plan were discussed with the patient and he verbalized understanding and acceptance Patient was found stable and can be discharged home in guarded prognosis however he needs follow-up as an outpatient. Patient was instructed to follow up with PCP Dr. Blake within one week and patient agrees with the appointments made for him on 04/01 Patient was instructed to follow up with his dyed yarn operator Dr. Garcia in one week With cardiothoracic surgery team Dr. Walker in 2 weeks Patient was instructed to follow up with bleacher [employer] Dr. Pacheco and he agrees with appointment on 04/[address] Medina residence life director on 04/15 Physical exam Gen: patient is a AAOx3, no distress CVS: S1-S2, RRR, no murmur Lungs: B/L CTA, no wheezing Abdomen: soft, no distention, no tenderness, positive bowel sounds Extremity: no leg edema or induration Time spent more than 35 minutes Patient Condition at Discharge: Serious Plan - Discharge Summary Discharge Rx Participant: Yes New Discharge Prescriptions: New Aspirin 81 mg PO DAILY #30 tab Ferrous Sulfate [Feosol] 325 mg PO DAILY #30 tab Metoprolol Tartrate [Lopressor] 25 mg PO BID #60 tab Acetaminophen Tab [Tylenol] 650 mg PO Q6HR PRN tab PRN Reason: Fever And/ Or Pain ceFAZolin [Kefzol] 2 gm IVP Q8HR #1 each Continue Gabapentin [Neurontin] 200 mg PO BID Clopidogrel [Plavix] 75 mg PO DAILY #30 tab Atorvastatin Calcium [Lipitor] 40 mg PO HS Discontinued amLODIPine [Norvasc] 10 mg PO DAILY No Action Albuterol Inhaler [Ventolin Hfa Inhaler] 2 puff INHALATION RT-QID #1 each guaiFENesin-DM 100-10MG/5ML [Robitussin DM] 10 ml PO QID #250 ml Torsemide [Demadex] 10 mg PO DAILY #30 tab Discharge Medication List Atorvastatin Calcium [Lipitor] 40 mg PO HS 04/17/22 [History] Gabapentin [Neurontin] 200 mg PO BID 03/14/23 [History] Acetaminophen Tab [Tylenol] 650 mg PO Q6HR PRN tab 03/25/23 [Rx] Aspirin 81 mg PO DAILY #30 tab 03/25/23 [Rx] Clopidogrel [Plavix] 75 mg PO DAILY #30 tab 03/25/23 [Rx] Ferrous Sulfate [Feosol] 325 mg PO DAILY #30 tab 03/25/23 [Rx] Metoprolol Tartrate [Lopressor] 25 mg PO BID #60 tab 03/25/23 [Rx] ceFAZolin [Kefzol] 2 gm IVP Q8HR #1 each 03/25/23 [Rx] Albuterol Inhaler [Ventolin Hfa Inhaler] 2 puff INHALATION RT-QID #1 each [Rx] Torsemide [Demadex] 10 mg PO DAILY #30 tab 03/27/23 [Rx] guaiFENesin-DM 100-10MG/5ML [Robitussin DM] 10 ml PO QID #250 ml 03/27/23 [Rx] Follow up Appointment(s)/Referral(s): [facility] [NON-STAFF] - Taty Pacheco MD [STAFF PHYSICIAN] - 04/14/23 9:00 am (no appointment available in [place] office, so this appointment is in [place] ) Renata Garcia MD [STAFF PHYSICIAN] - 1 Week (office will call you and make appointment ) Aaron Bryson MD [STAFF PHYSICIAN] - 2 Weeks (once cardiology clears, call to make appointment for possible TAVR work-up) Herbert Arriaga DO [Doctor of Osteopathic Medicine] - 04/15/23 9:00 am (lung doctor) [facility] [NON-STAFF] - Erick Blake MD [Primary Care Provider] - 04/01/23 1:30 pm Yamel Wright MD [STAFF PHYSICIAN] - 1 Week ([facility] please call and make appointment ) Ambulatory/Diagnostic Orders: Basic Metabolic Panel [LAB.AMB] Time Frame: 3 Days, Location: None Selected Magnesium [LAB.AMB] Location: None Selected Patient Instructions/Handouts: Heart Attack (DC), Heart Catheterization (DC), Transcatheter Aortic Valve Replacement (DC), Phlebitis (DC) Activity/Diet/Wound Care/Special Instructions: heart healthy diet activity is restricted till you see your doctor antibiotic are set per community case manager Discharge Disposition: HOME WITH HOME HEALTH SERVICES
== END 2023-03-25 16:29 | disposition home health service (06) | DRG 321 ==
LOC: EC 01:27 → 3SCARD 06:13
PROVIDERS: ADMIT Hospitalist; ATTEND Hospitalist
PROC: 4A023N7 Measurement of Cardiac Sampling and Pressure, Left Heart, Percutaneous Approach (ICD-10-PCS; 2023-03-16)
PROC: B2111ZZ Fluoroscopy of Multiple Coronary Arteries using Low Osmolar Contrast (ICD-10-PCS; 2023-03-16)
PROC: B3111ZZ Fluoroscopy of Right Brachiocephalic-Subclavian Artery using Low Osmolar Contrast (ICD-10-PCS; 2023-03-16)
PROC: B3121ZZ Fluoroscopy of Left Subclavian Artery using Low Osmolar Contrast (ICD-10-PCS; 2023-03-16)
PROC: B240ZZ3 Ultrasonography of Single Coronary Artery, Intravascular (ICD-10-PCS; 2023-03-18)
PROC: 4A033BC Measurement of Arterial Pressure, Coronary, Percutaneous Approach (ICD-10-PCS; 2023-03-18)
PROC: 027035Z Dilation of Coronary Artery, One Artery with Two Drug-eluting Intraluminal Devices, Percutaneous Approach (ICD-10-PCS; principal; 2023-03-18 10:30)
PROC: B240ZZ3 Ultrasonography of Single Coronary Artery, Intravascular (ICD-10-PCS; 2023-03-23)
PROC: 027034Z Dilation of Coronary Artery, One Artery with Drug-eluting Intraluminal Device, Percutaneous Approach (ICD-10-PCS; 2023-03-23 07:30)
DX: I21.4 Non-ST elevation (NSTEMI) myocardial infarction (principal); G93.41 Metabolic encephalopathy; I50.23 Acute on chronic systolic (congestive) heart failure; J96.01 Acute respiratory failure with hypoxia; N17.0 Acute kidney failure with tubular necrosis; T80.29XA Infection following other infusion, transfusion and therapeutic injection, initial encounter; I31.39 Other pericardial effusion (noninflammatory); R78.81 Bacteremia; I13.0 Hypertensive heart and chronic kidney disease with heart failure and stage 1 through stage 4 chronic kidney disease, or unspecified chronic kidney disease; I47.20 Ventricular tachycardia, unspecified; I82.611 Acute embolism and thrombosis of superficial veins of right upper extremity; L03.113 Cellulitis of right upper limb; N39.0 Urinary tract infection, site not specified; E11.42 Type 2 diabetes mellitus with diabetic polyneuropathy; E11.22 Type 2 diabetes mellitus with diabetic chronic kidney disease; N18.31 Chronic kidney disease, stage 3a; I70.201 Unspecified atherosclerosis of native arteries of extremities, right leg; D63.1 Anemia in chronic kidney disease; I80.8 Phlebitis and thrombophlebitis of other sites; T17.918A Gastric contents in respiratory tract, part unspecified causing other injury, initial encounter; I08.3 Combined rheumatic disorders of mitral, aortic and tricuspid valves; I70.8 Atherosclerosis of other arteries; D50.9 Iron deficiency anemia, unspecified; I25.5 Ischemic cardiomyopathy; N14.11 Contrast-induced nephropathy; T50.8X5A Adverse effect of diagnostic agents, initial encounter; Y92.239 Unspecified place in hospital as the place of occurrence of the external cause; E78.5 Hyperlipidemia, unspecified; N13.9 Obstructive and reflux uropathy, unspecified; R13.10 Dysphagia, unspecified; B95.61 Methicillin susceptible Staphylococcus aureus infection as the cause of diseases classified elsewhere; I25.10 Atherosclerotic heart disease of native coronary artery without angina pectoris; Z85.048 Personal history of other malignant neoplasm of rectum, rectosigmoid junction, and anus; Z92.21 Personal history of antineoplastic chemotherapy; Z92.3 Personal history of irradiation; I25.2 Old myocardial infarction; Z82.49 Family history of ischemic heart disease and other diseases of the circulatory system; Z79.02 Long term (current) use of antithrombotics/antiplatelets; Z79.899 Other long term (current) drug therapy; Z86.16 Personal history of COVID-19; Z87.891 Personal history of nicotine dependence; Z95.5 Presence of coronary angioplasty implant and graft; Z28.311 Partially vaccinated for COVID-19; Z79.891 Long term (current) use of opiate analgesic
CPT/HCPCS: 36410; 36415; 71045; 71046; 71275; 76770; 76937; 80048; 80053; 80061; 80074; 81003; 82728; 83036; 83540; 83550; 83735; 83880; 84145; 84443; 84484; 85025; 85027; 85379; 85610; 85730; 86140; 87040; 87070; 87077; 87186; 87635; 92978; 93005; 93306; 93458; 93799; 93880; 93970; 94150; 94760; 96361; 96365; 96366; 96375; 96376; 99291

== ENCOUNTER 2023-03-27 01:41 | Observation (INO) | payer BC ==
--- NOTE | 2023-03-27 02:27 | ED ---
SOB HPI - General Chief Complaint: Shortness of Breath Stated Complaint: CHF, Shortness of Breath, COVID Time Seen by Provider: 03/27/23 02:00 Source: EMS Mode of arrival: EMS Limitations: no limitations - History of Present Illness Initial Comments: 62-year-old male presents to the emergency department as a transfer from [facility]. He presented there tonight for a cough and shortness of breath. He was recently hospitalized at our facility for shortness of breath and congestive heart failure. He had 3 stents placed during 2 heart catheteri zations. He also has severe aortic stenosis and requires TAVR however procedure has not been performed at this time. At the facility they found the patient to have a BNP of 12,000 with a chest x-ray showing pleural effusions. They were concerned for congestive heart failure exacerbation gave him 40 mg of Lasix. He was transferred to our facility for cardiac evaluation. Upon review of the nory ent's laboratory studies he did test positive for covid but this was not relayed during transfer. He was additionally given 125 mg of Solu-Medrol, DuoNeb breathing treatment, 325 mg of aspirin, 2 g of magnesium and 2 g of Ancef which he is supposed to be getting 3 times daily for bacteremia. He reports that he was having issues with this midline and did not receive his morning and afternoon dose of Ancef. He states his cough is nonproductive. He had been tested on the eighth for Covid and it was negative. He denies any chest pain. Has been taking all of his medications as directed. [facility] the patient was placed on BiPAP for increased worker breathing before being transferred. He arrives to our facility on a nasal cannula. No other alleviating, precipitating or modifying factors - Related Data Home Medications Medication Instructions Recorded Confirmed Atorvastatin Calcium [Lipitor] 40 mg PO HS 04/17/22 03/27/23 Isosorbide Mononitrate ER [Imdur] 60 mg PO DAILY 04/17/22 03/27/23 Gabapentin [Neurontin] 200 mg PO BID 03/14/23 03/27/23 Previous Rx's Medication Instructions Recorded Acetaminophen Tab [Tylenol] 650 mg PO Q6HR PRN tab 03/25/23 Aspirin 81 mg PO DAILY #30 tab 03/25/23 Clopidogrel [Plavix] 75 mg PO DAILY #30 tab 03/25/23 Ferrous Sulfate [Feosol] 325 mg PO DAILY #30 tab 03/25/23 Furosemide [Lasix] 20 mg PO DAILY #30 tab 03/25/23 Metoprolol Tartrate [Lopressor] 25 mg PO BID #60 tab 03/25/23 ceFAZolin [Kefzol] 2 gm IVP Q8HR #1 each 03/25/23 Allergies Allergy/AdvReac Type Severity Reaction Status Date / Time No Known Allergies Allergy Verified 03/27/23 07:06 Review of Systems ROS Statement: Those systems with pertinent positive or pertinent negative responses have been documented in the HPI. ROS Other: All systems not noted in ROS Statement are negative. Past Medical History Past Medical History: Coronary Artery Disease (CAD), Cancer, Chest Pain / Angina, Heart Failure, Hypertension, Myocardial Infarction ([place]), Pneumonia, Renal Disease Additional Past Medical History / Comment(s): [place] 2009 Last Myocardial Infarction Date:: 2009 History of Any Multi-Drug Resistant Organisms: None Reported Past Surgical History: Heart Catheterization With Stent, Tonsillectomy Additional Past Surgical History / Comment(s): Bilateral aortorenal endarterectomy in his 20s; colon resection Past Anesthesia/Blood Transfusion Reactions: No Reported Reaction Past Psychological History: No Psychological Hx Reported Smoking Status: Former smoker Past Alcohol Use History: None Reported Past Drug Use History: None Reported - Past Family History Mother Additional Family Medical History / Comment(s): leukemia Father Family Medical History: Myocardial Infarction ([place]) Additional Family Medical History / Comment(s): stents General Exam Limitations: no limitations General appearance: alert, in no apparent distress Head exam: Present: atraumatic, normocephalic, normal inspection Eye exam: Present: normal appearance, PERRL, EOMI. Absent: scleral icterus, conjunctival injection, periorbital swelling ENT exam: Present: normal exam, mucous membranes moist Neck exam: Present: normal inspection. Absent: tenderness, meningismus, lymphadenopathy Respiratory exam: Present: normal lung sounds bilaterally. Absent: respiratory distress, wheezes, rales, rhonchi, stridor Cardiovascular Exam: Present: normal rhythm, tachycardia, normal heart sounds. Absent: systolic murmur, diastolic murmur, rubs, gallop, clicks GI/Abdominal exam: Present: soft, normal bowel sounds. Absent: distended, tenderness, guarding, rebound, rigid Extremities exam: Present: normal inspection, full ROM, normal capillary refill. Absent: tenderness, pedal edema, joint swelling, calf tenderness Back exam: Present: normal inspection Neurological exam: Present: alert, oriented X3, CN II-XII intact Psychiatric exam: Present: normal affect, normal mood Skin exam: Present: warm, dry, intact, normal color. Absent: rash Course Vital Signs 03/27/23 03/27/23 03/27/23 01:51 01:58 06:38 Temperature 98.8 F 98.8 F 98.9 F Pulse Rate 101 H 101 H 92 Respiratory 22 22 18 Rate Blood Pressure 100/61 100/61 112/62 O2 Sat by Pulse 91 L 94 L 95 Oximetry Medical Decision Making - Medical Decision Making Was pt. sent in by a medical professional or institution (, PA, DIRECTOR ADULT, urgent care, hospital, or fdc...) When possible be specific @ -Transferring physician from [facility] Did you speak to anyone other than the patient for history (EMS, parent, family, police, friend...)? What history was obtained from this source @ - and transferring physician Did you review nursing and triage notes (agree or disagree)? Why? @ -I reviewed and agree with nursing and triage notes Were old charts reviewed (outside hosp., previous admission, EMS record, old EKG, old radiological studies, urgent care reports/EKG's, fdc records)? Report findings @ -I reviewed patient's discharge summary from recent hospitalization Differential Diagnosis (chest pain, altered mental status, abdominal pain women, abdominal pain men, vaginal bleeding, weakness, fever, dyspnea, syncope, headache, dizziness, GI bleed, back pain, seizure, CVA, palpatations, mental health, musculoskeletal)? @ -Differential Dyspnea: Coronary syndrome, arrhythmia, tamponade, asthma, COPD, pulmonary embolism, pneumonia, pneumothorax, pulmonary effusion, anaphylaxis, diabetic ketoacidosis, flailed chest, pulmonary contusion, diaphragmatic rupture, anemia, neuromuscular, this is not meant to be an all-inclusive list. EKG interpreted by me (3pts min.). @ -Yes and demonstrates sinus tachycardia with a rate of 102. [place] interval 172. QRS 123. QTC of 410. No acute ST segment elevations. ST depression in V5V6 X-rays interpreted by me (1pt min.). @ -None done CT interpreted by me (1pt min.). @ -None done U/S interpreted by me (1pt. min.). @ -None done What testing was considered but not performed or refused? (CT, X-rays, U/S, labs)? Why? @ -None What meds were considered but not given or refused? Why? @ -None Did you discuss the management of the patient with other professionals (professionals i.e. , PA, DIRECTOR ADULT, lab, RT, psych nurse, forensic social worker, hog scraper, teacher, engineering officer, case fitter)? Give summary @ -Spoke with Yeimy from [facility] for admission Was smoking cessation discussed for >3mins.? @ -No Was critical care preformed (if so, how long)? @ -No Were there social determinants of health that impacted care today? How? (Homelessness, low income, unemployed, alcoholism, drug addiction, transportation, low edu. Level, literacy, decrease access to med. care, senior living, rehab)? @ -No Was there de-escalation of care discussed even if they declined (Discuss DNR or withdrawal of care, Hospice)? DNR status @ -No What co-morbidities impacted this encounter? (DM, HTN, Smoking, COPD, CAD, Cancer, CVA, ARF, Chemo, Hep., AIDS, mental health diagnosis, sleep apnea, morbid obesity)? @ -Aortic stenosis, heart failure, coronary artery disease Was patient admitted / discharged? Hospital course, mention meds given and route, prescriptions, significant lab abnormalities, going to OR and other pertinent info. @ -Admitted. Upon arrival patient was placed into room 9. Thorough history and physical exam was performed. I did review his transfer packet. Patient requesting to be retested for Covid which I did perform an continues to be positive. Patient was transferred for cardiology consultation. I spoke with Yeimy from [facility] [place] who agreed to admit the patient Undiagnosed new problem with uncertain prognosis? @ -No Drug Therapy requiring intensive monitoring for toxicity (Heparin, Nitro, Insulin, Cardizem)? @ -No Were any procedures done? @ -No Diagnosis/symptom? @ -Acute respiratory insufficiency, acute Covid infection Acute, or Chronic, or Acute on Chronic? @ -acute Uncomplicated (without systemic symptoms) or Complicated (systemic symptoms)? @ -complicated Side effects of treatment? @ -No Exacerbation, Progression, or Severe Exacerbation? @ -No Poses a threat to life or bodily function? How? (Chest pain, [place], [place], pneumonia, PE, COPD, DKA, ARF, appy, cholecystitis, CVA, Diverticulitis, Homicidal, Suicidal, threat to staff... and all critical care pts) @ -No - Lab Data Result diagrams: 03/27/23 06:49 03/27/23 06:49 Lab Results 03/27/23 Range/Units 02:20 SARS-CoV-2 (PCR) Detected A (Not Detectd) Disposition Clinical Impression: Acute respiratory insufficiency, Elevated brain natriuretic peptide (BNP) level, COVID-19 Disposition: ADMITTED IP TO THIS [facility] Condition: Stable Is patient prescribed a controlled substance at d/c from ED?: No Time of Disposition: 02:44 Decision to Admit Reason: Admit from EC Decision Date: 03/27/23 Decision Time: 02:44
[2023-03-27] MEDS ORDERED: ACETAMINOPHEN TAB 325 MG TAB PO PRN (02:44)
[2023-03-27] MEDS ORDERED: NALOXONE 0.4 MG/ML 1 ML VIAL IV PRN (02:44)
[2023-03-27] MEDS: guaiFENesin-Coden 100-10MG/5ML 10 ML CUP PO PRN ×2 (03:05→11:49)
[2023-03-27 06:46] VITALS: RESP 18
[2023-03-27 07:03] LABS: Anisocytosis Slight; Basophils % (A) 0 %; Eosinophils % (A) 0 %; HCT 30.3 % (39.0-53.0); HGB 9.7 gm/dL (13.0-17.5); Hypochromasia Marked; Lymphocytes # (A) 0.2 k/uL (1.0-4.8); Lymphocytes % (A) 3 %; MCHC 31.9 g/dL (31.0-37.0); MCV 78.5 fL (80.0-100.0); Mean Platelet Volume 7.8; Microcytosis Slight; Monocytes # (A) 0.2 k/uL (0-1.0); Monocytes % (A) 3 %; Neutrophils # (A) 5.6 k/uL (1.3-7.7); Neutrophils % (A) 93 %; Platelet Count 213 k/uL (150-450); RBC 3.86 m/uL (4.30-5.90); RDW 19.4 % (11.5-15.5)
[2023-03-27 07:28] LABS: African American GFR (CKD) 62 (>60 ml/min/1.73 sqM); Anion Gap 15 mmol/L; Blood Urea Nitrogen 23 mg/dL (9-20); Calcium 8.6 mg/dL (8.4-10.2); Carbon Dioxide 18 mmol/L (22-30); Chloride 106 mmol/L (98-107); Glucose 160 mg/dL (74-99); Non-African American GFR(CKD) 53 (>60 ml/min/1.73 sqM); Potassium 4.2 mmol/L (3.5-5.1); Sodium 139 mmol/L (137-145)
[2023-03-27 07:35] LABS: NT-Pro-B-Type Natriuretic Pept 21500 pg/mL
[2023-03-27] MEDS: ALBUTEROL HFA INHALER INHALATION SCH ×2 (07:51→12:19)
[2023-03-27] MEDS ORDERED: CLOPIDOGREL 75 MG TAB PO SCH (09:00)
[2023-03-27] MEDS ORDERED: FERROUS SULFATE 325 MG TAB PO SCH (09:00)
[2023-03-27] MEDS ORDERED: ASPIRIN 81 MG PO SCH (09:00)
[2023-03-27] MEDS ORDERED: GABAPENTIN 100 MG CAP PO SCH (09:00)
[2023-03-27] MEDS ORDERED: ISOSORBIDE MONONITRATE ER 60 MG TAB.ER.24H PO SCH (09:00)
[2023-03-27] MEDS ORDERED: METOPROLOL TARTRATE 25 MG TAB PO SCH (09:30)
[2023-03-27] MEDS ORDERED: TORSEMIDE 20 MG TAB PO SCH (10:00)
[2023-03-27 10:08] VITALS: BP 107/65; PULSE 79
--- NOTE | 2023-03-27 10:16 | XR ---
EXAMINATION TYPE: XR chest 1V DATE OF EXAM: 03/27/2023 9:42 AM CLINICAL INDICATION:Male, 62 years old with history of COVID, RESP INSUFFICIENCY; COMPARISON: Chest radiographs from 03/20/2023. TECHNIQUE: XR chest 1V Frontal view of the chest. FINDINGS: Lungs/Pleura: There is no evidence of pleural effusion, focal consolidation, or pneumothorax. Pulmonary vascularity: Pulmonary vascular congestion. Heart/mediastinum: Cardiomediastinal silhouette is enlarged and stable. Musculoskeletal: No acute osseous pathology. Other findings: None Lines/Tubes: [id number] projecting over the right hemithorax with distal tip projecting over the superior vena cava. IMPRESSION: Cardiomegaly, pulmonary vascular congestion and bilateral pleural effusions. Correlate with BNP for c ongestive heart failure.
--- NOTE | 2023-03-27 10:41 | P.DS ---
Providers Date of admission: 03/27/23 02:44 Attending physician: Yarelis Gross Consults: 03/27/23 02:44 Consult Physician Urgent Consulting Provider: [facility] Consult Reason/Comments: respiratory insufficiency, pleural effusions Do you want consulting provider notified?: Yes Primary care physician: Erick Blake [facility] Course: 62.-year-old pleasant male who was sent in here from [facility] because of her shortness of breath. Patient is found to have COVID-19 patient also has congestive heart failure with acute exacerbation patient had previously of around 25%. Patient had a recent cardiac catheterization and stenting to LAD. Patient is euvolemic today patient received IV Lasix which was switched to torsemide by cardiology patient had elevated BNP of 21,000. Patient is presently saturating 94% on room air. The other concern that [facility] had is nonfunctional PICC line which is functioning now patient is on Ancef 3 times daily for recent bacteremia which she'll continue. Chest x-ray is consistent with CHF. Denied cough with no sputum production. REVIEW OF SYSTEMS: CONSTITUTIONAL: No fever, no malaise, no fatigue. HEENT: No recent visual problems or hearing problems. Denied any sore throat. CARDIOVASCULAR: No chest pain, orthopnea, PND, no palpitations, no syncope. PULMONARY: no hemoptysis. GASTROINTESTINAL: No diarrhea, no nausea, no vomiting, no abdominal pain. NEUROLOGICAL: No headaches, no weakness, no numbness. HEMATOLOGICAL: Denies any bleeding or petechiae. GENITOURINARY: Denies any burning micturition, frequency, or urgency. MUSCULOSKELETAL/RHEUMATOLOGICAL: Denies any joint pain, swelling, or any muscle pain. ENDOCRINE: Denies any polyuria or polydipsia. The rest of the 14-point review of systems is negative. PHYSICAL EXAMINATION: GENERAL: The patient is alert and oriented x3, not in any acute distress. Well developed, well nourished. HEENT: Pupils are round and equally reacting to light. EOMI. No scleral icterus. No conjunctival pallor. Normocephalic, atraumatic. No pharyngeal erythema. No thyromegaly. CARDIOVASCULAR: S1 and S2 present. No murmurs, rubs, or gallops. PULMONARY: Chest is clear to auscultation, no wheezing or crackles. ABDOMEN: Soft, nontender, nondistended, normoactive bowel sounds. No palpable organomegaly. MUSCULOSKELETAL: No joint swelling or deformity. EXTREMITIES: No cyanosis, clubbing, or pedal edema. NEUROLOGICAL: Gross neurological examination did not reveal any focal deficits. SKIN: No rashes. Assessment and plan -Congestive heart failure chronic systolic dysfunction with acute exacerbation: This improved at this time patient will be discharged today on torsemide 10 mg daily as recommended by cardiology follow-up in 3 weeks with cardiology. -Coronary artery disease with recent stents continue dual antiplatelet therapy straight statin him due to his being held because of hypotension. Patient doesn't have any lightheadedness at this time -Recent bacteremia for which patient will continue with Anc and will complete the treatment and follow-up with the infectious disease as an outpatient -Chronic kidney disease stage III patient creatinine is at his baseline. Possibly hypertensive nephrosclerosis -Diabetic peripheral neuropathy -Hyperlipidemia Patient will be discharged today patient is clinically stable to be discharged at this time. Patient Condition at Discharge: Stable Plan - Discharge Summary New Discharge Prescriptions: New Albuterol Inhaler [Ventolin Hfa Inhaler] 2 puff INHALATION RT-QID #1 each guaiFENesin-DM 100-10MG/5ML [Robitussin DM] 10 ml PO QID #250 ml Torsemide [Demadex] 10 mg PO DAILY #30 tab Continue Gabapentin [Neurontin] 200 mg PO BID Aspirin 81 mg PO DAILY #30 tab Ferrous Sulfate [Feosol] 325 mg PO DAILY #30 tab Metoprolol Tartrate [Lopressor] 25 mg PO BID #60 tab Acetaminophen Tab [Tylenol] 650 mg PO Q6HR PRN tab PRN Reason: Fever And/ Or Pain Clopidogrel [Plavix] 75 mg PO DAILY #30 tab ceFAZolin [Kefzol] 2 gm IVP Q8HR #1 each Atorvastatin Calcium [Lipitor] 40 mg PO HS Discontinued Isosorbide Mononitrate ER [Imdur] 60 mg PO DAILY Furosemide [Lasix] 20 mg PO DAILY #30 tab Discharge Medication List Atorvastatin Calcium [Lipitor] 40 mg PO HS 04/17/22 [History] Gabapentin [Neurontin] 200 mg PO BID 03/14/23 [History] Acetaminophen Tab [Tylenol] 650 mg PO Q6HR PRN tab 03/25/23 [Rx] Aspirin 81 mg PO DAILY #30 tab 03/25/23 [Rx] Clopidogrel [Plavix] 75 mg PO DAILY #30 tab 03/25/23 [Rx] Ferrous Sulfate [Feosol] 325 mg PO DAILY #30 tab 03/25/23 [Rx] Metoprolol Tartrate [Lopressor] 25 mg PO BID #60 tab 03/25/23 [Rx] ceFAZolin [Kefzol] 2 gm IVP Q8HR #1 each 03/25/23 [Rx] Albuterol Inhaler [Ventolin Hfa Inhaler] 2 puff INHALATION RT-QID #1 each 03/27/23 [Rx] Torsemide [Demadex] 10 mg PO DAILY #30 tab 03/27/23 [Rx] guaiFENesin-DM 100-10MG/5ML [Robitussin DM] 10 ml PO QID #250 ml 03/27/23 [Rx] Follow up Appointment(s)/Referral(s): Erick Blake MD [Primary Care Provider] - 3 Days Discharge Disposition: HOME SELF-CARE
--- NOTE | 2023-03-27 10:41 | P.HPIM ---
History of Present Illness 62.-year-old pleasant male who was sent in here from [facility] because of her shortness of breath. Patient is found to have COVID-19 patient also has congestive heart failure with acute exacerbation patient had previously of around 25%. Patient had a recent cardiac catheterization and stenting to LAD. Patient is euvolemic today patient received IV Lasix which was switched to torsemide by cardiology patient had elevated BNP of 21,000. Patient is presently saturating 94% on room air. The other concern that [facility] had is nonfunctional PICC line which is functioning now patient is on Ancef 3 times daily for recent bacteremia which she'll continue. Chest x-ray is consistent with CHF. Denied cough with no sputum production. REVIEW OF SYSTEMS: CONSTITUTIONAL: No fever, no malaise, no fatigue. HEENT: No recent visual problems or hearing problems. Denied any sore throat. CARDIOVASCULAR: No chest pain, orthopnea, PND, no palpitations, no syncope. PULMONARY: no hemoptysis. GASTROINTESTINAL: No diarrhea, no nausea, no vomiting, no abdominal pain. NEUROLOGICAL: No headaches, no weakness, no numbness. HEMATOLOGICAL: Denies any bleeding or petechiae. GENITOURINARY: Denies any burning micturition, frequency, or urgency. MUSCULOSKELETAL/RHEUMATOLOGICAL: Denies any joint pain, swelling, or any muscle pain. ENDOCRINE: Denies any polyuria or polydipsia. The rest of the 14-point review of systems is negative. PHYSICAL EXAMINATION: GENERAL: The patient is alert and oriented x3, not in any acute distress. Well developed, well nourished. HEENT: Pupils are round and equally reacting to light. EOMI. No scleral icterus. No conjunctival pallor. Normocephalic, atraumatic. No pharyngeal erythema. No thyromegaly. CARDIOVASCULAR: S1 and S2 present. No murmurs, rubs, or gallops. PULMONARY: Chest is clear to auscultation, no wheezing or crackles. ABDOMEN: Soft, nontender, nondistended, normoactive bowel sounds. No palpable organomegaly. MUSCULOSKELETAL: No joint swelling or deformity. EXTREMITIES: No cyanosis, clubbing, or pedal edema. NEUROLOGICAL: Gross neurological examination did not reveal any focal deficits. SKIN: No rashes. Assessment and plan -Congestive heart failure chronic systolic dysfunction with acute exacerbation: This improved at this time patient will be discharged today on torsemide 10 mg daily as recommended by cardiology follow-up in 3 weeks with cardiology. -Coronary artery disease with recent stents continue dual antiplatelet therapy straight statin him due to his being held because of hypotension. Patient doesn't have any lightheadedness at this time -Recent bacteremia for which patient will continue with Ancef and will complete the treatment and follow-up with the infectious disease as an outpatient -Chronic kidney disease stage III patient creatinine is at his baseline. Possibly hypertensive nephrosclerosis -Diabetic peripheral neuropathy -Hyperlipidemia Patient will be discharged today patient is clinically stable to be discharged at this time. Past Medical History Past Medical History: Coronary Artery Disease (CAD), Cancer, Chest Pain / Angina, Heart Failure, Hypertension, Myocardial Infarction ([place]), Pneumonia, Renal Disease Additional Past Medical History / Comment(s): [place] 2009 Last Myocardial Infarction Date:: 2009 History of Any Multi-Drug Resistant Organisms: None Reported Past Surgical History: Heart Catheterization With Stent, Tonsillectomy Additional Past Surgical History / Comment(s): Bilateral aortorenal endarterectomy in his 20s; colon resection Past Anesthesia/Blood Transfusion Reactions: No Reported Reaction Past Psychological History: No Psychological Hx Reported Smoking Status: Former smoker Past Alcohol Use History: None Reported Past Drug Use History: None Reported - Past Family History Mother Additional Family Medical History / Comment(s): leukemia Father Family Medical History: Myocardial Infarction ([place]) Additional Family Medical History / Comment(s): stents Medications and Allergies Home Medications Medication Instructions Recorded Confirmed Type Atorvastatin Calcium [Lipitor] 40 mg PO HS 04/17/22 03/27/23 History Gabapentin [Neurontin] 200 mg PO BID 03/14/23 03/27/23 History Acetaminophen Tab [Tylenol] 650 mg PO Q6HR PRN tab 03/25/23 03/27/23 Rx Aspirin 81 mg PO DAILY #30 tab 03/25/23 03/27/23 Rx Clopidogrel [Plavix] 75 mg PO DAILY #30 tab 03/25/23 03/27/23 Rx Ferrous Sulfate [Feosol] 325 mg PO DAILY #30 tab 03/25/23 03/27/23 Rx Metoprolol Tartrate [Lopressor] 25 mg PO BID #60 tab 03/25/23 03/27/23 Rx ceFAZolin [Kefzol] 2 gm IVP Q8HR #1 each 03/25/23 03/27/23 Rx Albuterol Inhaler [Ventolin Hfa 2 puff INHALATION RT-QID #1 each 03/27/23 Rx Inhaler] Torsemide [Demadex] 10 mg PO DAILY #30 tab 03/27/23 Rx guaiFENesin-DM 100-10MG/5ML 10 ml PO QID #250 ml 03/27/23 Rx [Robitussin DM] Allergies Allergy/AdvReac Type Severity Reaction Status Date / Time No Known Allergies Allergy Verified 03/27/23 07:06 Physical Exam Vitals: Vital Signs Temp Pulse Pulse Resp BP BP Pulse Ox 03/27/23 08:25 98.1 F 86 18 97/65 94 L 03/27/23 07:54 94 18 03/27/23 07:00 97.6 F 79 18 107/65 97 03/27/23 06:38 98.9 F 92 18 112/62 95 03/27/23 01:58 98.8 F 101 H 22 100/61 94 L 03/27/23 01:51 98.8 F 101 H 22 100/61 91 L Intake and Output 03/26/23 03/27/23 03/27/23 22:59 06:59 14:59 Other: Weight 113.398 kg Results CBC & Chem 7: 03/27/23 06:49 03/27/23 06:49 Labs: Abnormal Lab Results - Last 24 Hours (Table) 03/27/23 03/27/23 03/27/23 Range/Units 02:20 06:49 06:49 RBC 3.86 L (4.30-5.90) m/uL Hgb 9.7 L (13.0-17.5) gm/dL Hct 30.3 L (39.0-53.0) % MCV 78.5 L (80.0-100.0) fL RDW 19.4 H (11.5-15.5) % Lymphocytes # 0.2 L (1.0-4.8) k/uL Carbon Dioxide 18 L (22-30) mmol/L BUN 23 H (9-20) mg/dL Creatinine 1.43 H (0.66-1.25) mg/dL Glucose 160 H (74-99) mg/dL SARS-CoV-2 (PCR) Detected A (Not Detectd)
--- NOTE | 2023-03-27 11:27 | P.CRDCN ---
History of Present Illness Consult date: 03/27/23 Consult reason: chest pain History of present illness: History of present illness: This is a 62-year-old male with known history of coronary artery disease status post HI in 2009 requiring 4 stents to the RCA by Dr. Jones at [facility], aortic stenosis, severe cardiomyopathy, chronic kidney disease stage IIIa. Patient had recent hospitalization this month underwent cardiac catheterization on 03/14 with successful stenting of the OM1 with noted significant LAD lesion with IVF are of 80%. Subsequently he underwent stenting of the LAD on 03/23 and patient was to follow up outpatient regarding TAVR, MSSA bacteremia discharged home on IV Kefzol. We have been asked to evaluate the patient for respiratory insufficiency, pleural effusions. On 03/27, patient presented to [facility] with pleural effusion, BNP was 12,000 and patient was started on Lasix for heart failure exacerbation and there was a problem with a nonfunctional a PICC line. Patient also required BiPAP at the time of transfer. Patient is on room air pulse ox 97%, heart rate 79, blood pressure 107/65. Patient is being prepared for discharge home today. Echo shows an EF of 30-35%, grade 1 diastolic dysfunction, dilated left atrium cystoscopy of elevated filling pressures, moderate to severe aortic stenosis with low-flow low gradient, mean gradient 28 mmHg. small pericardial effusion Chest x-ray: Cardiomegaly, pulmonary vascular congestion and bilateral pleural effusions. WBC 6, hemoglobin 9.7, platelet count 213. Sodium 139, potassium 4.2, BUN 23 creatinine 1.43. Covid 19 detected. ProBNP 21,500. Home cardiac medications: Aspirin 81 mg daily, atorvastatin 40 mg daily, Plavix 75 mg daily, Lopressor 25 mg twice daily, torsemide 10 mg daily Review Of Systems: At the time of my exam: CONSTITUTIONAL: Denies fever or chills. CARDIOVASCULAR: Denies chest pain, Denies shortness of breath, no orthopnea, PND or palpitations. RESPIRATORY: Denies cough. GASTROINTESTINAL: Denies abdominal pain, diarrhea, constipation, nausea or v omiting. MUSCULOSKELETAL: Denies myalgias. NEUROLOGIC: Denies numbness, tingling or weakness. ENDOCRINE: Denies fatigue, weight change, polydipsia or polyurina. GENITOURINARY: Denies burning, hematuria or urgency with micturation. HEMATOLOGIC: Denies history of anemia or bleeding. Physical examination: Gen: This is a 62-year-old male on in no acute distress VS: reviewed HEENT: Head is atraumatic, normocephalic. Pupils equal, round. Sclerae is anicteric. NECK: Supple. No JVD. LUNGS: Clear to auscultation. No wheezes or rhonchi. No intercostal retractions. HEART: Regular rate and rhythm. Systolic murmur. ABDOMEN: Soft No tenderness. EXTREMITIES: No pedal edema. No calf tenderness. NEUROLOGICAL: Patient is awake, alert and oriented. Assessment: Acute on chronic systolic heart failure Coronary artery disease with previous stenting Recent bacteremia on IV antibiotics Chronic kidney disease stage III Hyperlipidemia Plan: Patient is cleared for discharge from cardiology on same cardiac medications. Thank you kindly for this consultation. Nurse practitioner note has been reviewed, I agree with documented findings and plan of care. Patient was seen and examined. Past Medical History Past Medical History: Coronary Artery Disease (CAD), Cancer, Chest Pain / Angina, Heart Failure, Hypertension, Myocardial Infarction (HI), Pneumonia, Renal Disease Additional Past Medical History / Comment(s): HI 2009 Last Myocardial Infarction Date:: 2009 History of Any Multi-Drug Resistant Organisms: None Reported Past Surgical History: Heart Catheterization With Stent, Tonsillectomy Additional Past Surgical History / Comment(s): Bilateral aortorenal endarterectomy in his 20s; colon resection Past Anesthesia/Blood Transfusion Reactions: No Reported Reaction Past Psychological History: No Psychological Hx Reported Smoking Status: Former smoker Past Alcohol Use History: None Reported Past Drug Use History: None Reported - Past Family History Mother Additional Family Medical History / Comment(s): leukemia Father Family Medical History: Myocardial Infarction (HI) Additional Family Medical History / Comment(s): stents Medications and Allergies Home Medications Medication Instructions Recorded Confirmed Type Atorvastatin Calcium [Lipitor] 40 mg PO HS 04/17/22 03/27/23 History Gabapentin [Neurontin] 200 mg PO BID 03/14/23 03/27/23 History Acetaminophen Tab [Tylenol] 650 mg PO Q6HR PRN tab 03/25/23 03/27/23 Rx Aspirin 81 mg PO DAILY #30 tab 03/25/23 03/27/23 Rx Clopidogrel [Plavix] 75 mg PO DAILY #30 tab 03/25/23 03/27/23 Rx Ferrous Sulfate [Feosol] 325 mg PO DAILY #30 tab 03/25/23 03/27/23 Rx Metoprolol Tartrate [Lopressor] 25 mg PO BID #60 tab 03/25/23 03/27/23 Rx ceFAZolin [Kefzol] 2 gm IVP Q8HR #1 each 03/25/23 03/27/23 Rx Albuterol Inhaler [Ventolin Hfa 2 puff INHALATION RT-QID #1 each 03/27/23 Rx Inhaler] Torsemide [Demadex] 10 mg PO DAILY #30 tab 03/27/23 Rx guaiFENesin-DM 100-10MG/5ML 10 ml PO QID #250 ml 03/27/23 Rx [Robitussin DM] Allergies Allergy/AdvReac Type Severity Reaction Status Date / Time No Known Allergies Allergy Verified 03/27/23 07:06 Physical Exam Vitals: Vital Signs Temp Pulse Resp BP Pulse Ox 03/27/23 08:25 98.1 F 86 18 97/65 94 L 03/27/23 07:54 94 18 03/27/23 06:38 98.9 F 92 18 112/62 95 03/27/23 01:58 98.8 F 101 H 22 100/61 94 L 03/27/23 01:51 98.8 F 101 H 22 100/61 91 L Intake and Output 03/26/23 03/27/23 03/27/23 22:59 06:59 14:59 Other: Weight 113.398 kg Results 03/27/23 06:49 03/27/23 06:49 CBC 03/27/23 Range/Units 06:49 WBC 6.0 (3.8-10.6) k/uL RBC 3.86 L (4.30-5.90) m/uL Hgb 9.7 L (13.0-17.5) gm/dL Hct 30.3 L (39.0-53.0) % Plt Count 213 (150-450) k/uL Comprehensive Metabolic Panel 03/27/23 Range/Units 06:49 Sodium 139 (137-145) mmol/L Potassium 4.2 (3.5-5.1) mmol/L Chloride 106 (98-107) mmol/L Carbon Dioxide 18 L (22-30) mmol/L BUN 23 H (9-20) mg/dL Creatinine 1.43 H (0.66-1.25) mg/dL Glucose 160 H (74-99) mg/dL Calcium 8.6 (8.4-10.2) mg/dL Current Medications Generic Name Dose Route Start Last Admin Trade Name Freq PRN Reason Stop Dose Admin Acetaminophen 650 mg 03/27/23 02:44 Acetaminophen Tab 325 Mg Tab PO Q6HR PRN Mild Pain or Fever > 100.5 Albuterol Sulfate 2 puff 03/27/23 08:00 03/27/23 07:51 Albuterol Hfa Inhaler INHALATION 2 puff RT-QID TG Administration Aspirin 81 mg 03/27/23 09:00 Aspirin 81 Mg PO DAILY [facility] Atorvastatin Calcium 40 mg 03/27/23 21:00 Atorvastatin 40 Mg Tab PO HS [facility] Clopidogrel Bisulfate 75 mg 03/27/23 09:00 Clopidogrel 75 Mg Tab PO DAILY [facility] Ferrous Sulfate 325 mg 03/27/23 09:00 Ferrous Sulfate 325 Mg Tab PO DAILY [facility] Gabapentin 200 mg 03/27/23 09:00 Gabapentin 100 Mg Cap PO BID [facility] Guaifenesin/Codeine Phosphate 10 ml 03/27/23 02:20 03/27/23 03:05 Guaifenesin-Coden 100-10mg/5ml 10 Ml Cup PO 10 ml Q6HR PRN Administration Cough Cefazolin Sodium 2 gm/ Sodium 50 mls @ 100 mls/hr 03/27/23 07:00 03/27/23 07:06 Chloride IVPB 100 mls/hr Q8H TG Administration Protocol Isosorbide Mononitrate 60 mg 03/27/23 09:00 Isosorbide Mononitrate Er 60 Mg Tab.Er.24h PO DAILY [facility] Naloxone HCl 0.2 mg 03/27/23 02:44 Naloxone 0.4 Mg/Ml 1 Ml Vial IV Q2M PRN Opioid Reversal Intake and Output 03/26/23 03/27/23 03/27/23 22:59 06:59 14:59 Other: Weight 113.398 kg 03/27/23 06:49 03/27/23 06:49
[2023-03-27 11:29] VITALS: TEMP 97.6
[2023-03-27] MEDS ORDERED: ATORVASTATIN 80 MG TAB PO SCH (21:00)
[2023-03-27] MEDS ORDERED: ATORVASTATIN 40 MG TAB PO SCH (21:00)
== END 2023-03-27 14:36 | disposition home or self-care (01) ==
LOC: EC 01:41 → 6NMEDSUR 02:44
PROVIDERS: ADMIT Hospitalist; ATTEND Hospitalist
DX: I13.0 Hypertensive heart and chronic kidney disease with heart failure and stage 1 through stage 4 chronic kidney disease, or unspecified chronic kidney disease (principal); I50.22 Chronic systolic (congestive) heart failure; N18.31 Chronic kidney disease, stage 3a; U07.1 COVID-19; R79.89 Other specified abnormal findings of blood chemistry; E11.42 Type 2 diabetes mellitus with diabetic polyneuropathy; E78.5 Hyperlipidemia, unspecified; I25.10 Atherosclerotic heart disease of native coronary artery without angina pectoris; I25.2 Old myocardial infarction; I35.0 Nonrheumatic aortic (valve) stenosis; I42.9 Cardiomyopathy, unspecified; Z95.5 Presence of coronary angioplasty implant and graft; Z87.891 Personal history of nicotine dependence; Z79.02 Long term (current) use of antithrombotics/antiplatelets; Z79.82 Long term (current) use of aspirin; Z79.899 Other long term (current) drug therapy
CPT/HCPCS: 96365; 99285; 94640 ×2; 83880; 80048; 85025; 87635; 71045; G0378; J0690

== ENCOUNTER → 2023-04-08 | Outpatient (CLI) | payer BC ==
[2023-04-09 02:20] LABS: Basophils # (A) 0.05 X 10*3/uL (0.00-0.10); Basophils % (A) 0.8 %; Eosinophils # (A) 0.51 X 10*3/uL (0.04-0.35); Eosinophils % (A) 7.9 %; HGB 11.8 g/dL (13.0-17.0); Lymphocytes # (A) 1.02 X 10*3/uL (0.90-5.00); Lymphocytes % (A) 15.8 %; MCH 23.8 pg (27.0-32.0); MCHC 28.8 g/dL (32.0-37.0); MCV 82.7 FL (80.0-97.0); Mean Platelet Volume 9.3 FL (9.5-12.2); Monocytes # (A) 0.49 X 10*3/uL (0.20-1.00); Monocytes % (A) 7.6 %; NRBC Per 100 WBC 0 X 10*3/uL (0.00-0.01); Neutrophils # (A) 4.39 X 10*3/uL (1.80-7.70); Neutrophils % (A) 67.7 %; Platelet Count 255 X 10*3/uL (140-440); RBC 4.96 X 10*6/uL (4.40-5.60); WBC 6.47 X 10*3/uL (4.50-10.00)
[2023-04-09 02:49] LABS: BUN/Creat Ratio 21.33 Ratio (12.00-20.00); C Reactive Protein <0.30 mg/dL (0.00-0.80); Calcium 9.3 mg/dL (8.7-10.3); Carbon Dioxide 24.3 mmol/L (21.6-31.8); Chloride 106 mmol/L (96-109); Glucose 96 mg/dL (70-110); Potassium 4.4 mmol/L (3.5-5.5); Sodium 145 mmol/L (135-145)
[2023-04-09 04:18] LABS: Erythrocyte Sedimentation Rate 22 mm/Hr (0-20)
== END | disposition home or self-care (01) ==
LOC: LABWHC1 12:53
PROVIDERS: ATTEND Internal Medicine Infectious Disease
DX: R78.81 Bacteremia (principal); B95.61 Methicillin susceptible Staphylococcus aureus infection as the cause of diseases classified elsewhere
CPT/HCPCS: 36415; 80048; 85025; 85652; 86140

== ENCOUNTER → 2023-04-23 | Outpatient (CLI) | payer BC ==
[2023-04-23 13:26] LABS: African American GFR (CKD) 58 (>60 ml/min/1.73 sqM); Anion Gap 10 mmol/L; Blood Urea Nitrogen 33 mg/dL (9-20); Carbon Dioxide 27 mmol/L (22-30); Chloride 104 mmol/L (98-107); Glucose 85 mg/dL (74-99); Non-African American GFR(CKD) 50 (>60 ml/min/1.73 sqM); Potassium 4.1 mmol/L (3.5-5.1); Sodium 141 mmol/L (137-145)
[2023-04-23 13:35] LABS: NT-Pro-B-Type Natriuretic Pept 8820 pg/mL
== END | disposition home or self-care (01) ==
LOC: LABWHC1 12:04
PROVIDERS: ATTEND Student in an Organized Health Care Education/Training Program
DX: N18.9 Chronic kidney disease, unspecified (principal); I50.9 Heart failure, unspecified
CPT/HCPCS: 36415; 80048; 83880

== ENCOUNTER → 2023-05-05 | Outpatient (CLI) | payer BC ==
[2023-05-05 10:26] LABS: African American GFR (CKD) 60 (>60 ml/min/1.73 sqM); Blood Urea Nitrogen 33 mg/dL (9-20); Non-African American GFR(CKD) 52 (>60 ml/min/1.73 sqM)
--- NOTE | 2023-05-05 11:41 | CT ---
EXAMINATION TYPE: CT ChestAbdPelvis w con DATE OF EXAM: 05/05/2023 INDICATION: rectal ca. obs for mets. COMPARISON: 03/14/2023, 01/16/2023 CT DLP: 2279.20 mGycm CONTRAST: Performed without Oral Contrast and with IV Contrast, patient injected with 80ml mL of Isovue 300. TECHNIQUE: Axial images at 5 mm thick sections. Reconstructed images in the coronal plane. Delayed images through the kidneys. FINDINGS: CT CHEST: Portion of the thyroid visualized is normal. Small area of pneumonitis in the lateral left upper lung field. Series 4 image 21. Tiny pleural-based densities in the posterior medial right upper lung field. Series 4 image 21 and pr evious pleural effusions have resolved. No enlarged mediastinal or hilar adenopathy is evident. There are scattered shotty lymphadenopathy wi thin the mediastinum. Coronary artery calcification is noted. The ascending aorta diameter at the level of the main pulmonary artery is 3.8 cm. The main pulmonary artery diameter at the bifurcation is 3.[address] ABDOMEN: Liver: Normal Spleen: Normal Pancreas: Normal Adrenal glands: The adrenal glands are normal. Gallbladder: Normal Kidneys: Superior pole right kidney is atrophic. There is a nonobstructing renal calcification in the upper pole right kidney. Lower pole appears unremarkable. Left kidney appears unremarkable. No janessa s are evident. No hydronephrosis is present. No cysts are present. Delayed images were obtained th rough the kidneys, which remain unremarkable. Aorta: Vascular calcification is within the aorta. Inferior vena cava: Normal. CT PELVIS: There is an anterior right pelvic wall hernia containing loops of contrast-filled small jen wel. No obstruction is identified. Opening is 3.5 cm. Postsurgical changes are at the rectosigmoid re gion. Small amount of thickening may be in the inferior presacral space, this measures 2.2 cm which i s within measurement error of the prior study of 2.1 cm. Loops of bowel within the abdomen and pelvis are normal. There are loops of bowel which are incom pletely distended or lack oral contrast limiting their evaluation. Appendix: Not identified. No dilated tubular structure or inflammatory changes evident. Urinary bladder: Normal. Genitourinary structures: Prostate contains calcification Osseous structures: No suspicious lytic or sclerotic lesions. IMPRESSION: 1. Small right lower quadrant intra-abdominal wall hernia with nonobstructed small bowel loops. 2. Stable presacral thickening. 3. Minimal area of pneumonitis change left lung. 4. Stable right renal changes. 5. No suspicious changes to suggest new metastatic lesions.
== END ==
LOC: RADCTMAIN 09:02
PROVIDERS: ATTEND Internal Medicine Hematology & Oncology
DX: K46.9 Unspecified abdominal hernia without obstruction or gangrene (principal); K62.89 Other specified diseases of anus and rectum; J98.4 Other disorders of lung; C20 Malignant neoplasm of rectum; D50.9 Iron deficiency anemia, unspecified; I10 Essential (primary) hypertension; E78.5 Hyperlipidemia, unspecified
CPT/HCPCS: 82565; 84520; 71260; 74177; 36415; Q9967

== ENCOUNTER → 2023-05-28 | Outpatient (CLI) | payer BC ==
[2023-05-28 10:04] LABS: Anisocytosis Slight; Basophils % (A) 1 %; Eosinophils # (A) 0.4 k/uL (0-0.7); Eosinophils % (A) 8 %; HCT 41.1 % (39.0-53.0); Lymphocytes # (A) 0.8 k/uL (1.0-4.8); Lymphocytes % (A) 15 %; MCH 28.4 pg (25.0-35.0); MCHC 33.9 g/dL (31.0-37.0); Mean Platelet Volume 7.7; Microcytosis Slight; Monocytes # (A) 0.5 k/uL (0-1.0); Monocytes % (A) 8 %; Neutrophils # (A) 3.5 k/uL (1.3-7.7); Neutrophils % (A) 64 %; Platelet Count 185 k/uL (150-450); RDW 18.8 % (11.5-15.5); WBC 5.5 k/uL (3.8-10.6)
[2023-05-28 10:13] LABS: Potassium 4.6 mmol/L (3.5-5.1)
[2023-05-28 10:14] LABS: ALT 19 U/L (4-49); AST 26 U/L (17-59); African American GFR (CKD) 63 (>60 ml/min/1.73 sqM); Albumin 3.9 g/dL (3.5-5.0); Albumin/Globulin Ratio 1.5; Alkaline Phosphatase 80 U/L (38-126); Anion Gap 7 mmol/L; Blood Urea Nitrogen 30 mg/dL (9-20); Calcium 9.2 mg/dL (8.4-10.2); Carbon Dioxide 22 mmol/L (22-30); Chloride 112 mmol/L (98-107); Globulin 2.6 g/dL; Glucose 83 mg/dL (74-99); Magnesium 2.1 mg/dL (1.6-2.3); Non-African American GFR(CKD) 54 (>60 ml/min/1.73 sqM); Sodium 141 mmol/L (137-145); Total Bilirubin 0.9 mg/dL (0.2-1.3); Total Protein 6.5 g/dL (6.3-8.2)
[2023-05-28 10:16] LABS: HGB 13.9 gm/dL (13.0-17.5)
[2023-05-28 10:17] LABS: MCV 83.8 fL (80.0-100.0)
[2023-05-28 10:22] LABS: INR 0.9 (<1.2); NT-Pro-B-Type Natriuretic Pept 4430 pg/mL; Partial Thromboplastin Time 23.6 sec (22.0-30.0); Prothrombin Time 10.4 sec (10.0-12.5)
[2023-05-28 16:00] LABS: Hepatitis A Antibody IgM Nonreactive; Hepatitis B Core IgM Nonreactive; Hepatitis B Surface Antigen Nonreactive
[2023-05-28 16:01] LABS: Hepatitis C IgG Antibody Nonreactive
[2023-05-28 18:55] LABS: Chol/HDL Ratio 2.82 Ratio; LDL Cholesterol,Calculated 53.7 mg/dL (0.0-131.0); VLDL Calculation 18.62 mg/dL (5.00-40.00)
--- NOTE | 2023-05-30 21:11 | CT ---
EXAMINATION TYPE: CT TAVR Planning DATE OF EXAM: 05/28/2023 HISTORY: TAVR planning CT DLP: 38530.60 mGycm Automated Exposure Control for Dose Reduction was Utilized. CONTRAST: CT scan of the chest, abdomen and pelvis is performed with IV Contrast, patient injected with 125 mL of Isovue 370. COMPARISON: 05/05/2023 TECHNIQUE: Helical imaging obtained through the chest, abdomen and pelvis during arterial phase joanna radha administration of radiographic contrast intravenously. FINDINGS: See report from [employer] regarding preprocedural planning There is severe calcifications and thickening of the aortic valve leaflets. The ascending thoracic ao rta is within normal limits for size. The origins of the major vessels of the aortic arch are patent. There is atherosclerosis at the ostium's of the major vessels with narrowing of the left subclavian artery up to 50% series 4 image 69. The descending thoracic aorta is within normal limits for size. R ight chest wall [id number] with tip terminating in the superior vena cava. The abdominal aorta dem onstrates atherosclerotic plaquing worse at the level of the superior mesenteric artery with at least 25% stenosis of the superior mesenteric artery. Right renal stent graft is present. There is a narro wed caliber of the distal abdominal aorta. There is mild to moderate atherosclerotic plaque involving the common iliac and external iliac arteries bilaterally. CHEST: Lower Neck and Thyroid: No significant findings Lungs: No focal consolidation, pneumothorax or pleural effusion. Left upper lobe lateral groundglass pulmonary nodule. Central Airway: No significant findings Pleura: No significant findings Pulmonary Arteries: No significant findings Heart and Pericardium: No significant findings there is severe coronary artery atherosclerosis. The v isualized coronary vessels appear patent. Lymph Nodes: No significant findings Mediastinum & Esophagus: No significant findings ABDOMEN/PELVIS: Please note arterial phase of the imaging limits detailed evaluation of the solid abdominal organs. Liver: No significant findings Spleen: No significant findings Kidneys: The right kidney is atrophic superiorly. There is hypertrophy of the inferior right kidney. Adrenal Glands: No significant findings Pancreas: No significant findings Gallbladder: No significant findings Bowel and Mesentery: Postsurgical changes to the bowel near the rectum. Lymph Nodes: No significant findings Urinary Bladder: There is excreted IV contrast in the urinary bladder. Pelvic Organs: No significant findings Soft tissues Other: Fat-containing inguinal hernias bilaterally. Right lower abdomen surgical change with multiple bowel and hernia. No evidence for obstruction or wall thickening and visible bowel. Other Lines/Tubes/Devices/Hardware: None IMPRESSION: Severe aortic valve leaflet calcifications and thickening. See report from [employer] regarding prepro cedural planning
== END | disposition home or self-care (01) ==
LOC: LABWHC1 08:53
PROVIDERS: ATTEND Thoracic Surgery (Cardiothoracic Vascular Surgery)
DX: Z01.818 Encounter for other preprocedural examination (principal); I35.2 Nonrheumatic aortic (valve) stenosis with insufficiency; E87.8 Other disorders of electrolyte and fluid balance, not elsewhere classified; E07.9 Disorder of thyroid, unspecified; E11.9 Type 2 diabetes mellitus without complications; N28.9 Disorder of kidney and ureter, unspecified; E78.5 Hyperlipidemia, unspecified; R35.0 Frequency of micturition; R58 Hemorrhage, not elsewhere classified; Z79.01 Long term (current) use of anticoagulants; Z79.899 Other long term (current) drug therapy
CPT/HCPCS: 94150; 83880; 80061; 80053; 80074; 84443; 83735; 85025; 85610; 85730; 83036; 71275; 36415 ×2; 74174; 93005; Q9967

== ENCOUNTER → 2023-07-07 | Outpatient (CLI) | payer BC ==
[2023-07-07 11:55] LABS: Magnesium 2.2 mg/dL (1.5-2.4); Phosphorus 3.9 mg/dL (2.4-5.1); Uric Acid 7.1 mg/dL (3.7-8.7)
[2023-07-07 11:56] LABS: % Iron Saturation 27.73 (15.00-50.00); Albumin 4.3 g/dL (3.8-4.9); BUN/Creat Ratio 25.47 Ratio (12.00-20.00); Blood Urea Nitrogen 38.2 mg/dL (9.0-27.0); Calcium 9.6 mg/dL (8.7-10.3); Carbon Dioxide 23.2 mmol/L (21.6-31.8); Chloride 106 mmol/L (96-109); Ferritin 73.1 ng/mL (22.0-322.0); Glucose 107 mg/dL (70-110); Iron 94 UG/DL (65-175); Potassium 5.1 mmol/L (3.5-5.5); Sodium 141 mmol/L (135-145); Total Iron Binding Capacity 339 UG/DL (228-460)
[2023-07-07 12:15] LABS: Basophils # (A) 0.02 X 10*3/uL (0.00-0.10); Basophils % (A) 0.3 %; Eosinophils # (A) 0.02 X 10*3/uL (0.04-0.35); Eosinophils % (A) 0.3 %; HCT 45.7 % (39.6-50.0); HGB 14.8 g/dL (13.0-17.0); Lymphocytes # (A) 0.53 X 10*3/uL (0.90-5.00); Lymphocytes % (A) 8.2 %; MCH 28.2 pg (27.0-32.0); MCHC 32.4 g/dL (32.0-37.0); MCV 87.2 FL (80.0-97.0); Mean Platelet Volume 9.2 FL (9.5-12.2); Monocytes # (A) 0.44 X 10*3/uL (0.20-1.00); Monocytes % (A) 6.8 %; NRBC Per 100 WBC 0 X 10*3/uL (0.00-0.01); Neutrophils # (A) 5.41 X 10*3/uL (1.80-7.70); Neutrophils % (A) 83.2 %; Platelet Count 222 X 10*3/uL (140-440); RBC 5.24 X 10*6/uL (4.40-5.60); RDW 16.8 % (11.5-14.5)
[2023-07-07 13:09] LABS: Appearance,Urine Clear (Clear); Bilirubin,Urine Negative (Negative); Blood,Urine Negative (Negative); Color,Urine Yellow (Yellow); Ketones,Urine Negative (Negative); Nitrite,Urine Negative (Negative); Specific Gravity,Urine 1.023 (1.001-1.030); Urobilinogen,Urine 0.2 E.U./DL
[2023-07-07 17:09] LABS: Urine Creatinine 79.7 mg/dL (39.0-259.0)
== END | disposition home or self-care (01) ==
LOC: LABWHC1 07:38
PROVIDERS: ATTEND Nurse Practitioner Acute Care
DX: N25.81 Secondary hyperparathyroidism of renal origin (principal); N18.31 Chronic kidney disease, stage 3a; D63.1 Anemia in chronic kidney disease; E55.9 Vitamin D deficiency, unspecified; M10.9 Gout, unspecified; N39.0 Urinary tract infection, site not specified
CPT/HCPCS: 36415; 80048; 81003; 82040; 82043; 82306; 82570; 82728; 83540; 83550; 83735; 83970; 84100; 84550; 85025

== ENCOUNTER → 2023-07-30 | Outpatient (CLI) | payer BC ==
--- NOTE | 2023-07-31 14:24 | CT ---
EXAMINATION TYPE: CT ChestAbdPelvis w con DATE OF EXAM: 07/30/2023 INDICATION: f/u rectal cancer COMPARISON: 05/05/2023 CT DLP: 1944 mGycm CONTRAST: Performed with Oral Contrast and with IV Contrast, patient injected with 100 mL of Isovue 300. TECHNIQUE: Axial images at 5 mm thick sections. Reconstructed images in the coronal plane. Delayed images through the kidneys. FINDINGS: CT CHEST: Portion of the thyroid visualized is normal. No suspicious lung nodules or focal infiltrates are present. No enlarged mediastinal or hilar adenopathy is evident. The ascending aorta diameter at the level of the main pulmonary artery is 2.6 cm. The main pulmonary artery diameter at the bifurcation is 3.1 cm. Coronary artery calcification is present. CT ABDOMEN: Liver: Normal Spleen: Normal Pancreas: Normal Adrenal glands: The adrenal glands are normal. Gallbladder: Normal Kidneys: No masses are evident. Superior pole right kidney is atrophic No hydronephrosis is present. No cysts are present. Delayed images were obtained through the kidneys, which remain unremarkable. Aorta: Vascular calcification is within the aorta. Inferior vena cava: Normal. CT PELVIS: There is a right lower quadrant herniation containing small bowel loops without obstruction in the ri ght lower quadrant of the abdomen There are loops of bowel which are incompletely distended or lack o ral contrast limiting their evaluation. The presacral space has some mild thickening inferiorly measu ring 2.0 cm. This is diminished from 2.2 cm previous. Appendix: Normal as visualized. Urinary bladder: Normal. Genitourinary structures: Prostate appears normal Osseous structures: No suspicious lytic or sclerotic lesions. IMPRESSION: 1. No suspicious changes for new metastatic lesions. 2. Superior pole atrophic right kidney. 3. Small bowel herniation into the anterior right lower abdomen. No obstruction.
== END | disposition home or self-care (01) ==
LOC: RADCTMAIN 09:20
PROVIDERS: ATTEND Internal Medicine Hematology & Oncology
DX: C20 Malignant neoplasm of rectum (principal); N26.1 Atrophy of kidney (terminal); D50.9 Iron deficiency anemia, unspecified; I10 Essential (primary) hypertension; E78.5 Hyperlipidemia, unspecified; K46.9 Unspecified abdominal hernia without obstruction or gangrene
CPT/HCPCS: 71260; 74177; Q9967

== ENCOUNTER → 2023-12-03 | Outpatient (CLI) | payer BC ==
--- NOTE | 2023-12-22 13:05 | CT ---
Patient: Aaron Peraza Ordering Physician: Unknown, Unknown ID: [id number] Phone, Pager: Phone: N/A Pager: N/A : 1960 Age/Gender: 62Y, M Primary Location: N/A Procedure: CT ChestAbdPelvis w con Study Date: 12/03/2023 11:30:00 AM EXAMINATION TYPE: CT ChestAbdPelvis w con DATE OF EXAM: 12/03/2023 INDICATION: Colorectal cancer COMPARISON: 07/30/2023 CT DLP: 2361.10 mGycm CONTRAST: Performed with Oral Contrast and with IV Contrast, patient injected with 100 mL of Isovue 300. TECHNIQUE: Axial images at 5 mm thick sections. Reconstructed images in the coronal plane. Delayed images through the kidneys. FINDINGS: CT CHEST: Portion of the thyroid visualized is normal. No suspicious lung nodules or focal infiltrates are present. No enlarged mediastinal or hilar adenopathy is evident. A few small shoddy lymph nodes are present. The ascending aorta diameter at the level of the main pulmonary artery is 3.6 cm. The main pulmonary artery diameter at the bifurcation is 3.1 cm. Some coronary artery calcification is present. CT ABDOMEN: Liver: Normal Spleen: Normal Pancreas: Normal Adrenal glands: The adrenal glands are normal. Gallbladder: Normal Kidneys: Right kidney superior pole is atrophic. A nonobstructing punctate renal stone is present on the right.. No hydronephrosis is present. Cortical renal cysts on the left kidney Delayed images w ere obtained through the kidneys, which remain unremarkable. Aorta: Vascular calcification is within the aorta. Inferior vena cava: Normal. CT PELVIS: Anterior right pelvic wall hernia is present with an opening of 3.2 cm. Nondilated loops o f contrast-filled bowel are present. Mesenteric fat-containing small inguinal hernias may be present. Loops of bowel within the abdomen and pelvis are normal. There are loops of bowel which are incom pletely distended or lack oral contrast limiting their evaluation. Fecal debris is within the distal colon. Prior rectosigmoid surgery is evident. Appendix: Normal as visualized. Urinary bladder: Decompressed. Some wall thickening is not excluded. This could be related to incompl ete distention. Genitourinary structures: Prostate does not appear enlarged. Some calcification is present. Osseous structures: No suspicious lytic or sclerotic lesions. IMPRESSION: 1. No suspicious changes to suggest recurrent or metastatic colorectal cancer. 2. Right anterior pelvic wall hernia containing nondilated loops of bowel. 3. No significant interval change.
== END | disposition home or self-care (01) ==
LOC: RADCTMAIN 09:30
PROVIDERS: ATTEND Internal Medicine Hematology & Oncology
DX: C20 Malignant neoplasm of rectum (principal); C19 Malignant neoplasm of rectosigmoid junction
CPT/HCPCS: 71260; 74177; Q9967

== ENCOUNTER 2024-04-20 11:56 | Emergency (ER) | payer BC ==
--- NOTE | 2024-04-20 12:14 | ED ---
Recheck HPI - General Source: patient, RN notes reviewed Mode of arrival: ambulatory Limitations: no limitations - History of Present Illness MD Complaint: abnormal lab <Esperanza Miranda - Last Filed: 04/20/24 12:13> <Jennifer Pinto - Last Filed: 04/21/24 12:30> - General Chief Complaint: Recheck/Abnormal Lab/Rx Stated Complaint: Abnormal Labs Time Seen by Provider: 04/20/24 12:10 - History of Present Illness Initial Comments: Quick Note: This is a 63-year-old male who presents to the emergency department for hyperkalemia. Patient was supposed to have an outpatient CT scan done today as part of monitoring for cancer. However, he had also gotten blood work done and received a phone call saying that his potassium was high and he needed to come here for evaluation. Denies any chest pain or shortness of breath. Denies any history of hyperkalemia in the past. (Esperanza Miranda) Patient is a pleasant 63-year-old gentleman presenting today for elevated potassium outpatient labs. Patient was going to have a CT scan today monitoring for colorectal cancer and was noted a potassium was "tia high" so was sent to the emergency department by his air purifier servicer. Patient was recently started on metoprolol by his supervisor soakers, Dr. Sandra and upon being discharged in the hospital after open heart surgery Josiah was discharged on Entresto. He shilpa es any decreased urine output. Denies any additional symptoms including dizziness, chest pain, shortness of breath, abdominal pain, flank pain or diarrhea. He is not currently undergoing treatment for colon CA and CT today was for recheck purposes. (Jennifer Pinto) - Related Data Home Medications Medication Instructions Recorded Confirmed Atorvastatin Calcium [Lipitor] 40 mg PO HS 04/17/22 03/27/23 Gabapentin [Neurontin] 200 mg PO BID 03/14/23 03/27/23 Previous Rx's Medication Instructions Recorded Acetaminophen Tab [Tylenol] 650 mg PO Q6HR PRN tab 03/25/23 Aspirin 81 mg PO DAILY #30 tab 03/25/23 Clopidogrel [Plavix] 75 mg PO DAILY #30 tab 03/25/23 Ferrous Sulfate [Feosol] 325 mg PO DAILY #30 tab 03/25/23 Metoprolol Tartrate [Lopressor] 25 mg PO BID #60 tab 03/25/23 ceFAZolin [Kefzol] 2 gm IVP Q8HR #1 each 03/25/23 Albuterol Inhaler [Ventolin Hfa 2 puff INHALATION RT-QID #1 each 03/27/23 Inhaler] Torsemide [Demadex] 10 mg PO DAILY #30 tab 03/27/23 guaiFENesin-DM 100-10MG/5ML 10 ml PO QID #250 ml 03/27/23 [Robitussin DM] Allergies Allergy/AdvReac Type Severity Reaction Status Date / Time No Known Allergies Allergy Verified 04/20/24 12:18 Review of Systems ROS Other: All systems not noted in ROS Statement are negative. <Esperanza Miranda - Last Filed: 04/20/24 12:13> ROS Other: All systems not noted in ROS Statement are negative. <Jennifer Pinto - Last Filed: 04/21/24 12:30> ROS Statement: Those systems with pertinent positive or pertinent negative responses have been documented in the HPI. Past Medical History Past Medical History: Coronary Artery Disease (CAD), Cancer, Chest Pain / Angina, Heart Failure, Hypertension, Myocardial Infarction (VA), Pneumonia, Renal Disease Additional Past Medical History / Comment(s): VA 2009 Last Myocardial Infarction Date:: 2009 History of Any Multi-Drug Resistant Organisms: None Reported Past Surgical History: Heart Catheterization With Stent, Tonsillectomy Additional Past Surgical History / Comment(s): Bilateral aortorenal endarterectomy in his 20s; colon resection Past Anesthesia/Blood Transfusion Reactions: No Reported Reaction Past Psychological History: No Psychological Hx Reported Smoking Status: Former smoker Past Alcohol Use History: None Reported Past Drug Use History: None Reported - Past Family History Mother Additional Family Medical History / Comment(s): leukemia Father Family Medical History: Myocardial Infarction (VA) Additional Family Medical History / Comment(s): stents <Esperanza Miranda - Last Filed: 04/20/24 12:13> General Exam <Esperanza Miranda - Last Filed: 04/20/24 12:13> <Jennifer Pinto - Last Filed: 04/21/24 12:30> - General Exam Comments Initial Comments: Visual Physical Exam Vital signs reviewed General: Well-appearing, nontoxic, no acute distress. Head: Normocephalic, atraumatic Eyes: PERRLA, EOMI ENT: Airway patent Chest: Nonlabored breathing Skin: No visual rash, normal skin tone Neuro: Alert and oriented 3 Musculoskeletal: No gross abnormalities (Esperanza Miranda) PE: CONSTITUTIONAL: No apparent distress, well appearing SKIN: Warm, dry, no jaundice, hives or petechiae EYES: Pupils are equally round, extraocular movements intact without nystagmus, clear conjunctiva, non-icteric sclera HENT: Normocephalic, atraumatic, moist mucus membranes, oropharynx clear without exudates NECK: , Full range of motion, normal appearance PULMONARY: Clear to auscultation without wheezes, rhonchi, or rales, normal excursion, no accessory muscle use and no stridor CARDIOVASCULAR: Regular rate, rhythm, normal S1 and S2. No appreciated murmurs, rubs or gallops. Extremities are well-perfused, no lower extremity edema GASTROINTESTINAL: Soft, active bowel sounds throughout, non-tender, non- distended, no palpable masses, no rebound or guarding. No hepatosplenomegaly, no CVA tenderness GENITOURINARY: MUSCULOSKELETAL: Extremities have no gross deformity, no edema, redness, or swelling. NEUROLOGIC:_a/o x 3, GCS 15, normal mentation and speech. Moves all extremities x 4 without motor or sensory deficit PSYCHIATRIC:_normal mood and affect, thought process is clear and linear (Jennifer Pinto) Course Vital Signs 04/20/24 04/20/24 04/20/24 12:17 17:01 19:15 Temperature 98.3 F 97.8 F 98.4 F Pulse Rate 71 64 80 Respiratory 20 19 16 Rate Blood Pressure 130/71 118/73 123/89 O2 Sat by Pulse 98 97 100 Oximetry Medical Decision Making <Esperanza Miranda - Last Filed: 04/20/24 12:13> - Lab Data Result diagrams: 04/20/24 12:35 04/20/24 16:59 <Jennifer Pinto - Last Filed: 04/21/24 12:30> - Medical Decision Making I performed the QuickNote portion of this chart. Signed Esperanza Miranda PA-C. (Esperanza Miranda) Was pt. sent in by a medical professional or institution (CECELIA Aragon, BUFFET MANAGER, urgent care, hospital, or custodial...) When possible be specific @Patient was sent in by his air purifier servicer after being noted to have a potassium greater than 6 on outpatient labs Did you speak to anyone other than the patient for history (EMS, parent, family, police, friend...)? What history was obtained from this source @ -No Did you review nursing and triage notes (agree or disagree)? Why? @ -I reviewed nursing and triage notes Were old charts reviewed (outside hosp., previous admission, EMS record, old EKG, old radiological studies, urgent care reports/EKG's, custodial records)? Report findings @ -Medical records reviewed Differential Diagnosis (chest pain, altered mental status, abdominal pain women, abdominal pain men, vaginal bleeding, weakness, fever, dyspnea, syncope, headache, dizziness, GI bleed, back pain, seizure, CVA, palpatations, mental health, musculoskeletal)? @Differential diagnosis remains broad however top considerations include acute renal failure, medication side effect, hemolysis/lab error, increase dietary intake of potassium, dehydration, this is not all-inclusive list EKG interpreted by me (3pts min.). Sinus rhythm, rate 71 bpm, MT interval 174 ms, QT/QTc 375/397 ms, normal axis, 1 mm depression V5, T wave inversion V4 through V6, no STEMI compared to EKG performed on 03/24/2023, T wave inversions in leads V4 through V6 are present on prior, ST depressions V4 V5 present on prior EKG, no new ST elevations or depressions from prior EKG X-rays interpreted by me (1pt min.). @ -None done CT interpreted by me (1pt min.). @ -None done U/S interpreted by me (1pt. min.). @ -I see no evidence of hydronephrosis What testing was considered but not performed or refused? (CT, X-rays, U/S, labs)? Why? @ -None What meds were considered but not given or refused? Why? @Considered a dose albuterol however ultimately this order was canceled so as not to overshoot potassium correction Did you discuss the management of the patient with other professionals (professionals i.e. CECELIA Aragon, BUFFET MANAGER, lab, RT, psych nurse, social sciences instructor, getterer, teacher, resident medical officer, block and case maker)? Give summary @ -No Was smoking cessation discussed for >3mins.? @ -No Was critical care preformed (if so, how long)? @Yes, 35 minutes, spent obtaining hx/ evaluating patient, ordering and interpreting labs and imaging, reassessment of pt Were there social determinants of health that impacted care today? How? (Homelessness, low income, unemployed, alcoholism, drug addiction, transportation, low edu. Level, literacy, decrease access to med. care, detention, rehab)? @ -No Was there de-escalation of care discussed even if they declined (Discuss DNR or withdrawal of care, Hospice)? @ -No What co-morbidities impacted this encounter? (DM, HTN, Smoking, COPD, CAD, Cancer, CVA, ARF, Chemo, Hep., AIDS, mental health diagnosis, sleep apnea, morbid obesity)? @CAD, HTN, colon rectal CA, now in remission, CKD, CHF Was patient admitted / discharged? Hospital course, mention meds given and route, prescriptions, significant lab abnormalities, going to OR and other pertinent info. @Discharged- Patient is a 63-year-old gentleman with a past medical history of recent CABG, colon cancer CAD, CHF, hypertension presenting today for elevated potassium on outpatient labs.On review of patient's labs GFR was previously 54 on 05/28/2023 was 44 outpatient labs drawn this morning at 10:16, potassium was 6.1, creatinine this morning 1.66 and last June was 1.5. Complete history physical exam was obtained by myself. Plan for CBC, CMP and EKG, UA. Potassium here 5.5, creatinine 1.62. I discussed this with patient and he would like to go home today, he states that the last time he was admitted to the hospital he ended up with pneumonia and COVID-19. States he was recently admitted for CABG and is afraid that he will become sick from being hospitalized again.I discussed with him administering medications to decrease the potassium level, obtaining ultrasound of the kidneys, IV fluids and lab recheck to attempt to discharge pt home for outpatient follow up. Pt agreeable with POC. Personally reviewed patient's renal ultrasound, I see no evidence of hydronephrosis, read by radiologist as an irregular shaped right kidney with superior/mid kidney atrophy noted with no hydronephrosis or masses noted reviewed CT scan from 12/03/2023, patient was noted to have the superior pole of the right kidney being atrophic at that time as well. Reviewed this with patient and he is aware of this. Labs reviewed, potassium now 3.4, creatinine much improved at 0.98, GFR 84, of note calcium 6.2, on initial labs this morning was 9.3, I suspect this may be a diluted sample so an ionized calcium will be run, additionally blood glucose 50, on my assessment patient is asymptomatic though we will give him juice and recheck his sugar. Pending urinalysis and ionized calcium level anticipate discharge. Though K is slightly now hypokalemic, I discussed w/ pt avoiding further supplementation in the ED so as to avoid overcorrecting and discussed pt's home potassium w/ him including dietary sources of potassium. Ical 5.2 wnl. Updated pt to findings, he will follow up w/ his neprholgist in the morning and discuss rechecking his kidney function and K again this coming Thursday or Thursday. Further, we discussed signs and symptoms to monitor for warranting return to the ED. Pt verbalized understanding and is ready for discharge home. In my medical judgment there is currently no evidence of an immediate life- threatening or surgical condition. Discharge is therefore indicated at this time. Discharge treatment instructions, follow up instructions, and appropriate emergency department return precautions were discussed with the patient and/or medical decision maker. Patient and/or medical decision maker expressed understanding of and agreed with the treatment plan, follow up instructions, and emergency department return precaution. All patient's and/or medical decision maker's questions were answered. Undiagnosed new problem with uncertain prognosis? @ -No Drug Therapy requiring intensive monitoring for toxicity (Heparin, Nitro, Insulin, Cardizem)? @ -No Were any procedures done? @ -No Diagnosis/symptom? @Hyperkalemia Acute, or Chronic, or Acute on Chronic? @Acute Uncomplicated (without systemic symptoms) or Complicated (systemic symptoms)? @ -Uncomplicated Side effects of treatment? @ -No Exacerbation, Progression, or Severe Exacerbation? @ -No Poses a threat to life or bodily function? How? (Chest pain, [place], VA, pneumonia, PE, COPD, DKA, ARF, appy, cholecystitis, CVA, Diverticulitis, Homicidal, Suicidal, threat to staff... and all critical care pts) @At time of discharge, no, however prior to treatment in the emergency department potassium was elevated at 6.1 on outpatient labs and this can be life-threatening by predisposing patient to dysrhythmias. There were no signs of hyperkalemia on today's EKG and hyperkalemia was corrected by the time patient was discharged (Jennifer Pinto) - Lab Data Lab Results 04/20/24 04/20/24 04/20/24 Range/Units 12:35 12:35 16:59 WBC 5.2 (3.8-10.6) k/uL RBC 4.18 L (4.30-5.90) m/uL Hgb 11.9 L (13.0-17.5) gm/dL Hct 37.5 L (39.0-53.0) % MCV 89.8 (80.0-100.0) fL MCH 28.5 (25.0-35.0) pg MCHC 31.7 (31.0-37.0) g/dL RDW 15.3 (11.5-15.5) % Plt Count 217 (150-450) k/uL MPV 7.2 Neutrophils % 60 % Lymphocytes % 19 % Monocytes % 8 % Eosinophils % 8 % Basophils % 1 % Neutrophils # 3.1 (1.3-7.7) k/uL Lymphocytes # 1.0 (1.0-4.8) k/uL Monocytes # 0.4 (0-1.0) k/uL Eosinophils # 0.4 (0-0.7) k/uL Basophils # 0.0 (0-0.2) k/uL Hypochromasia Moderate Sodium 139 141 (137-145) mmol/L Potassium 5.5 H 3.4 L (3.5-5.1) mmol/L Chloride 110 H 122 H (98-107) mmol/L Carbon Dioxide 18 L 13 L (22-30) mmol/L Anion Gap 11 6 mmol/L BUN 41 H 27 H (9-20) mg/dL Creatinine 1.62 H 0.98 (0.66-1.25) mg/dL Est GFR (CKD-EPI)AfAm 52 >90 (>60 ml/min/1.73 sqM) Est GFR (CKD-EPI)NonAf 45 84 (>60 ml/min/1.73 sqM) Glucose 88 50 L (74-99) mg/dL Calcium 9.3 6.2 L* (8.4-10.2) mg/dL Ionized Calcium Vish (4.5-5.3) mg/dL Magnesium 2.0 (1.6-2.3) mg/dL Total Bilirubin 0.8 (0.2-1.3) mg/dL AST 25 (17-59) U/L ALT 17 (4-49) U/L Alkaline Phosphatase 88 (38-126) U/L Total Protein 6.6 (6.3-8.2) g/dL Albumin 4.3 (3.5-5.0) g/dL Urine Color Urine Appearance (Clear) Urine pH (5.0-8.0) Ur Specific [place] (1.001-1.035) Urine Protein (Negative) Urine Glucose (UA) (Negative) Urine Ketones (Negative) Urine Blood (Negative) Urine Nitrite (Negative) Urine Bilirubin (Negative) Urine Urobilinogen (<2.0) mg/dL Ur Leukocyte Esterase (Negative) 04/20/24 04/20/24 Range/Units 17:54 17:54 WBC (3.8-10.6) k/uL RBC (4.30-5.90) m/uL Hgb (13.0-17.5) gm/dL Hct (39.0-53.0) % MCV (80.0-100.0) fL MCH (25.0-35.0) pg MCHC (31.0-37.0) g/dL RDW (11.5-15.5) % Plt Count (150-450) k/uL MPV Neutrophils % % Lymphocytes % % Monocytes % % Eosinophils % % Basophils % % Neutrophils # (1.3-7.7) k/uL Lymphocytes # (1.0-4.8) k/uL Monocytes # (0-1.0) k/uL Eosinophils # (0-0.7) k/uL Basophils # (0-0.2) k/uL Hypochromasia Sodium (137-145) mmol/L Potassium (3.5-5.1) mmol/L Chloride (98-107) mmol/L Carbon Dioxide (22-30) mmol/L Anion Gap mmol/L BUN (9-20) mg/dL Creatinine (0.66-1.25) mg/dL Est GFR (CKD-EPI)AfAm (>60 ml/min/1.73 sqM) Est GFR (CKD-EPI)NonAf (>60 ml/min/1.73 sqM) Glucose (74-99) mg/dL Calcium (8.4-10.2) mg/dL Ionized Calcium Vish 5.2 (4.5-5.3) mg/dL Magnesium (1.6-2.3) mg/dL Total Bilirubin (0.2-1.3) mg/dL AST (17-59) U/L ALT (4-49) U/L Alkaline Phosphatase (38-126) U/L Total Protein (6.3-8.2) g/dL Albumin (3.5-5.0) g/dL Urine Color Colorless Urine Appearance Clear (Clear) Urine pH 6.0 (5.0-8.0) Ur Specific [place] 1.012 (1.001-1.035) Urine Protein Negative (Negative) Urine Glucose (UA) Negative (Negative) Urine Ketones Negative (Negative) Urine Blood Negative (Negative) Urine Nitrite Negative (Negative) Urine Bilirubin Negative (Negative) Urine Urobilinogen <2.0 (<2.0) mg/dL Ur Leukocyte Esterase Negative (Negative) Disposition <Esperanza Miranda - Last Filed: 04/20/24 12:13> Is patient prescribed a controlled substance at d/c from ED?: No <Jennifer Pinto - Last Filed: 04/21/24 12:30> Clinical Impression: Hyperkalemia Disposition: HOME SELF-CARE Condition: Good Instructions (If sedation given, give patient instructions): Hypokalemia (ED), Hyperkalemia (ED) Additional Instructions: Every disease is a spectrum and a small chance still exists that a serious condition could develop, for this reason, please monitor yourself closely for new, changing or worsening symptoms, symptoms that persist beyond [48 hours], dizziness, lightheadedness, feeling like your heart is racing/palpitations, shortness of breath, chest pain, leg swelling, or, decreased urine output inability to tolerate/keep down fluids or your medications, inability to follow up with outpatient providers as instructed and should you experience these symptoms or should you have any further concerns for your wellbeing please return to the ED or call 911 immediately. Please call your air purifier servicer first thing in the morning regarding follow-up on today's visit and recheck of kidney function and potassium level PLEASE call your primary care physician as soon as possible to arrange / discuss plan for followup appointment. Appointment in the next 1-3 days is strongly encouraged if possible. PLEASE let us know here before you leave if there is anything further we can do to be of any assistance. Take care and feel Better! Referrals: Nicky Stone NPC [REFERRING] - 1-2 days
[2024-04-20 13:11] LABS: Basophils % (A) 1 %; Eosinophils # (A) 0.4 k/uL (0-0.7); Eosinophils % (A) 8 %; HCT 37.5 % (39.0-53.0); HGB 11.9 gm/dL (13.0-17.5); Hypochromasia Moderate; Lymphocytes % (A) 19 %; MCH 28.5 pg (25.0-35.0); MCHC 31.7 g/dL (31.0-37.0); MCV 89.8 fL (80.0-100.0); Mean Platelet Volume 7.2; Monocytes # (A) 0.4 k/uL (0-1.0); Monocytes % (A) 8 %; Neutrophils # (A) 3.1 k/uL (1.3-7.7); Neutrophils % (A) 60 %; Platelet Count 217 k/uL (150-450); RBC 4.18 m/uL (4.30-5.90); RDW 15.3 % (11.5-15.5); WBC 5.2 k/uL (3.8-10.6)
[2024-04-20 13:30] LABS: ALT 17 U/L (4-49); AST 25 U/L (17-59); African American GFR (CKD) 52 (>60 ml/min/1.73 sqM); Albumin 4.3 g/dL (3.5-5.0); Alkaline Phosphatase 88 U/L (38-126); Anion Gap 11 mmol/L; Blood Urea Nitrogen 41 mg/dL (9-20); Calcium 9.3 mg/dL (8.4-10.2); Carbon Dioxide 18 mmol/L (22-30); Chloride 110 mmol/L (98-107); Glucose 88 mg/dL (74-99); Non-African American GFR(CKD) 45 (>60 ml/min/1.73 sqM); Potassium 5.5 mmol/L (3.5-5.1); Sodium 139 mmol/L (137-145); Total Bilirubin 0.8 mg/dL (0.2-1.3); Total Protein 6.6 g/dL (6.3-8.2)
[2024-04-20] MEDS ORDERED: ALBUTEROL NEB (CONC) 2.5 MG/0.5 ML INHALATION ONE (13:34)
[2024-04-20] MEDS: DEXTROSE 50% SYRINGE 50 ML IVP ONE (14:59)
[2024-04-20] MEDS: INSULIN REGULAR 100 UNIT/ML VIAL (IV) IV ONE (15:02)
[2024-04-20] MEDS: CALCIUM GLUCONATE IN NACL 1 GM in SALINE 1 100ML.BAG IVPB ONE (15:05)
[2024-04-20] MEDS: SODIUM ZIRCONIUM CYCLOSILICATE 10 GM PACKET PO ONE (15:07)
[2024-04-20] MEDS: SODIUM CHLORIDE 0.9% 1,000 ML IV ONE (15:35)
[2024-04-20] MEDS: SODIUM CHLORIDE 0.9% 500 ML 500 ML IV ONE (15:55)
--- NOTE | 2024-04-20 17:12 | US ---
EXAMINATION TYPE: US renals and bladder DATE OF EXAM: 04/20/2024 COMPARISON: CT December 03, 2023 CLINICAL INDICATION: Male, 63 years old with history of SY; abnormal labs. Hx atrophic right kidney TECHNIQUE: Grayscale imaging of the bilateral kidneys and urinary bladder: FINDINGS: EXAM MEASUREMENTS: Right Kidney: 9.5 x 4.5 x 4.7 cm Left Kidney: 10.7 x 4.8 x 5.9 cm Right Kidney: Irregular shaped. Superior/mid kidney atrophy seen. Left Kidney: No hydronephrosis or masses seen Bladder: Distended, anechoic Left jet seen Increased cortical echogenicity upper pole right kidney. No concerning focal renal masses bilaterally . No hydronephrosis seen bilaterally. Bladder is adequately distended. IMPRESSION: No hydronephrosis is seen bilaterally. [facility], , 04/20/2024 5:10 PM
[2024-04-20 17:20] LABS: African American GFR (CKD) >90 (>60 ml/min/1.73 sqM); Anion Gap 6 mmol/L; Blood Urea Nitrogen 27 mg/dL (9-20); Carbon Dioxide 13 mmol/L (22-30); Chloride 122 mmol/L (98-107); Glucose 50 mg/dL (74-99); Non-African American GFR(CKD) 84 (>60 ml/min/1.73 sqM); Potassium 3.4 mmol/L (3.5-5.1); Sodium 141 mmol/L (137-145)
[2024-04-20 17:23] LABS: Calcium 6.2 mg/dL (8.4-10.2)
[2024-04-20 18:12] LABS: Appearance,Urine Clear (Clear); Bilirubin,Urine Negative (Negative); Blood,Urine Negative (Negative); Color,Urine Colorless; Glucose,Urine (UA) Negative (Negative); Ketones,Urine Negative (Negative); Leukocyte Esterase,Urine Negative (Negative); Nitrite,Urine Negative (Negative); Protein,Urine Negative (Negative); Specific Gravity,Urine 1.012 (1.001-1.035); Urobilinogen,Urine <2.0 mg/dL (<2.0)
[2024-04-20 19:16] VITALS: BP 123/89; PULSE 80; RESP 16; TEMP 98.4
== END 2024-04-20 19:16 | disposition home or self-care (01) ==
LOC: EC 11:56
DX: E87.5 Hyperkalemia (principal); I25.10 Atherosclerotic heart disease of native coronary artery without angina pectoris; I13.0 Hypertensive heart and chronic kidney disease with heart failure and stage 1 through stage 4 chronic kidney disease, or unspecified chronic kidney disease; N18.9 Chronic kidney disease, unspecified; I50.9 Heart failure, unspecified; Z79.899 Other long term (current) drug therapy; Z87.891 Personal history of nicotine dependence; Z85.038 Personal history of other malignant neoplasm of large intestine
CPT/HCPCS: 96361 ×2; 96374 ×2; 96375 ×2; 99284 ×2; 36415; 93005; 80053; 80048; 82330; 83735; 85025; 81003; 76770; J0613

== ENCOUNTER → 2024-04-28 | Outpatient (CLI) | payer BC ==
--- NOTE | 2024-04-28 15:38 | CT ---
EXAMINATION TYPE: CT ChestAbdPelvis wo con DATE OF EXAM: 04/28/2024 COMPARISON: 12/03/2023 CLINICAL INDICATION: Male, 63 years old with history of C20, D50.9, I10, E78.5 MALIGNANT NEOPLASM OF RECTUM; PHH, Malignant neoplasm of rectum. TECHNIQUE: CT scan of the thorax, abdomen and pelvis is performed without IV contrast. CT DLP: [address] CTDI: mGy Automated exposure control for dose reduction was used. FINDINGS: CT chest: There is a Mediport catheter in the right chest. Catheter terminates in the SVC/RA junction. There is no suspicious lung mass or nodule. There is no abnormal airspace/consolidative density or abnormal interstitial density. There is no pleural effusion, pleural thickening or pneumothorax. The great vessels and chest are normal there is no mediastinal, hilar or axillary adenopathy. No focal osseous lesions are seen. CT abdomen and pelvis: Gallbladder is normal without distention, pericholecystic fluid, wall thickening or gallstone. There is no biliary ductal dilatation. There is no organomegaly involving the liver, pancreas, spleen or adrenal glands.. There is no solid renal mass or hydronephrosis. There is mild right renal atrophy. There is no retrop eritoneal adenopathy or hemorrhage in the caliber of the abdominal aorta is normal. The bowel loops are normal in caliber and there is no dilatation or obstruction. No inflammatory leiva ges identified in the bowel wall and mesentery. There is no free intracranial air or fluid. There are post surgical changes with surgical sutures in the rectosigmoid region. There is herniation of elan l-appearing small bowel the previous right right lower quadrant ostomy. There is no pelvic mass or adenopathy. There is no free fluid within the pelvis. No focal osseous lesions are seen. Soft tissue the abdomen and pelvis are normal. IMPRESSION: 1. Stable mild right renal atrophy. 2. Stable herniation in the right lower quadrant containing normal-appearing small bowel. 3. No evidence of metastatic or recurrent neoplasm. [facility], , 04/28/2024 3:36 PM
== END | disposition home or self-care (01) ==
LOC: RADCTMAIN 12:30
PROVIDERS: ATTEND Internal Medicine Hematology & Oncology
DX: C20 Malignant neoplasm of rectum (principal); N26.1 Atrophy of kidney (terminal)
CPT/HCPCS: 71250; 74176

== ENCOUNTER → 2024-08-24 | Outpatient (CLI) | payer BC ==
--- NOTE | 2024-08-24 12:36 | CT ---
EXAMINATION TYPE: CT ChestAbdPelvis w con DATE OF EXAM: 08/24/2024 11:35 AM COMPARISON: 04/28/2024, 12/03/2023 CLINICAL INDICATION: Male, 63 years old with history of C20 RECTAL CANCER; [facility], [place]-rectal ca rechec k Technique: CT of the chest, abdomen, and pelvis after IV contrast. Delayed images through the kidneys . Two-dimensional coronal and sagittal reconstructions were obtained. Contrast used:100 mL of Isovue 300 with IV Contrast, Oral contrast used: with Oral Contrast CT DLP: 2108.4 mGycm, Automated exposure control for dose reduction was used. Findings: CHEST: Right anterior chest wall injection port with catheter tip in the SVC. Median sternotomy wires are present with prosthetic aortic valve. Partially united median sternotomy. Heart borderline in size without pericardial effusion. Extensive three-vessel coronary artery calcifi cations are present. Mild atherosclerotic arch calcifications with conventional arch vessel branching anatomy. Mildly enlarged right hilar lymph nodes measuring up to 2.0 cm appear increased from 1.4 cm. Subcarinal node 1.0 cm versus 8 mm, previously. No other thoracic lymphadenopathy by CT size criteria. Some mild strandy atelectasis in the lower lungs. Mild diffuse bronchial wall thickening. Mild emphys ematous change. No consolidation or pleural effusion. ABDOMEN: No focal liver lesion or biliary ductal dilatation. Portal venous system is patent. Gallbladder, adrenal glands, spleen, and pancreas within normal limits. Unchanged 1.5 cm exophytic cyst anterior left kidney. Unchanged atrophic upper to mid right kidney wi th a proximal right renal artery stent noted. Likely consequence of chronic right renal artery stenos is. There is a patent accessory right renal artery supplying the lower pole. No dilated small bowel, free fluid, or free air. Oral contrast progressed into the transverse colon. There is moderate to large stool burden. Evidence of prior resection and reanastomosis of the rectosigmoid junction. Presacral soft tissue thickening here remains unchanged. Evidence of previous right lower quadrant colostomy takedown with persistent abdominal wall hernia he re measuring 9.2 cm wide and hernia neck measuring 3.4 cm wide, unchanged. Containing loops of nonobs tructed small bowel. No mesenteric or retroperitoneal lymphadenopathy. Pelvis: Bladder urine distended. No abnormal fluid collection in the pelvis or pelvic lymphadenopathy. Presac ral soft tissue thickening as seen previously with post resection and re-anastomotic changes at the r ectosigmoid junction as mentioned above. Moderate left scrotal hydrocele. Slightly patulous left inguinal canal. No abnormal fluid collection otherwise seen in the pelvis or pelvic lymphadenopathy. Bones: Mild degenerative changes both hips. DISH lower thoracic spine. Hypertrophic facet arthropathy lower lumbar spine along with mild degenerative disc disease. No osseous destructive process seen. IMPRESSION: 1. COPD with mild emphysema. A right hilar lymph node appears to have enlarged measuring 2.0 cm versu s 1.4 cm, previously. A nonenlarged 1.0 cm subcarinal lymph node measured 8 mm, previously. This danielle l enlargement may be reactive/post inflammatory. Short interval follow-up recommended to ensure stabi lity/resolution. 2. Otherwise, there is similar postsurgical change from previous resection and reanastomosis at the r ectum. The presacral soft tissue thickening remains unchanged suggesting scar tissue. No suspicious l ymphadenopathy or mass to suggest recurrent/metastatic disease.. A 3 3. Right renal artery stenosis with atrophic upper pole right kidney. The lower pole is preserved by a patent accessory branch. 4. Moderate to large stool burden. Evidence of prior colostomy takedown right lower quadrant or persi stent abdominal wall hernia measuring 9.2 cm wide and containing nonobstructed small bowel loops. [facility], , 08/24/2024 12:33 PM
== END | disposition home or self-care (01) ==
LOC: RADCTMAIN 09:30
PROVIDERS: ATTEND Internal Medicine Hematology & Oncology
DX: C20 Malignant neoplasm of rectum (principal); D50.9 Iron deficiency anemia, unspecified; I10 Essential (primary) hypertension; E78.5 Hyperlipidemia, unspecified; J44.9 Chronic obstructive pulmonary disease, unspecified; J43.9 Emphysema, unspecified; I70.1 Atherosclerosis of renal artery
CPT/HCPCS: 71260; 74177; Q9967